=== PATIENT | female | born 1965 | race Caucasian/White ===

== ENCOUNTER 2017-03-31 19:08 | Emergency (ER) | payer BC ==
[~2017-03-31] VITALS: Ht 160 cm; Wt 111.1 kg
[2017-03-31 19:15] VITALS: Ht 160 cm; Wt 111.1 kg
[2017-03-31] MEDS ORDERED: SODIUM CHLORIDE 0.9% 1000ML 1,000 ML IV ONE (19:45)
[2017-03-31 19:46] VITALS: O2SAT 99
[2017-03-31] MEDS ORDERED: ASPIRIN 81 MG CHEW PO STA (19:47)
[2017-03-31 19:53] LABS: BASO % 0.4 %; BASO ABS # 0.03 K/uL (0-0.2); COMPLETE YES; EOS % 2.2 %; HEMATOCRIT 40.9 % (37-47); IG% 0.4 %; LYMPH % 26.2 %; LYMPH ABS # 1.88 K/uL (1.2-3.4); MEAN CELL VOLUME 94.9 fL (80-100); MEAN CORPUSCULAR HEMOGLOBIN 31.6 pg (25-34); MEAN CORPUSCULAR HGB CONC 33.3 g/dl (32-36); MONO % 12.7 %; NEUT % 58.1 %; PLATELET COUNT 258 K/uL (130-400); RED BLOOD COUNT 4.31 M/uL (4.2-5.4); WHITE BLOOD COUNT 7.17 K/uL (4.8-10.8)
[2017-03-31] MEDS ORDERED: NITROGLYCERIN 0.4 MG SL PER TAB CHARGE SL PRN (20:00)
[2017-03-31 20:12] LABS: ALT/SGPT 21 U/L (12-78); AST/SGOT 11 U/L (15-37); BLOOD UREA NITROGEN 19 mg/dl (7-18); BUN/CREATININE RATIO 19.5 (10-20); CALCIUM 8.7 mg/dl (8.5-10.1); CARBON DIOXIDE 28 mmol/L (21-32); CHLORIDE 107 mmol/L (98-107); CREATININE 0.99 mg/dl (0.60-1.20); GLUCOSE 67 mg/dl (70-99); POTASSIUM 3.6 mmol/L (3.5-5.1); SODIUM 142 mmol/L (136-145)
[2017-03-31 20:16] LABS: PREG INTERNAL NEGATIVE QC NEG CLEAR BACKGROUND; PREG INTERNAL POSITIVE QC POS CONTROL LINE
[2017-03-31 20:17] LABS: ALKALINE PHOSPHATASE 89 U/L (45-117); CKMB/CK RATIO 0.5 (0-3.0)
--- NOTE | 2017-03-31 20:19 | DIAGNOSTIC IMAGING REPORT ---
CHEST ONE VIEW PORTABLE CLINICAL HISTORY: Chest pain. Left arm pain. COMPARISON STUDY: Chest radiograph April 07, 2016. FINDINGS: Mild elevation of the left hemidiaphragm with left basilar atelectasis is unchanged. Cardiac size is normal. Mediastinal contours are normal. There is no evidence of pulmonary edema. The appearance of the chest is unchanged. IMPRESSION: No acute cardiopulmonary findings. No change in appearance of the chest. Electronically signed by: Cesar Melgar M.D. 03/31/2017 8:18 PM Dictated Date/Time: 03/31/2017 8:17 PM
[2017-03-31] MEDS ORDERED: MoRPHine SULFATE 2 MG/ML CARP IV STA (20:52)
[2017-03-31 22:47] VITALS: BP 130/70; PULSE 68; O2SAT 97
--- NOTE | 2017-04-02 00:28 | EMERGENCY ROOM VISIT NOTE ---
ED Visit Note First contact with patient: 19:34 Chief Complaint: Chest pain. History of Present Illness: Ms. Tyler is a 51 year-old white female complaining of chest pain. Historically patient reports she does not have any history of heart disease but has risks factors of send her lifestyle and obesity. She does report she has a family history of coronary artery disease which includes her mother who has had cardiovascular disease and valvular heart disease. Patient reports an acute onset of pain that started approximately 2 hours ago when she was at rest. Since that time the pain has been constant. The pain is currently described as cramping. She places her discomfort over the left lateral aspect of the sternum then transfer's is superiorly to the lateral aspect of the neck, into the scapular area then back into the mid trapezius, over to her shoulder and down to the forearm. The pain is nonradiating. She rates her discomfort 10/10. She has not identified any aggravating or alleviating factors related to the pain. She has not taken any medications for pain prior to arrival at the hospital. She denies any associated symptoms but does report 3-4 years ago she had similar symptoms then she was diagnosed with an esophageal spasm. Patient denies fevers, chills, sweats, skin eruptions, skin color changes, upper respiratory tract symptoms, wheezing, cough shortness of breath, orthopnea , dependent edema, previous clots, claudication, cramping, recent surgery/ inactivity/extended travel, abdominal pain, nausea, vomiting, diarrhea, constipation, rectal bleeding, black/tarry stools, urinary symptoms, back/flank pain. Review of Systems: As noted above in history of present illness. All body systems were reviewed and found to be negative as noted above. Past Medical History: Migraine headaches, hypothyroidism, status post unspecified hernia repair, hysterectomy and section. Current Medications: Pamelor, thyroid, verapamil. Allergies to Medications: Sulfa, citalopram, levothyroxine yellow dye. Social History: Patient is currently employed; she feels safe in her home environment; she denies tobacco and alcohol use. Physical Examination: Vital Signs: Date Time Temp Pulse Resp B/P Pulse Ox O2 Delivery O2 Flow Rate FiO2 03/31/17 22:47 68 16 130/70 97 Room Air 03/31/17 22:17 65 19 97 03/31/17 21:47 67 19 95 03/31/17 21:31 131/80 03/31/17 21:17 64 20 96 03/31/17 21:12 67 14 97 03/31/17 21:01 126/73 03/31/17 20:42 74 16 95 03/31/17 20:37 71 17 94 03/31/17 20:31 128/77 03/31/17 20:07 78 20 96 03/31/17 20:02 117/73 03/31/17 19:46 99 Room Air 03/31/17 19:41 79 03/31/17 19:38 79 21 03/31/17 19:22 95 Room Air 03/31/17 19:15 67 18 143/86 100 Room Air GENERAL: 51-year-old female in mild to moderate distress due to pain, nontoxic- appearing, afebrile and hemodynamically stable. NEUROLOGICAL: Awake, alert and oriented to person, place and time. Answering questions appropriately and following commands. Normal gait. Good hand eye coordination. SKIN: Warm, dry and pink. No soft tissue eruptions or trauma noted. HEENT: Atraumatic and normocephalic. PERRLA. Sclera white and conjunctiva pink. Oral cavity moist and pink. Pharynx is nonerythematous or edematous. Speech normal. No lymphadenopathy. Trachea midline. No jugular venous distention. No carotid bruits. BACK: No tenderness over the bony spine. Full range of motion of the cervical spine. No CVA tenderness. THORAX: Lungs sounds are clear to auscultation and equal bilaterally with symmetrical chest wall. No wheezing, rales or rhonchi. No crepitus, tenderness , subcutaneous air or deformities noted. HEART: Regular rate and rhythm. No gallops, rubs or murmurs are appreciated. No lifts, heaves or thrills. PMI is not displaced. ABDOMEN: Flat, soft and nontender. Positive bowel sounds in all quadrants. No guarding, rigidity or organomegaly. EXTREMITIES: Moves all extremities well on command and with purpose. All distal neurovascular statuses are intact and equal bilaterally. Minimal dependent edema but no calf tenderness/cords. ED Course: Patient is assessed as noted above. Laboratory Testing: Test 03/31/17 19:35 03/31/17 19:42 Range/Units White Blood Count 7.17 4.8-10.8 K/uL Red Blood Count 4.31 4.2-5.4 M/uL Hemoglobin 13.6 12.0-16.0 g/dL Hematocrit 40.9 37-47 % Mean Corpuscular Volume 94.9 80-100 fL Mean Corpuscular Hemoglobin 31.6 25-34 pg Mean Corpuscular Hemoglobin Concent 33.3 32-36 g/dl Platelet Count 258 130-400 K/uL Mean Platelet Volume 9.0 7.4-10.4 fL Neutrophils (%) (Auto) 58.1 % Lymphocytes (%) (Auto) 26.2 % Monocytes (%) (Auto) 12.7 % Eosinophils (%) (Auto) 2.2 % Basophils (%) (Auto) 0.4 % Neutrophils # (Auto) 4.16 1.4-6.5 K/uL Lymphocytes # (Auto) 1.88 1.2-3.4 K/uL Monocytes # (Auto) 0.91 0.11-0.59 K/uL Eosinophils # (Auto) 0.16 0-0.5 K/uL Basophils # (Auto) 0.03 0-0.2 K/uL RDW Standard Deviation 46.6 36.4-46.3 fL RDW Coefficient of Variation 13.2 11.5-14.5 % Immature Granulocyte % (Auto) 0.4 % Immature Granulocyte # (Auto) 0.03 0.00-0.02 K/uL Sodium Level 142 136-145 mmol/L Potassium Level 3.6 3.5-5.1 mmol/L Chloride Level 107 98-107 mmol/L Carbon Dioxide Level 28 21-32 mmol/L Anion Gap 7.0 3-11 mmol/L Blood Urea Nitrogen 19 7-18 mg/dl Creatinine 0.99 0.60-1.20 mg/dl Est Creatinine Clear Calc Drug Dose 82.3 ml/min Estimated GFR () 77.6 Estimated GFR (Non- 66.9 BUN/Creatinine Ratio 19.5 10-20 Random Glucose 67 70-99 mg/dl Calcium Level 8.7 8.5-10.1 mg/dl Total Bilirubin 0.3 0.2-1 mg/dl Direct Bilirubin < 0.1 0-0.2 mg/dl Aspartate Amino Transf (AST/SGOT) 11 15-37 U/L Alanine Aminotransferase (ALT/SGPT) 21 12-78 U/L Alkaline Phosphatase 89 45-117 U/L Total Creatine Kinase 92 26-192 U/L Creatine Kinase MB 0.5 0.5-3.6 ng/ml Creatine Kinase MB Ratio 0.5 0-3.0 Troponin I < 0.015 0-0.045 ng/ml Total Protein 7.2 6.4-8.2 gm/dl Albumin 3.6 3.4-5.0 gm/dl Lipase 178 73-393 U/L Human Chorionic Gonadotropin, Qual NEG NEG Bedside Troponin I 0.000 0-0.045 ng/ml EKG #[id number] was read by myself and reviewed with Dr. Mckenna; shows normal sinus rhythm with a ventricular rate of 64 bpm. One PVC. Normal intervals, complexes. No acute ST changes indicating ischemia, injury or Infarction. EKG #2: [id number] was read by myself and reviewed with Dr. Mckenna; shows normal sinus rhythm with sinus arrhythmia. Ventricular rate 62 bpm. Normal intervals , complexes. No acute ST changes indicating ischemia, injury or infarction. Chest x-rays: Was reviewed by myself and read by the radiologist showing mild elevation of the left hemidiaphragm with left basilar atelectasis that was unchanged. Cardiac size is normal and shows no acute changes. Patient was reassessed multiple times during her stay in the emergency department. Patient was hydrated with normal saline, she received 0.4 mg of nitroglycerin SL , 324 mg of aspirin by mouth initially for her symptoms. On reassessment she reports she was feeling the same and did not feel this was her heart. She was still rating her pain a 10/10. Patient was given 2 mg of morphine IV for pain. Patient's case was reviewed with Dr. Mckenna; he independently assessed the patient we agreed on diagnostic approach, treatment, disposition and plan. Patient was educated about today's findings and instructed on her treatment plan ; she verbalizes understanding and agreement with this plan. Clinical Impression: Noncardiac chest pain. Decision-Making: Initially my differential diagnosis I considered acute coronary syndrome, thoracic aneurysm, pneumothorax, pneumonia, cervical disc disease with radiculopathy and other causes. Disposition: Patient discharged home in stable condition accompanied by her father; prior to departure she was reassessed and subjectively reported she was feeling better and reported resolution of chest pain but she was still experiencing neck pain radiating down the arm. She rated this discomfort 7/10. Plan: Patient was encouraged to continue her current medications as prescribed. Patient was encouraged to use 650 mg of acetaminophen as needed for pain; she was encouraged to avoid NSAIDs. Patient was encouraged to use 150 mg of Zantac 2 times a day. Patient was encouraged to follow-up with her primary care physician. Patient was encouraged return the ED for worsening/uncontrolled pain shortness of breath, nausea/vomiting or any new/concerning symptoms.
== END 2017-03-31 23:06 | disposition home or self-care (01) ==
LOC: C.EDB 19:11
DX: R07.89 Other chest pain (principal); I49.9 Cardiac arrhythmia, unspecified; E03.9 Hypothyroidism, unspecified; Z79.899 Other long term (current) drug therapy

== ENCOUNTER → 2017-03-31 | Outpatient (CLI) | payer BC ==
[~2017-03-31] MED LIST: CYAN3INJ IM; NORT25CA PO; THYR15TA PO; VERA240C2 PO
--- NOTE | 2017-03-31 15:11 | MAMMOGRAPHY REPORT ---
UNILATERAL RIGHT DIGITAL DIAGNOSTIC MAMMOGRAM TOMOSYNTHESIS WITH CAD AND TARGETED RIGHT ULTRASOUND: 03/31/2017 CLINICAL HISTORY: 51-year-old woman presents with right breast pain that she reports as a constant a ty, that she has noticed for several weeks. She also reports small pea-sized palpable areas within . The pain is worst, superiorly and inferiorly with possible associated thickness medially. TECHNIQUE: Right breast tomosynthesis in addition to standard 2D mammography was performed. Current study was also evaluated with a Computer Aided Detection (CAD) system. COMPARISON: Comparison is made to exams dated: 05/08/2016 mammogram, 04/23/2015 ultrasound, 04/23/2015 mammogram, 04/16/2014 mammogram, 04/12/2013 mammogram, and 04/07/2012 mammogram - [facility] enter. BREAST COMPOSITION: The tissue of the right breast is almost entirely fatty. FINDINGS: There are scattered stable benign-appearing round microcalcifications in the right breast. A stable intramammary lymph node in the right upper outer quadrant. No new suspicious mass, archi tectural distortion or cluster of microcalcifications is seen. Targeted ultrasound was performed in the areas of pain and thickening pointed out by the patient (12 :00 through 2:00 with the areas of coarse pain, and thickening was noted in the 3:00 axis, 6 cm from the nipple). Sonographic normal tissue is identified without a suspicious solid or cystic mass. IMPRESSION: ACR BI-RADS CATEGORY 2: BENIGN, TARGETED ULTRASOUND ACR BI-RADS CATEGORY 2: BENIGN Stable mammographic appearance of the right breast. There is no mammographic or targeted sonographi c evidence of malignancy in the area of pain or thickening pointed out by the patient. Therefore, c linical follow-up is recommended. Otherwise return to annual screening mammography schedule. Approximately 10% of breast cancers are not detected with mammography. A negative mammographic repor t should not delay biopsy if a clinically suggestive mass is present. Suzanne Downey M.D. ay/:03/31/2017 12:54:58 Groundman/Lineman: Jessica BRUCE)(Joe), [facility] letter sent: Normal 1/2 BI-RADS Code: ACR BI-RADS Category 2: Benign Ultrasound BI-RADS: ACR BI-RADS Category 2: Benign
== END | disposition home or self-care (01) ==
LOC: C.MAMM 09:12
PROVIDERS: ATTEND Obstetrics & Gynecology
DX: N64.4 Mastodynia (principal)

== ENCOUNTER → 2017-05-10 | Outpatient (CLI) | payer BC ==
[~2017-05-10] MED LIST changes: -CYAN3INJ IM
--- NOTE | 2017-05-12 12:34 | MAMMOGRAPHY REPORT ---
BILATERAL DIGITAL SCREENING MAMMOGRAM TOMOSYNTHESIS WITH CAD: 05/10/2017 CLINICAL HISTORY: Routine screening. Patient has no complaints. TECHNIQUE: Breast tomosynthesis in addition to standard 2D mammography was performed. Current study was also evaluated with a Computer Aided Detection (CAD) system. COMPARISON: Comparison is made to exams dated: 03/31/2017 mammogram, 05/08/2016 mammogram, 04/23/2015 ma mmogram, 04/16/2014 mammogram, 04/12/2013 mammogram, and 04/07/2012 mammogram - [facility] er. BREAST COMPOSITION: The tissue of both breasts is almost entirely fatty. FINDINGS: There are benign-appearing round microcalcifications stable in each breast. No suspicious mass, architectural distortion or cluster of suspicious microcalcifications is seen. IMPRESSION: ACR BI-RADS CATEGORY 1: NEGATIVE There is no mammographic evidence of malignancy. A 1 year screening mammogram is recommended. The pa tient will receive written notification of the results. Approximately 10% of breast cancers are not detected with mammography. A negative mammographic report should not delay biopsy if a clinically suggestive mass is present. Suzanne Downey M.D. ay/:05/10/2017 16:42:42 Copier Field Service Technician: Bri CAMPBELL(Brett)(Joe)(BD), [facility] letter sent: Normal 1/2 BI-RADS Code: ACR BI-RADS Category 1: Negative
== END | disposition home or self-care (01) ==
LOC: C.MAMM 13:54
PROVIDERS: ATTEND Obstetrics & Gynecology
DX: Z12.31 Encounter for screening mammogram for malignant neoplasm of breast (principal)

== ENCOUNTER → 2017-07-02 | Outpatient (CLI) | payer BC ==
--- NOTE | 2017-07-02 14:13 | DIAGNOSTIC IMAGING REPORT ---
ULTRASOUND LEFT LOWER EXTREMITY VENOUS CLINICAL HISTORY: Left foot pain. COMPARISON STUDY: No priors. TECHNIQUE: Real-time, grayscale, and color Doppler sonography of the deep veins of the left lower extremity was performed from the inguinal crease to the calf. Compression and augmentation were utilized. FINDINGS: There is no sonographic evidence of deep venous thrombosis identified in the left lower extremity. The common femoral, superficial femoral, and popliteal veins are patent and normally compressible. The greater saphenous vein and the profunda femoris vein at the junction with the common femoral vein are clear. The visualized calf veins are patent. IMPRESSION: There is no sonographic evidence of deep venous thrombosis identified in the left lower extremity. Electronically signed by: Scar Maharaj M.D. 07/02/2017 2:12 PM Dictated Date/Time: 07/02/2017 2:12 PM
== END | disposition home or self-care (01) ==
LOC: C.ULTRBC 13:38
PROVIDERS: ATTEND Nurse Practitioner Family
DX: M79.89 Other specified soft tissue disorders (principal); M79.672 Pain in left foot

== ENCOUNTER 2017-10-21 18:20 | Emergency (ER) | payer BC ==
[~2017-10-21] VITALS: Ht 160 cm; Wt 110.0 kg
[2017-10-21 18:32] VITALS: TEMP 36.4; Ht 160 cm; Wt 110.0 kg
[2017-10-21] MEDS ORDERED: MoRPHine SULFATE 10 MG/ML CARP/VIAL IV STA (18:52)
[2017-10-21] MEDS ORDERED: ONDANSETRON INJ 2 MG/ML 2 ML VIAL IV STA ×2 (18:52→20:23)
[2017-10-21] MEDS ORDERED: SODIUM CHLORIDE 0.9% 1000ML 1,000 ML IV STA (18:52)
[2017-10-21 19:15] LABS: BASO % 0.1 %; BASO ABS # 0.01 K/uL (0-0.2); COMPLETE YES; EOS % 0.4 %; HEMATOCRIT 41.1 % (37-47); IG% 0.2 %; LYMPH % 6.5 %; LYMPH ABS # 0.69 K/uL (1.2-3.4); MEAN CELL VOLUME 94.1 fL (80-100); MEAN CORPUSCULAR HEMOGLOBIN 33.4 pg (25-34); MEAN CORPUSCULAR HGB CONC 35.5 g/dl (32-36); MEAN PLATELET VOLUME 9.2 fL (7.4-10.4); MONO % 6.5 %; NEUT % 86.3 %; PLATELET COUNT 259 K/uL (130-400); RED BLOOD COUNT 4.37 M/uL (4.2-5.4); WHITE BLOOD COUNT 10.54 K/uL (4.8-10.8)
[2017-10-21] MEDS ORDERED: OPTIRAY 320 IV PRN (19:15)
[2017-10-21] MEDS ORDERED: [UNRECOGNIZED DRUG - CODE] PO (19:26)
[2017-10-21 19:33] LABS: BUN/CREATININE RATIO 23.7 (10-20); CALCIUM 9.1 mg/dl (8.5-10.1); CREATININE 0.92 mg/dl (0.60-1.20); POTASSIUM 3.6 mmol/L (3.5-5.1)
[2017-10-21 19:34] LABS: URINE APPEARANCE CLEAR (CLEAR); URINE BILIRUBIN NEG (NEG); URINE COLOR YELLOW; URINE NITRITE NEG (NEG); URINE PH 8.5 (4.5-7.5); URINE SPECIFIC GRAVITY 1.025 (1.000-1.030); UROBILINOGEN NEG (NEG)
[2017-10-21 19:37] LABS: MANUAL MICROSCOPIC REQUIRED? NO; REVIEW REQ? NO
--- NOTE | 2017-10-21 20:13 | DIAGNOSTIC IMAGING REPORT ---
ABDOMINAL ULTRASOUND, RIGHT UPPER QUADRANT HISTORY: Right-sided abdominal pain.. COMPARISON: Abdomen and pelvis CT 08/20/2016. FINDINGS: Pancreas: Not well-visualized due to overlying bowel gas. Liver: Stable 2.8 cm cyst within the right hepatic lobe. Gallbladder: No gallbladder wall thickening. No gallstones. CBD: 4 mm. Right kidney: No hydronephrosis. IMPRESSION: 1. Normal gallbladder. No gallstones. 2. Stable 2.8 cm cyst within the right hepatic lobe. Electronically signed by: Jose Antonio Gonzalez M.D. 10/21/2017 8:12 PM Dictated Date/Time: 10/21/2017 8:09 PM
--- NOTE | 2017-10-21 21:10 | EMERGENCY ROOM VISIT NOTE ---
ED Visit Note First contact with patient: 18:39 Chief Complaint: Abdominal pain. History of Present Illness: Ms. Tyler is a 51 year-old white female who ambulates into the ED complaining of right lower quadrant abdominal pain. Historically patient reports she has a history of endometriosis with 11 exploratory laparoscopies, status post abdominal hernia repair 2, section 2 and hysterectomy. Patient reports a gradual onset of right lower quadrant abdominal pain that started approximately 9 hours ago. Since that time the pain has been constant and gradually increasing in intensity. Although she describes it as right lower quadrant pain she does place her discomfort in the right lower quadrant but also into the right upper quadrant and epigastric. The pain is currently described as constant cramping and occasionally sharp. The pain is nonradiating to the back or the left side of the abdomen. She is rating her discomfort 8/10. She has not identified any aggravating or alleviating factors related to the pain. She has not taken any medications for pain prior to arrival at the hospital. Associated with the pain there has been nausea but no vomiting and loose but not watery stools. Patient denies fevers, chills, sweats, skin eruptions, skin color changes, upper respiratory tract symptoms, shortness of breath, chest pain, diarrhea, constipation, rectal bleeding, black/tarry stools, urinary symptoms, hematuria, vaginal bleeding, vaginal discharge, back/flank pain. Review of Systems: As noted above in history of present illness. All body systems were reviewed and found to be negative as noted above. Past Medical History: As previously mentioned and paraesophigal Current Medications: Pamelor, [place] Thyroid, verapamil and naproxen. Allergies to Medications: Citalopram, levothyroxine, sulfa and yellow dye. Social History: He is currently employed; she feels safe in her home environment ; she denies tobacco and alcohol use. Physical Examination: Vital Signs: Date Time Temp Pulse Resp B/P (MAP) Pulse Ox O2 Delivery O2 Flow Rate FiO2 10/21/17 20:14 80 20 119/88 96 Room Air 10/21/17 19:24 83 10/21/17 18:32 36.4 77 16 114/83 99 Room Air GENERAL: 51-year-old female in mild to moderate distress due to pain, nontoxic- appearing, afebrile and hemodynamically stable. NEUROLOGICAL: Awake, alert and oriented to person, place and time. Answering questions appropriately and following commands. Normal gait. Good hand eye coordination. SKIN: Warm, dry and pink. No soft tissue eruptions or trauma noted. HEENT: Atraumatic and normocephalic. PERRL. Sclera white and conjunctiva pink. Oral cavity moist and pink. Pharynx is nonerythematous or edematous. Speech normal. No lymphadenopathy. Trachea midline. No jugular venous distention. BACK: No tenderness over the bony spine. No CVA tenderness. THORAX: Lungs sounds are clear to auscultation and equal bilaterally with symmetrical chest wall. No wheezing, rales or rhonchi. No crepitus, tenderness , subcutaneous air or deformities noted. HEART: Regular rate and rhythm. No gallops, rubs or murmurs are appreciated. ABDOMEN: Obese and soft with moderate tenderness throughout the right side of the abdomen and epigastric area. Positive bowel sounds in all quadrants. No guarding, rigidity or organomegaly. EXTREMITIES: Moves all extremities well on command and with purpose. All distal neurovascular statuses are intact and equal bilaterally. ED Course: Patient is assessed as noted above. Laboratory Testing: Test 10/21/17 19:00 Range/Units White Blood Count 10.54 4.8-10.8 K/uL Red Blood Count 4.37 4.2-5.4 M/uL Hemoglobin 14.6 12.0-16.0 g/dL Hematocrit 41.1 37-47 % Mean Corpuscular Volume 94.1 80-100 fL Mean Corpuscular Hemoglobin 33.4 25-34 pg Mean Corpuscular Hemoglobin Concent 35.5 32-36 g/dl Platelet Count 259 130-400 K/uL Mean Platelet Volume 9.2 7.4-10.4 fL Neutrophils (%) (Auto) 86.3 % Lymphocytes (%) (Auto) 6.5 % Monocytes (%) (Auto) 6.5 % Eosinophils (%) (Auto) 0.4 % Basophils (%) (Auto) 0.1 % Neutrophils # (Auto) 9.10 1.4-6.5 K/uL Lymphocytes # (Auto) 0.69 1.2-3.4 K/uL Monocytes # (Auto) 0.68 0.11-0.59 K/uL Eosinophils # (Auto) 0.04 0-0.5 K/uL Basophils # (Auto) 0.01 0-0.2 K/uL RDW Standard Deviation 44.7 36.4-46.3 fL RDW Coefficient of Variation 13.0 11.5-14.5 % Immature Granulocyte % (Auto) 0.2 % Immature Granulocyte # (Auto) 0.02 0.00-0.02 K/uL Urine Color YELLOW Urine Appearance CLEAR CLEAR Urine pH 8.5 4.5-7.5 Urine Specific [place] 1.025 1.000-1.030 Urine Protein NEG NEG Urine Glucose (UA) NEG NEG Urine Ketones TRACE NEG Urine Occult Blood NEG NEG Urine Nitrite NEG NEG Urine Bilirubin NEG NEG Urine Urobilinogen NEG NEG Urine Leukocyte Esterase NEG NEG Sodium Level 136 136-145 mmol/L Potassium Level 3.6 3.5-5.1 mmol/L Chloride Level 105 98-107 mmol/L Carbon Dioxide Level 25 21-32 mmol/L Anion Gap 6.0 3-11 mmol/L Blood Urea Nitrogen 22 7-18 mg/dl Creatinine 0.92 0.60-1.20 mg/dl Est Creatinine Clear Calc Drug Dose 88.1 ml/min Estimated GFR () 84.7 Estimated GFR (Non- 73.1 BUN/Creatinine Ratio 23.7 10-20 Random Glucose 102 70-99 mg/dl Calcium Level 9.1 8.5-10.1 mg/dl Total Bilirubin 0.5 0.2-1 mg/dl Direct Bilirubin 0.1 0-0.2 mg/dl Aspartate Amino Transf (AST/SGOT) 13 15-37 U/L Alanine Aminotransferase (ALT/SGPT) 20 12-78 U/L Alkaline Phosphatase 78 45-117 U/L Total Protein 7.6 6.4-8.2 gm/dl Albumin 3.7 3.4-5.0 gm/dl Lipase 87 73-393 U/L Gallbladder Ultrasound: Was reviewed by myself and read by the radiologist showing normal-appearing gallbladder with no thickening or gallstones. Stable 2.8 cm right hepatic lobe cyst. Contrast Abdominal/Pelvic CT: Pending. Patient was hydrated with normal saline and she received 6 mg of morphine IV for pain and a total of 8 mg of Zofran IV for nausea. Patient was reassessed multiple times during her stay in the emergency department. Patient's case was reviewed with ; we agreed on diagnostic approach , treatment, disposition and plan. Patient was educated about today's findings. Patient's care was transferred to Renee Celaya PA-C at the end of my shift pending CT results; please see her notes and orders for final disposition and plan.. Clinical Impression: Acute right-sided abdominal pain. Decision-Making: Initially my differential diagnosis I considered appendicitis, cholecystitis, pancreatitis, bowel obstruction, endometriosis exacerbation and other causes. Disposition and Plan: Please see Ms. Celaya final notes for disposition and plan.
--- NOTE | 2017-10-21 22:22 | DIAGNOSTIC IMAGING REPORT ---
ABDOMEN AND PELVIS CT WITH IV AND ORAL CONTRAST CT DOSE: 1602.61 mGy.cm HISTORY: Generalized abdominal pain. TECHNIQUE: Multiaxial CT images of the abdomen and pelvis were performed following the use of intravenous and oral contrast. A dose lowering technique was utilized adhering to the principles of ALARA. COMPARISON STUDY: Abdomen and pelvis CT 08/20/2016. FINDINGS: Bibasilar linear densities favor subsegmental atelectasis. Large left posterior diaphragmatic hernia. This contains the proximal stomach. Focal narrowing through the hernia opening of the diaphragm. The majority of the oral contrast remains within the mildly distended proximal stomach within the hernia. Therefore, this could represent a paraesophageal or [place] hernia. No pneumoperitoneum. No pneumatosis. No fractures within the visualized osseous structures. No change in the 1.8 cm cyst within the right hepatic lobe. The gallbladder, pancreas, adrenal glands, and kidneys are unremarkable. No hydronephrosis. Evidence for prior mesh repair of a ventral hernia. The uterus is surgically absent. Normal bladder. The small bowel is normal in caliber. The cecum is seen within the left midabdomen. Normal appendix. Trace perisplenic fluid, unchanged. The spleen enhances normally. IMPRESSION: 1. No significant change compared the prior study. 2. Large left posterior diaphragmatic hernia is again noted. This contains the mildly distended proximal stomach. Focal narrowing through the hernia opening of the diaphragm. The majority of the oral contrast remains within the mildly distended proximal stomach within the hernia. Therefore, this could represent a paraesophageal or [place] hernia. Therefore, this raises the possibility of a partial gastric obstruction. 3. Normal appendix. 4. Incidental note is made of the cecum within the left midabdomen. 5. Trace perisplenic fluid, unchanged. Electronically signed by: Jose Antonio Gonzalez M.D. 10/21/2017 10:21 PM Dictated Date/Time: 10/21/2017 9:55 PM
[2017-10-21] MEDS ORDERED: PROCHLORPERAZINE 5 MG/ML 2 ML VIAL IV STA (22:36)
--- NOTE | 2017-10-21 23:47 | EMERGENCY ROOM VISIT NOTE ---
ED Visit Note First contact with patient: 21:10 This patient's case was signed out to me by Emmanuel Campa PA-C at the end of his shift. The patient had presented with entire right sided abdominal pain. Labs are reviewed and were unremarkable. Ultrasound of the gallbladder was negative. The patient has been seen here on multiple occasions with similar symptoms. She has had CAT scans in the past which were negative. She does have a history of endometriosis. At the time I took over the patient's case A CT of the abdomen and pelvis was pending. This was interpreted by the radiologist as below. DIAGNOSTICS:ABDOMEN AND PELVIS CT WITH IV AND ORAL CONTRAST CT DOSE: 1602.61 mGy.cm HISTORY: Generalized abdominal pain. TECHNIQUE: Multiaxial CT images of the abdomen and pelvis were performed following the use of intravenous and oral contrast. A dose lowering technique was utilized adhering to the principles of ALARA. COMPARISON STUDY: Abdomen and pelvis CT 08/20/2016. FINDINGS: Bibasilar linear densities favor subsegmental atelectasis. Large left posterior diaphragmatic hernia. This contains the proximal stomach. Focal narrowing through the hernia opening of the diaphragm. The majority of the oral contrast remains within the mildly distended proximal stomach within the hernia. Therefore, this could represent a paraesophageal or [place] hernia. No pneumoperitoneum. No pneumatosis. No fractures within the visualized osseous structures. No change in the 1.8 cm cyst within the right hepatic lobe. The gallbladder, pancreas, adrenal glands, and kidneys are unremarkable. No hydronephrosis. Evidence for prior mesh repair of a ventral hernia. The uterus is surgically absent. Normal bladder. The small bowel is normal in caliber. The cecum is seen within the left midabdomen. Normal appendix. Trace perisplenic fluid, unchanged. The spleen enhances normally. IMPRESSION: 1. No significant change compared the prior study. 2. Large left posterior diaphragmatic hernia is again noted. This contains the mildly distended proximal stomach. Focal narrowing through the hernia opening of the diaphragm. The majority of the oral contrast remains within the mildly distended proximal stomach within the hernia. Therefore, this could represent a paraesophageal or [place] hernia. Therefore, this raises the possibility of a partial gastric obstruction. 3. Normal appendix. 4. Incidental note is made of the cecum within the left midabdomen. 5. Trace perisplenic fluid, unchanged. Electronically signed by: Jose Antonio Gonzalez M.D. 10/21/2017 10:21 PM I felt that this reading reflected that the patient was vomiting every time she tried to drink the contrast. She only got a small amount of contrast down right before she went for the CT which I feel accounts for the findings of a possible partial gastric obstruction. I feel the contrast just did not have enough time to progress through the GI tract. I therefore gave the patient 10 mg of Compazine IV. She then was able to drink a significant portion of the contrast before going back over for additional pictures in CT. The repeat CT was pending at the end of my shift and therefore the case was signed out to Robin Tran PA-C. Please see his note for patient's diagnosis and treatment plan.
--- NOTE | 2017-10-22 01:27 | EMERGENCY ROOM VISIT NOTE ---
ED Visit Note First contact with patient: 23:47 Patient care was assumed from Renee celaya PA-C, at the time of shift change. Please see Ms. Celaya dictation for further history of present illness and emergency Department course. In short, the patient has had abdominal pain with nausea and vomiting. She had a CT scan that was performed, however prior to the CT scan she was with multiple episodes of emesis. She was not adequately prepped for oral contrast, and there was question regarding the validity of the CT scan. Because of this the patient was reprepped with oral contrast after given Compazine. CT scan was repeated and is as below: Preliminary Findings Only See Final Report For Complete Findings CT ABDOMEN & PELVIS With Contrast: There is a large [place] versus paraesophageal hiatal hernia containing stomach. In comparison to prior exam, there is no longer large bowel located within the hernia. Since prior exam performed at 2145 hrs., oral contrast has partially transited into the distal stomach and proximal small bowel. There is left basilar subsegmental atelectasis. No evidence of hydronephrosis or obstructive uropathy. Findings are otherwise stable from CT performed 2 hours ago The patient's CT scan appears to show transiting contrast and resolution of large bowel that was initially located in the hernia. I did reevaluate the patient, and she is without significant tenderness on abdominal examination. She feels much better and does feel comfortable with discharge home. This seems reasonable as her CT scan does not identify an acute surgical process. She certainly does not appear to need admission to the hospital at this time. I will give the patient home pack of OxyIR and Zofran for symptomatic relief of symptoms. She will need very close follow-up with her primary care physician in the next 24-48 hours. The patient was pleased with this plan and voiced understanding. She rated her discomfort a 0/10 at the time of departure. Problem List Medical Problems: (1) Acute epigastric pain Status: Resolved (2) Acute epigastric pain Status: Resolved (3) Chest pain Status: Resolved (4) Contusion of right knee Status: Resolved (5) Costochondritis Status: Resolved (6) Facial droop Status: Resolved (7) Homocysteinemia Status: Chronic (8) Hypothyroidism Status: Chronic (9) Hypothyroidism Status: Resolved (10) Left-sided weakness Status: Resolved (11) Left-sided weakness Status: Resolved (12) Left-sided weakness Status: Resolved (13) Migraine Status: Chronic (14) Migraine Status: Resolved (15) Shortness of breath Status: Resolved (16) Shoulder pain, left Status: Resolved (17) Shoulder pain, left Status: Resolved (18) Slurred speech Status: Resolved (19) TIA (transient ischemic attack) Status: Resolved (20) Weakness on left side of face Status: Resolved Surgical Problems: (1) H/O section Status: Resolved (2) H/O hernia repair Status: Resolved (3) H/O: hysterectomy Status: Resolved Current/Historical Medications Scheduled Naproxen (Naproxen), 1 TAB PO PRN UD Nortriptyline (Pamelor), 50 MG PO HS Thyroid ([place] Thyroid), 75 MG PO QAM Verapamil Hcl (Verapamil Hcl Er), 240 MG PO HS Allergies Coded Allergies: Yellow Dye (Verified Allergy, Intermediate, RASH, 03/31/17) Sulfa Antibiotics (Verified Allergy, Mild, ,, 03/31/17) Levothyroxine (Verified Allergy, Unknown, unknown, 03/31/17) info from [facility] Citalopram (Verified Adverse Reaction, Mild, WORSENING TREMORS, 03/31/17) Vital Signs Date Time Temp Pulse Resp B/P (MAP) Pulse Ox O2 Delivery O2 Flow Rate FiO2 10/22/17 00:59 88 20 124/78 95 Room Air 10/22/17 00:01 86 20 135/81 95 Room Air 10/21/17 22:30 90 10/21/17 22:02 82 18 115/72 98 Room Air 10/21/17 20:14 80 20 119/88 96 Room Air 10/21/17 20:13 72 18 119/88 96 Room Air 10/21/17 19:24 83 10/21/17 18:32 36.4 77 16 114/83 99 Room Air Laboratory Results 10/21/17 19:00 Red Blood Count 4.37, Mean Corpuscular Volume 94.1, Mean Corpuscular Hemoglobin 33.4, Mean Corpuscular Hemoglobin Concent 35.5, Mean Platelet Volume 9.2, Neutrophils (%) (Auto) 86.3, Lymphocytes (%) (Auto) 6.5, Monocytes (%) (Auto) 6.5, Eosinophils (%) (Auto) 0.4, Basophils (%) (Auto) 0.1, Neutrophils # (Auto) 9.10, Lymphocytes # (Auto) 0.69, Monocytes # (Auto) 0.68, Eosinophils # (Auto) 0.04, Basophils # (Auto) 0.01 10/21/17 19:00 Test 10/21/17 19:00 White Blood Count 10.54 K/uL (4.8-10.8) Red Blood Count 4.37 M/uL (4.2-5.4) Hemoglobin 14.6 g/dL (12.0-16.0) Hematocrit 41.1 % (37-47) Mean Corpuscular Volume 94.1 fL (80-100) Mean Corpuscular Hemoglobin 33.4 pg (25-34) Mean Corpuscular Hemoglobin Concent 35.5 g/dl (32-36) Platelet Count 259 K/uL (130-400) Mean Platelet Volume 9.2 fL (7.4-10.4) Neutrophils (%) (Auto) 86.3 % Lymphocytes (%) (Auto) 6.5 % Monocytes (%) (Auto) 6.5 % Eosinophils (%) (Auto) 0.4 % Basophils (%) (Auto) 0.1 % Neutrophils # (Auto) 9.10 K/uL (1.4-6.5) Lymphocytes # (Auto) 0.69 K/uL (1.2-3.4) Monocytes # (Auto) 0.68 K/uL (0.11-0.59) Eosinophils # (Auto) 0.04 K/uL (0-0.5) Basophils # (Auto) 0.01 K/uL (0-0.2) RDW Standard Deviation 44.7 fL (36.4-46.3) RDW Coefficient of Variation 13.0 % (11.5-14.5) Immature Granulocyte % (Auto) 0.2 % Immature Granulocyte # (Auto) 0.02 K/uL (0.00-0.02) Urine Color YELLOW Urine Appearance CLEAR (CLEAR) Urine pH 8.5 (4.5-7.5) Urine Specific [place] 1.025 (1.000-1.030) Urine Protein NEG (NEG) Urine Glucose (UA) NEG (NEG) Urine Ketones TRACE (NEG) Urine Occult Blood NEG (NEG) Urine Nitrite NEG (NEG) Urine Bilirubin NEG (NEG) Urine Urobilinogen NEG (NEG) Urine Leukocyte Esterase NEG (NEG) Anion Gap 6.0 mmol/L (3-11) Est Creatinine Clear Calc Drug Dose 88.1 ml/min Estimated GFR () 84.7 Estimated GFR (Non- 73.1 BUN/Creatinine Ratio 23.7 (10-20) Calcium Level 9.1 mg/dl (8.5-10.1) Total Bilirubin 0.5 mg/dl (0.2-1) Direct Bilirubin 0.1 mg/dl (0-0.2) Aspartate Amino Transf (AST/SGOT) 13 U/L (15-37) Alanine Aminotransferase (ALT/SGPT) 20 U/L (12-78) Alkaline Phosphatase 78 U/L (45-117) Total Protein 7.6 gm/dl (6.4-8.2) Albumin 3.7 gm/dl (3.4-5.0) Lipase 87 U/L (73-393) Medications Administered Medications (Trade) Dose Ordered Sig/Nikki Route Start Time Stop Time Status Last Admin Dose Admin Sodium Chloride 1,000 ml @ 300 mls/hr Q3H20M STAT IV 10/21/17 18:52 10/21/17 22:11 DC 10/21/17 19:13 300 MLS/HR Ondansetron HCl (Zofran Inj) 4 mg NOW STAT IV 10/21/17 18:52 10/21/17 18:55 DC 10/21/17 19:12 4 MG Morphine Sulfate (MoRPHine SULFATE INJ) 6 mg NOW STAT IV 10/21/17 18:52 10/21/17 18:55 DC 10/21/17 19:12 6 MG Ondansetron HCl (Zofran Inj) 4 mg NOW STAT IV 10/21/17 20:23 10/21/17 20:25 DC 10/21/17 20:26 4 MG Prochlorperazine Edisylate (Compazine Inj) 10 mg NOW STAT IV 10/21/17 22:36 10/21/17 22:38 DC 10/21/17 22:48 10 MG Departure Information Impression Primary Impression: Abdominal pain Additional Impression: Nausea and vomiting Dispostion Home / Self-Care Condition GOOD Forms Call Back Authorization, HOME CARE DOCUMENTATION FORM, IMPORTANT VISIT INFORMATION Patient Instructions [facility] Additional Instructions You were seen and evaluated today on an emergency basis only. This is not a substitute for, or an effort to provide, complete comprehensive medical care. It is not possible to recognize and treat all injuries or illnesses in a single emergency department visit. For this reason it is recommended that you followup with your primary care physician in the next 1-2 days for recheck of your condition Zofran 4 mg ODT: Dissolve 1 tablet every 6 hrs as needed for nausea. Oxycodone (OxyIR) 5mg: Take ONE pill every SIX hours for breakthrough pain. Avoid alcohol, operating machinery or dangerous equipment, working on ladders or roofs, DRIVING, or situations where being under the influence may be dangerous. It is recommended to use an [id number] stool softener such as Colace, 100mg twice daily while taking this medication to avoid constipation. You are welcome to return to the emergency department anytime with new, worsening, or concerning symptoms. Problem Qualifiers
[2017-10-22] MEDS ORDERED: OXYCODONE IR HOME PACK PO ONE (01:30)
[2017-10-22] MEDS ORDERED: ONDANSETRON HOME PACK 4MG OD TAB PO ONE (01:30)
[2017-10-22 01:42] VITALS: BP 114/80; PULSE 90; O2SAT 96
== END 2017-10-22 01:43 | disposition home or self-care (01) ==
LOC: C.EDB 18:22
DX: R10.31 Right lower quadrant pain (principal); R11.2 Nausea with vomiting, unspecified; E03.9 Hypothyroidism, unspecified; Z86.73 Personal history of transient ischemic attack (TIA), and cerebral infarction without residual deficits; Z98.891 History of uterine scar from previous surgery; Z90.710 Acquired absence of both cervix and uterus; Z98.890 Other specified postprocedural states; Z79.899 Other long term (current) drug therapy

== ENCOUNTER → 2017-11-28 | Outpatient (CLI) | payer OTHER ==
[~2017-11-28] MED LIST changes: +[UNRECOGNIZED DRUG - CODE] PO
--- NOTE | 2017-11-28 14:32 | DIAGNOSTIC IMAGING REPORT ---
CHEST 2 VIEWS ROUTINE HISTORY: 51 years-old Female TIGHTNESS IN CHEST, DIZZINESS, FLU LIKE SYMPTOMS,SOB acute chest tightness and dizziness COMPARISON: Chest radiograph 03/31/2017 TECHNIQUE: PA and lateral views of the chest FINDINGS: Cardiomediastinal and hilar silhouettes are within normal limits. There is no pneumothorax, pleural effusion, focal airspace consolidation or overt pulmonary edema. Linear subsegmental left basilar opacity is again seen suggesting atelectasis or scarring. Mild left hemidiaphragmatic elevation redemonstrated. Bones of the chest appear grossly intact. IMPRESSION: No acute process. The above report was generated using voice recognition software. It may contain grammatical, syntax or spelling errors. Electronically signed by: Raj Haynes M.D. 11/28/2017 2:30 PM Dictated Date/Time: 11/28/2017 2:29 PM
== END | disposition home or self-care (01) ==
LOC: C.RAD 14:12
PROVIDERS: ATTEND Physician Assistant
DX: R06.02 Shortness of breath (principal); R68.89 Other general symptoms and signs; R42 Dizziness and giddiness; R07.89 Other chest pain

== ENCOUNTER 2017-12-26 09:19 | Emergency (ER) | payer OTHER ==
[~2017-12-26] VITALS: Ht 160 cm; Wt 112.9 kg
[2017-12-26] MEDS ORDERED: GI COCKTAIL PO STA (09:44)
[2017-12-26] MEDS ORDERED: NITROGLYCERIN 0.4 MG SL PER TAB CHARGE SL STA (09:44)
--- NOTE | 2017-12-26 09:45 | EMERGENCY ROOM VISIT NOTE ---
History Report prepared by Scribe: Bria Lock Under the Supervision of: Dr. Brandon Pinedo M.D. First contact with patient: 09:38 Chief Complaint: CHEST PAIN Stated Complaint: PAIN CHEST LEFT SHOULDER ESPOHICAL SPASM Nursing Triage Summary: Pt ate breakfast this morning and then developed "an esophageal spasm" at approximately 0900, c/o substernal cp radiating into left shoulder and neck 10/10. Hx hiatial hernia and hx of this pain accompanying it, usually takes mylanta with relief but this did not work this morning. denies cardiac hx. History of Present Illness The patient is a 52 year old female who presents to the Emergency Room with complaints of persistent chest pain since 0900 this morning. She states after she ate breakfast, she developed substernal chest pain that radiates into her left shoulder and neck. She rates her pain as a 10/10 in severity and states "I think it's an esophageal spasm". Mylanta has provided minimal relief. She denies any difficulty breathing, nausea, vomiting or diarrhea. She admits to a family history of heart disease over the age of 50, but denies any personal cardiac history. The patient denies any recent travel or surgeries. Source of History: patient Onset: 0900 this morning Position: chest Symptom Intensity: 10/10 Timing: other (persistent) Modifying Factors (Relieving): other (Mylanta) Associated Symptoms: No SOB, No nausea, No vomiting, No diarrhea Review of Systems See HPI for pertinent positives & negatives. A total of 10 systems reviewed and were otherwise negative. Past Medical & Surgical Medical Problems: (1) Acute epigastric pain (2) Acute epigastric pain (3) Chest pain (4) Contusion of right knee (5) Costochondritis (6) Facial droop (7) Homocysteinemia (8) Hypothyroidism (9) Hypothyroidism (10) Left-sided weakness (11) Left-sided weakness (12) Left-sided weakness (13) Migraine (14) Migraine (15) Shortness of breath (16) Shoulder pain, left (17) Shoulder pain, left (18) Slurred speech (19) TIA (transient ischemic attack) (20) Weakness on left side of face Surgical Problems: (1) H/O section (2) H/O hernia repair (3) H/O: hysterectomy (4) History of section Family History FHx: cancer FHx: diabetes FHx: heart disease FHx: hypertension FHx: kidney disease/stones FHx: seizures Thyroid disease Social History Smoking Status: Never Smoker Alcohol Use: none Drug Use: none Marital Status: Housing Status: lives with family Occupation Status: employed Current/Historical Medications Scheduled Naproxen (Naproxen), 1 TAB PO PRN UD Nortriptyline (Pamelor), 50 MG PO HS Thyroid ([place] Thyroid), 75 MG PO QAM Verapamil Hcl (Verapamil Hcl Er), 240 MG PO HS Allergies Coded Allergies: Yellow Dye (Verified Allergy, Intermediate, RASH, 12/26/17) Sulfa Antibiotics (Verified Allergy, Mild, ,, 12/26/17) Levothyroxine (Verified Allergy, Unknown, unknown, 12/26/17) info from [facility] Citalopram (Verified Adverse Reaction, Mild, WORSENING TREMORS, 12/26/17) Physical Exam Vital Signs Date Time Temp Pulse Resp B/P (MAP) Pulse Ox O2 Delivery O2 Flow Rate FiO2 12/26/17 11:15 81 154/92 95 Room Air 12/26/17 11:12 83 18 158/101 100 Room Air 12/26/17 10:44 184/97 12/26/17 10:20 81 18 173/113 95 Room Air 12/26/17 10:02 79 18 183/87 97 Room Air 12/26/17 09:53 72 12/26/17 09:48 81 18 164/98 99 Room Air 12/26/17 09:48 98 Room Air 12/26/17 09:25 36.3 77 20 160/105 100 Room Air Physical Exam GENERAL: Patient is anxious appearing and in moderate distress. HEENT: No acute trauma, normocephalic atraumatic, mucous membranes moist, no nasal congestion, no scleral icterus. NECK: No stridor, no adenopathy, no meningismus, trachea is midline. LUNGS: No dyspnea. Clear to auscultation and equal bilaterally. No wheeze, no rhonchi. HEART: Regular rate and rhythm. No murmurs, rubs, gallops appreciated. ABDOMEN: Soft, nontender, bowel sounds positive, no masses appreciated, no peritonitis. BACK: No midline tenderness, no CVA tenderness EXTREMITIES: Normal motion all extremities, no cyanosis, no edema. NEUROLOGIC: Alert and oriented, no acute motor or sensory deficits, no focal weakness, cranial nerves grossly intact. SKIN: No rash, no jaundice, no diaphoresis. Medical Decision & Procedures ER Provider Diagnostic Interpretation: Radiology results and stated below per my review and radiologist interpretation: CHEST ONE VIEW PORTABLE CLINICAL HISTORY: Chest pain. Left shoulder pain. COMPARISON STUDY: Chest radiograph April or 2017. FINDINGS: Mild elevation of the left hemidiaphragm is noted. Prominent gas-filled loops of bowel within the left upper quadrant are noted. There is no evidence for pulmonary edema. Mild left basilar opacity favors atelectasis. Cardiomediastinal silhouette is stable allowing for mild patient rotation. IMPRESSION: No acute cardiopulmonary findings. Electronically signed by: Cesar Melgar M.D. 12/26/2017 10:16 AM Laboratory Results 12/26/17 09:35 Red Blood Count 4.24, Mean Corpuscular Volume 94.3, Mean Corpuscular Hemoglobin 32.5, Mean Corpuscular Hemoglobin Concent 34.5, Mean Platelet Volume 8.8, Neutrophils (%) (Auto) 58.1, Lymphocytes (%) (Auto) 28.4, Monocytes (%) (Auto) 11.2, Eosinophils (%) (Auto) 1.0, Basophils (%) (Auto) 0.3, Neutrophils # (Auto ) 3.58, Lymphocytes # (Auto) 1.75, Monocytes # (Auto) 0.69, Eosinophils # (Auto ) 0.06, Basophils # (Auto) 0.02 12/26/17 09:35 Test 12/26/17 09:35 White Blood Count 6.16 K/uL (4.8-10.8) Red Blood Count 4.24 M/uL (4.2-5.4) Hemoglobin 13.8 g/dL (12.0-16.0) Hematocrit 40.0 % (37-47) Mean Corpuscular Volume 94.3 fL (80-100) Mean Corpuscular Hemoglobin 32.5 pg (25-34) Mean Corpuscular Hemoglobin Concent 34.5 g/dl (32-36) Platelet Count 232 K/uL (130-400) Mean Platelet Volume 8.8 fL (7.4-10.4) Neutrophils (%) (Auto) 58.1 % Lymphocytes (%) (Auto) 28.4 % Monocytes (%) (Auto) 11.2 % Eosinophils (%) (Auto) 1.0 % Basophils (%) (Auto) 0.3 % Neutrophils # (Auto) 3.58 K/uL (1.4-6.5) Lymphocytes # (Auto) 1.75 K/uL (1.2-3.4) Monocytes # (Auto) 0.69 K/uL (0.11-0.59) Eosinophils # (Auto) 0.06 K/uL (0-0.5) Basophils # (Auto) 0.02 K/uL (0-0.2) RDW Standard Deviation 46.0 fL (36.4-46.3) RDW Coefficient of Variation 13.4 % (11.5-14.5) Immature Granulocyte % (Auto) 1.0 % Immature Granulocyte # (Auto) 0.06 K/uL (0.00-0.02) D-Dimer 350 ug/L FEU (0-500) Anion Gap 10.0 mmol/L (3-11) Est Creatinine Clear Calc Drug Dose 77.5 ml/min Estimated GFR () 71.7 Estimated GFR (Non- 61.9 BUN/Creatinine Ratio 14.6 (10-20) Calcium Level 9.1 mg/dl (8.5-10.1) Laboratory results as reviewed by me. Medications Administered Medications (Trade) Dose Ordered Sig/Nikki Route Start Time Stop Time Status Last Admin Dose Admin Nitroglycerin (Nitrostat Tab) 0.4 mg NOW STAT SL 12/26/17 09:44 12/26/17 09:46 DC 12/26/17 10:02 0.4 MG Labetalol HCl (Normodyne IV) 10 mg NOW STAT IV 12/26/17 10:52 12/26/17 10:53 DC 12/26/17 11:10 10 MG Al Hydroxide/Mg Hydroxide (Maalox Susp) 30 ml STK-MED ONCE .ROUTE 12/26/17 11:02 12/26/17 11:03 DC 12/26/17 11:05 30 ML Lidocaine HCl (Viscous Lidocaine 2% Soln) 20 ml STK-MED ONCE .ROUTE 12/26/17 11:02 12/26/17 11:03 DC 12/26/17 11:05 20 ML Aspirin (Aspirin Chew) 324 mg NOW STAT PO 12/26/17 11:04 2/18/18 11:05 DC 12/26/17 11:10 324 MG ECG Per My Interpretation Indication: chest pain Rate (beats per minute): 89 Rhythm: normal sinus Findings: no acute ischemic change, no ectopy ED Course 0940: The patient was evaluated in room B5. A complete history and physical exam was performed. 0944: Nitrostat Tab 0.4 mg SL. 1022: Nursing informed me the initial Nitro took the patients pain from a 10 to a 7. We will give her a second Nitro. 1052: Normodyne 10 mg IV. 1100: I reevaluated the patient. She is feeling better and is agreeable to inpatient evaluation for a cardiac rule out. She states she has previously had Aspirin without problems. Some yellow dyes make her have tremors, but she is willing to try Aspirin here in the ED. 1102: Lidocaine HCl 20 ml PO, Maalox Susp 30 ml PO. 1104: Aspirin 324 mg PO. 1114: I discussed the patients case with Dr. Henderson [facility] Hospitalist. The patient will be further evaluated. Medical Decision Differential: Cardiac Ischemia (STEMI, NSTEMI, Unstable Angina, etc), Aortic Dissection, Arrhythmia, Pulmonary Embolism, Pneumonia, Pneumothorax, MSK, Infectious, Pericarditis/Myocarditis, Esophageal Rupture, Gastrointestinal, amongst other pathologies entertained. 52 yr old female arrives for evaluation of left chest pain radiating to left shoulder and neck. Hypertensive without previous cardiac disease. Given multiple rounds SLNTG that resolved pain. EKGs look OK. Given presentation, resolution with SLNTG, and her history I feel that she will require further cardiac rule out which patient agrees with vs outpatient monitoring. Stable throughout and hospitalist consulted. Medication Reconcilliation Current Medication List: was personally reviewed by me Blood Pressure Screening Patient's blood pressure: Elevated blood pressure The patients elevated blood pressure will be further monitored by the hospital medicine team. Consults Time Called: 1111 Consulting Physician: Dr. Henderson [facility] Hospitalist Returned Call: [phone] I discussed the patients case with Dr. Henderson [facility] Hospitalist. The patient will be further evaluated. Impression Primary Impression: Pressure in left side of chest Additional Impression: Hypertension Scribe Attestation The scribe's documentation has been prepared under my direction and personally reviewed by me in its entirety. I confirm that the note above accurately reflects all work, treatment, procedures, and medical decision making performed by me. Departure Information Dispostion Being Evaluated By Hospitalist Referrals No Doctor, Assigned (PCP) Patient Instructions My [facility] Problem Qualifiers
[2017-12-26 09:51] LABS: BASO % 0.3 %; BASO ABS # 0.02 K/uL (0-0.2); EOS ABS # 0.06 K/uL (0-0.5); HEMOGLOBIN 13.8 g/dL (12.0-16.0); IG# 0.06 K/uL (0.00-0.02); LYMPH % 28.4 %; LYMPH ABS # 1.75 K/uL (1.2-3.4); MEAN CELL VOLUME 94.3 fL (80-100); MEAN CORPUSCULAR HEMOGLOBIN 32.5 pg (25-34); MEAN CORPUSCULAR HGB CONC 34.5 g/dl (32-36); MEAN PLATELET VOLUME 8.8 fL (7.4-10.4); MONO % 11.2 %; MONO ABS # 0.69 K/uL (0.11-0.59); NEUT % 58.1 %; NEUT ABS # 3.58 K/uL (1.4-6.5); PLATELET COUNT 232 K/uL (130-400); RED CELL DISTRIBUTION WIDTH CV 13.4 % (11.5-14.5); WHITE BLOOD COUNT 6.16 K/uL (4.8-10.8)
--- NOTE | 2017-12-26 10:17 | DIAGNOSTIC IMAGING REPORT ---
CHEST ONE VIEW PORTABLE CLINICAL HISTORY: Chest pain. Left shoulder pain. COMPARISON STUDY: Chest radiograph April or 2017. FINDINGS: Mild elevation of the left hemidiaphragm is noted. Prominent gas-filled loops of bowel within the left upper quadrant are noted. There is no evidence for pulmonary edema. Mild left basilar opacity favors atelectasis. Cardiomediastinal silhouette is stable allowing for mild patient rotation. IMPRESSION: No acute cardiopulmonary findings. Electronically signed by: Cesar Melgar M.D. 12/26/2017 10:16 AM Dictated Date/Time: 12/26/2017 10:15 AM
[2017-12-26 10:18] LABS: BLOOD UREA NITROGEN 15 mg/dl (7-18); CALCIUM 9.1 mg/dl (8.5-10.1); CARBON DIOXIDE 25 mmol/L (21-32); CREATININE 1.05 mg/dl (0.60-1.20); GLUCOSE 118 mg/dl (70-99); POTASSIUM 3.8 mmol/L (3.5-5.1); SODIUM 138 mmol/L (136-145)
[2017-12-26] MEDS ORDERED: LABETALOL HCL IV 5 MG/ML 20ML IV STA (10:52)
[2017-12-26] MEDS ORDERED: ALUMINUM/MAGNESIUM SUSP 30 ML UDC ONE (11:02)
[2017-12-26] MEDS ORDERED: LIDOCAINE HCL 2% VISC SOLN 20 ML UDC ONE (11:02)
[2017-12-26] MEDS ORDERED: ASPIRIN 324 MG CHEW PO STA (11:04)
[2017-12-26] MEDS ORDERED: NITROGLYCERIN 0.4 MG SL PER TAB CHARGE SL PRN (12:00)
[2017-12-26 12:05] VITALS: O2SAT 95; Ht 160 cm; Wt 112.9 kg
--- NOTE | 2017-12-26 12:18 | History and Physical ---
History & Physical Date & Time of Service: Dec 26, 2017 at 12:04 Chief Complaint: Pain Chest Left Shoulder Espohical Spasm Primary Care Physician: Mari Williamson History of Present Illness Source: patient 52 yo female presents today with left sided pressure like chest pain which began at artound 9am, this was accompanied by sharp left neck and shoulder pain. The sharp pain is sharp, constant and was a 10/10. Her pressure like pain was shorter lived. But patient does not recall how long it lasted. She thinks it was longer than 5 minutes but less than 15 minutes. Patient was resting when the pressure like pain occurred. Patient reports this episode of pain occurred about 15-minutes to a half hour after eating. She states she has had history of esophageal spasms, but states that this feels different. Patient denies any N/V, sweats, or feeing of impending doom. Patient reports that she takes nortriptyline and calcium channel blockers for migraines She reports having only 1 episode of migraines per week. Past Medical/Surgical History Medical Problems: (1) Acute epigastric pain Status: Resolved (2) Acute epigastric pain Status: Resolved (3) Chest pain Status: Resolved (4) Contusion of right knee Status: Resolved (5) Costochondritis Status: Resolved (6) Facial droop Status: Resolved (7) Homocysteinemia Status: Chronic (8) Hypothyroidism Status: Resolved (9) Hypothyroidism Status: Chronic (10) Left-sided weakness Status: Resolved (11) Left-sided weakness Status: Resolved (12) Left-sided weakness Status: Resolved (13) Migraine Status: Resolved (14) Migraine Status: Chronic (15) Shortness of breath Status: Resolved (16) Shoulder pain, left Status: Resolved (17) Shoulder pain, left Status: Resolved (18) Slurred speech Status: Resolved (19) TIA (transient ischemic attack) Status: Resolved (20) Weakness on left side of face Status: Resolved Surgical Problems: (1) H/O section Status: Resolved (2) H/O hernia repair Status: Resolved (3) H/O: hysterectomy Status: Resolved Family History FHx: cancer FHx: diabetes FHx: heart disease FHx: hypertension FHx: kidney disease/stones FHx: seizures Thyroid disease Social History Smoking Status: Never Smoker Smokeless Tobacco Use: No Alcohol Use: none Drug Use: none Marital Status: Housing status: lives with family Occupational Status: employed Immunizations History of Influenza Vaccine: Yes Influenza Vaccine Date: Aug 14, 2007 History of Tetanus Vaccine?: utd History of Pneumococcal: No History of Hepatitis B Vaccine: No Multi-Drug Resistant Organisms History of MDRO: No Allergies Coded Allergies: Yellow Dye (Verified Allergy, Intermediate, RASH, 12/28/17) Sulfa Antibiotics (Verified Allergy, Mild, ,, 12/28/17) Levothyroxine (Verified Allergy, Unknown, unknown, 12/28/17) info from [facility] Citalopram (Verified Adverse Reaction, Mild, WORSENING TREMORS, 12/28/17) Home Medications Scheduled Lisinopril (Zestril), 10 MG PO QAM Nortriptyline (Pamelor), 50 MG PO HS Thyroid (Thorndike Thyroid), 75 MG PO QAM Verapamil Hcl (Verapamil Hcl Er), 240 MG PO HS Review of Systems Constitutional: No fever, No chills Eyes: No worsening of vision ENT: No hearing loss Respiratory: No cough, No sputum Cardiovascular: + chest pain, No orthopnea Abdomen: No pain, No nausea Musculoskeletal: No joint pain Neurologic: No memory loss Psychiatric: No depression symptoms Endocrine: No fatigue Hematologic / Lymphatic: No abnormal bleeding/bruising Integumentary: No rash Allergic / Immunologic: No environmental allergies Physical Exam Vital Signs Date Time Temp Pulse Resp B/P (MAP) Pulse Ox O2 Delivery O2 Flow Rate FiO2 12/26/17 11:15 81 154/92 95 Room Air 12/26/17 11:12 83 18 158/101 100 Room Air 12/26/17 10:44 184/97 12/26/17 10:20 81 18 173/113 95 Room Air 12/26/17 10:02 79 18 183/87 97 Room Air 12/26/17 09:53 72 12/26/17 09:48 81 18 164/98 99 Room Air 12/26/17 09:48 98 Room Air 12/26/17 09:25 36.3 77 20 160/105 100 Room Air General Appearance: WD/WN, no apparent distress Head: normocephalic Eyes: normal inspection ENT: normal ENT inspection Neck: supple, no adenopathy Respiratory/Chest: chest non-tender Cardiovascular: regular rate, rhythm, no edema Abdomen/GI: normal bowel sounds, non tender, soft, no organomegaly Extremities/Musculoskelatal: normal inspection Neurologic/Psych: alert, oriented x 3 Skin: normal color Lymphatic: no adenopathy Diagnostics Laboratory Results Results Past 24 Hours Test 12/26/17 09:35 Range/Units White Blood Count 6.16 4.8-10.8 K/uL Red Blood Count 4.24 4.2-5.4 M/uL Hemoglobin 13.8 12.0-16.0 g/dL Hematocrit 40.0 37-47 % Mean Corpuscular Volume 94.3 80-100 fL Mean Corpuscular Hemoglobin 32.5 25-34 pg Mean Corpuscular Hemoglobin Concent 34.5 32-36 g/dl Platelet Count 232 130-400 K/uL Mean Platelet Volume 8.8 7.4-10.4 fL Neutrophils (%) (Auto) 58.1 % Lymphocytes (%) (Auto) 28.4 % Monocytes (%) (Auto) 11.2 % Eosinophils (%) (Auto) 1.0 % Basophils (%) (Auto) 0.3 % Neutrophils # (Auto) 3.58 1.4-6.5 K/uL Lymphocytes # (Auto) 1.75 1.2-3.4 K/uL Monocytes # (Auto) 0.69 0.11-0.59 K/uL Eosinophils # (Auto) 0.06 0-0.5 K/uL Basophils # (Auto) 0.02 0-0.2 K/uL RDW Standard Deviation 46.0 36.4-46.3 fL RDW Coefficient of Variation 13.4 11.5-14.5 % Immature Granulocyte % (Auto) 1.0 % Immature Granulocyte # (Auto) 0.06 0.00-0.02 K/uL D-Dimer 350 0-500 ug/L FEU Sodium Level 138 136-145 mmol/L Potassium Level 3.8 3.5-5.1 mmol/L Chloride Level 103 98-107 mmol/L Carbon Dioxide Level 25 21-32 mmol/L Anion Gap 10.0 3-11 mmol/L Blood Urea Nitrogen 15 7-18 mg/dl Creatinine 1.05 0.60-1.20 mg/dl Est Creatinine Clear Calc Drug Dose 77.5 ml/min Estimated GFR () 71.7 Estimated GFR (Non- 61.9 BUN/Creatinine Ratio 14.6 10-20 Random Glucose 118 70-99 mg/dl Calcium Level 9.1 8.5-10.1 mg/dl Troponin I < 0.015 0-0.045 ng/ml EKG Normal sinus rhythm Normal ECG When compared with ECG of 31-MAR-2017 22:03, No significant change was found Confirmed by OSBALDO RIBEIRO ([id number]) on 12/26/2017 12:49:40 PM Impression Assessment and Plan Atypical chest pain in a 52 yo female with uncontrolled hypertension will admit under obs will trend CM x 3 first set negative will monitor BP, Hypertensive urgency goal decrease by 25% in first 24 hours. will order lisinopril 10mg today and continue migraine prohylaxis meds such as CCB Migraine cont. CBB and nortriptyline 1 migraine a week means she is controlled Hypothyroidism cont. thyroid armour Obesity lifestyle modifications Patient is allergic to yelow dye. need to be sure she does not take yellow dye medicine. I confirmed that lisnopril does not have yellow dye. Level of Care Telemetry Advanced Directives Existing Advance Directive: No Existing Living Will: No VTE Prophylaxis VTE Risk Assessment Done? Y/N: Yes Risk Level: Very Low
[2017-12-26 12:24] VITALS: O2SAT 95
[2017-12-26 12:51] VITALS: BP 146/88; PULSE 65; TEMP 36.5; O2SAT 96
[2017-12-26] MEDS ORDERED: LISINOPRIL 10 MG TAB PO ONE (13:45)
[2017-12-26] MEDS ORDERED: IV FLUIDS COMPLETED PRN (14:15)
[2017-12-26 15:09] VITALS: BP 113/75; PULSE 76; TEMP 36.6; O2SAT 95
[2017-12-26] MEDS ORDERED: ACETAMINOPHEN 325 MG TAB ONE (18:27)
[2017-12-26] MEDS ORDERED: NURSING VERBAL MED ORDER ONE ×2 (18:30→18:45)
[2017-12-26 19:05] VITALS: BP 115/78; PULSE 77; TEMP 36.5; O2SAT 95
[2017-12-26] MEDS ORDERED: NORTRIPTYLINE HCL 25 MG CAP PO SCH (21:00)
[2017-12-26] MEDS ORDERED: VERAPAMIL HCL 240 MG TABCR PO SCH (21:00)
[2017-12-27] VITALS (7 sets, daily range): BP systolic 97–168; BP diastolic 63–87; PULSE 75–87; TEMP 36.5–36.8; O2SAT 93–95
[2017-12-27] MEDS ORDERED: ARMOUR THYROID 30 MG TAB PO SCH ×2 (06:00→09:00)
[2017-12-27] MEDS: ACETAMINOPHEN 325 MG TAB PO PRN ×2 (08:57→16:16)
[2017-12-27] MEDS ORDERED: LISINOPRIL 10 MG TAB PO SCH (09:00)
[2017-12-27] MEDS ORDERED: ASPIRIN 81 MG CHEW PO SCH (09:00)
[2017-12-27] MEDS ORDERED: PERFLUTREN LIPID MICROSPHERE (DEFINITY) IV ONE (11:22)
[2017-12-27] MEDS ORDERED: LSN10 PO (14:33)
--- NOTE | 2017-12-27 14:38 | Discharge Instructions ---
Discharge Instructions Date of Service Dec 27, 2017. Admission Reason for Admission: Pressure In Left Side Of Chest Discharge Discharge Diagnosis / Problem: Left shoulder/neck pain Discharge Goals Goal(s): Decrease discomfort, Diagnostic testing, Therapeutic intervention Activity Recommendations Activity Limitations: resume your previous activity (as tolerated) . Instructions / Follow-Up Instructions / Follow-Up You were admitted to the hospital after presenting with severe left shoulder/ neck pain that was concerning for a possible atypical cardiac chest pain. You had a cardiology work up that included serial cardiac enzymes, EKG, cardiac monitoring overnight and a stress echocardiogram, all of which was normal. Your pain greatly improved with Tylenol and a heating pad. This pain is likely musculoskeletal in nature and benign. Your blood pressure was found to be elevated while inpatient. You were started on a new medication for blood pressure, which is now well controlled. As your cardiac work up is negative and your pain is improved, you are medically stable for discharge to home. Medications: *Please take lisinopril 10 mg daily. This is a blood pressure medication that you received in the hospital. *Continue your other home medications as prescribed. Follow up: *You will be scheduled to follow up with your primary care provider regarding your hospital stay and change to your medications. Please seek medical attention if you experience fevers, chills, sweats, dizziness/lightheadedness, loss of consciousness, chest pain, shortness of breath, nausea, vomiting, numbness or tingling. Current Hospital Diet Patient's current hospital diet: AHA Diet (Heart Healthy) Discharge Diet Recommended Diet: AHA Diet (Heart Healthy) Procedures Procedures Performed: Stress echocardiogram Pending Studies Studies pending at discharge: no Medical Emergencies . Who to Call and When: Medical Emergencies: If at any time you feel your situation is an emergency, please call 911 immediately. . Non-Emergent Contact Non-Emergency issues call your: Primary Care Provider Call Non-Emergent contact if: you have a fever, your pain is not controlled, your pain is worsening, your pain is unusual for you, your pain is concerning you, you have any medication questions . Past History Medical & Surgical History: (1) Shoulder pain, left (2) Pressure in left side of chest . "Provider Documentation" section prepared by Brinda Patton. . VTE Core Measure Inpt VTE Proph given/why not?: Marisol Garcia, [facility]
--- NOTE | 2017-12-27 14:51 | Discharge Summary ---
Discharge Summary Date of Service Dec 27, 2017. Discharge Summary Admission Date: Dec 26, 2017 at 11:49 Discharge Date: Dec 27, 2017 Discharge Disposition: Home with services Principal Diagnosis: Left shoulder/neck pain Problems/Secondary Diagnoses: (1) Homocysteinemia Status: Chronic (2) Hypothyroidism Status: Chronic (3) Migraine Status: Chronic Immunizations: Have You Had Influenza Vaccine: Yes Influenza Vaccine Date: Aug 14, 2007 History of Tetanus Vaccine?: utd History of Pneumococcal: No History of Hepatitis B Vaccine: No Medication Reconciliation New Medications: Lisinopril (Zestril) 10 Mg Tab 10 MG PO QAM for 30 Days, #30 TAB Continued Medications: Naproxen (Naproxen) 1 Homepack Ea 1 TAB PO PRN UD Nortriptyline (Pamelor) 25 Mg Cap 50 MG PO HS, CAP Thyroid (Vancleve Thyroid) 15 Mg Tab 75 MG PO QAM Verapamil Hcl (Verapamil Hcl Er) 240 Mg Cap 240 MG PO HS Discharge Exam The patient reports feeling well. She states that the pain in her left shoulder /neck are much improved with the Tylenol and heating pad. She currently complains of a 3/10 aching pain, improved from her 10/10 pain on admission. She denies any chest pain. She states she completed her stress test without any chest pain or exacerbation of her shoulder/neck pain. She denies any other complaints. Constitutional: No fever, No chills, No sweats Eyes: No worsening of vision, No eye pain, No diplopia ENT: No hearing loss, No nasal symptoms, No trouble swallowing Respiratory: No cough, No wheezing, No shortness of breath Cardiovascular: No chest pain, No claudication, No palpitations Abdomen: No pain, No nausea, No vomiting Musculoskeletal: +3/10 aching left shoulder and left neck pain. No swelling Genitourinary - Female: No dysuria, No urinary retention, No hematuria Neurologic: No paralysis, No weakness, No numbness/tingling Integumentary: No rash, No itch, No color change General appearance: +Morbidly obese. Well-developed, well-nourished, no apparent distress Head: Normocephalic, atraumatic Eyes: Normal inspection, PERRL, EOMI ENT: Normal ENT inspection, hearing grossly normal, pharynx normal Neck: Supple, no JVD, trachea midline Respiratory/Chest: Lungs clear to auscultation, normal breath sounds, no respiratory distress Cardiovascular: Regular rate & rhythm, no gallop, no murmur Abdomen/GI: Normal bowel sounds, non-tender, soft Extremities/Musculoskeletal: Normal inspection, no calf tenderness, no pedal edema Neurological/Psych: Alert, normal mood/affect, oriented x 3 Skin: Normal color, warm/dry, no rash Hospital Course 52 y/o female with a history of TIA, hypothyroidism, and migraines who presents with left shoulder and left neck pain and a brief left chest pressure. Chest pressure, ACS r/o -Admit to telemetry for observation. No events overnight. Pt in SR with HR 70s -80s -Troponin negative x 3 -Stress echo negative -EKG no ischemic changes Shoulder/neck pain--appears to be musculoskeletal, greatly improved with Tylenol and heating pad -Encouraged pt to continue to use her heating pad at home prn, as well as OTC pain relievers HTN--BP elevated on admission, up to 184/97. No h/o HTN per pt -Started lisinopril 10 mg PO qd, now with good control. continue at discharge and f/u with PCP Hypothyroidism -Continue Vancleve Thyroid 75 mg PO qd Migraines -Continue verapamil 240 mg PO hs and nortriptyline 50 mg PO hs DVT prophylaxis -ZOE mcgarry and SCDs Code Status -Level I, FULL RESUSCITATION STATUS PA Physician Supervision Note: I interviewed and examined the patient. Discussed with Brinda POWELL and agree with findings and plan as documented in the note. Any exceptions or clarifications are listed here: None Patient was seen after stress test she had no pain during her stress test flow- assisted result was negative and likewise she had negative pretest troponins and d-dimer her vital signs remained stable her cardiac exam was regular there is no reproducible chest pain to palpation she was discharged home to resume her home medications and follow-up with a primary care provider Documented By: Kayden Mahmood Total Time Spent: Greater than 30 minutes This includes examination of the patient, discharge planning, medication reconciliation, and communication with other providers. Discharge Instructions Please refer to the electronic Patient Visit Report (Discharge Instructions) for additional information. Additional Copies To Mandi Holland CRNP; Mari Williamson
--- NOTE | 2017-12-27 15:36 | EXERCISE STRESS ECHO ---
*NOTICE TO RECEIVING CONSTITUTION PARTY AGENCY This information is strictly Confidential and protected under [place] law. [place] law prohibits you from making any further disclosure of this information unless further disclosure is expressly permitted by the written consent of the person to whom it pertains or is authorized by law. A general authorization for the release of medical or other information is not sufficient for this purpose. Hospital accepts no responsibility if the information is made available to any other person, INCLUDING THE PATIENT. Interpretation Summary * Name: GUERO SARGENT Study Date: 12/27/2017 09:31 AM BP: 93/73 mmHg * Patient Location: C.2T\S\S239\S\2 HR: 67 * : 1965 (M/d/yyyy) Gender: Female Height: 63 in * Age: 52 yrs Ethnicity: [place] Weight: 248 lb * Ordering Physician: Brinda Patton * Referring Physician: Self, Referred * Performed By: Bri Xie RCS * * Reason For Study: CHEST PAIN * BSA: 2.1 m2 * -- Conclusions -- * Stress Echo: * 1. Negative stress echo for ischemia at 85 % MPHR. * 2. Negative exercise ECG for ischemia at 85 % MPHR. * 3. Appropriate blood pressure response to exercise. * 4. No arrhythmia. * 5. Study terminated due to fatigue. No chest pain reported. Left-sided neck pain reported with initial exercise, but resolved following peak exercise. * 6. Fair exercise tolerance. * 7. Technically difficult study, enhanced with IV Definity. * Echo: * 1. Normal left ventricular size and systolic function. EF 55-60%. No regional wall motion abnormalities. No left ventricular hypertrophy. Type 1 diastolic dysfunction. * 2. Mild mitral regurgitation. * 3. Normal estimated right ventricular systolic pressure. Procedure Details * ECHOEX, CPT #[id number] * ECHO COLOR FLOW, CPT #[id number] * ECHO DOPPLER, CPT #[id number] Left Ventricle * The left ventricle is normal in size. * There is normal left ventricular wall thickness. * Left ventricular systolic function is normal. * Resting wall motion: Normal. Stress wall motion: Appropriate increase in Left ventricular systolic function and decrease in cavity size. No stress induced segmental wall motion abnormalities. * The left ventricular ejection fraction increases normally with stress. The left ventricular end-systolic cavity size reduces post-stress (normal response). The left ventricular wall motion with stress is normal. Atria * The left atrial size is normal. Mitral Valve * The mitral valve is grossly normal. * There is no mitral valve stenosis. * There is mild mitral regurgitation. Tricuspid Valve * The tricuspid valve is not well visualized, but is grossly normal. * There is no tricuspid stenosis. * There is trace tricuspid regurgitation. Aortic Valve * The aortic valve is trileaflet. * No hemodynamically significant valvular aortic stenosis. * No aortic regurgitation is present. Pulmonic Valve * The pulmonary valve is inadequately visualized, but the Doppler data is adequate for interpretation. * Trace pulmonic valvular regurgitation. Great Vessels * The aortic root is normal size. * Aortic arch of normal dimension. * Normal IVC size and inspiratory collapse. Pericardium * There is no pericardial effusion. Stress Parameters * NSR at 78 bpm. * Stress ECG: No ST changes. No arrhythmias. * No arrhythmia were noted with stress. * The stress portion of this study was personally supervised by the undersigned interpreting physician. * Rest heart rate was '67' BPM. * Rest blood pressure was '93/73' * Maximum heart rate achieved was 146 bpm. * Maximum heart rate was 85 % of maximum age-predicted heart rate. * Maximum blood pressure was '148/77' * Total exercise time was '06:53' * Maximum exercise MET level achieved was '8.30' METS * Maximum treadmill speed was '3.40' miles per hour. * Maximum treadmill elevation was '14.00'% grade. * Normal blood pressure response to exercise. MMode 2D Measurements and Calculations IVSd 0.91 cm IVSs 1.3 cm LVIDd 4.3 cm LVIDs 2.9 cm LVPWd 0.85 cm LVPWs 1.2 cm IVS/LVPW 1.1 FS 33.8 % EDV(Teich) 85.2 ml ESV(Teich) 31.6 ml EF(Teich) 63.0 % EDV(cubed) 82.1 ml ESV(cubed) 23.8 ml EF(cubed) 71.0 % % IVS thick 41.2 % % LVPW thick 41.1 % LV mass(C)d 121.8 grams LV mass(C)dI 57.5 grams/m\S\2 LV mass(C)s 109.0 grams LV mass(C)sI 51.5 grams/m\S\2 SV(Teich) 53.6 ml SI(Teich) 25.3 ml/m\S\2 SV(cubed) 58.3 ml SI(cubed) 27.5 ml/m\S\2 Ao root diam 3.2 cm Ao root area 8.1 cm\S\2 LA dimension 3.2 cm LA/Ao 1.0 LVOT diam 1.9 cm LVOT area 2.7 cm\S\2 LVAd ap4 26.6 cm\S\2 LVLd ap4 6.8 cm EDV(MOD-sp4) 86.0 ml EDV(sp4-el) 88.4 ml LVAs ap4 15.4 cm\S\2 LVLs ap4 6.2 cm ESV(MOD-sp4) 33.0 ml ESV(sp4-el) 32.6 ml EF(MOD-sp4) 61.6 % EF(sp4-el) 63.2 % LVAd ap2 31.5 cm\S\2 LVLd ap2 7.9 cm EDV(MOD-sp2) 105.3 ml EDV(sp2-el) 106.8 ml LVAs ap2 19.3 cm\S\2 LVLs ap2 6.5 cm ESV(MOD-sp2) 46.4 ml ESV(sp2-el) 48.7 ml EF(MOD-sp2) 56.0 % EF(sp2-el) 54.4 % LVLd %diff 13.8 % EDV(MOD-bp) 102.5 ml LVLs %diff 4.8 % ESV(MOD-bp) 40.2 ml EF(MOD-bp) 60.7 % SV(MOD-sp4) 53.0 ml SI(MOD-sp4) 25.0 ml/m\S\2 SV(MOD-sp2) 59.0 ml SI(MOD-sp2) 27.8 ml/m\S\2 SV(MOD-bp) 62.3 ml SI(MOD-bp) 29.4 ml/m\S\2 SV(sp4-el) 55.8 ml SI(sp4-el) 26.3 ml/m\S\2 SV(sp2-el) 58.1 ml SI(sp2-el) 27.4 ml/m\S\2 Doppler Measurements and Calculations MV E max gregory 96.0 cm/sec MV A max gregory 63.1 cm/sec MV E/A 1.5 MV P1/2t max gregory 105.3 cm/sec MV P1/2t 84.7 msec MVA(P1/2t) 2.6 cm\S\2 MV dec slope 363.8 cm/sec\S\2 MV dec time 0.22 sec Ao V2 max 118.2 cm/sec Ao max PG 5.6 mmHg Ao max PG (full) 2.8 mmHg FOZIA(V,A) 1.9 cm\S\2 FOZIA(V,D) 1.9 cm\S\2 LV V1 max PG 2.8 mmHg LV V1 max 83.8 cm/sec PA V2 max 83.7 cm/sec PA max PG 2.8 mmHg TR max gregory 231.2 cm/sec RVSP(TR) 24.4 mmHg RAP systole 3.0 mmHg
[2017-12-28] MEDS ORDERED: PRED10TA PO (13:56)
== END 2017-12-27 16:40 | disposition home or self-care (01) ==
LOC: C.EDB 09:20 → C.2T 11:49 → ENRESERV 12:01
PROVIDERS: ADMIT Internal Medicine Sports Medicine; ATTEND Internal Medicine
DX: M25.512 Pain in left shoulder (principal); M54.2 Cervicalgia; E72.11 Homocystinuria; E03.9 Hypothyroidism, unspecified; G43.909 Migraine, unspecified, not intractable, without status migrainosus; Z79.899 Other long term (current) drug therapy; Z86.73 Personal history of transient ischemic attack (TIA), and cerebral infarction without residual deficits; Z90.710 Acquired absence of both cervix and uterus; Z88.2 Allergy status to sulfonamides; Z88.1 Allergy status to other antibiotic agents; Z91.09 Other allergy status, other than to drugs and biological substances

== ENCOUNTER 2017-12-28 08:43 | Emergency (ER) | payer OTHER ==
[~2017-12-28] VITALS: Ht 160 cm; Wt 109.1 kg
[~2017-12-28 08:43] MED LIST changes: +LSN10 PO
[2017-12-28 08:46] VITALS: TEMP 36.8; Ht 160 cm; Wt 109.1 kg
[2017-12-28] MEDS ORDERED: DiphenhydrAMINE HCL 50 MG/ML VIAL IV STA ×2 (09:22→11:22)
[2017-12-28] MEDS ORDERED: DEXAMETHASONE INJ 10 MG in SYRINGE 0 ML IV ONE (09:30)
--- NOTE | 2017-12-28 09:41 | DIAGNOSTIC IMAGING REPORT ---
CHEST ONE VIEW PORTABLE HISTORY: swelling of face COMPARISON: Chest 12/26/2017. FINDINGS: Mild elevation the left hemidiaphragm and a left basilar linear densities suggesting atelectasis. This remains unchanged. The right lung is clear. The heart is normal in size. No pleural effusions. No pneumothorax. IMPRESSION: No significant change compared to the prior study. No acute process. Stable mild elevation of the left hemidiaphragm. Electronically signed by: Jose Antonio Gonzalez M.D. 12/28/2017 9:40 AM Dictated Date/Time: 12/28/2017 9:38 AM
[2017-12-28 09:53] LABS: BASO % 0.4 %; BASO ABS # 0.03 K/uL (0-0.2); EOS % 1.3 %; EOS ABS # 0.11 K/uL (0-0.5); HEMATOCRIT 42.6 % (37-47); HEMOGLOBIN 14.5 g/dL (12.0-16.0); IG# 0.04 K/uL (0.00-0.02); LYMPH % 21.8 %; LYMPH ABS # 1.78 K/uL (1.2-3.4); MEAN CELL VOLUME 96.2 fL (80-100); MEAN CORPUSCULAR HEMOGLOBIN 32.7 pg (25-34); MEAN PLATELET VOLUME 9.2 fL (7.4-10.4); MONO ABS # 0.98 K/uL (0.11-0.59); NEUT ABS # 5.21 K/uL (1.4-6.5); PLATELET COUNT 268 K/uL (130-400); RED CELL DISTRIBUTION WIDTH CV 13.5 % (11.5-14.5); RED CELL DISTRIBUTION WIDTH SD 47.3 fL (36.4-46.3); WHITE BLOOD COUNT 8.15 K/uL (4.8-10.8)
[2017-12-28 10:00] LABS: CALCIUM 9.3 mg/dl (8.5-10.1); CREATININE 1.03 mg/dl (0.60-1.20)
[2017-12-28] MEDS ORDERED: FAMOTIDINE 20MG/5ML IV PUSH IV STA (11:12)
--- NOTE | 2017-12-28 11:28 | History and Physical ---
History & Physical Date & Time of Service: Dec 28, 2017 at 11:23 Chief Complaint: Swelling On Right Side Of Face, Med Reaction Primary Care Physician: Mari Williamson History of Present Illness This is being dictated on H&P form however I feel the patient may be an emergency room consultation being able to be released from the emergency room. Patient was discharged from an observation stay on 12/27 where she presented for chest pain and had a negative stress test. Her blood pressure was noted to be high the patient had some lisinopril orally 2 doses prior to going home. Patient states that after her stress test she began to have a mild headache which she felt might of been attributed to her hospital stay and this morning she awoke with some facial swelling and a vague tightness in her throat although she is able to swallow drink speak and handle her own secretions. In the emergency room the patient received intravenous dexamethasone and diphenhydramine patient is resting comfortably she has some left-sided facial swelling she complains of a tightness in her throat oropharynx is normal significantly troubling she has no submandibular lymphadenopathy she is no stridor no wheezing. Will administer some IV famotidine and additional diphenhydramine observe her in the ER if she improves over the next few hours she likely will be released on a course of prednisone therapy and Benadryl at home. Patient does have allergies to yellow diet is unclear whether the medication at home did include yellow dye however the patient's had no previous facial swelling with her allergies. She likewise does not have significant coughing or angioedema with his KEERTHI inhibitor that was administered. Past Medical/Surgical History Medical Problems: (1) Acute epigastric pain Status: Resolved (2) Acute epigastric pain Status: Resolved (3) Chest pain Status: Resolved (4) Contusion of right knee Status: Resolved (5) Costochondritis Status: Resolved (6) Facial droop Status: Resolved (7) Homocysteinemia Status: Chronic (8) Hypothyroidism Status: Resolved (9) Hypothyroidism Status: Chronic (10) Left-sided weakness Status: Resolved (11) Left-sided weakness Status: Resolved (12) Left-sided weakness Status: Resolved (13) Migraine Status: Resolved (14) Migraine Status: Chronic (15) Shortness of breath Status: Resolved (16) Shoulder pain, left Status: Resolved (17) Shoulder pain, left Status: Resolved (18) Slurred speech Status: Resolved (19) TIA (transient ischemic attack) Status: Resolved (20) Weakness on left side of face Status: Resolved Surgical Problems: (1) H/O section Status: Resolved (2) H/O hernia repair Status: Resolved (3) H/O: hysterectomy Status: Resolved Family History FHx: cancer FHx: diabetes FHx: heart disease FHx: hypertension FHx: kidney disease/stones FHx: seizures Thyroid disease Social History Smoking Status: Never Smoker Drug Use: none Marital Status: Housing status: lives with family Occupational Status: employed Immunizations History of Influenza Vaccine: Yes Influenza Vaccine Date: Aug 14, 2007 History of Tetanus Vaccine?: utd History of Pneumococcal: No History of Hepatitis B Vaccine: No Multi-Drug Resistant Organisms History of MDRO: No Allergies Coded Allergies: Yellow Dye (Verified Allergy, Intermediate, RASH, 12/28/17) Sulfa Antibiotics (Verified Allergy, Mild, ,, 12/28/17) Levothyroxine (Verified Allergy, Unknown, unknown, 12/28/17) info from [facility] [place] Citalopram (Verified Adverse Reaction, Mild, WORSENING TREMORS, 12/28/17) Home Medications Scheduled Lisinopril (Zestril), 10 MG PO QAM Nortriptyline (Pamelor), 50 MG PO HS Prednisone Tab (Prednisone), 20 MG PO DAILY Thyroid ([place] Thyroid), 75 MG PO QAM Verapamil Hcl (Verapamil Hcl Er), 240 MG PO HS Review of Systems ROS: well nourished well developed. Noted facial swelling No double vision blurry vision No problems with speech or swallowing throat No palpitations, chest pain or pressure although the tightness in her chest No Wheezing or breathing issues No abdominal pain nausea vomiting diarrhea changes in appetite or weight No burning urine urine frequency or changes in color No focal joint pain or muscle pain No skin rashes or oral lesions No unusual bruising or bleeding No focused back pain or numbness or loss of strength No changes in memory or confusion although vague tightness in her Physical Exam Vital Signs Date Time Temp Pulse Resp B/P (MAP) Pulse Ox O2 Delivery O2 Flow Rate FiO2 12/28/17 10:24 74 16 114/73 95 12/28/17 09:08 85 12/28/17 08:46 36.8 89 18 117/82 99 Room Air Head: normocephalic, atraumatic Eyes: normal inspection, sclerae normal ENT: hearing grossly normal, + pharyngeal erythema Neck: supple, no adenopathy, no JVD Respiratory/Chest: chest non-tender, lungs clear, normal breath sounds Cardiovascular: regular rate, rhythm, no murmur Abdomen/GI: normal bowel sounds, non tender, soft Extremities/Musculoskelatal: normal capillary refill, no pedal edema, normal range of motion 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, alert, normal mood/affect, oriented x 3 Diagnostics Laboratory Results Results Past 24 Hours Test 12/28/17 09:03 Range/Units White Blood Count 8.15 4.8-10.8 K/uL Red Blood Count 4.43 4.2-5.4 M/uL Hemoglobin 14.5 12.0-16.0 g/dL Hematocrit 42.6 37-47 % Mean Corpuscular Volume 96.2 80-100 fL Mean Corpuscular Hemoglobin 32.7 25-34 pg Mean Corpuscular Hemoglobin Concent 34.0 32-36 g/dl Platelet Count 268 130-400 K/uL Mean Platelet Volume 9.2 7.4-10.4 fL Neutrophils (%) (Auto) 64.0 % Lymphocytes (%) (Auto) 21.8 % Monocytes (%) (Auto) 12.0 % Eosinophils (%) (Auto) 1.3 % Basophils (%) (Auto) 0.4 % Neutrophils # (Auto) 5.21 1.4-6.5 K/uL Lymphocytes # (Auto) 1.78 1.2-3.4 K/uL Monocytes # (Auto) 0.98 0.11-0.59 K/uL Eosinophils # (Auto) 0.11 0-0.5 K/uL Basophils # (Auto) 0.03 0-0.2 K/uL RDW Standard Deviation 47.3 36.4-46.3 fL RDW Coefficient of Variation 13.5 11.5-14.5 % Immature Granulocyte % (Auto) 0.5 % Immature Granulocyte # (Auto) 0.04 0.00-0.02 K/uL Sodium Level 139 136-145 mmol/L Potassium Level 4.0 3.5-5.1 mmol/L Chloride Level 108 98-107 mmol/L Carbon Dioxide Level 26 21-32 mmol/L Anion Gap 5.0 3-11 mmol/L Blood Urea Nitrogen 14 7-18 mg/dl Creatinine 1.03 0.60-1.20 mg/dl Est Creatinine Clear Calc Drug Dose 77.4 ml/min Estimated GFR () 73.4 Estimated GFR (Non- 63.3 BUN/Creatinine Ratio 13.6 10-20 Random Glucose 93 70-99 mg/dl Calcium Level 9.3 8.5-10.1 mg/dl CXR normal Impression Assessment and Plan 52-year-old female with likely an allergic reaction to keerthi inhibitors however with not having any angioedema Will observe in the emergency room department for the next 4 hours, we will give her an additional IV famotidine and diphenhydramine, if she is able to eat swallow without stridor or distress I recommend she be discharged home on a tapering dose of prednisone and scheduled Benadryl until her facial swelling resolves she may add famotidine twice daily we will discontinue the lisinopril continue her on her usual antihypertensive of verapamil and her thyroid supplements adding no new medicines This pt improved and was eventually discharge from the ER by the ER attending off lisinoril
[2017-12-28 13:01] VITALS: BP 119/81; O2SAT 95
[2017-12-28 13:51] VITALS: PULSE 85
[2017-12-28] MEDS ORDERED: PRED10TA PO (13:56)
--- NOTE | 2017-12-28 14:19 | EMERGENCY ROOM VISIT NOTE ---
History Report prepared by Sonia: Aneesh Huang Under the Supervision of: Dr. Jose Olguin D.O. First contact with patient: 08:51 Chief Complaint: ALLERGIC REACTION Stated Complaint: SWELLING ON RIGHT SIDE OF FACE, MED REACTION History of Present Illness The patient is a 52 year old female who presents to the Emergency Room with complaints of constant allergic reaction to lisinopril starting this morning. The patient states that she is having facial swelling, hand swelling, and some throat tightness. The patient states that she was put on lisinopril three days ago after being admitted to the hospital. She states that she was discharged after observation yesterday, and her last dose of lisinopril was yesterday. The patient denies any difficulty swallowing or secretions. She notes that her hands currently feel tight and bigger than usual, though she states that it has been improving. Pt denies headache, change in vision, fevers, chest pain, shortness of breath, nausea, vomiting, diarrhea, pain with urination, and melena. Source of History: patient Onset: this morning Position: other (global) Quality: other (allergic reaction) Timing: constant Associated Symptoms: No chest pain, No SOB, No abdominal pain Note: Associated symptoms: Facial swelling, hands swelling, and throat tightness. Review of Systems See HPI for pertinent positives & negatives. A total of 10 systems reviewed and were otherwise negative. Past Medical & Surgical Medical Problems: (1) Acute epigastric pain (2) Acute epigastric pain (3) Chest pain (4) Contusion of right knee (5) Costochondritis (6) Facial droop (7) Homocysteinemia (8) Hypothyroidism (9) Hypothyroidism (10) Left-sided weakness (11) Left-sided weakness (12) Left-sided weakness (13) Migraine (14) Migraine (15) Shortness of breath (16) Shoulder pain, left (17) Shoulder pain, left (18) Slurred speech (19) TIA (transient ischemic attack) (20) Weakness on left side of face Surgical Problems: (1) H/O section (2) H/O hernia repair (3) H/O: hysterectomy (4) History of section Family History FHx: cancer FHx: diabetes FHx: heart disease FHx: hypertension FHx: kidney disease/stones FHx: seizures Thyroid disease Social History Smoking Status: Never Smoker Alcohol Use: none Drug Use: none Marital Status: Housing Status: lives with family Occupation Status: employed Current/Historical Medications Scheduled Lisinopril (Zestril), 10 MG PO QAM Nortriptyline (Pamelor), 50 MG PO HS Prednisone Tab (Prednisone), 20 MG PO DAILY Thyroid ([place] Thyroid), 75 MG PO QAM Verapamil Hcl (Verapamil Hcl Er), 240 MG PO HS Allergies Coded Allergies: Yellow Dye (Verified Allergy, Intermediate, RASH, 12/28/17) Sulfa Antibiotics (Verified Allergy, Mild, ,, 12/28/17) Levothyroxine (Verified Allergy, Unknown, unknown, 12/28/17) info from [facility] [place] Citalopram (Verified Adverse Reaction, Mild, WORSENING TREMORS, 12/28/17) Physical Exam Vital Signs Date Time Temp Pulse Resp B/P (MAP) Pulse Ox O2 Delivery O2 Flow Rate FiO2 12/28/17 13:51 85 12/28/17 13:01 84 18 119/81 95 Room Air 12/28/17 12:00 77 18 116/76 98 Room Air 12/28/17 10:24 74 16 114/73 95 12/28/17 09:08 85 12/28/17 08:46 36.8 89 18 117/82 99 Room Air Physical Exam GENERAL: Sitting up in bed, alert, well appearing, well nourished, no distress, non-toxic EYE EXAM: normal conjunctiva. OROPHARYNX: no exudate, no erythema, lips, buccal mucosa, and tongue normal and mucous membranes are moist FACE: Swelling of the left cheek and inferior left portion of the lower lip. NECK: supple, no nuchal rigidity, no adenopathy, non-tender LUNGS: Clear to auscultation. Normal chest wall mechanics HEART: no murmurs, S1 normal and S2 normal ABDOMEN: abdomen soft, non-tender, normo-active bowel sounds, no masses, no rebound or guarding. BACK: Back is symmetrical on inspection and there is no deformity, no midline tenderness, no CVA tenderness. SKIN: no rashes and no bruising UPPER EXTREMITIES: upper extremities are grossly normal. LOWER EXTREMITIES: No pitting edema. NEURO EXAM: Normal sensorium, cranial nerves II-XII grossly intact, normal speech, no gross weakness of arms, no gross weakness of legs. Medical Decision & Procedures ER Provider Diagnostic Interpretation: Radiology results as stated below per my review and the radiologist's interpretation: CHEST ONE VIEW PORTABLE HISTORY: swelling of face COMPARISON: Chest 12/26/2017. FINDINGS: Mild elevation the left hemidiaphragm and a left basilar linear densities suggesting atelectasis. This remains unchanged. The right lung is clear. The heart is normal in size. No pleural effusions. No pneumothorax. IMPRESSION: No significant change compared to the prior study. No acute process. Stable mild elevation of the left hemidiaphragm. Electronically signed by: Jose Antonio Gonzalez M.D. 12/28/2017 9:40 AM Dictated Date/Time: 12/28/2017 9:38 AM Laboratory Results 12/28/17 09:03 Red Blood Count 4.43, Mean Corpuscular Volume 96.2, Mean Corpuscular Hemoglobin 32.7, Mean Corpuscular Hemoglobin Concent 34.0, Mean Platelet Volume 9.2, Neutrophils (%) (Auto) 64.0, Lymphocytes (%) (Auto) 21.8, Monocytes (%) (Auto) 12.0, Eosinophils (%) (Auto) 1.3, Basophils (%) (Auto) 0.4, Neutrophils # (Auto ) 5.21, Lymphocytes # (Auto) 1.78, Monocytes # (Auto) 0.98, Eosinophils # (Auto ) 0.11, Basophils # (Auto) 0.03 12/28/17 09:03 Test 12/28/17 09:03 White Blood Count 8.15 K/uL (4.8-10.8) Red Blood Count 4.43 M/uL (4.2-5.4) Hemoglobin 14.5 g/dL (12.0-16.0) Hematocrit 42.6 % (37-47) Mean Corpuscular Volume 96.2 fL (80-100) Mean Corpuscular Hemoglobin 32.7 pg (25-34) Mean Corpuscular Hemoglobin Concent 34.0 g/dl (32-36) Platelet Count 268 K/uL (130-400) Mean Platelet Volume 9.2 fL (7.4-10.4) Neutrophils (%) (Auto) 64.0 % Lymphocytes (%) (Auto) 21.8 % Monocytes (%) (Auto) 12.0 % Eosinophils (%) (Auto) 1.3 % Basophils (%) (Auto) 0.4 % Neutrophils # (Auto) 5.21 K/uL (1.4-6.5) Lymphocytes # (Auto) 1.78 K/uL (1.2-3.4) Monocytes # (Auto) 0.98 K/uL (0.11-0.59) Eosinophils # (Auto) 0.11 K/uL (0-0.5) Basophils # (Auto) 0.03 K/uL (0-0.2) RDW Standard Deviation 47.3 fL (36.4-46.3) RDW Coefficient of Variation 13.5 % (11.5-14.5) Immature Granulocyte % (Auto) 0.5 % Immature Granulocyte # (Auto) 0.04 K/uL (0.00-0.02) Anion Gap 5.0 mmol/L (3-11) Est Creatinine Clear Calc Drug Dose 77.4 ml/min Estimated GFR () 73.4 Estimated GFR (Non- 63.3 BUN/Creatinine Ratio 13.6 (10-20) Calcium Level 9.3 mg/dl (8.5-10.1) Laboratory results per my review. Medications Administered Medications (Trade) Dose Ordered Sig/Nikki Route Start Time Stop Time Status Last Admin Dose Admin Diphenhydramine HCl (Benadryl Inj) 25 mg NOW STAT IV 12/28/17 09:22 12/28/17 09:23 DC 12/28/17 09:33 25 MG Dexamethasone Sodium Phosphate 10 mg/Syringe 2.5 ml @ 1 mls/min ONE ONCE IV 12/28/17 09:30 12/28/17 09:32 DC 12/28/17 09:47 1 MLS/MIN Famotidine (Pepcid 20mg Iv Push) 20 mg ONE STAT IV 12/28/17 11:12 12/28/17 11:31 DC 12/28/17 12:04 20 MG Diphenhydramine HCl (Benadryl Inj) 12.5 mg NOW STAT IV 12/28/17 11:22 12/28/17 11:31 DC 12/28/17 12:04 12.5 MG ED Course ED COURSE: Vital signs were reviewed and showed normal vitals The patients medical record was reviewed The above diagnostic studies were performed and reviewed. ED treatments and interventions as stated above. 0851: The patient was evaluated in room A2. A complete history and physical examination was performed. 0922: Benadryl 25mg IV 0924: I reevaluated the patient, and she states that she feels the same, and it has not gotten any worse 0930: Dexamethasone Sodium Phosphate 10mg 2.5ml @ 1ml/min IV 1057: Upon reevaluation, the patient is having more increased swelling, and she is able to swallow and has no trouble breathing.I discussed my findings with the patient and she understands and agrees with the treatment plan. Based on the patients age, coexisting illnesses, exam and lab findings the decision to treat as an inpatient was made. The patient remained stable while under my care. The patient will be evaluated for further management. 1101: I reviewed the patient's case with Dr. [place]le[place] [facility] [place] She will evaluate the patient for further management. 1400: Upon reevaluation, the patient feels significantly better, and she was able to tolerate a full lunch, and her swelling has decreased. I discussed the treatment plan with her, and she was able to be discharged home. Medical Decision Differential diagnosis: Etiologies such as allergic reaction, anaphylaxis, urticaria, Deleon-Jose Raul syndrome, toxic epidermal necrolysis, erythema multiforme, cellulitis, as well as others were entertained. Patient is a 52-year-old female who presents the ER with swelling of the left side of her face. She was just discharged Wednesday following admission for hypertension and was on lisinopril. On exam she is swelling to the left side of her face. She has no shortness of breath and is able to swallow. She is evaluated by internal medicine following a negative workup in the ER including chest x-ray CBC and BMP. I did give her steroids and Benadryl. She was observed in the ER for over 4 hours. She had near complete resolution of her symptoms. She was able to eat and drink without difficulty. Dr. Mahmood agreed with discharging and having her follow-up as an outpatient. I do give the patient is short course of steroids. I gave her strict instructions to return to ER for any worsening of her symptoms. Discussed with Pt concerning signs and symptoms to watch out for. Pt was instructed to follow up with their PCP and discussed with the patient their option to return to the ED at anytime for persistent or worsening symptoms. The appropriate anticipatory guidance and out-patient management, including indications for return to the emergency department, were explained at length to the patient and understood. Medication Reconcilliation Current Medication List: was personally reviewed by me Blood Pressure Screening Patient's blood pressure: Normal blood pressure Consults Time Called: 1058 Consulting Physician: Dr. Pancho [facility] Hospitalist Returned Call: 1101 I reviewed the patient's case with Dr. aPncho [facility] Hospitalist. She will evaluate the patient for further management. Impression Primary Impression: Angio-edema Scribe Attestation The scribe's documentation has been prepared under my direction and personally reviewed by me in its entirety. I confirm that the note above accurately reflects all work, treatment, procedures, and medical decision making performed by me. Departure Information Dispostion Home / Self-Care Prescriptions Prednisone Tab (PREDNISONE) 10 Mg Tab 20 MG PO DAILY for 2 Days, #4 TAB Prov: Jose Olguin, DO 12/28/17 Referrals Mari Williamson (PCP) Forms HOME CARE DOCUMENTATION FORM, IMPORTANT VISIT INFORMATION Patient Instructions ED Angioedema, My [facility] Additional Instructions Please follow up with your primary care doctor with in the next 24 hours. Any worsening of your symptoms, please return to the ED immediately. This includes any fevers greater than 100.4, worsening pain, chest pain, shortness breath, persistent nausea, vomiting, unable to eat or drink, recurrence or increased swelling of the face, lip, mouth or tongue or any other concerning signs or symptoms from your standpoint. Please take steroids as prescribed. Please take 25-50 mg of Benadryl as needed every 6 hours Problem Qualifiers Primary Impression: Angio-edema Encounter type: initial encounter Qualified Codes: T78.3XXA - Angioneurotic edema, initial encounter
== END 2017-12-28 14:24 | disposition home or self-care (01) ==
LOC: C.EDB 08:45 → C.EDA 14:24
DX: T78.3XXA Angioneurotic edema, initial encounter (principal); X58.XXXA Exposure to other specified factors, initial encounter; E03.9 Hypothyroidism, unspecified; Z86.73 Personal history of transient ischemic attack (TIA), and cerebral infarction without residual deficits; Z83.3 Family history of diabetes mellitus; Z82.49 Family history of ischemic heart disease and other diseases of the circulatory system; Z82.0 Family history of epilepsy and other diseases of the nervous system

== ENCOUNTER → 2018-01-03 | Outpatient (CLI) | payer OTHER ==
[~2018-01-03] MED LIST changes: -[UNRECOGNIZED DRUG - CODE] PO
[2018-01-04 06:55] LABS: HEMOGLOBIN A1C 5.5 % (4.5-5.6)
== END | disposition home or self-care (01) ==
LOC: C.LAB 15:11
PROVIDERS: ATTEND Chiropractor
DX: M79.1 Myalgia (principal)

== ENCOUNTER → 2018-06-17 | Outpatient (CLI) | payer OTHER | END | disposition home or self-care (01) | LOC: C.LAB1850 08:04 | PROVIDERS: ATTEND Family Medicine | DX: E03.9 Hypothyroidism, unspecified (principal); E06.3 Autoimmune thyroiditis ==

== ENCOUNTER 2018-12-27 22:35 | Observation (INO) ==
[2018-12-27] MEDS ORDERED: DICYCLOMINE HCL 10 MG/ML 2 ML AMP/VIAL IM ONE (22:37)
[2018-12-27] MEDS ORDERED: SODIUM CHLORIDE 0.9% 1000ML 1,000 ML IV SCH (22:45)
[2018-12-27] MEDS ORDERED: KETOROLAC 30 MG/ML VIAL IV STA (23:16)
[2018-12-27] MEDS ORDERED: HYDROmorphone INJ 1 MG/ML SYRINGE IV STA (23:16)
[2018-12-27 23:39] LABS: Basophils # (auto) 0.03 K/uL (0-0.2); Basophils % (auto) 0.4 %; Eosinophils # (auto) 0.17 K/uL (0-0.5); Eosinophils % (auto) 2.4 %; Hematocrit (blood only) 40.6 % (37-47); Hemoglobin 13.9 g/dL (12.0-16.0); Immature Granulocytes # (auto) 0.02 K/uL (0.00-0.02); Immature Granulocytes % (auto) 0.3 %; Lymphocytes # (auto) 2.18 K/uL (1.2-3.4); Lymphocytes % (auto) 30.7 %; Mean Corpuscular Hgb Conc 34.2 g/dL (32-36); Mean Corpuscular Volume 95.3 fL (80-100); Mean Platelet Volume 9.1 fL (7.4-10.4); Monocytes # (auto) 0.99 K/uL (0.11-0.59); Neutrophils % (auto) 52.2 %; Platelet Count 229 K/uL (130-400); RDW Coefficient of Variation 13.8 % (11.5-14.5); RDW Standard Deviation 47.7 fL (36.4-46.3); Red Blood Count 4.26 M/uL (4.2-5.4); White Blood Count 7.09 K/uL (4.8-10.8)
[2018-12-27 23:47] LABS: Appearance Urine Clear (Clear); Bacteria Urine Automated Negative (Negative); Bilirubin Urine Negative (Negative); Blood Urine Negative (Negative); Color Urine Yellow; Glucose Urine UA Negative (Negative); Ketones Urine Trace (Negative); Leukocyte Esterase Urine 1+ (Negative); Nitrite Urine Negative (Negative); Protein Urine Negative (Negative); RBC Urine Automated 0-4 /hpf (0-4); Specific Gravity Urine 1.028 (1.000-1.030); Urobilinogen Urine Negative (Negative); pH Urine 5.5 (4.5-7.5)
[2018-12-27 23:58] LABS: Albumin Level 3.5 gm/dl (3.4-5.0); BUN Creatinine Ratio 19.3 (10-20); Calcium 8.6 mg/dl (8.5-10.1); Creatinine Clr Calc Pharmacy 73.6 ml/min; Est GFR (African American) 69.6; Est GFR (Non-African American) 60.1; Potassium 3.4 mmol/L (3.5-5.1)
[2018-12-28 00:01] LABS: Bilirubin,Total 0.4 mg/dl (0.2-1); Globulin 3.7 gm/dl (2.5-4.0); Total Protein 7.2 gm/dl (6.4-8.2)
[2018-12-28] MEDS ORDERED: ONDANSETRON INJ 2 MG/ML 2 ML VIAL IV STA (00:18)
[2018-12-28] MEDS ORDERED: IOVERSOL 100ml IV PRN (00:30)
[2018-12-28] MEDS ORDERED: SODIUM CHLORIDE 0.9% 500 ML IV SCH (03:00)
--- NOTE | 2018-12-28 04:47 | History & Physical Report ---
Date of Service December 28, 2018 Assessment & Plan (1) Dysuria: Abdominal pain, hiatal hernia -NPO, NSS -Would await final read of CT abdo from radiology -Consulted gen surg (does not appear to be urgent nor complete ENMANUEL. known hiatal hernia) -Consult gastro, ?colonoscopy, endoscope for esophageal spasm -Bentyl, toradol for pain relief -unsure if related to dysuria symptoms Dysuria -Pt has appt with urology set up as outpt -Could consider starting treatment for interstitial cystitis hypothyroid -Cont home meds Migraine -Cont home meds DVTP: SCDs CODE: full Dispo: admit to med/surg as obs until further evaluation (2) LLQ pain: (3) Hypothyroidism: (4) Migraine: History of Present Illness Chief Complaint: Abdominal pain Primary Care Provider: Mari Williamson Pt is a 53 yo F PMH migraines, hypothyroidism who presents with acute LLQ abdominal pain which started this evening. She notes that for the past 7-10 days she has been having UTI Sxs of "pulling" sensation when peeing, burning after voiding, suprapubic tenderness. Saw PCP for this, was started on Abx but culture came back negative, so abx were stopped. Symptoms persisted and she has an appointment with urology soon. She notes that yesterday the LLQ abdo pain was intermittent and she was unsure if this was related to her pelvic symptoms or not, but late last night it became sudden and severe, doubling her over in pain. She has had regular BMs recently, including 2 today, one in the ER since her pain started. Of note, she had a JOSE/BSO in 1997 for endometriosis and had "several" surgeries for her endometriosis prior to that. She also notes that she has been having issues with swallowing lately, citing esophageal spasms. She was meant to have a scope with Dr. Arteaga last week, but because of her UTI symptoms, this was deferred. She has a known hiatal hernia which has reportedly gotten worse since her last abdominal scan. In the ER, she was given bentyl, dilaudid, toradol, zofran, IVF. her UA was dirty, and sent for culture. Labs overall unremarkable aside from K of 3.4. Normal LFTs. She is afebrile, VSS. Allergies Allergy/AdvReac Type Severity Reaction Status Date / Time yellow dye Allergy Intermediate RASH Verified 12/27/18 23:08 Sulfa (Sulfonamide Allergy Mild , Verified 12/27/18 23:08 Antibiotics) levothyroxine Allergy Unknown unknown Verified 12/27/18 23:08 latex Allergy Rash Verified 12/27/18 23:08 lisinopril Allergy Swelling Verified 12/27/18 23:08 of Lip/Tongue/Throat citalopram AdvReac Mild WORSENING Verified 12/27/18 23:08 TREMORS Home Medications Home Medications Medication Instructions Recorded Confirmed Type levothyroxine 100 mcg PO QAM 12/22/18 12/27/18 History topiramate 50 mg PO BID 12/22/18 12/27/18 History verapamil 240 mg PO QPM 12/22/18 12/27/18 History Past Med/Surg History Medical History Migraine Transient ischemic attack (TIA) approx 10 years ago. follows w/ dr. camacho Seasonal affective disorder TMJ locking TMJ click Hypothyroidism GERD (gastroesophageal reflux disease) Esophageal spasm Difficulty swallowing Fatty liver History of endometriosis Thyroid nodule Surgical History History of esophagogastroduodenoscopy (EGD) History of colonoscopy w/ polypectomy Status post JOSE-BSO History of section History of dilatation and curettage History of endometrial ablation History of herniorrhaphy umbilical History of breast biopsy Status post biopsy of thyroid gland History of tooth extraction Nausea and vomiting after administration of anesthetic agent Family History Son Family history of reaction to anesthesia Father Family history of reaction to anesthesia PONV Father Family history of diabetes mellitus Mother Family history of diabetes mellitus Mother Family history of esophageal cancer UTERINE CANCER W/ METS TO ESOPHAGUS AND LUNG Social History Current Living Situation: Family Current Living Situation Comment: daughter and grandson Other Information That Helps Us Care for You: No Feels Safe at Home: Yes Safety Concerns: Feels Safe At This Time Smoking Status: Never smoker Second Hand Exposure: No Hx Alcohol Use: No Hx Substance Use: No Beliefs That Will Affect Care: None Preferred Language: Spanish Communication Ability: Effective Health Social Work Professor Required: No Review of Systems All systems reviewed & are unremarkable except as noted in HPI & below Gastrointestinal: + abdominal pain, + dysphagia and + constipation (improved recently with increased water intake); no blood in stools Genitourinary (Female): + dysuria and + pelvic pain; no hematuria Physical Exam 2 Vital Signs (Past 24 Hours): Last Vital Signs Temp 36.3 C L 12/27/18 22:38 Pulse 75 12/28/18 04:31 Resp 24 12/28/18 04:31 BP 120/78 12/28/18 04:31 Pulse Ox 97 12/28/18 04:31 Constitutional: WD/WN, vitals as above + morbidly obese; not ill appearing Eyes: PERRL, conjunctivae normal, anicteric sclerae ENMT: external ear and nose normal, oropharynx normal Neck: normal visual inspection Respiratory: normal respiratory effort, lungs clear to auscultation Cardiovascular: RRR, no murmur, no edema Gastrointestinal (Abdomen): Inspection/Auscultation: abdomen normal to inspection and normal bowel sounds Percussion/Palpation: + abdomen tender (L flank, LLQ, suprapubic) and abdomen soft Musculoskeletal: no cyanosis or clubbing, extremities motor strength 5/5 Skin: no rashes, warm and dry normal turgor Neurologic: PERRL, EOMI, accommodation nl, no face palsy, no dysarthria Psychiatric: A+Ox3, euthymic affect Results & Data Laboratory Results 12/27/18 12/27/18 12/27/18 Range/Units 23:25 23:25 23:00 WBC 7.09 (4.8-10.8) K/uL RBC 4.26 (4.2-5.4) M/uL Hgb 13.9 (12.0-16.0) g/dL Hct 40.6 (37-47) % MCV 95.3 (80-100) fL MCH 32.6 (25-34) pg MCHC 34.2 (32-36) g/dL RDW Std Deviation 47.7 H (36.4-46.3) fL RDW Coeff of Mandi 13.8 (11.5-14.5) % Plt Count 229 (130-400) K/uL MPV 9.1 (7.4-10.4) fL Immature Gran % (Auto) 0.3 % Neut % (Auto) 52.2 % Lymph % (Auto) 30.7 % Faulkner % (Auto) 14.0 % Eos % (Auto) 2.4 % Baso % (Auto) 0.4 % Immature Gran # (Auto) 0.02 (0.00-0.02) K/uL Neut # (Auto) 3.70 (1.4-6.5) K/uL Lymph # (Auto) 2.18 (1.2-3.4) K/uL Faulkner # (Auto) 0.99 H (0.11-0.59) K/uL Eos # (Auto) 0.17 (0-0.5) K/uL Baso # (Auto) 0.03 (0-0.2) K/uL Sodium 139 (136-145) mmol/L Potassium 3.4 L (3.5-5.1) mmol/L Chloride 109 H (98-107) mmol/L Carbon Dioxide 25 (21-32) mmol/L Anion Gap 6.0 (3-11) BUN 21 H (7-18) mg/dl Creatinine 1.07 (0.6-1.2) mg/dl Est Cr Clr Drug Dosing 73.6 ml/min Est GFR ( Amer) 69.6 Est GFR (Non-Af Amer) 60.1 BUN/Creatinine Ratio 19.3 (10-20) Glucose 98 (70-99) mg/dl Calcium 8.6 (8.5-10.1) mg/dl Total Bilirubin 0.4 (0.2-1) mg/dl AST 8 L (15-37) U/L ALT 17 (12-78) U/L Alkaline Phosphatase 74 (45-117) U/L Total Protein 7.2 (6.4-8.2) gm/dl Albumin 3.5 (3.4-5.0) gm/dl Globulin 3.7 (2.5-4.0) gm/dl Albumin/Globulin Ratio 1.0 (0.9-2) Lipase 111 (73-393) U/L Urine Color Yellow Urine Appearance Clear (Clear) Urine pH 5.5 (4.5-7.5) Ur Specific Thurman 1.028 (1.000-1.030) Urine Protein Negative (Negative) Urine Glucose (UA) Negative (Negative) Urine Ketones Trace H (Negative) Urine Blood Negative (Negative) Urine Nitrite Negative (Negative) Urine Bilirubin Negative (Negative) Urine Urobilinogen Negative (Negative) Ur Leukocyte Esterase 1+ H (Negative) Urine WBC (Auto) 10-30 H (0-5) /hpf Urine RBC (Auto) 0-4 (0-4) /hpf U Hyaline Cast (Auto) 5-10 H (0-5) /lpf U Epithel Cells (Auto) 10-20 H (0-5) /lpf Urine Bacteria (Auto) Negative (Negative) Medications Administered Current Inpatient Medications Sodium Chloride (Nss) 500 mls @ 125 mls/hr IV .Q4H RUSS Stop: 01/27/19 02:59 Last Admin: 12/28/18 03:10 Dose: 125 mls/hr Ioversol (Optiray 320 100ml) 100 ml IV ONCE PRN PRN Reason: Interaction Checking Stop: 01/01/19 00:29 Last Admin: 12/28/18 00:30 Dose: 93 ml Levothyroxine Sodium (Synthroid) 100 mcg PO QAM RUSS Stop: 01/27/19 08:59 Topiramate (Topamax) 50 mg PO BID RUSS Stop: 01/27/19 08:59 Verapamil HCl (Calan Sr) 240 mg PO QPM RUSS Stop: 01/27/19 20:59 Code Status & VTE Plan Code Status full Supervising Physician Co-Signing Physician Notes Attending addendum: I have physically seen this patient, have supervised the medical residents activities, and agree with the H&P unless as otherwise noted. Assessment and Plan: Large left diaphragmatic hernia/mild functional obstruction at the level of the gastric body-- Hernia contains gastric fundus, splenic flexure and distal pancreatic tail, worsening since prior exam of 10/21/17 Initial reading impacted food bolus versus low-grade obstruction as considerations. NPO. IV fluids. Consult surgery and gastroenterology. Dysuria/negative urine culture and sensitivity as outpatient-- Presumptive interstitial cystitis. We will follow-up in the outpatient setting with urology as scheduled, unless more symptomatic this admission. Remainder of orders and notations as noted. Resident Activity Tracking Resident Involvement: Resident Care Provided Care Provided: Adult [facility]
[2018-12-28] MEDS ORDERED: POLYETHYLENE (MIRALAX) 17 GM PACK PO PRN (05:57)
[2018-12-28] MEDS ORDERED: ONDANSETRON INJ 2 MG/ML 2 ML VIAL IV PRN (05:57)
[2018-12-28] MEDS ORDERED: ALUMINUM/MAGNESIUM SUSP 30 ML UDC PO PRN (05:57)
[2018-12-28] MEDS ORDERED: MAGNESIUM HYDROXIDE SUSP 30 ML UDC PO PRN (05:57)
[2018-12-28] MEDS: LEVOTHYROXINE SODIUM 50 MCG TABLET PO SCH (06:17)
[2018-12-28] MEDS: SODIUM CHLORIDE 0.9% 1000ML 1,000 ML IV SCH ×3 (06:18→21:50)
[2018-12-28] MEDS ORDERED: DICYCLOMINE HCL 20 MG TAB PO PRN (06:36)
[2018-12-28] MEDS ORDERED: KETOROLAC TROMETHAMINE 15 MG/ML VIAL IV PRN (06:38)
--- NOTE | 2018-12-28 06:39 | XRay Report ---
XR chest 2V routine HISTORY: 53 years-old Female fever acute fever COMPARISON: Chest radiographs 12/09/2018, CT abdomen and pelvis 12/28/2018 TECHNIQUE: PA and lateral views of the chest FINDINGS: Mild left hemidiaphragmatic elevation with linear subsegmental atelectasis/scarring about the left miguel ng base is unchanged. Cardiac mediastinal and hilar silhouettes are within normal limits. No pneumoth orax, pleural effusion, overt pulmonary edema or new focal airspace consolidation. Bones of the chest appear to be grossly intact. Mild degenerative changes about the spine and shoulders. IMPRESSION: 1. No acute process. 2. Unchanged left hemidiaphragmatic elevation with subsegmental left basilar atelectasis/scarring. Th is finding correlates with the diaphragmatic defect with herniation seen on CT study of same day. The above report was generated using voice recognition software. It may contain grammatical, syntax o r spelling errors. Electronically signed by: Raj Haynes M.D. 12/28/2018 6:38 AM
--- NOTE | 2018-12-28 07:34 | Emergency Department Note ---
Entered by Ghada Dior acting as a scribe for History of Present Illness General Chief complaint: Abdominal Pain Stated complaint: LOWER LEFT ABDOMINAL/PELVIC PAIN Time Seen by Provider: 12/27/18 23:05 Source: patient History of Present Illness Onset (ago): hour(s) 3 Location: abdomen (LLQ) Pain Consistency: + constant Relieved By: + none Exacerbated By: + none Associated symptoms: + denies other symptoms (constipation, diarrhea, "UTI-like symptoms") and + fever/chills (complains of chills, denies fever); no nausea/ vomiting The patient is a 53 year old female who presents to the Emergency Room with complaints of constant LLQ abdominal pain that began this evening at 1999. The patient states that she has never had pain similar to this before. She complains of chills. The patient denies any fever, diarrhea, constipation, and nausea/vomiting. She denies any modifying factors. She states that she has had "UTI-like symptoms" for the past 6 days, complaining of "a pulling sensation when voiding," dysuria, and intermittent pain in the abdomen." The patient reports that she went to her PCP for the "UTI-like symptoms," and she states that her urinalysis was negative. She notes a history of an umbilical hernia, c- section, and hypothyroidism. The patient reports that she doesn't have a history of kidney stones, but her father does. She notes that she had a colonoscopy done, and the only abnormality was polyps. The patient denies a history of diverticulitis. Home Medications Home Medications Medication Instructions Recorded Confirmed Type levothyroxine 100 mcg PO QAM 12/22/18 12/27/18 History topiramate 50 mg PO BID 12/22/18 12/27/18 History verapamil 240 mg PO QPM 12/22/18 12/27/18 History Allergies Allergy/AdvReac Type Severity Reaction Status Date / Time yellow dye Allergy Intermediate RASH Verified 12/27/18 23:08 Sulfa (Sulfonamide Allergy Mild , Verified 12/27/18 23:08 Antibiotics) levothyroxine Allergy Unknown unknown Verified 12/27/18 23:08 latex Allergy Rash Verified 12/27/18 23:08 lisinopril Allergy Swelling Verified 12/27/18 23:08 of Lip/Tongue/Throat citalopram AdvReac Mild WORSENING Verified 12/27/18 23:08 TREMORS Past Med/Surg History Medical History Migraine Transient ischemic attack (TIA) approx 10 years ago. follows w/ dr. camacho Seasonal affective disorder TMJ locking TMJ click Hypothyroidism GERD (gastroesophageal reflux disease) Esophageal spasm Difficulty swallowing Fatty liver History of endometriosis Thyroid nodule Surgical History History of esophagogastroduodenoscopy (EGD) History of colonoscopy w/ polypectomy Status post JOSE-BSO History of section History of dilatation and curettage History of endometrial ablation History of herniorrhaphy umbilical History of breast biopsy Status post biopsy of thyroid gland History of tooth extraction Nausea and vomiting after administration of anesthetic agent Family History Son Family history of reaction to anesthesia Father Family history of reaction to anesthesia PONV Father Family history of diabetes mellitus Mother Family history of diabetes mellitus Mother Family history of esophageal cancer UTERINE CANCER W/ METS TO ESOPHAGUS AND LUNG Social History Current Living Situation: Family Current Living Situation Comment: daughter and grandson Other Information That Helps Us Care for You: No Feels Safe at Home: Yes Safety Concerns: Feels Safe At This Time Smoking Status: Never smoker Second Hand Exposure: No Hx Alcohol Use: No Hx Substance Use: No Beliefs That Will Affect Care: None Preferred Language: Mexican Communication Ability: Effective General Internal Medicine Physician Required: No Review of Systems See HPI for pertinent positives & negatives. and A total of 10 systems reviewed and were otherwise negative Physical Exam Vital Signs Vital Signs - 24 hr 12/27/18 22:38 12/27/18 23:31 12/28/18 00:23 Temperature 36.3 C L Temperature Source Oral Sepsis Recent Fever Within 48 Hours No Sepsis Action Taken by Nursing No Action Required Pulse Rate 90 Pulse Rate [Left] 69 66 Pulse Rate [Right Finger] Pulse Rhythm Regular Pulse Rhythm [Left] Regular Regular Pulse Rhythm [Right Finger] Pulse Strength Normal Pulse Strength [Left] Normal Normal Pulse Strength [Right Finger] Respiratory Rate 18 16 16 Respiratory Effort / Characteristics Non-Labored Spontaneous Non-Labored Spontaneous Non-Labored Spontaneous Respiratory Depth Normal Normal Normal Respiratory Pattern Regular Blood Pressure 152/85 H Blood Pressure [Right Arm] 137/99 111/70 Blood Pressure Mean 107 Blood Pressure Mean [Right Arm] 111 83 Blood Pressure Position Sitting Blood Pressure Position [Right Arm] Lying Pulse Oximetry 99 94 92 Oxygen Delivery Method Room Air Room Air Room Air Oxygen Flow Rate 12/28/18 01:47 12/28/18 03:13 12/28/18 03:31 Temperature Temperature Source Sepsis Recent Fever Within 48 Hours Sepsis Action Taken by Nursing Pulse Rate 67 Pulse Rate [Left] 70 63 Pulse Rate [Right Finger] Pulse Rhythm Pulse Rhythm [Left] Regular Pulse Rhythm [Right Finger] Pulse Strength Pulse Strength [Left] Normal Pulse Strength [Right Finger] Respiratory Rate 16 16 18 Respiratory Effort / Characteristics Non-Labored Spontaneous Non-Labored Respiratory Depth Normal Normal Respiratory Pattern Blood Pressure 101/70 Blood Pressure [Right Arm] 124/76 127/81 Blood Pressure Mean 80 Blood Pressure Mean [Right Arm] 92 96 Blood Pressure Position Blood Pressure Position [Right Arm] Lying Pulse Oximetry 94 94 93 Oxygen Delivery Method Nasal Cannula Room Air Room Air Oxygen Flow Rate 2 12/28/18 04:01 12/28/18 04:31 12/28/18 05:01 Temperature Temperature Source Sepsis Recent Fever Within 48 Hours Sepsis Action Taken by Nursing Pulse Rate 68 75 68 Pulse Rate [Left] Pulse Rate [Right Finger] Pulse Rhythm Pulse Rhythm [Left] Pulse Rhythm [Right Finger] Pulse Strength Pulse Strength [Left] Pulse Strength [Right Finger] Respiratory Rate 16 24 13 Respiratory Effort / Characteristics Respiratory Depth Respiratory Pattern Blood Pressure 117/67 120/78 112/74 Blood Pressure [Right Arm] Blood Pressure Mean 83 92 86 Blood Pressure Mean [Right Arm] Blood Pressure Position Blood Pressure Position [Right Arm] Pulse Oximetry 95 97 97 Oxygen Delivery Method Room Air Room Air Room Air Oxygen Flow Rate 12/28/18 05:35 Temperature 36.5 C Temperature Source Oral Sepsis Recent Fever Within 48 Hours Sepsis Action Taken by Nursing Pulse Rate Pulse Rate [Left] Pulse Rate [Right Finger] 66 Pulse Rhythm Pulse Rhythm [Left] Pulse Rhythm [Right Finger] Regular Pulse Strength Pulse Strength [Left] Pulse Strength [Right Finger] Normal Respiratory Rate 14 Respiratory Effort / Characteristics Non-Labored Spontaneous Respiratory Depth Normal Respiratory Pattern Regular Blood Pressure Blood Pressure [Right Arm] 130/83 Blood Pressure Mean Blood Pressure Mean [Right Arm] 98 Blood Pressure Position Blood Pressure Position [Right Arm] Lying Pulse Oximetry 96 Oxygen Delivery Method Room Air Oxygen Flow Rate HEENT: Head - normocephalic and atraumatic Pupils are equal, round, and reactive to light. Extraocular eye muscles are intact, and sclera are anicteric. Nose - moist nasal mucosa without discharge. Mouth - moist buccal mucosa. Oropharynx is nonerythematous and there is no tonsillar exudate or edema noted. Neck: Supple; no JVD, nuchal rigidity, cervical lymphadenopathy, or auscultated bruits. Heart: Regular rate and rhythm. There is a normal S1 and S2 with no murmurs, clicks, or gallops appreciated. Lungs: Clear to auscultation bilaterally with no wheezes, rales, or rhonchi. Abdomen: Soft, nondistended, with good bowel sounds. There are no palpable pulsatile masses or hepatosplenomegaly. There is no guarding, rigidity, or rebound noted. LLQ pain with palpation. Extremities: No evidence of cyanosis, clubbing, or edema. There are easily palpable peripheral pulses. Skin: warm and dry with good turgor and no rashes. Course 2308: Past medical records reviewed. The patient was evaluated in room C05, and a complete history and physical examination were performed. An IV lock was initiated and labs were drawn as above. 2316: Dilaudid 1 mg IV, Toradol 30 mg IV. The patient will go for CT scan of the abdomen/pelvis 0018: Zofran 4 mg IV 0145: I reviewed the results of the CT scan with the patient and we have decided to observe her here in the emergency department. She is currently pain- free. 0245: On reevaluation of the patient, she states that the left lower quadrant pain seems to be returning. On physical exam, this discomfort was reproducible. In light of these findings and the CT scan results, I felt the patient may have a small bowel obstruction and should be admitted to the hospital. She will be kept n.p.o. 0256: I spoke with Dr. Gross, [facility] hospitalist, about the patient's case. He will evaluate her further. 0300: NSS 500 mls @ 125 mls/hr IV Consultations Consultation #1: I spoke with Dr. Gross, [facility] hospitalist, about the patient's case. He will evaluate her further. Time: 02:56 Administered Medications Sodium Chloride (Nss 1000ml) 1,000 mls @ 125 mls/hr IV .Q8H [facility]USS Stop: 03/22/19 05:59 Last Admin: 12/28/18 06:18 Dose: 125 mls/hr Levothyroxine Sodium (Synthroid) 100 mcg PO DAILYBB RUSS Stop: 01/27/19 06:29 Last Admin: 12/28/18 06:17 Dose: 100 mcg Discontinued Medications Dicyclomine HCl (Bentyl) 20 mg IM NOW ONE Stop: 12/27/18 22:38 Last Admin: 12/27/18 23:18 Dose: Not Given Hydromorphone HCl (Dilaudid) 1 mg IV NOW STA Stop: 12/27/18 23:17 Last Admin: 12/27/18 23:25 Dose: 1 mg Sodium Chloride (Nss 1000ml) 1,000 mls @ 999 mls/hr IV .Q1H1M [facility] Stop: 12/27/18 23:45 Last Admin: 12/28/18 00:02 Dose: Not Given Sodium Chloride (Nss) 500 mls @ 125 mls/hr IV .Q4H [facility] Stop: 01/27/19 02:59 Last Admin: 12/28/18 03:10 Dose: 125 mls/hr Ioversol (Optiray 320 100ml) 100 ml IV ONCE PRN PRN Reason: Interaction Checking Stop: 01/01/19 00:29 Last Admin: 12/28/18 00:30 Dose: 93 ml Ketorolac Tromethamine (Toradol) 30 mg IV NOW STA Stop: 12/27/18 23:17 Last Admin: 12/27/18 23:24 Dose: 30 mg Ondansetron HCl (Zofran) 4 mg IV NOW STA Stop: 12/28/18 00:19 Last Admin: 12/28/18 00:21 Dose: 4 mg Medical Decision Making Differential Diagnosis The differential diagnosis includes: ureteral colic, pyelonephritis, SBO, diverticulitis, and ovarian cyst Medical Records Attestation: I reviewed the patient's medical records. Home Medications Current Medication List: was personally reviewed by me Laboratory Data Attestation: I reviewed the patient's lab results. Result diagrams: 12/27/18 23:25 12/27/18 23:25 Lab Results 12/27/18 12/27/18 12/27/18 Range/Units 23:00 23:25 23:25 WBC 7.09 (4.8-10.8) K/uL RBC 4.26 (4.2-5.4) M/uL Hgb 13.9 (12.0-16.0) g/dL Hct 40.6 (37-47) % MCV 95.3 (80-100) fL MCH 32.6 (25-34) pg MCHC 34.2 (32-36) g/dL RDW Std Deviation 47.7 H (36.4-46.3) fL RDW Coeff of Mandi 13.8 (11.5-14.5) % Plt Count 229 (130-400) K/uL MPV 9.1 (7.4-10.4) fL Immature Gran % (Auto) 0.3 % Neut % (Auto) 52.2 % Lymph % (Auto) 30.7 % Hardy % (Auto) 14.0 % Eos % (Auto) 2.4 % Baso % (Auto) 0.4 % Immature Gran # (Auto) 0.02 (0.00-0.02) K/uL Neut # (Auto) 3.70 (1.4-6.5) K/uL Lymph # (Auto) 2.18 (1.2-3.4) K/uL Hardy # (Auto) 0.99 H (0.11-0.59) K/uL Eos # (Auto) 0.17 (0-0.5) K/uL Baso # (Auto) 0.03 (0-0.2) K/uL Sodium 139 (136-145) mmol/L Potassium 3.4 L (3.5-5.1) mmol/L Chloride 109 H (98-107) mmol/L Carbon Dioxide 25 (21-32) mmol/L Anion Gap 6.0 (3-11) BUN 21 H (7-18) mg/dl Creatinine 1.07 (0.6-1.2) mg/dl Est Cr Clr Drug Dosing 73.6 ml/min Est GFR ( Amer) 69.6 Est GFR (Non-Af Amer) 60.1 BUN/Creatinine Ratio 19.3 (10-20) Glucose 98 (70-99) mg/dl Calcium 8.6 (8.5-10.1) mg/dl Total Bilirubin 0.4 (0.2-1) mg/dl AST 8 L (15-37) U/L ALT 17 (12-78) U/L Alkaline Phosphatase 74 (45-117) U/L Total Protein 7.2 (6.4-8.2) gm/dl Albumin 3.5 (3.4-5.0) gm/dl Globulin 3.7 (2.5-4.0) gm/dl Albumin/Globulin Ratio 1.0 (0.9-2) Lipase 111 (73-393) U/L Urine Color Yellow Urine Appearance Clear (Clear) Urine pH 5.5 (4.5-7.5) Ur Specific [employer] [place] 1.028 (1.000-1.030) Urine Protein Negative (Negative) Urine Glucose (UA) Negative (Negative) Urine Ketones Trace H (Negative) Urine Blood Negative (Negative) Urine Nitrite Negative (Negative) Urine Bilirubin Negative (Negative) Urine Urobilinogen Negative (Negative) Ur Leukocyte Esterase 1+ H (Negative) Urine WBC (Auto) 10-30 H (0-5) /hpf Urine RBC (Auto) 0-4 (0-4) /hpf U Hyaline Cast (Auto) 5-10 H (0-5) /lpf U Epithel Cells (Auto) 10-20 H (0-5) /lpf Urine Bacteria (Auto) Negative (Negative) Imaging Data Attestation: I personally reviewed and interpreted this imaging study as follows : My Impression: XRAY 2V: Large gastric bubble. No cardiomegaly. No pulmonary pathology. Radiologist's Impression: Radiology results as stated below per my review and the radiologist's interpretation: CT ABDOMEN & PELVIS With Contrast: Comparison: CT abdomen and pelvis 10/21/17 Large left diaphragmatic hernia containing majority of stomach, splenic flexure , and distal pancreas. Diaphragmatic hernia was present on the prior when it contained smaller portion of splenic flexure and did not contain pancreas. Focal narrowing of distal gastric body as it exist the hernia. No evidence of colonic obstruction. [id number] stool in colon. No evidence of vascular compromise. Atelectasis at the left lung base. Mildly prominent fluid containing small bowel loop in pelvis (measuring up to 2.5cm, with associated fecal appearance of contents before it narrows (image 59 , series, 2). Considerations include impacted food bolus. Low-grade obstruction not excluded. Evaluation limited by lack of oral contrast. Liver cyst measuring up to 3.4 cm, slightly enlarged from prior. Appendix not identifies, but no pericecal inflammatory changes to acute appendicitis. No free air or substantial free fluid. Post-hysterectomy. Degenerative changes of spine. Radiologist: Brandon Arevalo MD Study ready at 00:36 and initial results transmitted at 01:05. Blood Pressure Blood Pressure Findings: Elevated blood pressure Blood Pressure Disposition: elevated BP felt to be situational MDM Narrative The patient is a 53 year old female who presents to the Emergency Room with complaints of constant LLQ abdominal pain that began this evening at 2000. The patient describes his pain is more severe than any previous episodes of abdominal discomfort. CT scan showed concern for a possible small bowel obstruction or an impacted food bolus. These findings would be consistent with a left lower quadrant abdominal pain. The patient was also noted to have a significant diaphragmatic hernia that appears somewhat worse than previous studies. I discussed the case with the [facility] Hospitalist and they will evaluate and discussed the case with GI in the morning. Impression & Plan LLQ pain, SBO (small bowel obstruction) Discharge Plan Visit Data *Final* Discharge Date/Time: 12/28/18 05:24 Chief Complaint: Abdominal Pain Stated Complaint: LOWER LEFT ABDOMINAL/PELVIC PAIN ED Provider: Shelia Pinto Discharge Problem: LLQ pain, SBO (small bowel obstruction) Patient Disposition: Admitted As Inpatient Discharge Instructions Interventions: ED Discharge Assessment Last Done: 12/28/18 05:24 The scribe's documentation has been prepared under my direction and personally reviewed by me in its entirety. I confirm that the note above accurately reflects all work, treatment, procedures, and medical decision making performed by me.
--- NOTE | 2018-12-28 08:09 | CT Scan Report ---
CT abd pelvis IV con only CLINICAL HISTORY: 53 years-old Female presenting with eval for diverticulitis vs. pyelo. TECHNIQUE: Multidetector CT of the abdomen and pelvis was performed after the administration of intra venous contrast. IV contrast: 93 mL of Optiray 320. One or more dose lowering techniques were used co nsistent with the principles of ALARA (as low as reasonably achievable), including automatic exposure control, mA or kV adjustment to individual patient size, and/or use of iterative reconstruction. COMPARISON: 10/21/2017. CT DOSE (mGy.cm): The estimated cumulative dose is 1402.46 mGy.cm. FINDINGS: Section Hand Helper topogram: Unremarkable. Lung bases: Normal heart size. No pericardial or pleural effusion. Minimal dependent changes likely a telectasis. Atelectasis is primarily in the left lower lobe due to the large diaphragmatic hernia. No infiltration of the fat within the hernia sac to suggest strangulation. Liver: Normal morphology. Well-defined hypodense lesion in the posterior right hepatic lobe, likely h epatic cyst. Patent hepatic vasculature. Biliary: No intrahepatic or extrahepatic biliary ductal dilatation. Normal gallbladder. Pancreas: The distal pancreatic tail is contained within the large left diaphragmatic hernia. Spleen: Normal. Adrenal glands: Normal. Kidneys and ureters: Normal. No hydronephrosis. Bladder: Incompletely evaluated secondary to underdistention. Pelvic organs: Uterus surgically absent. Ovaries may also be absent. Bowel: The splenic flexure of the colon is contained within the large left diaphragmatic hernia. Mild stool burden throughout normal caliber colon. No diverticulosis. The appendix is not visualized. A l oop of small bowel in the superior pelvis/mid abdomen contains a focal stool ball (series 3 image 295 ). There is apparent mild upstream distention of small bowel containing fluid with a maximal diameter of 2.6 cm (series 3 image 360). There is focal downstream narrowing at the distal margin of the stoo l ball (series 3 image 290). This does not appear to result in a complete obstruction. The gastric fu ndus is contained within the large left diaphragmatic hernia. There is focal narrowing of the body of the stomach (series 3 image 91) as the stomach transits into the peritoneal cavity due to the adjace nt diaphragmatic slip. No evidence of a complete obstruction though there is mild distention of the g astric fundus with fluid, gas, and debris. Peritoneal cavity: No free fluid or intraperitoneal gas. Lymph nodes: No enlarged lymph nodes in the abdomen or pelvis. Vasculature: Aorta and IVC patent and normal in caliber. Abdominal wall: Diastasis of the rectus abdominis. Postsurgical changes from prior ventral hernia rep air may be present. Slight herniation of intra-abdominal fat at this site (series 3 image 227). Musculoskeletal: Mild changes of the spine. IMPRESSION: 1. Large left diaphragmatic hernia containing the gastric fundus, splenic flexure of the colon, and distal pancreatic tail. No evidence of a complete obstruction or strangulation. A mild functional obs truction may be present at the level of the gastric body, where the stomach reenters the abdominal ca vity. The hernia has enlarged since the prior exam. 2. Focal stool ball in the small bowel of the mid abdomen/superior pelvis with a focal downstream tr ansition point and mild upstream distention. This may indicate the presence of a partial low-grade or a functional obstruction. No complete bowel obstruction at this site. The stool ball may either be d ue to the presence of a stricture, adhesion, stenosis at the transition point, or, less likely, bezoa r. Electronically signed by: Kwaku Sewell M.D. 12/28/2018 8:08 AM
[2018-12-28] MEDS: TOPIRAMATE 50 MG TAB PO SCH ×2 (08:46→21:45)
--- NOTE | 2018-12-28 09:40 | Family Medicine Progress Note ---
Addendum entered and electronically signed by Raj Casanova MD 12/28/18 15:46 : Addendum (Blank) Addendum December 28, 2018 15:43 Turns out patient's allergy to yellow dye is bad tremors (not rash). Cancelled order for macrobid and switched to cipro. Original Note: Date of Service December 28, 2018 Assessment & Plan (1) Abdominal pain: 53-year-old female was admitted on 28 December 2018 for acute severe left lower quadrant abdominal pain. Abdominal pain: Acute severe pain, treated in ED with Dilaudid and Toradol. On admit, afebrile, WBC 7. Prelim CT a/p read notes large left diaphragmatic hernia. No evidence of colonic obstruction but moderate stool burden. Questionable low-grade small bowel obstruction. Pain presently controlled. - Thoracic surgery consulted on admission. Dysuria: Patient noted the same for six days prior to admit and was briefly ( one single day) on antibiotics. UA here was dirty. 19Feb UCx sent. - Will cover for UTI with macrobid here. Dysphagia: Prior to admit, dysphagia vs esophageal spasms. Previously scheduled EGD was deferred due to acute illness. - Gastroenterology consulted on admission. Hypokalemia: Admit K 3.4. Liver cyst: On CT a/p, had increased up to 3.4 cm compared to prior. Ongoing medical issues: - Hypothyroidism: Continue home levothyroxine. - GERD: Patient says she was on medication for this before but that it "did not work". Not on anything currently. - Migraine: Continue home Topamax and verapamil. - TIA: History of the same around mid- (facial droop). Follows neurology (Dr. Garcia) as outpatient. - Endometriosis: Status post full hysterectomy in 1997. Code status: Full code. Diet: NPO. DVT prophy: SCDs, PT/OT: Deferred. Disbo: Admitted for observation to [facility]. (2) Diaphragmatic hernia: (3) Dysuria: (4) Dysphagia: (5) Esophageal spasm: (6) Hypothyroidism: (7) GERD (gastroesophageal reflux disease): (8) Migraine: (9) Liver cyst: (10) Endometriosis: Supervising Physician Co-Signing Physician Notes I personally examined the patient and verified all portillo points of history and exam, discussed case, and agree with decision making with Dr Casanova. Belly feeling better, she is about to try clears. She is for an EGD tomorrow. She has ongoing dysuria. No vaginal discharge. Vitals noted, in general she is awake and alert pleasant no distress. HEENT normocephalic atraumatic mucous membranes moist. Lungs are unlabored no accessory muscle use good effort. Abdomen is soft mildly distended nontender no guarding no rebound no rigidity Abdominal pain/esophageal symptoms�this all appears to be related to her diaphragmatic hernia. EGD tomorrow, will need to discuss with thoracic surgery in regards to the possible timing of repair. Dysuria�continue antibiotics pending culture. otherwise as above Subjective Found patient resting comfortably in her bedside chair. She says that her abdominal pain is presently completely resolved. She still has some dysuria. She denies any vaginal symptoms, discharge, or bleeding. She recounted the events of her HPI. She says she has a pending appointment with urology on January 10. At present, she has no particular acute concerns. Physical Exam 2 Vital Signs (Past 24 Hours): Last Vital Signs Temp 37.0 C 12/28/18 07:51 Pulse 68 12/28/18 07:51 Resp 16 12/28/18 07:51 BP 122/83 12/28/18 07:51 Pulse Ox 100 12/28/18 07:51 Physical Exam: General Appearance: Awake, alert & oriented, comfortable in general, NAD. CV: +S1S2 RRR, no murmur. Pulm: Clear to auscultation throughout. Abdomen: +BS, soft, non-tender (including LLQ), non-distended. Extremities: No pedal edema or calf tenderness. Moving all extremities naturally and easily. Neuro: No gross neuro deficits. Results & Data Laboratory Results Laboratory Results WBC 7.09 K/uL (4.8-10.8) 12/27/18 23:25 RBC 4.26 M/uL (4.2-5.4) 12/27/18 23:25 Hgb 13.9 g/dL (12.0-16.0) 12/27/18 23:25 Hct 40.6 % (37-47) 12/27/18 23:25 MCV 95.3 fL (80-100) 12/27/18 23:25 MCH 32.6 pg (25-34) 12/27/18 23:25 MCHC 34.2 g/dL (32-36) 12/27/18 23:25 RDW Std Deviation 47.7 fL (36.4-46.3) H 12/27/18 23:25 RDW Coeff of Mandi 13.8 % (11.5-14.5) 12/27/18 23: Plt Count 229 K/uL (130-400) 12/27/18 23:25 MPV 9.1 fL (7.4-10.4) 12/27/18 23:25 Immature Gran % (Auto) 0.3 % 12/27/18 23: Neut % (Auto) 52.2 % 12/27/18 23: Lymph % (Auto) 30.7 % 12/27/18 23:25 [place] % (Auto) 14.0 % 12/27/18 23:25 Eos % (Auto) 2.4 % 12/27/18 23:25 Baso % (Auto) 0.4 % 12/27/18 23:25 Immature Gran # (Auto) 0.02 K/uL (0.00-0.02) 12/27/18 23: Neut # (Auto) 3.70 K/uL (1.4-6.5) 12/27/18 23:25 Lymph # (Auto) 2.18 K/uL (1.2-3.4) 12/27/18 23:25 [place] # (Auto) 0.99 K/uL (0.11-0.59) H 12/27/18 23:25 Eos # (Auto) 0.17 K/uL (0-0.5) 12/27/18 23:25 Baso # (Auto) 0.03 K/uL (0-0.2) 12/27/18 23:25 Sodium 139 mmol/L (136-145) 12/27/18 23:25 Potassium 3.4 mmol/L (3.5-5.1) L 12/27/18 23:25 Chloride 109 mmol/L (98-107) H 12/27/18 23:25 Carbon Dioxide 25 mmol/L (21-32) 12/27/18 23:25 Anion Gap 6.0 (3-11) 12/27/18 23:25 BUN 21 mg/dl (7-18) H 12/27/18 23:25 Creatinine 1.07 mg/dl (0.6-1.2) 12/27/18 23:25 Est Cr Clr Drug Dosing 73.6 ml/min 12/27/18 23:25 Est GFR ( Amer) 69.6 12/27/18 23:25 Est GFR (Non-Af Amer) 60.1 12/27/18 23:25 BUN/Creatinine Ratio 19.3 (10-20) 12/27/18 23:25 Glucose 98 mg/dl (70-99) 12/27/18 23:25 Calcium 8.6 mg/dl (8.5-10.1) 12/27/18 23:25 Total Bilirubin 0.4 mg/dl (0.2-1) 12/27/18 23:25 AST 8 U/L (15-37) L 12/27/18 23:25 ALT 17 U/L (12-78) 12/27/18 23:25 Alkaline Phosphatase 74 U/L (45-117) 12/27/18 23:25 Total Protein 7.2 gm/dl (6.4-8.2) 12/27/18 23:25 Albumin 3.5 gm/dl (3.4-5.0) 12/27/18 23:25 Globulin 3.7 gm/dl (2.5-4.0) 12/27/18 23:25 Albumin/Globulin Ratio 1.0 (0.9-2) 12/27/18 23:25 Lipase 111 U/L (73-393) 12/27/18 23:25 Urine Color Yellow 12/27/18 23:00 Urine Appearance Clear (Clear) 12/27/18 23:00 Urine pH 5.5 (4.5-7.5) 12/27/18 23:00 Ur Specific [place] 1.028 (1.000-1.030) 12/27/18 23:00 Urine Protein Negative (Negative) 12/27/18 23:00 Urine Glucose (UA) Negative (Negative) 12/27/18 23:00 Urine Ketones Trace (Negative) H 12/27/18 23:00 Urine Blood Negative (Negative) 12/27/18 23:00 Urine Nitrite Negative (Negative) 12/27/18 23:00 Urine Bilirubin Negative (Negative) 12/27/18 23:00 Urine Urobilinogen Negative (Negative) 12/27/18 23:00 Ur Leukocyte Esterase 1+ (Negative) H 12/27/18 23:00 Urine WBC (Auto) 10-30 /hpf (0-5) H 12/27/18 23:00 Urine RBC (Auto) 0-4 /hpf (0-4) 12/27/18 23:00 U Hyaline Cast (Auto) 5-10 /lpf (0-5) H 12/27/18 23:00 U Epithel Cells (Auto) 10-20 /lpf (0-5) H 12/27/18 23:00 Urine Bacteria (Auto) Negative (Negative) 12/27/18 23:00 Medications Administered Current Inpatient Medications Acetaminophen (Tylenol) 650 mg PO Q4H PRN PRN Reason: pain/fever Stop: 01/27/19 05:56 Al Hydrox/Mg Hydrox/Simethicone (Maalox) 30 ml PO Q6H PRN PRN Reason: Dyspepsia Stop: 01/27/19 05:56 Dicyclomine HCl (Bentyl) 20 mg PO Q6H PRN PRN Reason: Pain Stop: 01/27/19 06:44 Sodium Chloride (Nss 1000ml) 1,000 mls @ 125 mls/hr IV .Q8H [facility] Stop: 01/27/19 05:59 Last Admin: 12/28/18 06:18 Dose: 125 mls/hr Ketorolac Tromethamine (Toradol) 15 mg IV Q6H PRN PRN Reason: Pain Stop: 01/02/19 06:37 Levothyroxine Sodium (Synthroid) 100 mcg PO DAILYBB RUSS Stop: 01/27/19 06:29 Last Admin: 12/28/18 06:17 Dose: 100 mcg Magnesium Hydroxide (Milk Of Magnesia) 30 ml PO Q6H PRN PRN Reason: Constipation Stop: 01/27/19 05:56 Ondansetron HCl (Zofran) 4 mg IV Q6H PRN PRN Reason: Nausea Stop: 01/27/19 05:56 Polyethylene Glycol (Miralax Powder Packet) 17 gm PO DAILY PRN PRN Reason: Constipation Stop: 01/27/19 05:56 Topiramate (Topamax) 50 mg PO BID [facility] Stop: 01/27/19 08:59 Last Admin: 12/28/18 08:46 Dose: 50 mg Verapamil HCl (Calan Sr) 240 mg PO QPM [facility] Stop: 01/27/19 20:59 Resident Activity Tracking Resident Involvement: Resident Care Provided Care Provided: Adult [facility] Medicine
[2018-12-28] MEDS: ACETAMINOPHEN 325 MG TAB PO PRN ×2 (12:05→17:16)
--- NOTE | 2018-12-28 15:30 | Consultation Report ---
DATE OF CONSULTATION: 12/28/2018 REASON FOR EVALUATION: Diaphragmatic hernia. HISTORY OF PRESENT ILLNESS: The patient is a 53-year-old who for the last 7-10 days has been bothered by urinary tract symptoms. It had gotten progressively worse and she was having severe abdominal pain and required hospitalization. She also been experiencing a hoarse voice and which she describes as esophageal spasms at times when she is eating. She had a CT scan of the abdomen and pelvis which revealed a large central left diaphragmatic hernia with most of the stomach, the splenic flexure of the colon and tail of the pancreas inside the chest cavity on the left compressing the left lower lobe. This hernia was present in 2016, but is worse now. She is moving her bowels normally and is currently not experiencing any abdominal pain. Her main complaint is that she has a persistent hoarse voice. PAST MEDICAL HISTORY: Remarkable for fatty liver, endometriosis status post multiple fulgurations, hypothyroidism, migraine headaches, seasonal affective disorder, TMJ problems, TIA. She has had a breast biopsy, , multiple laparoscopies and umbilical hernia repair. She had a JOSE-BSO. MEDICATIONS: Levothyroxine, topiramate, verapamil. ALLERGIES: YELLOW DYE, SULFA, LATEX, LISINOPRIL, AND CITALOPRAM. FAMILY HISTORY: Father and mother both have diabetes. Mother has history of esophageal cancer. SOCIAL HISTORY: The patient lives with her daughter and grandson. Does not smoke, does not use any alcohol. REVIEW OF SYSTEMS: Positive for some esophageal spasms. PHYSICAL EXAMINATION: GENERAL: The patient is overweight, in no acute distress. VITAL SIGNS: Normal. She is afebrile. HEENT: Normal. ABDOMEN: Shows some lower abdominal stretch haile and some surgical scars. There are no masses, tenderness, or hepatosplenomegaly. IMPRESSION: The patient has a large diaphragmatic hernia with most of the stomach, splenic flexure of the colon and tail of the pancreas in the area. It seems to have gotten worse over the last 2-3 years and is becoming more symptomatic. I plan on scheduling an EGD for tomorrow to assess the area and decide whether or not, when she has this defect fixed, whether she needs to have a fundoplication or not at the same time.
--- NOTE | 2018-12-28 19:07 | Consultation Report ---
DATE OF CONSULTATION: 12/28/2018 REASON FOR CONSULTATION: Diaphragmatic hernia. HISTORY OF PRESENT ILLNESS: Babita Tyler is a very nice 53-year-old who is relatively healthy except for some gastroesophageal reflux, obesity and hypothyroidism. She was scheduled to undergo an upper endoscopy as a routine procedure by Dr. Sherif Arteaga as an outpatient last week; however, she developed signs and symptoms consistent with urinary tract infection and then developed a left upper abdominal pain which was quite severe; it brought her into the hospital. She states that this pain is now resolved. The CT scan showed she has a diaphragmatic hernia of her left hemidiaphragm. This has been present for a while, but it appears fairly large. It has some of her stomach and colon as well as the tail of the spleen in this hernia. Her lipase is normal. She feels better now, although she is complaining a bit of hoarseness, which has gotten a bit worse in the last week or so. Her weight has been stable. She has had no palpitations or cardiac signs. She had no leg swelling. She had no nausea, no vomiting. She has been told that she has reflux, but she does not take any medication for this. I was asked to evaluate her for this diaphragmatic hernia. PAST MEDICAL HISTORY: 1. Obesity. 2. Hypothyroidism. 3. Apparent gastroesophageal reflux disease. 4. Endometriosis in the past. 5. Esophageal spasm. 6. Fatty liver. 7. Migraine headaches. 8. Seasonal affective disorder. 9. Temporomandibular joint issues. 10. Questionable transient ischemic attack. PAST SURGICAL HISTORY: 1. 1, para 2, aborta 0 ( for twins at age 28). 2. Colonoscopy with polypectomy. 3. Dilatation and curettage. 4. Endometrial ablation. 5. Umbilical herniorrhaphy x2. 6. Status post hysterectomy with bilateral salpingo-oophorectomy at age 32. 7. Biopsy thyroid. 8. Multiple laparoscopies for endometriosis. MEDICATIONS: 1. Synthroid. 2. Verapamil. 3. Topiramate. ALLERGIES: 1. ESCITALOPRAM. 2. YELLOW DYE. 3. LISINOPRIL. 4. LATEX. 5. SULFA. 6. APPARENT SYNTHROID, ALTHOUGH SHE IS ON THIS. SOCIAL HISTORY: The patient lives at home with her 26-year-old daughter and his 9-month-old son. 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 She does not smoke cigarettes and does not drink alcohol. FAMILY MEDICAL HISTORY: The patient's mother and father both living in their early 70s. Her father has adult onset diabetes mellitus and mother has type 1 diabetes which was diagnosed at age 7. She is an only child. Her 26-year-old twins are healthy. Her son is expecting his first child in the next few months and her daughter just had a child 9 months ago who is healthy. REVIEW OF SYSTEMS: The patient's weight has been stable. She is heavy. She denies night sweats. She has no palpitations. She has had no skin breakdown. She has had no visual or auditory symptoms. She has had no neurologic symptoms in the last several months. She denies seizures or focal deficits such as TIA's. She denies chest fullness. She has had no diarrhea. PHYSICAL EXAMINATION: GENERAL: 5 feet 3 inches, 240 pound female with a BMI of over 42. She is awake and alert. HEENT: His extraocular movements are intact. Pupils are equal, round and reactive. Sclerae are anicteric. Teeth are in fairly good repair. NECK: Supple. She has no carotid bruits. She has no supraclavicular or cervical lymphadenopathy. She has no axillary adenopathy. LUNGS: Clear. HEART: She has a regular rate and rhythm of her heart. ABDOMEN: Obese, but soft, nontender. EXTREMITIES: She has no peripheral edema and has excellent peripheral pulses. She has no joint effusion. She has no skin breakdown. NEUROLOGIC: She is completely intact. Cranial nerves II-XII are intact. DATA: CT scan reviewed with radiology. 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 There is diaphragm around the edge and it appears to be a fairly straightforward repair. ASSESSMENT AND PLAN: Left hemidiaphragmatic hernia. I do not see evidence of a hiatal hernia on her CT scan. She does have reflux. I still do not have a good explanation for why she has her urinary symptoms as her urine is clear. I will discuss this with Dr. 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 This would be a very straightforward repair transabdominally with the robot. I think she warrants this because of her symptoms, but at this point I will talk to Dr. Arteaga and we will come up with a plan. MTDD
[2018-12-28] MEDS ORDERED: VERAPAMIL HCL 240 MG TABCR PO SCH (21:00)
[2018-12-28] MEDS ORDERED: NITROFURANTOIN MONOHYDRATE 100 MG CAP PO SCH (21:00)
[2018-12-28] MEDS: CIPROFLOXACIN 250 MG TAB PO SCH (21:46)
[2018-12-29] MEDS: LEVOTHYROXINE SODIUM 50 MCG TABLET PO SCH (05:53)
[2018-12-29] MEDS: SODIUM CHLORIDE 0.9% 1000ML 1,000 ML IV SCH (05:53)
[2018-12-29 06:42] LABS: Basophils # (auto) 0.02 K/uL (0-0.2); Basophils % (auto) 0.6 %; Eosinophils # (auto) 0.16 K/uL (0-0.5); Eosinophils % (auto) 4.7 %; Hematocrit (blood only) 39.2 % (37-47); Hemoglobin 12.8 g/dL (12.0-16.0); Immature Granulocytes # (auto) 0.01 K/uL (0.00-0.02); Immature Granulocytes % (auto) 0.3 %; Lymphocytes # (auto) 1.46 K/uL (1.2-3.4); Lymphocytes % (auto) 42.8 %; Mean Corpuscular Hgb Conc 32.7 g/dL (32-36); Mean Corpuscular Volume 96.1 fL (80-100); Mean Platelet Volume 9.4 fL (7.4-10.4); Monocytes # (auto) 0.48 K/uL (0.11-0.59); Monocytes % (auto) 14.1 %; Neutrophils # (auto) 1.28 K/uL (1.4-6.5); Neutrophils % (auto) 37.5 %; Platelet Count 182 K/uL (130-400); RDW Coefficient of Variation 13.7 % (11.5-14.5); RDW Standard Deviation 48.4 fL (36.4-46.3); Red Blood Count 4.08 M/uL (4.2-5.4); White Blood Count 3.41 K/uL (4.8-10.8)
[2018-12-29 07:11] LABS: BUN Creatinine Ratio 13.7 (10-20); Calcium 7.9 mg/dl (8.5-10.1); Creatinine Clr Calc Pharmacy 107.5 ml/min; Est GFR (African American) 110.5; Est GFR (Non-African American) 95.4; Potassium 3.6 mmol/L (3.5-5.1)
[2018-12-29] MEDS: TOPIRAMATE 50 MG TAB PO SCH (09:34)
[2018-12-29] MEDS: CIPROFLOXACIN 250 MG TAB PO SCH (09:35)
--- NOTE | 2018-12-29 12:39 | Progress Note ---
DATE: 12/29/2018 The patient is seen today. She is feeling "pretty good." She is scheduled to undergo an upper endoscopy by Dr. Sherif Arteaag today. Dr. Arteaga's help in this case greatly appreciated. At this point, we are going to allow her to be discharged when the primary care service feels that she is stable. I will have set her up for an elective robot-assisted laparoscopic repair of this left diaphragmatic hernia. We will probably use a nonabsorbable mesh over this. In addition, Dr. Arteaga is going to assess her to see whether or not she needs a fundoplication. She does have a history of reflux.
--- NOTE | 2018-12-29 13:05 | Anesthesiology Consultation ---
Date of Service December 29, 2018 Assessment & Plan Chart Review Chart Review: Acceptable Risk for Surgery and Patient NOT seen in Pre Admission Testing Consults Requested none ASA ASA3 Proposed Anesthesia Anesthesia Type: MAC NPO Date Last Intake of Fluids: 12/29/18 Time Last Intake of Fluids: 08:00 Date Last Intake of Solids: 12/28/18 Time Last Intake of Solids: 23:55 History Surgery Operation Date: 12/29/18 08:30 Proposed Procedures p Esophagogastroduodenoscopy Dr Chandler Arteaga Height/Weight Height: 5 ft 3 in Weight: 108.1 kg Allergies Allergy/AdvReac Type Severity Reaction Status Date / Time yellow dye Allergy Intermediate RASH Verified 12/27/18 23:08 Sulfa (Sulfonamide Allergy Mild , Verified 12/27/18 23:08 Antibiotics) levothyroxine Allergy Unknown unknown Verified 12/27/18 23:08 latex Allergy Rash Verified 12/27/18 23:08 lisinopril Allergy Swelling Verified 12/27/18 23:08 of Lip/Tongue/Throat citalopram AdvReac Mild WORSENING Verified 12/27/18 23:08 TREMORS Medications Home Medications Medication Instructions Recorded Confirmed Last Taken levothyroxine 100 mcg PO QAM 12/22/18 12/27/18 12/27/18 topiramate 50 mg PO BID 12/22/18 12/27/18 12/27/18 verapamil 240 mg PO QPM 12/22/18 12/27/18 12/27/18 Active Medications Generic Name Dose Route Start Last Admin Trade Name Freq PRN Reason Stop Dose Admin Acetaminophen 650 mg 12/28/18 05:57 12/28/18 17:16 Tylenol PO 01/27/19 05:56 650 mg Q4H PRN Administration pain/fever Ciprofloxacin 250 mg 12/28/18 21:00 12/29/18 09:35 Cipro PO 12/31/18 12:00 250 mg Q12H RUSS Administration Sodium Chloride 1,000 mls @ 125 mls/hr 12/28/18 06:00 12/29/18 12:48 Nss 1000ml IV 01/27/19 05:59 0 mls/hr .Q8H RUSS Infusion Ketorolac Tromethamine 15 mg 12/28/18 06:38 12/28/18 17:16 Toradol IV 01/02/19 06:37 15 mg Q6H PRN Administration Pain Levothyroxine Sodium 100 mcg 12/28/18 06:30 12/29/18 05:53 Synthroid PO 01/27/19 06:29 100 mcg DAILYBB RUSS Administration Topiramate 50 mg 12/28/18 09:00 12/29/18 09:34 Topamax PO 01/27/19 08:59 50 mg BID RUSS Administration Verapamil HCl 240 mg 12/28/18 21:00 12/28/18 21:45 Calan Sr PO 01/27/19 20:59 240 mg QPM RUSS Administration Past Medical History Medical History Migraine Transient ischemic attack (TIA) approx 10 years ago. follows w/ dr. camacho Seasonal affective disorder TMJ locking TMJ click Hypothyroidism GERD (gastroesophageal reflux disease) Esophageal spasm Difficulty swallowing Fatty liver History of endometriosis Thyroid nodule Past Family History Family History Son Family history of reaction to anesthesia Father Family history of reaction to anesthesia PONV Father Family history of diabetes mellitus Mother Family history of diabetes mellitus Mother Family history of esophageal cancer UTERINE CANCER W/ METS TO ESOPHAGUS AND LUNG Past Surgical History Surgical History History of esophagogastroduodenoscopy (EGD) History of colonoscopy w/ polypectomy Status post JOSE-BSO History of section History of dilatation and curettage History of endometrial ablation History of herniorrhaphy umbilical History of breast biopsy Status post biopsy of thyroid gland History of tooth extraction Nausea and vomiting after administration of anesthetic agent Social History Smoking Status: Never smoker Hx Alcohol Use: No Hx Substance Use: No substance use type: does not use Physical Exam Vital Signs Last Vital Signs Temp 36.5 C 12/29/18 07:52 Pulse 64 12/29/18 07:52 Resp 16 12/29/18 07:52 BP 116/79 12/29/18 07:52 Pulse Ox 99 12/29/18 07:52 Testing Echocardiogram Date: 12/27/17 EF: 55-60% LV Function: normal RWMA: + none Other Findings: + diastolic dysfunction (type 1 DD) Valvular Disease: + no significant valvular disease and + MR (mild MR) NSR @ 78 BPM Stress Test Date: 12/27/17 Type: exercise Findings: no ischemia and no achieved max HR (85% MPHR) stress test was discontiued due to patient fatigue Laboratory Results 12/29/18 06:21 12/29/18 06:21 Urine Color Yellow 12/27/18 23:00 Urine Appearance Clear (Clear) 12/27/18 23:00 Urine pH 5.5 (4.5-7.5) 12/27/18 23:00 Ur Specific [place] 1.028 (1.000-1.030) 12/27/18 23:00 Urine Protein Negative (Negative) 12/27/18 23:00 Urine Glucose (UA) Negative (Negative) 12/27/18 23:00 Urine Ketones Trace (Negative) H 12/27/18 23:00 Urine Nitrite Negative (Negative) 12/27/18 23:00 Ur Leukocyte Esterase 1+ (Negative) H 12/27/18 23:00 Urine WBC (Auto) 10-30 /hpf (0-5) H 12/27/18 23:00 Urine RBC (Auto) 0-4 /hpf (0-4) 12/27/18 23:00 U Hyaline Cast (Auto) 5-10 /lpf (0-5) H 12/27/18 23:00 U Epithel Cells (Auto) 10-20 /lpf (0-5) H 12/27/18 23:00 Urine Bacteria (Auto) Negative (Negative) 12/27/18 23:00 12/27/18 23:00 Urine Culture - Preliminary Urine,Clean Catch No growth - Less than 1,000 colonies/mL, Final report to follow.
[2018-12-29] MEDS ORDERED: ePHEDrine sulfate 50 MG/ML AMP IV PRN (13:09)
[2018-12-29] MEDS ORDERED: ATROPINE SULFATE 0.1 MG/ML 10ML SYR IV PRN (13:09)
[2018-12-29] MEDS ORDERED: LIDOCAINE HCL 2% 2 ML VIAL/AMP(20MG/ML) INFIL ONE (13:17)
[2018-12-29] MEDS ORDERED: PROPOFOL IV EMULSION 10 MG/ML 20 ML VIAL IV ONE ×2 (13:17→13:47)
--- NOTE | 2018-12-29 13:18 | History & Physical Report ---
Date of Service December 29, 2018 History of Present Illness Chief Complaint: abd pain Primary Care Provider: Mari Williamson for EGD Allergies Allergy/AdvReac Type Severity Reaction Status Date / Time yellow dye Allergy Intermediate RASH Verified 12/27/18 23:08 Sulfa (Sulfonamide Allergy Mild , Verified 12/27/18 23:08 Antibiotics) levothyroxine Allergy Unknown unknown Verified 12/27/18 23:08 latex Allergy Rash Verified 12/27/18 23:08 lisinopril Allergy Swelling Verified 12/27/18 23:08 of Lip/Tongue/Throat citalopram AdvReac Mild WORSENING Verified 12/27/18 23:08 TREMORS Home Medications Home Medications Medication Instructions Recorded Confirmed Type levothyroxine 100 mcg PO QAM 12/22/18 12/27/18 History topiramate 50 mg PO BID 12/22/18 12/27/18 History verapamil 240 mg PO QPM 12/22/18 12/27/18 History Past Med/Surg History Medical History Migraine Transient ischemic attack (TIA) approx 10 years ago. follows w/ dr. camacho Seasonal affective disorder TMJ locking TMJ click Hypothyroidism GERD (gastroesophageal reflux disease) Esophageal spasm Difficulty swallowing Fatty liver History of endometriosis Thyroid nodule Surgical History History of esophagogastroduodenoscopy (EGD) History of colonoscopy w/ polypectomy Status post JOSE-BSO History of section History of dilatation and curettage History of endometrial ablation History of herniorrhaphy umbilical History of breast biopsy Status post biopsy of thyroid gland History of tooth extraction Nausea and vomiting after administration of anesthetic agent Family History Son Family history of reaction to anesthesia Father Family history of reaction to anesthesia PONV Father Family history of diabetes mellitus Mother Family history of diabetes mellitus Mother Family history of esophageal cancer UTERINE CANCER W/ METS TO ESOPHAGUS AND LUNG Social History Current Living Situation: Family Current Living Situation Comment: daughter and grandson Other Information That Helps Us Care for You: No Feels Safe at Home: Yes Safety Concerns: Feels Safe At This Time Smoking Status: Never smoker Second Hand Exposure: No Hx Alcohol Use: No Hx Substance Use: No Beliefs That Will Affect Care: None Preferred Language: Turkish Communication Ability: Effective Proteomics Scientist Required: No Physical Exam 2 Vital Signs (Past 24 Hours): Last Vital Signs Temp 36.5 C 12/29/18 13:03 Pulse 62 12/29/18 13:03 Resp 18 12/29/18 13:03 BP 125/76 12/29/18 13:03 Pulse Ox 100 12/29/18 13:03 Constitutional: well developed and well nourished Respiratory: normal respiratory effort Cardiovascular: Rate/Rhythm: regular rate and regular rhythm Gastrointestinal (Abdomen): Percussion/Palpation: abdomen soft
[2018-12-29] MEDS ORDERED: SODIUM CHLORIDE 0.9% 1000ML 1,000 ML IV SCH (13:30)
--- NOTE | 2018-12-29 13:46 | GI REPORT ---
Patient Name: Babita Tyler Procedure Date: 12/29/2018 1:28 PM Date of : 1965 Admit Type: Inpatient Age: 53 Gender: Female Attending MD: Sherif Arteaga MD Procedure: Upper GI endoscopy Providers: Sherif Galaviz MD Referring MD: Jose Tavera Indications: Abdominal pain in the left upper quadrant, Abnormal CT of the GI tract Medicines: Propofol total dose 260 mg IV, Lidocaine 40 mg IV Complications: No immediate complications. Estimated Blood Loss: Estimated blood loss: none. Procedure: Pre-Anesthesia Assessment: - Prior to the procedure, a History and Physical was performed, and patient medications, allergies and sensitivities were reviewed. The patient's tolerance of previous anesthesia was reviewed. - The risks and benefits of the procedure and the sedation options and risks were discussed with the patient. All questions were answered and informed consent was obtained. After obtaining informed consent, the endoscope was passed under direct vision. Throughout the procedure, the patient's blood pressure, pulse, and oxygen saturations were monitored continuously. The Endoscope was introduced through the mouth, with the intention of advancing to the stomach. The scope was advanced to the gastric body before the procedure was aborted. Medications were given. The upper GI endoscopy was technically difficult and complex due to abnormal anatomy. The procedure was aborted due to the extreme difficulty of the procedure. Findings: The Z-line was regular and was found 35 cm from the incisors. The examined esophagus was normal. A deformity was found in the gastric antrum. Impression: - The procedure was aborted due to the extreme difficulty of the procedure. - Z-line regular, 35 cm from the incisors. - Normal esophagus. - Acquired deformity in the gastric antrum. - No specimens collected. Recommendation: - [facility] patient [facility] for [facility] care. Sherif Arteaga M.D. Sherif Arteaga MD 12/29/2018 1:45:56 PM This report has been signed electronically. Note Initiated On: 12/29/2018 1:28 PM Number of Addenda: 0 I attest to the content of the Intraoperative Record and orders documented therein, exceptions below {[id number]}
--- NOTE | 2018-12-29 14:16 | Progress Note ---
DATE: 12/29/2018 The patient underwent an EGD today to evaluate her esophagus and stomach, which is distorted due to her large diaphragmatic defect. The question is whether or not she has esophageal injury or evidence that she may require a fundoplication at the time of her diaphragm surgery. The procedure was performed with propofol sedation. The esophagus was normal. Z-line was at 35 cm. There is no evidence of esophagitis, Masterson's or hiatal hernia. The stomach was markedly distorted in its anatomy and most of the stomach was in the chest cavity. I was able to advance the scope to the distal part of the stomach where it was extremely compressed and I was unable to advance further. The body of the stomach was also twisted and distorted up in the chest cavity as well. The duodenum was not entered. IMPRESSION: The patient's esophagus was normal and I do not believe that a fundoplication will be necessary when she has her diaphragm fixed. I understand this has been scheduled for 01/04/2019.
[2018-12-29 14:58] VITALS: BP 113/74; TEMP 97.5; O2SAT 100
--- NOTE | 2018-12-29 15:02 | Discharge Summary ---
Date of Service December 29, 2018 Admission HPI Per Admitting Provider Pt is a 53 yo F PMH migraines, hypothyroidism who presents with acute LLQ abdominal pain which started this evening. She notes that for the past 7-10 days she has been having UTI Sxs of "pulling" sensation when peeing, burning after voiding, suprapubic tenderness. Saw PCP for this, was started on Abx but culture came back negative, so abx were stopped. Symptoms persisted and she has an appointment with urology soon. She notes that yesterday the LLQ abdo pain was intermittent and she was unsure if this was related to her pelvic symptoms or not, but late last night it became sudden and severe, doubling her over in pain. She has had regular BMs recently, including 2 today, one in the ER since her pain started. Of note, she had a JOSE/BSO in 1997 for endometriosis and had "several" surgeries for her endometriosis prior to that. She also notes that she has been having issues with swallowing lately, citing esophageal spasms. She was meant to have a scope with Dr. Arteaga last week, but because of her UTI symptoms, this was deferred. She has a known hiatal hernia which has reportedly gotten worse since her last abdominal scan. In the ER, she was given bentyl, dilaudid, toradol, zofran, IVF. her UA was dirty, and sent for culture. Labs overall unremarkable aside from K of 3.4. Normal LFTs. She is afebrile, VSS. Admission Exam Per Admitting Provider Constitutional: WD/WN, vitals as above + morbidly obese; not ill appearing Eyes: PERRL, conjunctivae normal, anicteric sclerae ENMT: external ear and nose normal, oropharynx normal Neck: normal visual inspection Respiratory: normal respiratory effort, lungs clear to auscultation Cardiovascular: RRR, no murmur, no edema Gastrointestinal (Abdomen): Inspection/Auscultation: abdomen normal to inspection and normal bowel sounds Percussion/Palpation: + abdomen tender (L flank, LLQ, suprapubic) and abdomen soft Musculoskeletal: no cyanosis or clubbing, extremities motor strength 5/5 Skin: no rashes, warm and dry normal turgor Neurologic: PERRL, EOMI, accommodation nl, no face palsy, no dysarthria Psychiatric: A+Ox3, euthymic affect Principal Diagnosis Left safia-diaphragmatic hernia, dysuria Discharge Exam General Appearance: Awake, alert & oriented, comfortable in general, NAD. CV: +S1S2 RRR, no murmur. Pulm: Clear to auscultation throughout. Abdomen: +BS, soft, non-tender (including LLQ), non-distended. Extremities: No pedal edema or calf tenderness. Moving all extremities naturally and easily. Neuro: No gross neuro deficits. Discharge Data Allergies Allergy/AdvReac Type Severity Reaction Status Date / Time yellow dye Allergy Intermediate RASH Verified 12/27/18 23:08 Sulfa (Sulfonamide Allergy Mild , Verified 12/27/18 23:08 Antibiotics) levothyroxine Allergy Unknown unknown Verified 12/27/18 23:08 latex Allergy Rash Verified 12/27/18 23:08 lisinopril Allergy Swelling Verified 12/27/18 23:08 of Lip/Tongue/Throat citalopram AdvReac Mild WORSENING Verified 12/27/18 23:08 TREMORS Consultations Thoracic surgery progress note assessment on 29 December 2018 The patient is seen today. She is feeling "pretty good." She is scheduled to undergo an upper endoscopy by Dr. Sherif Arteaga today. Dr. Arteaga's help in this case greatly appreciated. At this point, we are going to allow her to be discharged when the primary care service feels that she is stable. I will have set her up for an elective robot-assisted laparoscopic repair of this left diaphragmatic hernia. We will probably use a nonabsorbable mesh over this. In addition, Dr. Arteaga is going to assess her to see whether or not she needs a fundoplication. She does have a history of reflux. Gastroenterology (draft) progress note on 29 December 2018 The patient underwent an EGD today to evaluate her esophagus and stomach, which is distorted due to her large diaphragmatic defect. The question is whether or not she has esophageal injury or evidence that she may require a fundoplication at the time of her diaphragm surgery. The procedure was performed with propofol sedation. The esophagus was normal. Z-line was at 35 cm. There is no evidence of esophagitis, Masterson's or hiatal hernia. The stomach was markedly distorted in its anatomy and most of the stomach was in the chest cavity. I was able to advance the scope to the distal part of the stomach where it was extremely compressed and I was unable to advance further. The body of the stomach was also twisted and distorted up in the chest cavity as well. The duodenum was not entered. IMPRESSION: The patient's esophagus was normal and I do not believe that a fundoplication will be necessary when she has her diaphragm fixed. I understand this has been scheduled for 01/04/2019. Procedures Performed Operation Date: 12/29/18 08:30 Actual Procedures p Esophagogastroduodenoscopy - Sherif Arteaga Ordered Studies Chest x-ray 2 view on 27 December 2018 IMPRESSION: 1. No acute process. 2. Unchanged left hemidiaphragmatic elevation with subsegmental left basilar atelectasis/scarring. This finding correlates with the diaphragmatic defect with herniation seen on CT study of same day. CT abdomen and pelvis with IV contrast only on 27 December 2018 IMPRESSION: 1. Large left diaphragmatic hernia containing the gastric fundus, splenic flexure of the colon, and distal pancreatic tail. No evidence of a complete obstruction or strangulation. A mild functional obstruction may be present at the level of the gastric body, where the stomach reenters the abdominal cavity. The hernia has enlarged since the prior exam. 2. Focal stool ball in the small bowel of the mid abdomen/superior pelvis with a focal downstream transition point and mild upstream distention. This may indicate the presence of a partial low-grade or a functional obstruction. No complete bowel obstruction at this site. The stool ball may either be due to the presence of a stricture, adhesion, stenosis at the transition point, or, less likely, bezoar. Hospital Course (1) Diaphragmatic hernia: 53-year-old female was admitted on 28 December 2018 for acute severe left lower quadrant abdominal pain. Abdominal pain, left safia-diaphragmatic hernia: Presently virtually pain-free for past 24 hours. Remains afebrile without leukocytosis. CT a/p notes large left diaphragmatic hernia. Thoracic surgery consulted (see related notes). They plan on pursuing surgical correction this coming Wednesday. Per discussions with them, patient does not need to be hospitalized until then. Dysphagia: Prior to admit, dysphagia vs esophageal spasms. Previously scheduled EGD was deferred due to acute illness. Gastroenterology consulted ( see related notes). According to the EGD report, the procedure was aborted due to "the extreme difficulty of the procedure). No specimens collected. However , progress note states they do not believe the patient will need fundoplication at time of surgery. Dysuria: Patient noted the same for six days prior to admit and was briefly ( one single day) on antibiotics. UA here was dirty. 19Feb UCx pending. - Will cover for UTI with cipro (no macrobid or bactrim due to yellow dye and sulfa allergies) for a three day course ending am of 23Feb. Hypokalemia: Admit K 3.4, then 3.6 at recheck. Consider monitoring as an outpatient. Liver cyst: On CT a/p, cyst had increased up to 3.4 cm compared to prior. Recommend outpatient follow-up. Ongoing medical issues: - Hypothyroidism: Continue home levothyroxine. - GERD: Patient says she was on medication for this before but that it "did not work". Not on anything currently. - Migraine: Continue home Topamax and verapamil. - TIA: History of the same around mid- (facial droop). Follows neurology (Dr. Garcia) as outpatient. - Endometriosis: Status post full hysterectomy in 1997. (2) Abdominal pain: (3) Dysuria: (4) Dysphagia: (5) Esophageal spasm: (6) Hypothyroidism: (7) GERD (gastroesophageal reflux disease): (8) Migraine: (9) Liver cyst: (10) Endometriosis: Total Time Total Time Spent Total Time Spent (In Minutes): > 30 min Discharge Plan Discharge Items Patient Disposition: Home - Self-Care Reason For Visit: ABDOMINAL PAIN Discharge Diagnosis: Left safia-diaphragmatic hernia Discharge Goals: Diagnostic testing and Learn about illness Activity: Per 'Additional Instructions' section Non-emergency contact: Primary Care Provider, Surgeon and Litigation Support Analyst Call non-emergency contact if: you have any medication questions Diet: Regular Addtl Provider Instructions: You were admitted to the hospital on December 28, 2018 for your severe abdominal pain. While in the hospital we evaluated the following issues: Left diaphragmatic hernia and dysphagia: As part of your evaluation, a CT scan of your abdomen noted that you have a hernia of some of your intestinal organs ( stomach, colon, pancreas, spleen) into your chest cavity due to a defect (hole) in your diaphragm (the muscle in your chest that helps you breathe). This is likely a significant cause of your symptoms including your ongoing difficulty swallowing (dysphagia). - You were seen by Dr. Ascencio of the thoracic surgery service. They recommend surgical correction this coming January 04. The hospital pre-operative office should contact you with further details prior to the surgery. - You were seen by Dr. Arteaga of the gastroenterology service. They were able to perform a partial EGD (scope of your esophagus and stomach) to provide some additional information to Dr. Ascencio prior to surgery. - We recommend you take one capful of rvar-ibr-micdbuj MiraLAX every day prior to your surgery as a way of making sure that your stool burden is low. Dysuria (painful urination): As you mentioned, prior to your admission he had some painful urination for about a week. We checked your urine for evidence of an infection but so far have not found anything on both preliminary testing and on urine culture. However, in such cases it is often silva to treat with antibiotics anyways. - You were started on an antibiotic called Cipro (due to your multiple other antibiotic allergies). Please take this twice a day with your last dose being on Wednesday morning. - If you have complete resolution of your urinary symptoms at the time of completing the antibiotic, you should consider cancelling your urology specialist appointment. Otherwise, there should be no current changes to your home medications. Please follow the pre-operative instructions on what medicines to take or hold just prior to surgery. Please follow the instructions of the gastroenterology and thoracic surgery teams prior to your planned surgery this coming Wednesday. Of course, if before that time you were to develop any return of your severe abdominal pain, vomiting, or a fever you should return to the emergency department for reevaluation. Prescriptions: New ciprofloxacin HCl 250 mg Tablet 250 mg PO Q12H 2 Days Qty: 4 RF: 0 Continue levothyroxine 50 mcg Tablet 100 mcg PO QAM RF: 0 verapamil 240 mg Tablet Extended Release 240 mg PO QPM RF: 0 topiramate 50 mg Tablet 50 mg PO BID RF: 0 Stand-Alone Forms: [facility] Discharge Orders: Discharge Order (Routine); Ordered 12/29/18 Ordered By: Raj Casanova Admission Data Admit Date/Time: 12/28/18 04:53 Attending Provider: Jose Tavera Admit Provider: Schneekloth,Louisa Primary Care Provider: Mari Williamson Other Providers: Marito Gross ; Sherif Arteaga ; Baldev Ascencio. Service: Surgical Services
--- NOTE | 2018-12-29 15:14 | Anesthesiology Progress Note ---
Date of Service December 29, 2018 Anesthesia Post Procedure Vital Signs Vital Signs: Temp Pulse Pulse Resp BP Pulse Ox 12/29/18 14:57 36.4 C L 60 113/74 100 12/29/18 14:04 59 L 20 125/81 97 12/29/18 13:45 64 20 106/64 95 12/29/18 13:03 36.5 C 62 18 125/76 100 12/29/18 07:52 36.5 C 64 16 116/79 99 12/29/18 00:06 36.5 C 59 L 16 118/75 95 12/28/18 16:15 36.7 C 57 L 16 108/71 99 Pain Intensity Left Abdomen: Pain Intensity: 5 Notes Mental Status: alert / awake / arousable Patient Amnestic to Procedure: Yes Nausea / Vomiting: adequately controlled Pain: adequately controlled Airway Patency, RR, SpO2: stable & adequate BP & HR: stable & adequate Hydration State: stable & adequate Anesthetic Complications: no major complications apparent and Pt Satisfied with anesthetic care
[2018-12-29 17:47] VITALS: PULSE 63
== END 2018-12-29 18:23 | disposition home or self-care (01) ==
LOC: ED 22:35 → 3W 22:35 → SUATTDRO 12-28 04:53 → 3W 12-28 05:24

== ENCOUNTER 2019-01-04 09:31 | Observation (INO) ==
--- NOTE | 2018-12-30 11:11 | Anesthesiology Consultation ---
Date of Service December 30, 2018 Assessment & Plan Plan: - Most recent EKG more than one year ago; per surgeon, to order for AM DOS. - S/P EGD 12/29/18 with MAC sedation at [facility]. Chart Review Chart Review: Acceptable Risk for Surgery (PENDING PREOP EKG STAT AM DOS) and Patient NOT seen in Pre Admission Testing History Surgery Operation Date: 01/04/19 11:50 Proposed Procedures p Robotic Assisted Laparoscopic Diaphragmatic Hernia Repair with Mesh - Baldev Ascencio MD, FACS Height/Weight Height: 5 ft 3 in Weight: 106.594 kg Allergies Allergy/AdvReac Type Severity Reaction Status Date / Time yellow dye Allergy Intermediate RASH Verified 12/30/18 09:38 Sulfa (Sulfonamide Allergy Mild Rash Verified 12/30/18 09:38 Antibiotics) levothyroxine Allergy Unknown unknown Verified 12/30/18 09:38 latex Allergy Rash WITH Verified 12/30/18 09:38 GLOVES lisinopril Allergy Swelling Verified 12/30/18 09:38 of Lip/Tongue/Throat citalopram AdvReac Mild WORSENING Verified 12/30/18 09:38 TREMORS gluten AdvReac Unknown GI Verified 12/30/18 09:39 PROBLEMS WITH TOO MUCH Medications Home Medications Medication Instructions Recorded Confirmed Last Taken levothyroxine 100 mcg PO QAM 12/22/18 12/30/18 12/27/18 topiramate 50 mg PO BID 12/22/18 12/30/18 12/27/18 verapamil 240 mg PO QPM 12/22/18 12/30/18 12/27/18 ciprofloxacin HCl 250 mg PO Q12H 2 Days #4 tab 12/29/18 12/30/18 Unknown Past Medical History Medical History Migraine Transient ischemic attack (TIA) 10+ YEARS AGO Seasonal affective disorder TMJ locking Hypothyroidism GERD (gastroesophageal reflux disease) Esophageal spasm NO FURTHER DETAILS Fatty liver History of endometriosis Thyroid nodule Dysphagia FELT 2/2 TO DIAPHRAGMATIC HERNIA Morbid obesity Urinary tract infection SYMPTOMS IMPROVED; CURRENTLY ON ABX- SURGEON AWARE Past Surgical History Surgical History History of esophagogastroduodenoscopy (EGD) History of colonoscopy Status post JOSE-BSO History of section History of dilatation and curettage History of endometrial ablation History of herniorrhaphy UMBILICAL History of breast biopsy Status post biopsy of thyroid gland History of tooth extraction Nausea and vomiting after administration of anesthetic agent Social History Smoking Status: Never smoker Do You Dip or Chew Tobacco: No Hx Alcohol Use: No Hx Substance Use: No substance use type: does not use Testing Electrocardiogram Date: 12/27/17 NSR at 76bpm. NS TWA. Chest X-Ray Date: 12/27/18 Findings: + NAD No acute process. Unchanged left hemidiaphragmatic elevation with subsegmental left basilar atelectasis/scarring. This finding correlates with the diaphragmatic defect with herniation seen on CT study of same day. Stress Test Date: 12/27/17 Type: exercise Negative exercise stress ECHO/EKG for ischemia at 85% MPHR. Left sided neck pain with initial exercise resolved following peak exercise. EF 55-60%. No RWMA. Type I DD. Mild MR. 8.3 METS. Laboratory Results 12/29/18 WBC 3.41 H/H 12.8/39.2 PLATELETS 182 SODIUM 142 POTASSIUM 3.6 CHLORIDE 116 CO2 20 BUN 10 CREATININE 0.73 GLUCOSE 81 12/27/18 UA negative bacteria URINE CULTURE probable skin faisal
[~2019-01-04 09:31] MED LIST changes: +DEXAMETHASONE SOD INJ 4 MG/ML VIAL ONE; +GLYCOPYRROLATE 0.2 MG/ML VIAL ONE; +LIDOCAINE HCL 2% 2 ML VIAL/AMP(20MG/ML) INFIL ONE; +LR 15ML/HR IV SCH; -LSN10 PO; +MIDAZOLAM HCL 1 MG/ML 2ML VIAL ONE; +NEOSTIGMINE METHYLSULFATE 5 MG/5 ML SYR ONE; -NORT25CA PO; +ONDANSETRON INJ 2 MG/ML 2 ML VIAL ONE; +PROPOFOL IV EMULSION 10 MG/ML 20 ML VIAL IV ONE; -THYR15TA PO; -VERA240C2 PO; +fentaNYL citrate 100 MCG/2 ML VIAL ONE
[2019-01-04] MEDS ORDERED: fentaNYL citrate 100 MCG/2 ML VIAL IV PRN (10:15)
[2019-01-04] MEDS ORDERED: ONDANSETRON INJ 2 MG/ML 2 ML VIAL IV PRN ×2 (10:15→16:57)
[2019-01-04] MEDS ORDERED: ATROPINE SULFATE 0.1 MG/ML 10ML SYR IV PRN ×2 (10:15→16:56)
[2019-01-04] MEDS ORDERED: ePHEDrine sulfate 50 MG/ML AMP IV PRN ×2 (10:15→16:56)
[2019-01-04] MEDS ORDERED: HYDROmorphone INJ 1 MG/ML SYRINGE IV PRN ×2 (10:15→16:57)
[2019-01-04] MEDS ORDERED: SCOPOLAMINE 1.5 MG TDSY ONE (10:30)
[2019-01-04] MEDS ORDERED: SCOPOLAMINE 1.5 MG TDSY TD STA (10:31)
[2019-01-04] MEDS ORDERED: CEFAZOLIN 2,000 MG/15 ML IV PUSH IV ONE (12:16)
[2019-01-04] MEDS ORDERED: BUPIVACAINE LIPOSOME 1.3% 266 MG/20 ML VIAL ONE (12:18)
[2019-01-04] MEDS ORDERED: BUPIVACAINE 0.5 % 5 MG/1 ML MPF 30ML VIAL ONE (12:18)
[2019-01-04] MEDS ORDERED: SODIUM CHLORIDE 0.9% PF 50 ML VIAL ONE (12:18)
--- NOTE | 2019-01-04 12:24 | History & Physical Report ---
Date of Service January 04, 2019 Assessment & Plan (1) Diaphragmatic hernia: Robot-assisted laparoscopic repair. Present on Admission?: Yes History of Present Illness Primary Care Provider: Mari Williamson 53 yo obese female presented to the hospital last week with vague abdominal pain and was found to have a hernia in her left hemidiaphragm. No evidence of incarceration, but we feel it is responsible for her complaints, which have now resolved to a great extent. Will plan on a robot-assisted laparoscopic repair with a patch. Discussed in detail with the patient and her family. Discussed risks, benefits and expected post-op course. Allergies Allergy/AdvReac Type Severity Reaction Status Date / Time yellow dye Allergy Intermediate RASH Verified 01/04/19 10:06 Sulfa (Sulfonamide Allergy Mild Rash Verified 01/04/19 10:06 Antibiotics) levothyroxine Allergy Unknown unknown Verified 01/04/19 10:06 latex Allergy Rash WITH Verified 01/04/19 10:06 GLOVES lisinopril Allergy Swelling Verified 01/04/19 10:06 of Lip/Tongue/Throat citalopram AdvReac Mild WORSENING Verified 01/04/19 10:06 TREMORS gluten AdvReac Unknown GI Verified 01/04/19 10:06 PROBLEMS WITH TOO MUCH Home Medications Home Medications Medication Instructions Recorded Confirmed Type levothyroxine 100 mcg PO QAM 12/22/18 01/04/19 History topiramate 50 mg PO BID 12/22/18 01/04/19 History verapamil 240 mg PO QPM 12/22/18 01/04/19 History Past Med/Surg History Social History Preferred Language: Somali Communication Ability: Effective Pediatric Psychiatrist Required: No Beliefs That Will Affect Care: None Current Living Situation: Family Current Living Situation Comment: daughter and grandson Other Information That Helps Us Care for You: No Feels Safe at Home: Yes Safety Concerns: Feels Safe At This Time Smoking Status: Never smoker Hx Alcohol Use: No Hx Substance Use: No Review of Systems All systems reviewed & are unremarkable except as noted in HPI & below Physical Exam Vital Signs (Past 24 Hours): Last Vital Signs Temp 36.7 C 01/04/19 09:45 Pulse 61 01/04/19 09:45 Resp 20 01/04/19 09:45 BP 117/71 01/04/19 09:45 Pulse Ox 99 01/04/19 09:45 Constitutional: WD/WN, vitals as above + obese Eyes: PERRL, conjunctivae normal, anicteric sclerae ENMT: external ear and nose normal, oropharynx normal Neck: trachea midline, no thyromegaly Respiratory: Auscultation: lungs clear to auscultation bilaterally Cardiovascular: RRR, no murmur, no edema Gastrointestinal (Abdomen): normal bowel sounds, soft, nontender, no hepatosplenomegaly Musculoskeletal: no cyanosis or clubbing, extremities motor strength 5/5 Skin: no rashes, warm and dry Neurologic: patellar DTR's 2+ bilat, sensation intact
[2019-01-04] MEDS ORDERED: ROCURONIUM BROMIDE 10 MG/ML 5 ML VIAL ONE (13:56)
[2019-01-04] MEDS ORDERED: GLYCOPYRROLATE 0.2 MG/ML VIAL ONE (14:07)
[2019-01-04] MEDS ORDERED: PHENYLEPHRINE 100MCG/ML 5ML SYR ONE (14:07)
[2019-01-04] MEDS ORDERED: ONDANSETRON INJ 2 MG/ML 2 ML VIAL ONE (14:07)
[2019-01-04] MEDS ORDERED: HYDROmorphone INJ 2 MG/ML SYR/VIAL ONE (15:02)
--- NOTE | 2019-01-04 16:16 | Post Operative Brief Note ---
Immediate Post Op Note v1 Date of Surgery January 04, 2019 Pre & Post Diagnosis Operation Date: 01/04/19 11:20 Pre-Op Diagnosis: Diaphragmatic Hernia Post-Op Diagnosis: Congenital Left Diaphragmatic Hernia Procedure Operation Date: 01/04/19 11:20 Actual Procedures p Robotic Assisted Laparoscopic Repair Congenital Left Anil-diaphragm Hernia with Goretex patch, Ana M fundoplication Esophagogastroduodenoscopy, - Baldev Ascencio MD, FACS Surgeon Baldev Ascencio MD, FACS Manager Of [employer] Estimated Blood Loss 10 Findings Consistent with Post-Op Diagnosis Drains Malin Catheter
[2019-01-04] MEDS ORDERED: METOCLOPRAMIDE HCL INJ 5 MG/ML 2 ML VIAL IV ONE (16:35)
[2019-01-04] MEDS ORDERED: fentaNYL citrate 100 MCG/2 ML VIAL ONE (16:53)
--- NOTE | 2019-01-04 17:01 | XRay Report ---
XR chest 1V portable CLINICAL HISTORY: Postop Ana M fundoplication COMPARISON STUDY: No previous studies for comparison. FINDINGS: The heart is enlarged. There is elevation of the left hemidiaphragm. Basilar opacities are likely atelectatic. There is gaseous distention of the stomach. There is no lobar consolidation. Ther e is subcutaneous emphysema within the left chest wall.[ There is a suspected tiny left apical pneumo thorax IMPRESSION: 1. Left-sided subcutaneous emphysema 2. Tiny left apical pneumothorax 3. Elevation of the left hemidiaphragm with gaseous distention of stomach 4. Mild basilar atelectatic changes Electronically signed by: Kayden Herrera M.D. 01/04/2019 5:00 PM
[2019-01-04] MEDS: fentaNYL citrate 100 MCG/2 ML VIAL IV PRN ×2 (17:03→17:09)
--- NOTE | 2019-01-04 17:19 | Anesthesiology Progress Note ---
Date of Service January 04, 2019 Anesthesia Post Procedure Vital Signs Vital Signs: Temp Pulse Pulse Resp BP Pulse Ox 01/04/19 17:10 88 14 138/89 93 01/04/19 17:00 84 15 141/90 H 95 01/04/19 16:50 87 18 141/96 H 96 01/04/19 16:40 86 20 142/82 H 95 01/04/19 16:33 36.3 C L 92 H 21 143/95 H 95 01/04/19 09:45 36.7 C 61 20 117/71 99 Pain Intensity Abdomen: Pain Intensity: 5 Notes Mental Status: alert / awake / arousable Patient Amnestic to Procedure: Yes Nausea / Vomiting: adequately controlled Pain: adequately controlled Airway Patency, RR, SpO2: stable & adequate BP & HR: stable & adequate Hydration State: stable & adequate Anesthetic Complications: no major complications apparent
[2019-01-04] MEDS ORDERED: MoRPHine SULFATE 4 MG/ML 1 ML CARP\\VIAL IV PRN (18:12)
[2019-01-04] MEDS: METOCLOPRAMIDE HCL INJ 5 MG/ML 2 ML VIAL IV SCH (19:03)
[2019-01-04] MEDS: CHECK SCOPOLAMINE PATCH PLACEMENT SCH ×2 (19:03→23:31)
[2019-01-04] MEDS: ACETAMINOPHEN 1,000 MG/100 ML VIAL IV SCH (19:13)
[2019-01-04] MEDS: ONDANSETRON INJ 2 MG/ML 2 ML VIAL IV SCH ×2 (19:17→22:11)
[2019-01-04] MEDS: D5W AND 1/2NSS 1,000 ML IV SCH (19:50)
[2019-01-04] MEDS ORDERED: VERAPAMIL HCL 240 MG TABCR PO SCH (21:00)
--- NOTE | 2019-01-04 21:56 | Operative Report ---
DATE OF OPERATION: 01/04/2019 PREOPERATIVE DIAGNOSIS: Left hemidiaphragmatic hernia. POSTOPERATIVE DIAGNOSIS: Same. PROCEDURE: 1. Robot-assisted laparoscopic repair of hernia with Randolph-Javier patch. 2. Ana M fundoplication. SPECIFICS OF PROCEDURE AND FINDINGS: This is an extremely interesting 53-year-old female. She does have obesity but has had trouble with chest pain, GI symptoms, dysphagia and other issues. She was admitted to the hospital last week and she was found to have a hernia which appeared to be of longstanding duration in her left hemidiaphragm. I went over the CT scan quite carefully with x-ray. She underwent upper endoscopy by Dr. Sherif Arteaga and there was difficulty crossing the GE junction, but she had no evidence of obvious reflux. At this point, I was prepared to simply repair this hernia. On 01/04/2018, the patient was brought to the operating room and underwent an uncomplicated repair of this hernia. I was able to reduce the hernia. She had a large amount of her stomach, part of the pancreas and a large amount of omentum which was all taken down. Her stomach was stuck, I did take this down sharply. She also had a sac and I took much of this out, although it did not appear that we got into the pleural cavity. There was a space here. I then took a piece of Randolph-Javier and sutured this with 0 silk suture in interrupted and running fashion. This was about a 5 x 4 defect. Unfortunately, we had to take down the GE junction in order to reduce this hernia. She had plenty of esophagus intra-abdominally, but this was going to be an issue. The right and left crura were fairly separate and the hernia went right up to the left crura. I was a bit concerned about this and I was also concerned about leaving this Randolph-Javier in contact with the esophagus. For this reason, I did a floppy Ana M and interspersed stomach between the Randolph-Javier and the esophagus. I then did an esophagoscopy and it looked quite good at the end. She tolerated it quite well with essentially no blood loss. She did have a space in her left base and this is probably filled with CO2. We will see if this resolves by tomorrow. If not, we will aspirate it. DESCRIPTION OF PROCEDURE: The patient was brought to the operating room and laid in supine position. General anesthesia was induced and endotracheal intubation was performed with a single lumen tube. After prepping and draping in the usual sterile fashion and giving prophylactic antibiotics, we called a time-out. An incision was then made above the umbilicus, but we made it a bit to the left of the midline. In this, a 5-mm port was placed and we could see that we were in place and CO2 was insufflated. We then put an 8-mm port a bit to the left of the midclavicular line under the costal margin. I then put a working channel down to the left of the umbilical area a bit further away. I then placed an 8-mm port to the right of the midline and after doing this, we had to take down adhesions from her prior surgeries. Using the 5-mm laparoscope and a Harmonic scalpel, we took down these adhesions. This allowed us good access to the left hemidiaphragm. The patient was then placed in marked reverse Trendelenburg with her feet down. We then docked the robot and we did not have to use a liver retractor or a third arm. We then easily reduced a large amount of omentum with part of the pancreas and it appeared part of the spleen was involved in this, but we were able to take it all down nicely except for the stomach which was stuck medially and posteriorly. I then took this down and I actually took down the hernia sac. I took this down, it was really stuck to the left diaphragmatic crura right against the GE junction. In order to get this down, I went around the esophagus and put a 1-inch Elizabeth and pulled it away. We identified both vagus nerves and care was taken to avoid injury to these. The left and right crura were fairly separate, but we were able to pull the left crura over to the right and then finally I was able to take down the entire stomach and the sac was handed off the field. It did not appear we were in the pleural cavity, but there was a large space here. We then measured this hernia. A 0 silk was used to approximate the posterior edges of the hernia with 2 sutures which were not under any tension, but we could not approximate the rest. I cut a 1-mm Randolph-Javier to length at about 4 x 6 cm. We then sutured this in with 4 separate 0 silk sutures at 12 o'clock, 3 o'clock, 6 o'clock, and 9 o'clock. I then ran a 0 silk from each one of the sutures to the other and tied. I was going to use Prolene, however, I was afraid of the permanent suture which was rather stiff sticking into the esophagus, so I used silk instead. I had then taken down the GE junction, I was afraid to leave the esophagus against the Randolph-Javier and also was concerned about her having reflux now that we had taken this down. For this reason, a floppy Ana M was performed without difficulty. We had taken down the short gastrics with a vessel sealer and then this came around quite easily and I put 2 sutures into the posterior and anterior fundus into the esophagus. This laid very nicely under no tension; however, I also put some sutures on the left side to pull the stomach up to the diaphragmatic crura anteriorly in order to keep the stomach interspersed between the esophagus and the Randolph-Javier. This looked quite good. We then undocked the robot, put her back in supine position, and I did an esophagoscopy. Upon going down into the esophagus, it could be seen that we went through the GE junction without difficulty. I then retroflexed the scope and this fundoplication looked quite nice. We then suctioned out the stomach. Two 0 PDS sutures were used to close the funeral home assistant port and the camera port. We then closed all the incisions with 4-0 Monocryl in a running subcuticular fashion. She tolerated it quite well and was awakened without difficulty from anesthesia. I attest to the content of the Intraoperative Record and any orders documented therein. Any exception s are noted below.
[2019-01-04] MEDS: DOCUSATE SODIUM 100 MG CAP PO SCH (22:06)
[2019-01-04] MEDS: TOPIRAMATE 50 MG TAB PO SCH (22:06)
[2019-01-04] MEDS: OXYCODONE HCL IR 5 MG TAB (IMMEDIATE RELEASE) PO PRN (22:06)
[2019-01-05] MEDS: ONDANSETRON INJ 2 MG/ML 2 ML VIAL IV SCH ×4 (02:08→14:12)
[2019-01-05] MEDS: ACETAMINOPHEN 1,000 MG/100 ML VIAL IV SCH (03:06)
[2019-01-05] MEDS: D5W AND 1/2NSS 1,000 ML IV SCH (04:12)
[2019-01-05] MEDS ORDERED: LEVOTHYROXINE SODIUM 100 MCG TABLET PO SCH (06:30)
--- NOTE | 2019-01-05 07:06 | XRay Report ---
XR chest 1V portable CLINICAL HISTORY: pneumothorax COMPARISON STUDY: January 04, 2019 FINDINGS: There is decreasing subcutaneous emphysema on the left. The previously identified tiny left apical pneumothorax is no longer visualized. There is mild elevation left hemidiaphragm. There are l eft basilar airspace opacities statistically atelectatic given history of recent surgery.[ IMPRESSION: 1. Resolving left-sided subcutaneous emphysema 2. Interval resolution of the previously identified tiny left apical pneumothorax 3. Mild elevation left hemidiaphragm. Left basilar opacities, statistically atelectatic Electronically signed by: Kayden Herrera M.D. 01/05/2019 7:05 AM
[2019-01-05 07:22] LABS: Hematocrit (blood only) 39.3 % (37-47); Hemoglobin 13.2 g/dL (12.0-16.0); Mean Corpuscular Hgb Conc 33.6 g/dL (32-36); Mean Corpuscular Volume 94.9 fL (80-100); Mean Platelet Volume 9.2 fL (7.4-10.4); Platelet Count 253 K/uL (130-400); RDW Coefficient of Variation 13.6 % (11.5-14.5); RDW Standard Deviation 47.4 fL (36.4-46.3); Red Blood Count 4.14 M/uL (4.2-5.4); White Blood Count 9.29 K/uL (4.8-10.8)
[2019-01-05 07:38] LABS: INR 1.1 (0.9-1.1); Partial Thromboplastin Time 25.9 Seconds (21.0-31.0); Prothrombin Time 10.9 Seconds (9.0-12.0)
[2019-01-05 07:53] LABS: Creatinine Clr Calc Pharmacy 78.9 ml/min; Est GFR (African American) 77.4; Est GFR (Non-African American) 66.8
[2019-01-05] MEDS ORDERED: ENOXAPARIN INJ 40 MG/0.4 ML SYR SQ SCH (09:00)
[2019-01-05] MEDS: CHECK SCOPOLAMINE PATCH PLACEMENT SCH (09:14)
--- NOTE | 2019-01-05 09:47 | Fluoroscopy Report ---
FL barium swallow CLINICAL HISTORY: s/p monet COMPARISON STUDY: CT of the abdomen and pelvis December 28, 2018. FLUOROSCOPY TIME: 1.4 minutes. FLUOROSCOPIC IMAGES: 13 FINDINGS: Esophageal motility was within normal limits. No contrast extravasation was identified to s uggest a leak. Expected mild narrowing at the gastroesophageal junction/proximal stomach is noted. Co ntrast eventually passed into the duodenum on the delayed KUB. Images demonstrate a small air-fluid l evel within the left lower hemithorax which may reflect a tiny hydropneumothorax. There is mild left basilar opacity. IMPRESSION: 1. Expected findings following Monet fundoplication. No contrast extravasation to suggest leak. 2. Small air-fluid level within left lower hemithorax which may reflect a small hydropneumothorax. Mi ld left basilar opacity. Electronically signed by: Cesar Melgar M.D. 01/05/2019 9:46 AM
[2019-01-05] MEDS: DOCUSATE SODIUM 100 MG CAP PO SCH (10:19)
[2019-01-05] MEDS: TOPIRAMATE 50 MG TAB PO SCH (10:19)
[2019-01-05] MEDS: ACETAMINOPHEN 325 MG TAB PO SCH ×2 (11:03→15:51)
--- NOTE | 2019-01-05 13:37 | Anesthesiology Progress Note ---
Date of Service January 05, 2019 Anesthesia Post Procedure Vital Signs Vital Signs: Temp Pulse Pulse Resp BP BP Pulse Ox 01/05/19 11:28 36.7 C 83 14 134/89 100 01/05/19 07:52 37.1 C 79 16 129/68 94 01/05/19 06:00 36.4 C L 82 18 111/72 96 01/05/19 04:11 36.8 C 75 16 116/74 93 01/05/19 03:04 36.8 C 73 18 114/72 92 01/05/19 01:53 36.7 C 87 16 110/71 91 01/05/19 00:01 36.7 C 88 16 116/74 92 01/04/19 22:19 93 H 16 140/88 97 01/04/19 21:19 36.8 C 93 H 15 145/82 H 97 01/04/19 20:05 87 16 116/75 94 01/04/19 19:04 36.5 C 88 16 129/83 93 01/04/19 18:00 36.6 C 88 14 138/87 96 01/04/19 17:49 83 14 139/84 94 01/04/19 17:30 82 16 136/92 96 01/04/19 17:20 36.1 C L 84 13 140/87 93 01/04/19 17:10 88 14 138/89 93 01/04/19 17:00 84 15 141/90 H 95 01/04/19 16:50 87 18 141/96 H 96 01/04/19 16:40 86 20 142/82 H 95 01/04/19 16:33 36.3 C L 92 H 21 143/95 H 95 Pulse Ox 01/05/19 11:28 01/05/19 07:52 01/05/19 06:00 01/05/19 04:11 01/05/19 03:04 01/05/19 01:53 01/05/19 00:01 01/04/19 22:19 01/04/19 21:19 97 01/04/19 20:05 01/04/19 19:04 01/04/19 18:00 96 01/04/19 17:49 01/04/19 17:30 01/04/19 17:20 01/04/19 17:10 01/04/19 17:00 01/04/19 16:50 01/04/19 16:40 01/04/19 16:33 Pain Intensity Abdomen: Pain Intensity: 3 Notes Mental Status: alert / awake / arousable and participated in evaluation Patient Amnestic to Procedure: Yes Nausea / Vomiting: adequately controlled Pain: adequately controlled Airway Patency, RR, SpO2: stable & adequate BP & HR: stable & adequate Hydration State: stable & adequate Anesthetic Complications: no major complications apparent and Pt Satisfied with anesthetic care
[2019-01-05] MEDS: OXYCODONE HCL IR 5 MG TAB (IMMEDIATE RELEASE) PO PRN (16:22)
--- NOTE | 2019-01-06 00:44 | Discharge Summary ---
DISCHARGE DIAGNOSIS: Apparent congenital left hemidiaphragmatic hernia. HOSPITAL COURSE: Babita Tyler is a very nice 53-year-old female who has had gastroesophageal reflux and obesity, who developed left upper quadrant abdominal pain which is quite severe that brought her to the hospital. She was admitted on 12/28/2018. Her pain then improved. We worked her up and she was found to have a large left hemidiaphragmatic hernia with much of her stomach, part of her pancreas and omentum in her chest. It was very difficult for Dr. Arteaga to perform an endoscopy to get through the GE junction. For this reason, we scheduled her for surgery and on 01/04/2019, the patient underwent an uncomplicated robot-assisted repair of this hernia. We reduced a large amount of omentum and almost her entire stomach out of this hernia and also had to take down adhesions and a hernia sac. We did not get into the pleural cavity. I then used a 1-mm Portland-Javier mesh and sutured this in place with heavy silk suture to cover this about a 4 x 6 cm defect. Unfortunately, this was quite close to the GE junction. I had to take down the distal esophagus and GE junction in order to free up the stomach. I then did a floppy Ana M fundoplication for her reflux and also had to repair her diaphragmatic crura posteriorly. The Ana M was done to intersperse stomach between the mesh and the esophagus. Her on-table esophagoscopy looked quite good. She did very well postoperatively. The following morning her barium swallow looked quite good. She was discharged home on postoperative day #1. Discharge instructions and particularly dietary restrictions were discussed in detail. I will see her back in about 2 weeks.
== END 2019-01-05 16:47 | disposition home or self-care (01) ==
LOC: ASU 09:31 → 3W 09:31

== ENCOUNTER 2020-11-02 21:30 | Observation (INO) ==
--- NOTE | 2020-11-02 21:57 | Emergency Department Note ---
History of Present Illness General Chief complaint: Leg Injury/Pain Stated complaint: POSSIBLE BLOOD CLOT Time Seen by Provider: 11/02/20 21:37 History of Present Illness Maximum Pain Intensity: 8 This 54 yo presents to the ER complaining of bilateral leg achiness with worsening dyspnea who was diagnosed with PE yesterday and on Eliquis Location: Generalized Quality: Achy Severity: Moderate Duration: Past few days Timing: Started the other day Context: Symptoms got much worse and patient came in Modifying factors: better with rest; worse with activity Patient states her breathing is gotten much worse. She feels more winded. Her legs are now bothering her. She has been taking her Eliquis. She is requesting for admission. Patient complains of subjective fever and chills, cough, congestion and feeling horrible. Patient denies abdominal pain, neck symptoms, diarrhea. Home Medications Medication Instructions Recorded Confirmed Type fluoxetine 20 mg capsule 20 mg PO DAILY 05/07/20 11/02/20 History topiramate 50 mg tablet 50 mg PO BID 30 Days #60 tab 06/17/20 11/02/20 Rx verapamil 240 mg tablet,extended 240 mg PO HS 30 Days #30 tab 06/17/20 11/02/20 Rx release ibuprofen 200 mg capsule 200 - 600 mg PO Q6H PRN 08/05/20 11/02/20 History pediatric multivitamin no.7-folic 2 tab PO DAILY tab 08/05/20 11/02/20 History acid 100 mcg chewable tablet Synthroid 50 mcg tablet 75 mcg PO DAILY #135 tab NS 09/14/20 11/02/20 Rx apixaban [Eliquis] See Rx Instructions .ROUTE 11/01/20 11/02/20 Rx .COMPLEX #74 tab guanfacine 1 mg PO DAILY 11/01/20 11/02/20 History tramadol 50 mg PO Q6H PRN 11/01/20 11/02/20 History Allergies Allergy/AdvReac Type Severity Reaction Status Date / Time yellow dye Allergy Intermediate Rash Verified 11/01/20 20:18 Sulfa (Sulfonamide Allergy Mild Rash Verified 11/01/20 20:18 Antibiotics) latex Allergy Unknown Rash Verified 11/01/20 20:18 levothyroxine Allergy Unknown Unknown Verified 11/01/20 20:18 lisinopril Allergy Unknown Swelling Verified 11/01/20 20:18 of Lip/Tongue/Throat citalopram AdvReac Mild WORSENING Verified 11/01/20 20:18 TREMORS gluten AdvReac Unknown GI Symptoms Verified 11/01/20 20:18 Past Med/Surg History Medical History Complicated migraine Left-sided weakness, facial droop Costochondritis Diaphragmatic hernia Dizziness GERD (gastroesophageal reflux disease) History of colon polyps History of congenital diaphragmatic hernia SURGICAL REPAIR 01/04/2019 [facility] History of endometriosis Hypothyroidism Liver cyst Migraine with aura and without status migrainosus, not intractable Morbid obesity SBO (small bowel obstruction) Seasonal affective disorder Shoulder pain, left TMJ locking Transient ischemic attack (TIA) 10+ YEARS AGO Surgical History History of breast biopsy History of section History of colonoscopy History of dilatation and curettage History of endometrial ablation History of esophagogastroduodenoscopy (EGD) History of herniorrhaphy UMBILICAL History of Ana M fundoplication 01/04/2019 [facility] History of tooth extraction Nausea and vomiting after administration of anesthetic agent Status post biopsy of thyroid gland Status post JOSE-BSO Family History Son Family history of reaction to anesthesia Father Family history of reaction to anesthesia PONV Father Family history of diabetes mellitus Mother Family history of diabetes mellitus Family hx of colon cancer Mother Family history of esophageal cancer UTERINE CANCER W/ METS TO ESOPHAGUS AND LUNG Social History Smoking Status: Never smoker Second Hand Exposure: No; Hx Alcohol Use: No Hx Substance Use: No Preferred Language: Romansh Communication Ability: Effective 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 Battery Required: No Beliefs That Will Affect Care: None Current Living Situation: Family Current Living Situation Comment: daughter and grandson Feels Safe at Home: Yes Assistive Devices: Glasses Review of Systems A total of 10 systems reviewed and were otherwise negative Physical Exam Vital Signs Vital Signs - 24 hr 11/02/20 21:31 11/02/20 22:39 Temperature 36.9 C Temperature Source Temporal Artery Scan Pulse Rate 82 Pulse Rate [Apical] 69 Respiratory Rate 18 18 Respiratory Effort / Characteristics Non-Labored Non-Labored Respiratory Depth Normal Normal Blood Pressure 129/79 Blood Pressure [Right Arm] 134/86 Blood Pressure Mean 95 Blood Pressure Mean [Right Arm] 102 Pulse Oximetry 94 98 Oxygen Delivery Method Room Air Room Air Sepsis Recent Fever Within 48 Hours No Sepsis New/Unexplained Change in Mental Status N/A Sepsis Action Taken by Nursing No Action Required VITALS: Vitals are noted on the nurse's note and reviewed by myself. Vital signs stable. GENERAL: White female mildly ill-appearing, coughing and appearing mildly short of breath SKIN: Capillary reflex less than 2 seconds. HEENT: Normocephalic. PERRLA. EOMI. Nares patent. Mucous membranes moist. Neck is supple without nuchal rigidity. HEART: Regular rate and rhythm LUNGS: Clear to auscultation bilaterally without wheezes, rales or rhonchi. No retractions or accessory muscle use. ABDOMEN: Positive bowel sounds x 4. Normal tympanic percussion. Soft, nontender, without masses or organomegaly. Allen sign negative. No guarding or rebound tenderness. MUSCULOSKELETAL: No gross musculoskeletal defects. Bilateral calf tenderness NEURO: Patient was alert and oriented to person place and time. No focal neurological deficits. Medical Decision Making Medical Records Attestation: I reviewed the patient's medical records. Home Medications Current Medication List: was personally reviewed by me Laboratory Data Attestation: I reviewed the patient's lab results. Imaging Data Attestation: I personally reviewed and interpreted this imaging study as follows: MDM Narrative Prior records/ancillary studies reviewed. Triage Nursing notes reviewed. The patient's history was concerning for respiratory difficulties. Differential diagnosis: Etiologies such as infections, reactive airway disease, pneumonia, pneumothorax, COPD, CHF, cardiac ischemia, pulmonary embolism, musculoskeletal, gastrointestinal, as well as others were entertained. Physical examination: As above. ER treatment provided: An order was placed for continuous cardiac monitoring. The monitor shows a rate of 60-100 with a sinus rhythm. po fluids On reassessment the patient felt better. Diagnostic interpretation by me: The electrocardiogram was negative for acute ischemic or pathologic change. The labs revealed stable labs from yesterday Imaging studies: CTA from yesterday was reviewed and concerning for PE US VENOUS BILATERAL LOWER EXTREMITIES: No evidence of acute DVT. Radiologist: Ian Dailey M.D Consultation: A consultation was placed with Dr. Galvin, hospitalist. The case was discussed and diagnostics were reviewed. The patient was evaluated in the ER for further treatment. This appears to be consistent with worsening Covid with PE. Doppler ultrasound was reviewed. Patient is already on Eliquis. Medicine was consulted. She will be evaluated for admission. Stable pulse ox. Stable vital signs. By the evaluation outlined above emergent etiologies such as CHF, cardiac ischemia, reactive airway disease, pneumothorax, musculoskeletal, as well as others were deemed relatively unlikely. The pt informed about the findings as listed above. All questions were answered and pleased with the treatment. The chart was completed utilizing [facility] Speech voice recognition software. Grammatical errors, random word insertions, pronoun errors, and incomplete sentences are an occassional consequence of this system due to software limitations, ambient noise, and hardware issues. Any formal questions or concerns about the content, text, or information contained within the body of this dictation should be directly addressed to the physician assistant unit forester for clarification. Impression & Plan COVID-19, Pulmonary embolism Discharge Plan Visit Data Chief Complaint: Leg Injury/Pain Stated Complaint: POSSIBLE BLOOD CLOT ED Provider: Scar Huang ED Midlevel Provider: Aleida Blunt Discharge Problem: COVID-19, Pulmonary embolism Patient Disposition: Admitted As Inpatient Condition: Fair Forms Stand Alone Forms: [employer] Prescriptions Prescriptions: No Action topiramate 50 mg tablet 50 mg PO BID 30 Days Qty: 60 RF: 5 verapamil 240 mg tablet extended release 240 mg PO HS 30 Days Qty: 30 RF: 5 Flintstones Multi-Vit Gummies 100 mcg tablet,chewable 2 tab PO DAILY RF: 0 ibuprofen 200 mg capsule 200 - 600 mg PO Q6H PRN (Reason: Headache) RF: 0 fluoxetine 20 mg capsule 20 mg PO DAILY RF: 0 levothyroxine [Synthroid] 50 mcg tablet 75 mcg PO DAILY Qty: 135 RF: 3 guanfacine 1 mg tablet extended release 24 hr 1 mg PO DAILY RF: 0 tramadol 50 mg tablet 50 mg PO Q6H PRN (Reason: Pain) RF: 0 Eliquis 5 mg tablet See Rx Instructions .ROUTE .COMPLEX Qty: 74 RF: 0 Referrals Referrals: Mari Williamson CRNP [Primary Care Provider] -
--- NOTE | 2020-11-02 23:44 | History & Physical Report ---
Date of Service November 02, 2020 Assessment & Plan (1) Pneumonia due to COVID-19 virus: Multifocal pneumonia due to COVID-19 virus with hypoxia- Symptoms initially began more than 7 days ago, with initial COVID-19 testing positivity on 10/26/2020. Place on dexamethasone 6 mg IV every morning, with first dose now. Zinc sulfate 200 mg p.o. every morning Ventolin HFA 2 puffs 4 times daily, every 2 hours as needed Present on Admission?: Yes (2) Multifocal pneumonia: See above Present on Admission?: Yes (3) Pulmonary embolism on right: Verification of patient's outpatient prescription needs to be performed. She reports that her outpatient prescription states to take 10 mg p.o. every morning. Her dosing in hospital will be adjusted to 10 mg p.o. twice daily. Which IV for the first week, and outpatient dosing will continue as 5 mg p.o. twice daily. Present on Admission?: Yes (4) Complicated migraine: Continue verapamil SR 240 mg daily, topiramate 50 mg p.o. twice daily, guanfacine 1 mg p.o. daily and fluoxetine 20 mg p.o. daily Present on Admission?: Yes (5) Hypothyroidism: Continue levothyroxine 75 mcg daily Present on Admission?: Yes (6) ADD (attention deficit disorder): History of Present Illness Chief Complaint: The patient presents to the emergency department with complaint of worsening shortness of breath, lower right chest discomfort, leg achiness, and generalized fatigue Primary Care Provider: IRIS Pandey The patient is a 54-year-old female with a past medical history including ADD, complicated migraine, migraine with aura, hypothyroidism, GERD and TIA. She had been initially diagnosed with COVID-19 infection on 10/26/2020 via outpatient laboratories. She presented to the emergency department initially on 11/01/2020 with a milder version of the above symptoms, was advised to undergo venous Dopplers at that time due to a concurrent finding last evening of right lower lobe pulmonary embolism. The patient felt she was well enough that she could go home without getting the venous Dopplers done, and unfortunately, her symptoms progressed during the day today, and she returned to the ED tonight for reassessment. Venous Dopplers in emergency department tonight were negative for DVT. Her pulse ox was noted to be 94% on room air. She reports that she did take the apixaban initial dosing in the ED last evening, and reports that her current prescription states to take 2 pills every morning. She was instructed that this should be twice daily, and this will be adjusted during this hospitalization. Allergies Allergy/AdvReac Type Severity Reaction Status Date / Time yellow dye Allergy Intermediate Rash Verified 11/01/20 20:18 Sulfa (Sulfonamide Allergy Mild Rash Verified 11/01/20 20:18 Antibiotics) latex Allergy Unknown Rash Verified 11/01/20 20:18 levothyroxine Allergy Unknown Unknown Verified 11/01/20 20:18 lisinopril Allergy Unknown Swelling Verified 11/01/20 20:18 of Lip/Tongue/Throat citalopram AdvReac Mild WORSENING Verified 11/01/20 20:18 TREMORS gluten AdvReac Unknown GI Symptoms Verified 11/01/20 20:18 Home Medications Medication Instructions Recorded Confirmed Type fluoxetine 20 mg capsule 20 mg PO DAILY 05/07/20 11/02/20 History topiramate 50 mg tablet 50 mg PO BID 30 Days #60 tab 06/17/20 11/02/20 Rx verapamil 240 mg tablet,extended 240 mg PO HS 30 Days #30 tab 06/17/20 11/02/20 Rx release ibuprofen 200 mg capsule 200 - 600 mg PO Q6H PRN 08/05/20 11/02/20 History pediatric multivitamin no.7-folic 2 tab PO DAILY tab 08/05/20 11/02/20 History acid 100 mcg chewable tablet Synthroid 50 mcg tablet 75 mcg PO DAILY #135 tab NS 09/14/20 11/02/20 Rx apixaban [Eliquis] See Rx Instructions .ROUTE 11/01/20 11/02/20 Rx .COMPLEX #74 tab guanfacine 1 mg PO DAILY 11/01/20 11/02/20 History tramadol 50 mg PO Q6H PRN 11/01/20 11/02/20 History Past Med/Surg History Medical History Complicated migraine Left-sided weakness, facial droop Costochondritis Diaphragmatic hernia Dizziness GERD (gastroesophageal reflux disease) History of colon polyps History of congenital diaphragmatic hernia SURGICAL REPAIR 01/04/2019 [facility] History of endometriosis Hypothyroidism Liver cyst Migraine with aura and without status migrainosus, not intractable Morbid obesity SBO (small bowel obstruction) Seasonal affective disorder Shoulder pain, left TMJ locking Transient ischemic attack (TIA) 10+ YEARS AGO Surgical History History of breast biopsy History of section History of colonoscopy History of dilatation and curettage History of endometrial ablation History of esophagogastroduodenoscopy (EGD) History of herniorrhaphy UMBILICAL History of Ana M fundoplication 01/04/2019 [facility] History of tooth extraction Nausea and vomiting after administration of anesthetic agent Status post biopsy of thyroid gland Status post JOSE-BSO Family History Son Family history of reaction to anesthesia Father Family history of reaction to anesthesia PONV Father Family history of diabetes mellitus Mother Family history of diabetes mellitus Family hx of colon cancer Mother Family history of esophageal cancer UTERINE CANCER W/ METS TO ESOPHAGUS AND LUNG Social History Smoking Status: Never smoker Second Hand Exposure: No; Hx Alcohol Use: No Hx Substance Use: No Preferred Language: Upper Sorbian Communication Ability: Effective Strategic Marketing Specialist Required: No Beliefs That Will Affect Care: None Current Living Situation: Family Current Living Situation Comment: daughter and grandson Feels Safe at Home: Yes Assistive Devices: Glasses Review of Systems Review of Systems: The patient denies chest pain, palpitations, cough, lower extremity swelling, sore throat, fevers, chills, sweats, nausea, vomiting, diarrhea , constipation, abdominal pain, pelvic pain, blood in urine or stool, dysuria, urinary frequency or urgency, lightheadedness, dizziness, headache, memory loss, loss of consciousness, rash, abnormal bruising or bleeding, imbalance, focal weakness, numbness or tingling in arms or legs, back or neck pain, or night sweats. The review of systems is otherwise negative other than for that already noted above, and at least 10 systems have been reviewed. Physical Exam Physical Exam: The patient is awake, alert and oriented 3, appears very fatigued, normocephalic and atraumatic, lying in bed and in no acute distress. HEENT--PERRL, EOMI, mucous membranes and oropharynx dry. Neck--supple. No JVD. No bruits. Thyroid normal, trachea midline, no adenopathy. Heart--normal S1 and S2. No murmurs, rubs or gallops. Lungs--coarse breath sounds bilaterally. No respiratory distress, no accessory muscle use. Abdomen--normal bowel sounds and soft. Nontender. Nondistended. Extremities--no cyanosis or clubbing. No edema. Dermatologic--normal skin turgor, normal color, no abnormal lymph nodes, no rash. Neurologic--cranial nerves II through XII grossly intact. Rheumatologic--normal range of motion. Psychiatric--normal affect. Results & Data Results & Data ([facility]) Vital Signs (Past 12 Hours) Vital Signs Temp Pulse Pulse Resp BP BP Pulse Ox 11/02/20 23:00 74 18 129/83 98 11/02/20 22:39 69 18 134/86 98 11/02/20 21:31 98.4 F 82 18 129/79 94 Diagnostic Findings [facility], [id number] CT Scan Report Patient: GUERO SARGENT Date: 11/01/20MR#: [id number]: [id number] ID:[id number]: [address]Birth Date: 1965[facility] Zip: [place], [place] [address]Pcj: 54Location: EDSex: FRoom/Bed:Att Phy:Diagnosis: COVID +, SOBPri Phy: Mari Williamson CRNPService Date: 11/01/20Fa Phy:Interpreting Phy: Kayden Herrera [facility] Phy: Ordering Phy: Juan Carlos Zaragoza M.D. cc: ~ CT ANGIOGRAM OF THE CHEST CLINICAL HISTORY: Shortness of breath. Possible pulmonary embolism. Covid positive patient. COMPARISON STUDY: 09/24/2020, chest x-ray dated 09/24/2020 TECHNIQUE: Following the IV administration of 117 mL of Optiray-320, CT angiogram of the thorax was performed from the thoracic inlet to the lung bases utilizing the pulmonary embolus protocol. Images are reviewed in the axial, sagittal, and coronal planes. IV contrast was administered without complication. MIP imaging was performed. A dose lowering technique was utilized adhering to the principles of ALARA. CT DOSE: 351.88 mGy.cm FINDINGS: There is an enlarged lymph node the level the left cardiophrenic angle measuring 21 mm. There is a multinodular left lobe the thyroid with nodules measuring up to 17 mm. The left lobe the thyroid appears quite small and the patient may be status post a right thyroidectomy. There was no evidence of thoracic aortic dilatation. There are right lower lobe pulmonary artery filling defects indicative of acute pulmonary embolism. There is trace pleural fluid present bilaterally There are multifocal groundglass pulmonary opacities most pronounced within the right lung. The findings are suggestive of a multifocal pneumonia as would be seen in the Covid 19 pneumonia. IMPRESSION: 1. Acute right lower lobe pulmonary embolism 2. Multifocal groundglass opacities consistent with a multifocal pneumonia. The findings are consistent with although not specific for Covid 19 pneumonia 3. Small hiatal hernia 4. Interval enlargement in an ovoid 21 mm density at the level left cardiophrenic angle suggestive of a pathologically enlarged lymph node ACT 112: Negative or not required by law. Electronically signed by: Kayden Herrera M.D. 11/02/2020 7:19 AM Dictated: 11/02/20714Transcribed: 11/02/20714 [facility] Patient: GUERO SARGENT (Female) : 69 Status: ER Date: 11/02/20 22:25 Room #: History: BLE pain, + covid, ? DVT Slices: 40 Priors: Tech: Juanjose Woods @ [phone] Exams: US VENOUS BILATERAL LOWER EXTREMITIES Contrast: Accession Numbers: [id number] Preliminary Findings Only See Final Report For Complete Findings US VENOUS BILATERAL LOWER EXTREMITIES: No evidence of acute DVT. Radiologist: Ian Dailey M.D. Study ready at 22:32 and initial results transmitted at 22:33 *This report constitutes a preliminary interpretation only. Non-acute findings felt to be unrelated to the clinical presentation may not be discussed in this report. The study will be interpreted and a final report will be generated by the local Radiologist the following shift. To reach the hospital radiology department call [phone]. If a discrepancy is found between the preliminary and final interpretations of this study, please notify us via our Client Portal at [email or web address] under QA Exams.You can also fax this report with a description of the discrepancy, or include the final report, to our daytime fax number [phone].If faxing, please indicate the severity of discrepancy using one of the following categories: [ ] 1 - Agree/Informational [ ] 2 - Unlikely to Affect Management [ ] 3 - Possible Eventual Change of Management [ ] 4 - Probable Immediate Change of Management For all other patient related information, please fax us at [phone]. [id number] Code Status & VTE Plan Code Status Full code VTE Prophylaxis Plan VTE Prophylaxis will be ordered: Yes PG Care Time/CCT Total # of Minutes Spent Total Time Spent with Patient: Total time spent is greater than 50% in coordination of care (as documented) at patient's floor/unit and/or counseling patient: Coding Level of Care Code 15958 Initial Inpt Care Lvl 3 Diagnoses Pneumonia due to COVID-19 virus U07.1; J12.89 Multifocal pneumonia J18.9 Pulmonary embolism on right I26.99 Complicated migraine G43.109 Hypothyroidism E03.9 ADD (attention deficit disorder) F98.8
[2020-11-03] MEDS ORDERED: traMADol HCL 50 MG TABLET ONE (00:32)
[2020-11-03] MEDS ORDERED: ACETAMINOPHEN 325 MG TAB PO PRN (01:19)
[2020-11-03] MEDS ORDERED: HYDROCODONE/ACETAMOPHEN 5/325MG TAB PO PRN (01:19)
[2020-11-03] MEDS ORDERED: traMADol HCL 50 MG TABLET PO PRN (01:19)
[2020-11-03] MEDS ORDERED: ONDANSETRON INJ 2 MG/ML 2 ML VIAL IV PRN (01:19)
[2020-11-03] MEDS ORDERED: DEXAMETHASONE SOD INJ 10 MG/ML VIAL IV STA (01:34)
[2020-11-03] MEDS: ALBUTEROL HFA 8 GM INHALER INH PRN (02:06)
[2020-11-03] MEDS: APIXABAN 5 MG TABLET PO SCH ×3 (02:06→20:09)
[2020-11-03] MEDS: TOPIRAMATE 50 MG TAB PO SCH ×3 (02:06→20:09)
[2020-11-03] MEDS: LEVOTHYROXINE SODIUM 75 MCG TABLET PO SCH (05:57)
--- NOTE | 2020-11-03 07:22 | Ultrasound Report ---
US venous doppler LE BI CLINICAL HISTORY: Bilateral leg pain. COVID 19 POSITIVE PATIENT COMPARISON STUDY: 07/02/2017 FINDINGS: Real-time and color flow Doppler imaging were performed. Flow was seen within the femoral, popliteal and calf veins with no intraluminal thrombus demonstrated. The saphenous vein is patent. IMPRESSION: No evidence of lower extremity DVT. ACT 112: Negative or not required by law. Electronically signed by: Kayden Herrera M.D. 11/03/2020 7:21 AM
[2020-11-03] MEDS: ZINC SULFATE 220 MG CAPSULE PO SCH (08:59)
[2020-11-03] MEDS: MULTIVITAMIN CHEWABLE TAB PO SCH (08:59)
[2020-11-03] MEDS: FLUoxetine HCL 20 MG CAP PO SCH (08:59)
[2020-11-03] MEDS ORDERED: dexAMETHasone 6 MG in SYRINGE 0 ML IV SCH (09:00)
[2020-11-03 11:55] LABS: Hematocrit (blood only) 40.4 % (37-47); Mean Corpuscular Hemoglobin 32.3 pg (25-34); Mean Corpuscular Hgb Conc 34.7 g/dL (32-36); Mean Corpuscular Volume 93.3 fL (80-100); Mean Platelet Volume 9.3 fL (7.4-10.4); Platelet Count 193 K/uL (130-400); RDW Coefficient of Variation 12.8 % (11.5-14.5); RDW Standard Deviation 43.6 fL (36.4-46.3); Red Blood Count 4.33 M/uL (4.2-5.4); White Blood Count 4.42 K/uL (4.8-10.8)
[2020-11-03 12:11] LABS: BUN Creatinine Ratio 19.3 (10-20); Calcium 8.9 mg/dl (8.5-10.1); Creatinine Clr Calc Pharmacy 99.3 ml/min; Est GFR (African American) 111.6; Est GFR (Non-African American) 96.3; Magnesium 2.4 mg/dl (1.8-2.4); Potassium 3.6 mmol/L (3.5-5.1)
[2020-11-03 12:13] LABS: Albumin Globulin Ratio 0.7 (0.9-2); Bilirubin,Total 0.4 mg/dl (0.2-1); Globulin 4.2 gm/dl (2.5-4.0); Total Protein 7.2 gm/dl (6.4-8.2)
[2020-11-03 13:03] LABS: Basophils # (auto) 0.01 K/uL (0-0.2); Basophils % (auto) 0.2 %; Immature Granulocytes # (auto) 0.26 K/uL (0.00-0.02); Immature Granulocytes % (auto) 5.9 %; Lymphocytes # (auto) 0.74 K/uL (1.2-3.4); Lymphocytes % (auto) 16.7 %; Monocytes % (auto) 6.8 %; Neutrophils # (auto) 3.11 K/uL (1.4-6.5); Neutrophils % (auto) 70.4 %
--- NOTE | 2020-11-03 13:44 | Hospitalist Progress Note ---
Date of Service November 03, 2020 Assessment & Plan (1) Pneumonia due to COVID-19 virus: Multifocal pneumonia due to COVID-19 pneumonia Symptoms initially began more than 7 days ago, with initial COVID-19 testing positivity on 10/26/2020. Was initially started on dexamethasone, but has not had any hypoxia here. Lowest pulse ox is 94%-we will discontinue dexamethasone Continue zinc sulfate 200 mg p.o. every morning Continue Ventolin HFA 2 puffs 4 times daily, every 2 hours as needed -Does not have severe disease-therefore defer on Remdesivir as well (2) Multifocal pneumonia: Seen on chest CT, secondary to Covid-19 Supportive care (3) Pulmonary embolism on right: Continue Eliquis 10 mg p.o. twice daily x1 week total and then decrease to 5 mg p.o. twice daily Recommend anticoagulation x6 months She has no previous history of VTE. This was provoked by Covid-19 (4) Complicated migraine: Migraine is now resolved -Continue verapamil SR 240 mg daily, topiramate 50 mg p.o. twice daily, and fluoxetine 20 mg p.o. daily (5) Hypothyroidism: TSH normal 2.1 in 07/2020 Continue levothyroxine 75 mcg daily (6) ADD (attention deficit disorder): Continue guanfacine (7) Leg pain, bilateral: Likely secondary to Covid-19 Now resolved Venous Dopplers of bilateral lower extremities negative for DVT Observe Disposition-continued stay overnight but likely discharged home tomorrow Admission and Anticipated Discharge Date Admission Date: November 02, 2020 Subjective Patient feeling much better, had a migraine earlier which is now resolved. Her leg pain is improved, she denies any nausea or vomiting and tolerated lunch today. Her shortness of breath is improved. Denies chest pains. No bleeding from anywhere and no history of bleeding. She reports some lightheadedness when she got up to walk to the bathroom and still feels weak generally. She does not feel ready to go home just yet. Review of Systems Review of Systems: All systems reviewed & are unremarkable except as noted in HPI & below Physical Exam Constitutional: WD/WN, vitals as above Eyes: + anicteric sclerae Neck: trachea midline, no thyromegaly Respiratory: normal respiratory effort, lungs clear to auscultation Cardiovascular: RRR, no murmur, no edema Chest (Breasts): Chest: normal inspection of chest Gastrointestinal (Abdomen): normal bowel sounds, soft, nontender, no hepatosplenomegaly Musculoskeletal: Extremities: extremities normal to inspection; no cyanosis and no clubbing Skin: no rashes, warm and dry Neurologic: moves all extremities and awake; no focal motor deficits Psychiatric: A+Ox3, euthymic affect Lymphatic: no lymphedema Results & Data Results & Data ([facility]) Vital Signs (Past 12 Hours) Vital Signs Temp Pulse Resp BP BP Pulse Ox 11/03/20 11:51 36.7 C 54 L 19 125/73 95 11/03/20 08:07 36.9 C 60 15 108/68 94 11/03/20 05:57 56 L 20 121/77 95 11/03/20 02:11 69 26 H 124/77 94 Laboratory Results 11/03/20 11/03/20 Range/Units 11:27 11:27 WBC 4.42 L (4.8-10.8) K/uL RBC 4.33 (4.2-5.4) M/uL Hgb 14.0 (12.0-16.0) g/dL Hct 40.4 (37-47) % MCV 93.3 (80-100) fL MCH 32.3 (25-34) pg MCHC 34.7 (32-36) g/dL RDW Std Deviation 43.6 (36.4-46.3) fL RDW Coeff of Mandi 12.8 (11.5-14.5) % Plt Count 193 (130-400) K/uL MPV 9.3 (7.4-10.4) fL Immature Gran % (Auto) 5.9 % Neut % (Auto) 70.4 % Lymph % (Auto) 16.7 % Tucker % (Auto) 6.8 % Eos % (Auto) 0.0 % Baso % (Auto) 0.2 % Neut # (Auto) 3.11 (1.4-6.5) K/uL Lymph # (Auto) 0.74 L (1.2-3.4) K/uL Tucker # (Auto) 0.30 (0.11-0.59) K/uL Eos # (Auto) 0.00 (0-0.5) K/uL Baso # (Auto) 0.01 (0-0.2) K/uL Immature Gran # (Auto) 0.26 H (0.00-0.02) K/uL Sodium 139 (136-145) mmol/L Potassium 3.6 (3.5-5.1) mmol/L Chloride 107 (98-107) mmol/L Carbon Dioxide 25 (21-32) mmol/L Anion Gap 7.0 (3-11) BUN 14 (7-18) mg/dl Creatinine 0.72 D (0.6-1.2) mg/dl Est Cr Clr Drug Dosing 99.3 ml/min Est GFR ( Amer) 111.6 Est GFR (Non-Af Amer) 96.3 BUN/Creatinine Ratio 19.3 (10-20) Glucose 142 H (70-99) mg/dl Calcium 8.9 (8.5-10.1) mg/dl Magnesium 2.4 (1.8-2.4) mg/dl Total Bilirubin 0.4 (0.2-1) mg/dl AST 16 (15-37) U/L ALT 22 (12-78) U/L Alkaline Phosphatase 61 (45-117) U/L Total Protein 7.2 (6.4-8.2) gm/dl Albumin 3.0 L (3.4-5.0) gm/dl Globulin 4.2 H (2.5-4.0) gm/dl Albumin/Globulin Ratio 0.7 L (0.9-2) PG Care Time/CCT Total # of Minutes Spent Total Time Spent with Patient: Total time spent is greater than 50% in coordination of care (as documented) at patient's floor/unit and/or counseling patient: Coding Level of Care Code 67836 Subseq Obs Care Lvl 3 Diagnoses Pneumonia due to COVID-19 virus U07.1; J12.89 Multifocal pneumonia J18.9 Pulmonary embolism on right I26.99 Complicated migraine G43.109 Hypothyroidism E03.9 ADD (attention deficit disorder) F98.8 Leg pain, bilateral M79.604; M79.605
[2020-11-03] MEDS: VERAPAMIL HCL 240 MG TABCR PO SCH (20:08)
[2020-11-04] MEDS: LEVOTHYROXINE SODIUM 75 MCG TABLET PO SCH (05:53)
[2020-11-04] MEDS: TOPIRAMATE 50 MG TAB PO SCH ×2 (08:08→20:50)
[2020-11-04] MEDS: FLUoxetine HCL 20 MG CAP PO SCH (08:09)
[2020-11-04] MEDS: ZINC SULFATE 220 MG CAPSULE PO SCH (08:09)
[2020-11-04] MEDS: APIXABAN 5 MG TABLET PO SCH ×2 (08:10→20:50)
[2020-11-04] MEDS: MULTIVITAMIN CHEWABLE TAB PO SCH (08:11)
[2020-11-04 08:39] LABS: Hematocrit (blood only) 38.5 % (37-47); Hemoglobin 13.2 g/dL (12.0-16.0); Immature Granulocytes # (auto) 0.16 K/uL (0.00-0.02); Immature Granulocytes % (auto) 2.3 %; Lymphocytes # (auto) 1.43 K/uL (1.2-3.4); Mean Corpuscular Hemoglobin 32.5 pg (25-34); Mean Corpuscular Hgb Conc 34.3 g/dL (32-36); Mean Corpuscular Volume 94.8 fL (80-100); Mean Platelet Volume 9.1 fL (7.4-10.4); Monocytes # (auto) 0.78 K/uL (0.11-0.59); Monocytes % (auto) 11.5 %; Neutrophils # (auto) 4.44 K/uL (1.4-6.5); Neutrophils % (auto) 65.2 %; Platelet Count 202 K/uL (130-400); RDW Coefficient of Variation 12.8 % (11.5-14.5); RDW Standard Deviation 44.5 fL (36.4-46.3); Red Blood Count 4.06 M/uL (4.2-5.4); White Blood Count 6.81 K/uL (4.8-10.8)
[2020-11-04 09:24] LABS: Albumin Globulin Ratio 0.7 (0.9-2); Albumin Level 2.8 gm/dl (3.4-5.0); BUN Creatinine Ratio 18.4 (10-20); Bilirubin,Total 0.5 mg/dl (0.2-1); Calcium 8.6 mg/dl (8.5-10.1); Creatinine Clr Calc Pharmacy 71.1 ml/min; Est GFR (African American) 74.1; Globulin 3.9 gm/dl (2.5-4.0); Potassium 2.9 mmol/L (3.5-5.1); Total Protein 6.7 gm/dl (6.4-8.2)
[2020-11-04] MEDS ORDERED: POTASSIUM CHLORIDE CRTAB 20 MEQ TABCR PO STA (12:51)
[2020-11-04] MEDS: POTASSIUM CHLORIDE / WTR 10 MEQ/100 ML PLCT IV SCH (13:16)
--- NOTE | 2020-11-04 16:16 | Hospitalist Progress Note ---
Date of Service November 04, 2020 Assessment & Plan (1) Pneumonia due to COVID-19 virus: Multifocal pneumonia due to COVID-19 pneumonia Symptoms initially began more than 7 days ago, with initial COVID-19 testing positivity on 10/26/2020. Was initially started on dexamethasone, but has not had any hypoxia here. Lowest pulse ox was 94%-have since discontinued dexamethasone. However, given she dropped to 92% with exertion, will restart Dex today and see if improves her dyspnea Continue zinc sulfate 200 mg p.o. every morning Continue Ventolin HFA 2 puffs 4 times daily, every 2 hours as needed -Does not have severe disease-therefore defer on Remdesivir (2) Multifocal pneumonia: Seen on chest CT, secondary to Covid-19 Supportive care starting dex back as above no abx needed (3) Pulmonary embolism on right: RLL PE Continue Eliquis 10 mg p.o. twice daily x1 week total and then decrease to 5 mg p.o. twice daily Recommend anticoagulation x6 months She has no previous history of VTE. This was provoked by Covid-19 (4) Complicated migraine: Migraine is now resolved -Continue verapamil SR 240 mg daily, topiramate 50 mg p.o. twice daily, and fluoxetine 20 mg p.o. daily (5) Hypothyroidism: TSH normal 2.1 in 07/2020 Continue levothyroxine 75 mcg daily (6) ADD (attention deficit disorder): Continue guanfacine (7) Leg pain, bilateral: Likely secondary to Covid-19 Now resolved Venous Dopplers of bilateral lower extremities negative for DVT Observe Disposition-continued stay overnight due to pt still feeling dyspneic and not comfortable going home--> but likely discharge to home tomorrow Admission and Anticipated Discharge Date Admission Date: November 02, 2020 Subjective Pt initially felt ready to go home. The RN then walked her around the halls and POx went briefly to 92% but stayed mostly 95% but pt felt dyspneic and decided she wasn't ready to go home. No headache, no n/v/d. Is eating and drinking well. Still feels generally weak Tele with NSR rates 40-50s Review of Systems Review of Systems: All systems reviewed & are unremarkable except as noted in HPI & below Physical Exam Constitutional: WD/WN, vitals as above Eyes: + anicteric sclerae Neck: trachea midline, no thyromegaly Respiratory: normal respiratory effort, lungs clear to auscultation Cardiovascular: RRR, no murmur, no edema Chest (Breasts): Chest: normal inspection of chest Gastrointestinal (Abdomen): normal bowel sounds, soft, nontender, no hepatosplenomegaly Musculoskeletal: Extremities: extremities normal to inspection; no cyanosis and no clubbing Skin: no rashes, warm and dry Neurologic: moves all extremities and awake; no focal motor deficits Psychiatric: A+Ox3, euthymic affect Lymphatic: no lymphedema Results & Data Results & Data ([facility]) Vital Signs (Past 12 Hours) Vital Signs Temp Pulse Resp BP Pulse Ox 11/04/20 15:17 36.3 C L 49 L 18 116/61 97 11/04/20 11:54 36.3 C L 47 L 22 95/59 L 97 11/04/20 08:07 98/62 L 11/04/20 04:28 36.8 C 54 L 18 105/66 94 Laboratory Results 11/04/20 11/04/20 Range/Units 08:08 08:08 WBC 6.81 (4.8-10.8) K/uL RBC 4.06 L (4.2-5.4) M/uL Hgb 13.2 (12.0-16.0) g/dL Hct 38.5 (37-47) % MCV 94.8 (80-100) fL MCH 32.5 (25-34) pg MCHC 34.3 (32-36) g/dL RDW Std Deviation 44.5 (36.4-46.3) fL RDW Coeff of Mandi 12.8 (11.5-14.5) % Plt Count 202 (130-400) K/uL MPV 9.1 (7.4-10.4) fL Immature Gran % (Auto) 2.3 % Neut % (Auto) 65.2 % Lymph % (Auto) 21.0 % Beckham % (Auto) 11.5 % Eos % (Auto) 0.0 % Baso % (Auto) 0.0 % Neut # (Auto) 4.44 (1.4-6.5) K/uL Lymph # (Auto) 1.43 (1.2-3.4) K/uL Beckham # (Auto) 0.78 H (0.11-0.59) K/uL Eos # (Auto) 0.00 (0-0.5) K/uL Baso # (Auto) 0.00 (0-0.2) K/uL Immature Gran # (Auto) 0.16 H (0.00-0.02) K/uL Sodium 140 (136-145) mmol/L Potassium 2.9 L D (3.5-5.1) mmol/L Chloride 108 H (98-107) mmol/L Carbon Dioxide 23 (21-32) mmol/L Anion Gap 9.0 (3-11) BUN 19 H (7-18) mg/dl Creatinine 1.01 (0.6-1.2) mg/dl Est Cr Clr Drug Dosing 71.1 ml/min Est GFR ( Amer) 74.1 Est GFR (Non-Af Amer) 64.0 BUN/Creatinine Ratio 18.4 (10-20) Glucose 95 (70-99) mg/dl Calcium 8.6 (8.5-10.1) mg/dl Total Bilirubin 0.5 (0.2-1) mg/dl AST 13 L (15-37) U/L ALT 16 (12-78) U/L Alkaline Phosphatase 57 (45-117) U/L Total Creatine Kinase 22 L (26-192) U/L Total Protein 6.7 (6.4-8.2) gm/dl Albumin 2.8 L (3.4-5.0) gm/dl Globulin 3.9 (2.5-4.0) gm/dl Albumin/Globulin Ratio 0.7 L (0.9-2) PG Care Time/CCT Total # of Minutes Spent Total Time Spent with Patient: Total time spent is greater than 50% in coordination of care (as documented) at patient's floor/unit and/or counseling patient: Coding Level of Care Code 86988 Subseq Obs Care Lvl 3 Diagnoses Pneumonia due to COVID-19 virus U07.1; J12.89 Multifocal pneumonia J18.9 Pulmonary embolism on right I26.99 Complicated migraine G43.109 Hypothyroidism E03.9 ADD (attention deficit disorder) F98.8 Leg pain, bilateral M79.604; M79.605
[2020-11-04] MEDS: dexAMETHasone 6 MG in SYRINGE 0 ML IV SCH (16:43)
[2020-11-04] MEDS: ALBUTEROL HFA 8 GM INHALER INH PRN (20:48)
[2020-11-04] MEDS: VERAPAMIL HCL 240 MG TABCR PO SCH (20:49)
[2020-11-05 00:03] VITALS: O2SAT 96
[2020-11-05] MEDS: LEVOTHYROXINE SODIUM 75 MCG TABLET PO SCH (06:32)
[2020-11-05 08:28] VITALS: PULSE 45; TEMP 97.3
[2020-11-05 08:47] LABS: BUN Creatinine Ratio 23.7 (10-20); Calcium 8.7 mg/dl (8.5-10.1); Est GFR (African American) 101.3; Est GFR (Non-African American) 87.4; Magnesium 2.4 mg/dl (1.8-2.4)
[2020-11-05] MEDS: TOPIRAMATE 50 MG TAB PO SCH (08:59)
[2020-11-05] MEDS: FLUoxetine HCL 20 MG CAP PO SCH (08:59)
[2020-11-05] MEDS: APIXABAN 5 MG TABLET PO SCH (09:00)
[2020-11-05] MEDS: MULTIVITAMIN CHEWABLE TAB PO SCH (09:00)
[2020-11-05] MEDS: ZINC SULFATE 220 MG CAPSULE PO SCH (09:00)
[2020-11-05] MEDS: dexAMETHasone 6 MG in SYRINGE 0 ML IV SCH (09:01)
--- NOTE | 2020-11-05 13:34 | Hospitalist Progress Note ---
Date of Service November 05, 2020 Assessment & Plan (1) Pneumonia due to COVID-19 virus: Multifocal pneumonia due to COVID-19 pneumonia Symptoms initially began more than 7 days prior to admission, with initial COVID-19 testing positivity on 10/26/2020. Was initially started on dexamethasone, but did not have any hypoxia here. Lowest pulse ox was 94%-and subsequently discontinued dexamethasone. However, given she dropped to 92% with exertion on hospital day#2, restarted Dex and had significant improvement of her dyspnea---> finish out 10 day course of po dex at home Continue zinc sulfate 200 mg p.o. every morning -Does not have severe disease-therefore defer on Remdesivir Stable for discharge to home (2) Pulmonary embolism on right: RLL PE noted on CTA Chest Continue Eliquis 10 mg p.o. twice daily x1 week total and then decrease to 5 mg p.o. twice daily Recommend anticoagulation x6 months She has no previous history of VTE. This was provoked by Covid-19 (3) Complicated migraine: Migraine is now resolved -Continue verapamil SR 240 mg daily, topiramate 50 mg p.o. twice daily, and fluoxetine 20 mg p.o. daily (4) Hypothyroidism: TSH normal 2.1 in 07/2020 Continue levothyroxine 75 mcg daily (5) ADD (attention deficit disorder): Continue guanfacine (6) Hypokalemia: K+ was 2.9 and was replaced, now normal (7) Leg pain, bilateral: Likely secondary to Covid-19 Now resolved Venous Dopplers of bilateral lower extremities negative for DVT Observe Disposition-overall significantly improved, doing well, dc to home today Admission and Anticipated Discharge Date Admission Date: November 02, 2020 Physical Exam Constitutional: WD/WN, vitals as above Eyes: + anicteric sclerae Neck: trachea midline, no thyromegaly Respiratory: normal respiratory effort, lungs clear to auscultation Cardiovascular: RRR, no murmur, no edema Chest (Breasts): Chest: normal inspection of chest Gastrointestinal (Abdomen): normal bowel sounds, soft, nontender, no hepatosplenomegaly Musculoskeletal: Extremities: extremities normal to inspection; no cyanosis and no clubbing Skin: no rashes, warm and dry Neurologic: moves all extremities and awake; no focal motor deficits Psychiatric: A+Ox3, euthymic affect Lymphatic: no lymphedema Results & Data Results & Data ([facility]) Vital Signs (Past 12 Hours) Vital Signs Temp Pulse Resp BP Pulse Ox 11/05/20 08:28 36.3 C L 45 L 20 116/62 96 PG Care Time/CCT Total # of Minutes Spent Total Time Spent with Patient: Total time spent is greater than 50% in coordination of care (as documented) at patient's floor/unit and/or counseling patient: Coding Level of Care Code None Diagnoses Pneumonia due to COVID-19 virus U07.1; J12.89 Pulmonary embolism on right I26.99 Complicated migraine G43.109 Hypothyroidism E03.9 ADD (attention deficit disorder) F98.8 Hypokalemia E87.6 Leg pain, bilateral M79.604; M79.605
--- NOTE | 2020-11-05 13:38 | Discharge Summary ---
Date of Service November 05, 2020 Admission HPI Per Admitting Provider The patient is a 54-year-old female with a past medical history including ADD, complicated migraine, migraine with aura, hypothyroidism, GERD and TIA. She had been initially diagnosed with COVID-19 infection on 10/26/2020 via outpatient laboratories. She presented to the emergency department initially on 11/01/2020 with a milder version of the above symptoms, was advised to undergo venous Dopplers at that time due to a concurrent finding last evening of right lower lobe pulmonary embolism. The patient felt she was well enough that she could go home without getting the venous Dopplers done, and unfortunately, her symptoms progressed during the day today, and she returned to the ED tonight for reassessment. Venous Dopplers in emergency department tonight were negative for DVT. Her pulse ox was noted to be 94% on room air. She reports that she did take the apixaban initial dosing in the ED last evening, and reports that her current prescription states to take 2 pills every morning. She was instructed that this should be twice daily, and this will be adjusted during this hospitalization. Principal Diagnosis COVID-19 Pneumonia, Pulmonary embolism Discharge Exam Constitutional WD/WN, vitals as above Eyes + anicteric sclerae Neck trachea midline, no thyromegaly Respiratory normal respiratory effort, lungs clear to auscultation Cardiovascular RRR, no murmur, no edema Chest (Breasts) Chest: normal inspection of chest Gastrointestinal (Abdomen) normal bowel sounds, soft, nontender, no hepatosplenomegaly Musculoskeletal Extremities: extremities normal to inspection; no cyanosis and no clubbing Skin no rashes, warm and dry Neurologic moves all extremities and awake; no focal motor deficits Psychiatric A+Ox3, euthymic affect Lymphatic no lymphedema Discharge Data Allergies Allergy/AdvReac Type Severity Reaction Status Date / Time yellow dye Allergy Intermediate Rash Verified 11/01/20 20:18 Sulfa (Sulfonamide Allergy Mild Rash Verified 11/01/20 20:18 Antibiotics) latex Allergy Unknown Rash Verified 11/01/20 20:18 levothyroxine Allergy Unknown Unknown Verified 11/01/20 20:18 lisinopril Allergy Unknown Swelling Verified 11/01/20 20:18 of Lip/Tongue/Throat citalopram AdvReac Mild WORSENING Verified 11/01/20 20:18 TREMORS gluten AdvReac Unknown GI Symptoms Verified 11/01/20 20:18 Consultations 11/02/20 21:50 ED Decision to Admit Stat 11/03/20 01:19 Consult Case Management - Discharge Planning Routine Ordered Studies 11/02/20 21:38 US venous doppler [facility] Stat Hospital Course (1) Pneumonia due to COVID-19 virus: Multifocal pneumonia due to COVID-19 pneumonia Symptoms initially began more than 7 days prior to admission, with initial COVID-19 testing positivity on 10/26/2020. Was initially started on dexamethasone, but did not have any hypoxia here. Lowest pulse ox was 94%-and subsequently discontinued dexamethasone. However, given she dropped to 92% with exertion on hospital day#2, restarted Dex and had significant improvement of her dyspnea---> finish out 10 day course of po dex at home Continue zinc sulfate 200 mg p.o. every morning -Does not have severe disease-therefore defer on Remdesivir Stable for discharge to home (2) Pulmonary embolism on right: RLL PE noted on CTA Chest Continue Eliquis 10 mg p.o. twice daily x1 week total and then decrease to 5 mg p.o. twice daily Recommend anticoagulation x6 months She has no previous history of VTE. This was provoked by Covid-19 (3) Complicated migraine: Migraine is now resolved -Continue verapamil SR 240 mg daily, topiramate 50 mg p.o. twice daily, and fluoxetine 20 mg p.o. daily (4) Hypothyroidism: TSH normal 2.1 in 07/2020 Continue levothyroxine 75 mcg daily (5) ADD (attention deficit disorder): Continue guanfacine (6) Hypokalemia: K+ was 2.9 and was replaced, now normal (7) Leg pain, bilateral: Likely secondary to Covid-19 Now resolved Venous Dopplers of bilateral lower extremities negative for DVT Observe Disposition-overall significantly improved, doing well, dc to home today Total Time Total Time Spent Total Time Spent (In Minutes): 35 min Total Time Includes: Examination of the Patient, Discharge Planning and Medication Reconciliation Discharge Plan Discharge Items Patient Disposition: Home - Self-Care Reason For Visit: Pulmonary embolism,COVID- 19 PNEUMONIA Discharge Diagnosis: Pulmonary embolism, COVID-19 Pneumonia Condition on Discharge: Good Activity: As commented below Lifting: Gradually increase as tolerated Bathing: No limitations Exercise/Sports: Gradually increase as tolerated Non-emergency contact: Primary Care Provider Call non-emergency contact if: you have any medication questions and your symptoms worsen Follow-up/Referrals: Mari Williamson CRNP [Primary Care Provider] - 11/11/20 11:10 am (YOU WILL SEE --> DR MCFARLANE FOR A TELE HEALTH VISIT) Diet: Regular Addtl Attending Provider Instructions: Please continue on the Eliquis 10mg twice a day for THREE more days, then DECREA SE the dose down to 5mg twice a day. You will need to remain on the blood thinner x 6 months. If you have any issues with bleeding or fall and hit your head, have a severe or unusual headache, please go to the hospital right away. Please finish out a course of dexamethasone 6mg by mouth once daily x 8 more days. Follow up with your PCP within 1 week. Pending Studies at Discharge: No Stand-Alone Forms: My [facility] Medications and DC Order Prescriptions: New zinc sulfate [Orazinc] 220 (50) mg Capsule 220 mg PO QAM Qty: 10 RF: 0 dexamethasone 6 mg tablet 6 mg PO DAILY Qty: 8 RF: 0 Continued topiramate 50 mg tablet 50 mg PO BID 30 Days Qty: 60 RF: 5 verapamil 240 mg tablet extended release 240 mg PO HS 30 Days Qty: 30 RF: 5 Flintstones Multi-Vit Gummies 100 mcg tablet,chewable 2 tab PO DAILY RF: 0 fluoxetine 20 mg capsule 20 mg PO DAILY RF: 0 levothyroxine [Synthroid] 50 mcg tablet 75 mcg PO DAILY Qty: 135 RF: 3 guanfacine 1 mg tablet extended release 24 hr 1 mg PO DAILY RF: 0 tramadol 50 mg tablet 50 mg PO Q6H PRN (Reason: Pain) RF: 0 Changed Eliquis 5 mg tablet See Rx Instructions .ROUTE .COMPLEX Qty: 74 RF: 0 Discontinued ibuprofen 200 mg capsule 200 - 600 mg PO Q6H PRN (Reason: Headache) RF: 0 Discharge Orders: Discharge Order (Routine); Ordered 11/05/20 Ordered By: Delia Wolf Admission Data Admit Date/Time: 11/02/20 23:22 Attending Provider: Delia Wolf Admit Provider: Marito Gross Primary Care Provider: Mari Williamson Other Providers: Marito Gross Coding Level of Care Code 36816 OBS Care - Discharge Diagnoses Pneumonia due to COVID-19 virus U07.1; J12.89 Pulmonary embolism on right I26.99 Complicated migraine G43.109 Hypothyroidism E03.9 ADD (attention deficit disorder) F98.8 Hypokalemia E87.6 Leg pain, bilateral M79.604; M79.605
[2020-11-05 15:55] VITALS: BP 125/73
== END 2020-11-05 15:55 | disposition home or self-care (01) ==
LOC: ED 21:30 → EDINP 21:30 → SUATTDRO 23:22 → EDINP 23:22 → 2S 11-03 16:01

== ENCOUNTER 2021-03-05 20:09 | Observation (INO) ==
[2021-03-05] MEDS ORDERED: MoRPHine SULFATE 4 MG/ML 1 ML CARP\\VIAL IV PRN (20:31)
[2021-03-05] MEDS ORDERED: ONDANSETRON INJ 2 MG/ML 2 ML VIAL IV STA (20:31)
[2021-03-05] MEDS ORDERED: SODIUM CHLORIDE 0.9% 500 ML IV STA (20:31)
--- NOTE | 2021-03-05 20:37 | Emergency Department Note ---
Impression & Plan Right sided abdominal pain, Nausea, Abnormal abdominal CT scan ED Provider Note NAME: GUERO SARGENT AGE: 55 SEX: F : 1965 ARRIVES VIA: Walk-In INFORMANT: [Patient] ED PROVIDER(S): [Scar Huang MD] CHIEF COMPLAINT: Abdominal pain HISTORY OF PRESENT ILLNESS: The patient is a 55-year-old female presents with around 10 or so hours of right lower quadrant abdominal pain. The pain initially would come and go but in the last several hours, it has become constant and is a 10/10. There is no pain radiation but she has noticed some back discomfort. She feels better when she walks if she bends forward and does not stand straight up. She has had some nausea, no vomiting. No fever or chills. She states it does hurt in the right lower quadrant with urination but there is no burning to urinate and no urgency. The patient thought she might be constipated as she has issues with this from time to time, she tried MiraLAX without any relief. The patient has a history of a hysterectomy and she does believe that her ovaries were removed. She did have abdominal hernia surgery before and she has had surgery for a paraesophageal hernia as well. The patient has not experienced pain like this in the past. REVIEW OF SYSTEMS: See HPI for pertinent positives and negatives. A total of ten systems were reviewed and were otherwise negative. PMHx/PSHx: See Below SOCIAL HISTORY: See Below. PHYSICAL EXAM: GENERAL: Patient is in no acute distress. HEENT: No acute trauma, normocephalic atraumatic, mucous membranes moist, no nasal congestion, no scleral icterus. NECK: No stridor, no adenopathy, no meningismus, trachea is midline. LUNGS: Clear to auscultation bilaterally, no wheeze, no rhonchi, breath sounds equal. HEART: Without murmurs gallops or rubs, regular rate and rhythm. ABDOMEN: Soft, moderately tender in the right lower quadrant, there is a positive Rovsing sign, bowel sounds positive, no hernias. EXTREMITIES: No cyanosis or edema, full range of motion of all the joints without pain or difficulty, no signs for acute trauma. NEUROLOGIC: Oriented x 3, no acute motor or sensory deficits, no focal weakness. SKIN: No rash, no jaundice, no diaphoresis. DIFFERENTIAL DIAGNOSIS: Appendicitis, ovarian cyst, ovarian torsion, infections, diverticulitis, UTI, obstruction, mesenteric ischemia, aortic pathology, inflammatory bowel disease, renal colic, PUD, pancreatitis, biliary pathology, hernia, volvulus, constipation, as well as other pathologies. EMERGENCY DEPARTMENT COURSE/PROCEDURES: MEDICAL DECISION MAKING: There is no leukocytosis or concerning anemia. There is a normal platelet count. No significant electrolyte abnormality or kidney failure. Lactic acid level is not elevated making bowel ischemia less likely. No concerning liver enzyme elevation. No evidence for pancreatitis. Urinalysis does not show infection. Covid and influenza testing returned negative. Abdominal and pelvis CT shows findings consistent with a possible twist or volvulus to the colon. No bowel obstruction. No evidence for abscess or diverticulitis. The appendix could not be visualized. On exam, the patient was tender in the right lower quadrant. There was no peritonitis. The patient was not toxic or febrile. The patient received IV saline for hydration. She was given IV Zofran for nausea, IV morphine for pain. I did speak with general surgery. The patient was seen by surgery here in the ED. The patient is being hospitalized. Whether she will require surgical intervention is unclear. GI has been consulted for colonoscopy/sigmoidoscopy. The patient is aware of all her findings. She understands the reason for the hospital stay. I did speak with case management. Past Med/Surg History Medical History Complicated migraine Left-sided weakness, facial droop Costochondritis Diaphragmatic hernia Dizziness GERD (gastroesophageal reflux disease) History of colon polyps History of congenital diaphragmatic hernia SURGICAL REPAIR 01/04/2019 [facility] History of endometriosis Hypothyroidism Liver cyst Migraine with aura and without status migrainosus, not intractable Morbid obesity SBO (small bowel obstruction) Seasonal affective disorder Shoulder pain, left TMJ locking Surgical History History of breast biopsy History of section History of colonoscopy History of dilatation and curettage History of endometrial ablation History of esophagogastroduodenoscopy (EGD) History of herniorrhaphy UMBILICAL History of Aan M fundoplication 01/04/2019 [facility] History of tooth extraction Nausea and vomiting after administration of anesthetic agent Status post biopsy of thyroid gland Status post JOSE-BSO Family History Son Family history of reaction to anesthesia Father Family history of reaction to anesthesia PONV Father Family history of diabetes mellitus Mother Family history of diabetes mellitus Family hx of colon cancer Coronary heart disease Mother Family history of esophageal cancer UTERINE CANCER W/ METS TO ESOPHAGUS AND LUNG Social History Smoking Status: Never smoker Second Hand Exposure: No; Hx Alcohol Use: No Hx Substance Use: No Preferred Language: Frisian Communication Ability: Effective Manager [employer] Required: No Beliefs That Will Affect Care: None Current Living Situation: Family Current Living Situation Comment: daughter and grandson Feels Safe at Home: Yes Assistive Devices: None Allergies Allergies Allergy/AdvReac Type Severity Reaction Status Date / Time yellow dye Allergy Intermediate Rash Verified 03/05/21 20:54 Sulfa (Sulfonamide Allergy Mild Rash Verified 03/05/21 20:54 Antibiotics) latex Allergy Unknown Rash Verified 03/05/21 20:54 levothyroxine Allergy Unknown Unknown Verified 03/05/21 20:54 lisinopril Allergy Unknown Swelling Verified 03/05/21 20:54 of Lip/Tongue/Throat citalopram AdvReac Mild WORSENING Verified 03/05/21 20:54 TREMORS gluten AdvReac Unknown GI Symptoms Verified 03/05/21 20:54 Home Meds Home Medications Medication Instructions Recorded Confirmed fluoxetine 20 mg capsule 20 mg PO DAILY 05/07/20 03/05/21 pediatric multivitamin no.7-folic 2 tab PO DAILY tab 08/05/20 03/05/21 acid 100 mcg chewable tablet guanfacine 1 mg PO DAILY 11/01/20 03/05/21 Eliquis 5 mg PO BID 03/05/21 03/05/21 Previous Rx's Medication Instructions Recorded Synthroid 50 mcg tablet 75 mcg PO DAILY #135 tab NS 09/14/20 zinc sulfate [Orazinc] 220 mg PO QAM #10 cap 11/05/20 topiramate 50 mg tablet 50 mg PO BID 30 Days #60 tab 11/11/20 verapamil 240 mg tablet,extended 240 mg PO HS 30 Days #30 tab 12/26/20 release Results & Data (ED) Vital Signs Vital Signs - 24 hr 03/05/21 20:12 03/05/21 20:50 03/05/21 20:58 Temperature 36.3 C L Temperature Source Temporal Artery Scan Pulse Rate 61 59 L 54 L Pulse Rate from SpO2 Sensor 59 L 54 L Respiratory Rate 18 21 13 Respiratory Depth Normal Blood Pressure 126/86 105/44 L Blood Pressure Mean 99 64 Pulse Oximetry 100 96 96 Oxygen Delivery Method Room Air Sepsis Recent Fever Within 48 Hours No Sepsis New/Unexplained Change in Mental Status N/A Sepsis Action Taken by Nursing No Action Required 03/05/21 21:00 03/05/21 21:01 03/05/21 21:30 Temperature Temperature Source Pulse Rate 55 L 53 L 49 L Pulse Rate from SpO2 Sensor 55 L 53 L 49 L Respiratory Rate 19 17 18 Respiratory Depth Blood Pressure 94/50 L 105/57 L Blood Pressure Mean 64 73 Pulse Oximetry 96 96 96 Oxygen Delivery Method Sepsis Recent Fever Within 48 Hours Sepsis New/Unexplained Change in Mental Status Sepsis Action Taken by Nursing 03/05/21 21:31 03/05/21 22:00 03/05/21 22:28 Temperature Temperature Source Pulse Rate 50 L 51 L Pulse Rate from SpO2 Sensor 51 L 51 L 54 L Respiratory Rate 16 15 Respiratory Depth Blood Pressure 118/60 Blood Pressure Mean 79 Pulse Oximetry 95 97 100 Oxygen Delivery Method Sepsis Recent Fever Within 48 Hours Sepsis New/Unexplained Change in Mental Status Sepsis Action Taken by Nursing 03/05/21 22:30 03/05/21 22:31 03/05/21 23:00 Temperature Temperature Source Pulse Rate Pulse Rate from SpO2 Sensor 55 L 51 L 54 L Respiratory Rate Respiratory Depth Blood Pressure 113/75 106/63 Blood Pressure Mean 87 77 Pulse Oximetry 100 100 96 Oxygen Delivery Method Sepsis Recent Fever Within 48 Hours Sepsis New/Unexplained Change in Mental Status Sepsis Action Taken by Nursing 03/05/21 23:01 03/05/21 23:30 03/05/21 23:31 Temperature Temperature Source Pulse Rate Pulse Rate from SpO2 Sensor 54 L 54 L 54 L Respiratory Rate Respiratory Depth Blood Pressure 95/54 L Blood Pressure Mean 67 Pulse Oximetry 96 97 97 Oxygen Delivery Method Sepsis Recent Fever Within 48 Hours Sepsis New/Unexplained Change in Mental Status Sepsis Action Taken by Nursing 03/06/21 00:00 03/06/21 00:01 03/06/21 00:30 Temperature Temperature Source Pulse Rate 55 L 55 L 52 L Pulse Rate from SpO2 Sensor 55 L 55 L 52 L Respiratory Rate 17 14 18 Respiratory Depth Blood Pressure 113/71 101/62 Blood Pressure Mean 85 75 Pulse Oximetry 100 99 99 Oxygen Delivery Method Sepsis Recent Fever Within 48 Hours Sepsis New/Unexplained Change in Mental Status Sepsis Action Taken by Nursing 03/06/21 00:31 Temperature Temperature Source Pulse Rate 51 L Pulse Rate from SpO2 Sensor 51 L Respiratory Rate 18 Respiratory Depth Blood Pressure Blood Pressure Mean Pulse Oximetry 99 Oxygen Delivery Method Sepsis Recent Fever Within 48 Hours Sepsis New/Unexplained Change in Mental Status Sepsis Action Taken by Intermediate Medications Current Medication List: was personally reviewed by me Laboratory Data Attestation: I reviewed the patient's lab results. Result diagrams: 03/05/21 20:42 03/05/21 20:42 Lab Results 03/05/21 03/05/21 03/05/21 Range/Units 20:42 20:42 20:43 WBC 6.38 (4.8-10.8) K/uL RBC 4.05 L (4.2-5.4) M/uL Hgb 13.5 (12.0-16.0) g/dL Hct 38.8 (37-47) % MCV 95.8 (80-100) fL MCH 33.3 (25-34) pg MCHC 34.8 (32-36) g/dL RDW Std Deviation 44.8 (36.4-46.3) fL RDW Coeff of Mandi 12.9 (11.5-14.5) % Plt Count 235 (130-400) K/uL MPV 9.5 (7.4-10.4) fL Immature Gran % (Auto) 0.3 % Neut % (Auto) 34.6 % Lymph % (Auto) 51.1 % [place] % (Auto) 11.6 % Eos % (Auto) 1.9 % Baso % (Auto) 0.5 % Neut # (Auto) 2.21 (1.4-6.5) K/uL Lymph # (Auto) 3.26 (1.2-3.4) K/uL [place] # (Auto) 0.74 H (0.11-0.59) K/uL Eos # (Auto) 0.12 (0-0.5) K/uL Baso # (Auto) 0.03 (0-0.2) K/uL Immature Gran # (Auto) 0.02 (0.00-0.02) K/uL Sodium 140 (136-145) mmol/L Potassium 3.9 (3.5-5.1) mmol/L Chloride 110 H (98-107) mmol/L Carbon Dioxide 27 (21-32) mmol/L Anion Gap 3.0 (3-11) BUN 21 H (7-18) mg/dl Creatinine 1.08 (0.6-1.2) mg/dl Est Cr Clr Drug Dosing 68.1 ml/min Est GFR ( Amer) 67.9 Est GFR (Non-Af Amer) 58.6 BUN/Creatinine Ratio 19.6 (10-20) Glucose 95 (70-99) mg/dl Lactate (0.4-2.0) mmol/L Calcium 8.9 (8.5-10.1) mg/dl Total Bilirubin 0.2 (0.2-1) mg/dl AST 12 L (15-37) U/L ALT 18 (12-78) U/L Alkaline Phosphatase 80 (45-117) U/L Total Protein 7.0 (6.4-8.2) gm/dl Albumin 3.6 (3.4-5.0) gm/dl Globulin 3.4 (2.5-4.0) gm/dl Albumin/Globulin Ratio 1.1 (0.9-2) Lipase 128 (73-393) U/L Urine Color Yellow Urine Appearance Clear (Clear) Urine pH 8.0 H (4.5-7.5) Ur Specific [place] 1.024 (1.000-1.030) Urine Protein Negative (Negative) Urine Glucose (UA) Negative (Negative) Urine Ketones Trace H (Negative) Urine Blood Negative (Negative) Urine Nitrite Negative (Negative) Urine Bilirubin Negative (Negative) Urine Urobilinogen Negative (Negative) Ur Leukocyte Esterase Negative (Negative) COVID-19 Eval Order SARS-CoV-2 (PCR) (Negative) Influenza Type A (PCR) (Neg) Influenza Type B (PCR) (Neg) RSV (RT-PCR) (Neg) 03/05/21 03/05/21 03/05/21 Range/Units 23:40 23:47 23:47 WBC (4.8-10.8) K/uL RBC (4.2-5.4) M/uL Hgb (12.0-16.0) g/dL Hct (37-47) % MCV (80-100) fL MCH (25-34) pg MCHC (32-36) g/dL RDW Std Deviation (36.4-46.3) fL RDW Coeff of Mandi (11.5-14.5) % Plt Count (130-400) K/uL MPV (7.4-10.4) fL Immature Gran % (Auto) % Neut % (Auto) % Lymph % (Auto) % [place] % (Auto) % Eos % (Auto) % Baso % (Auto) % Neut # (Auto) (1.4-6.5) K/uL Lymph # (Auto) (1.2-3.4) K/uL [place] # (Auto) (0.11-0.59) K/uL Eos # (Auto) (0-0.5) K/uL Baso # (Auto) (0-0.2) K/uL Immature Gran # (Auto) (0.00-0.02) K/uL Sodium (136-145) mmol/L Potassium (3.5-5.1) mmol/L Chloride (98-107) mmol/L Carbon Dioxide (21-32) mmol/L Anion Gap (3-11) BUN (7-18) mg/dl Creatinine (0.6-1.2) mg/dl Est Cr Clr Drug Dosing ml/min Est GFR ( Amer) Est GFR (Non-Af Amer) BUN/Creatinine Ratio (10-20) Glucose (70-99) mg/dl Lactate 0.8 (0.4-2.0) mmol/L Calcium (8.5-10.1) mg/dl Total Bilirubin (0.2-1) mg/dl AST (15-37) U/L ALT (12-78) U/L Alkaline Phosphatase (45-117) U/L Total Protein (6.4-8.2) gm/dl Albumin (3.4-5.0) gm/dl Globulin (2.5-4.0) gm/dl Albumin/Globulin Ratio (0.9-2) Lipase (73-393) U/L Urine Color Urine Appearance (Clear) Urine pH (4.5-7.5) Ur Specific [place] (1.000-1.030) Urine Protein (Negative) Urine Glucose (UA) (Negative) Urine Ketones (Negative) Urine Blood (Negative) Urine Nitrite (Negative) Urine Bilirubin (Negative) Urine Urobilinogen (Negative) Ur Leukocyte Esterase (Negative) COVID-19 Eval Order CovFluRsv at [facility] SARS-CoV-2 (PCR) NEGATIVE (Negative) Influenza Type A (PCR) Negative (Neg) Influenza Type B (PCR) Negative (Neg) RSV (RT-PCR) Negative (Neg) Administered Medications Discontinued Medications Sodium Chloride (Nss) 500 mls @ 999 mls/hr IV .Q31M STA Stop: 03/05/21 21:01 Last Infusion: 03/05/21 21:20 Dose: 0 mls/hr Documented by: [id number] Admin: 03/05/21 20:49 Dose: 999 mls/hr Documented by: [id number] Ioversol (Optiray 300 100ml) 84 ml IV ONCE ONE Stop: 03/05/21 22:16 Last Admin: 03/05/21 22:15 Dose: 84 ml Documented by: [id number] Morphine Sulfate (Morphine Sulfate 4 Mg/Ml 1 Ml Carp\Vial) 4 mg IV Q15M PRN PRN Reason: Pain Stop: 03/19/21 20:30 Last Admin: 03/05/21 20:54 Dose: 4 mg Documented by: [id number] Ondansetron HCl (Ondansetron Inj 2 Mg/Ml 2 Ml Vial) 4 mg IV NOW STA Stop: 03/05/21 20:32 Last Admin: 03/05/21 20:54 Dose: 4 mg Documented by: [id number] Imaging Data Radiologist's Impression: Abdominal and pelvis CT with IV contrast: The colon is redundant and difficult to run. Portion of the redundant sigmoid colon is located in the right upper abdomen with minimal distention of the sigmoid segment. Cannot exclude a partial volvulus/twist or internal hernia or adhesion. Subtle edema in the right lower abdomen and distortion in the distribution of the bowel. Appendix is not identified. There is a small hiatal hernia. No evidence for pancreatitis. Kidneys are unremarkable. Discharge Plan Visit Data Chief Complaint: Abdominal Pain Stated Complaint: SEVERE ABDOMINAL PAIN ED Provider: Scar Huang Discharge Problem: Right sided abdominal pain, Nausea, Abnormal abdominal CT scan Patient Disposition: Admitted As Inpatient Condition: Fair
[2021-03-05 21:14] LABS: Hematocrit (blood only) 38.8 % (37-47); Hemoglobin 13.5 g/dL (12.0-16.0); Mean Corpuscular Hemoglobin 33.3 pg (25-34); Mean Corpuscular Hgb Conc 34.8 g/dL (32-36); Mean Corpuscular Volume 95.8 fL (80-100); Mean Platelet Volume 9.5 fL (7.4-10.4); Platelet Count 235 K/uL (130-400); RDW Coefficient of Variation 12.9 % (11.5-14.5); RDW Standard Deviation 44.8 fL (36.4-46.3); Red Blood Count 4.05 M/uL (4.2-5.4); White Blood Count 6.38 K/uL (4.8-10.8)
[2021-03-05 21:17] LABS: Appearance Urine Clear (Clear); Bilirubin Urine Negative (Negative); Blood Urine Negative (Negative); Color Urine Yellow; Glucose Urine UA Negative (Negative); Ketones Urine Trace (Negative); Leukocyte Esterase Urine Negative (Negative); Nitrite Urine Negative (Negative); Protein Urine Negative (Negative); Specific Gravity Urine 1.024 (1.000-1.030); Urobilinogen Urine Negative (Negative)
[2021-03-05 21:33] LABS: Albumin Level 3.6 gm/dl (3.4-5.0); BUN Creatinine Ratio 19.6 (10-20); Calcium 8.9 mg/dl (8.5-10.1); Creatinine Clr Calc Pharmacy 68.1 ml/min; Est GFR (African American) 67.9; Est GFR (Non-African American) 58.6; Potassium 3.9 mmol/L (3.5-5.1)
[2021-03-05 21:36] LABS: Albumin Globulin Ratio 1.1 (0.9-2); Bilirubin,Total 0.2 mg/dl (0.2-1); Globulin 3.4 gm/dl (2.5-4.0)
[2021-03-05] MEDS ORDERED: OPTIRAY 300 100mL IV ONE (22:15)
[2021-03-05 22:51] LABS: Basophils # (auto) 0.03 K/uL (0-0.2); Basophils % (auto) 0.5 %; Eosinophils # (auto) 0.12 K/uL (0-0.5); Eosinophils % (auto) 1.9 %; Immature Granulocytes # (auto) 0.02 K/uL (0.00-0.02); Immature Granulocytes % (auto) 0.3 %; Lymphocytes # (auto) 3.26 K/uL (1.2-3.4); Lymphocytes % (auto) 51.1 %; Monocytes # (auto) 0.74 K/uL (0.11-0.59); Monocytes % (auto) 11.6 %; Neutrophils # (auto) 2.21 K/uL (1.4-6.5); Neutrophils % (auto) 34.6 %
[2021-03-06 00:34] LABS: Influenza A virus by PCR Negative (Neg); Influenza B virus by PCR Negative (Neg); RSV by PCR Negative (Neg); SARS CoV2 RNA(COVID-19) InHosp NEGATIVE (Negative)
--- NOTE | 2021-03-06 00:35 | History & Physical Report ---
Date of Service March 06, 2021 Assessment & Plan (1) Abdominal pain: The etiology of patient's abdominal pain is unclear. Due to her CT scan findings as well as her clinical presentation we will proceed as follows: We will keep the patient n.p.o. Provide analgesics Provide antiemetics Provide gentle hydration with IV fluids We will repeat the CAT scan with oral contrast to get a better delineation of her intra-abdominal anatomy Consult gastroenterology. I have discussed the case with Dr. Arteaga. Agrees with repeating the CAT scan with oral contrast and he will evaluate the patient in the morning to determine if a colonoscopy is indicated. We will hold her Eliquis in the event that any procedures are required Utilize SCDs for DVT prevention we will avoid chemical means as some procedure intervention may be required History of Present Illness Chief Complaint: Abdominal pain Primary Care Provider: Jay Lamar MD This is a 55-year-old female who presented to the emergency department secondary abdominal pain. Patient reports that in 2018 she had a left diaphragm hernia that was fixed robotically by Dr. Iliana Fu and at the same time she underwent a Ana M fundoplication. Patient is doing well from that surgery however earlier today in the morning the patient developed some generalized abdominal pain that is worse on the right lower quadrant. Patient says the pain does not radiate and she does not note any palliative factors other than back pain medicines that were administered in the emergency department. She does not note any provocative factors. Patient has not had any episodes of nausea or vomiting. She notes that she had a normal bowel movement this morning and notes that she did not have any bright red blood per rectum or melanotic stools. In addition the patient notes that she does have issues with constipation but this is normal for her. She also notes that her abdomen is slightly distended compared to her usual state. She denies any fevers, shakes, chills. In the emergency department the patient had labs and imaging which were independently reviewed by myself. CBC revealed her white blood cell count, hemoglobin, hematocrit, platelet count are all within normal range. A chemistry profile revealed her sodium, potassium, and creatinine were all within normal range. Urinalysis was not indicative of infection and a Covid test is pending. The patient did have a CT scan of her abdomen utilizing IV contrast only. Showed the patient had redundant sigmoid colon in the right upper quadrant of the abdomen with some distention of the sigmoid colon. A partial volvulus or internal hernia could not be excluded. The appendix is not visualized on this study. At the time of my interview the patient was in no distress and her pain was well controlled. She notes that she did feel better since arrival to the emergency department. Allergies Allergy/AdvReac Type Severity Reaction Status Date / Time yellow dye Allergy Intermediate Rash Verified 03/05/21 20:54 Sulfa (Sulfonamide Allergy Mild Rash Verified 03/05/21 20:54 Antibiotics) latex Allergy Unknown Rash Verified 03/05/21 20:54 levothyroxine Allergy Unknown Unknown Verified 03/05/21 20:54 lisinopril Allergy Unknown Swelling Verified 03/05/21 20:54 of Lip/Tongue/Throat citalopram AdvReac Mild WORSENING Verified 03/05/21 20:54 TREMORS gluten AdvReac Unknown GI Symptoms Verified 03/05/21 20:54 Home Medications Medication Instructions Recorded Confirmed Type fluoxetine 20 mg capsule 20 mg PO DAILY 05/07/20 03/05/21 History pediatric multivitamin no.7-folic 2 tab PO DAILY tab 08/05/20 03/05/21 History acid 100 mcg chewable tablet Synthroid 50 mcg tablet 75 mcg PO DAILY #135 tab NS 09/14/20 03/05/21 Rx guanfacine 1 mg PO DAILY 11/01/20 03/05/21 History zinc sulfate [Orazinc] 220 mg PO QAM #10 cap 11/05/20 03/05/21 Rx topiramate 50 mg tablet 50 mg PO BID 30 Days #60 tab 11/11/20 03/05/21 Rx verapamil 240 mg tablet,extended 240 mg PO HS 30 Days #30 tab 12/26/20 03/05/21 Rx release Eliquis 5 mg PO BID 03/05/21 03/05/21 History Past Med/Surg History Medical History Complicated migraine Left-sided weakness, facial droop Costochondritis Diaphragmatic hernia Dizziness GERD (gastroesophageal reflux disease) History of colon polyps History of congenital diaphragmatic hernia SURGICAL REPAIR 01/04/2019 [facility] History of endometriosis Hypothyroidism Liver cyst Migraine with aura and without status migrainosus, not intractable Morbid obesity SBO (small bowel obstruction) Seasonal affective disorder Shoulder pain, left TMJ locking Surgical History History of breast biopsy History of section History of colonoscopy History of dilatation and curettage History of endometrial ablation History of esophagogastroduodenoscopy (EGD) History of herniorrhaphy UMBILICAL History of Ana M fundoplication 01/04/2019 [facility] History of tooth extraction Nausea and vomiting after administration of anesthetic agent Status post biopsy of thyroid gland Status post JOSE-BSO Family History Son Family history of reaction to anesthesia Father Family history of reaction to anesthesia PONV Father Family history of diabetes mellitus Mother Family history of diabetes mellitus Family hx of colon cancer Coronary heart disease Mother Family history of esophageal cancer UTERINE CANCER W/ METS TO ESOPHAGUS AND LUNG Social History Smoking Status: Never smoker Second Hand Exposure: No; Hx Alcohol Use: No Hx Substance Use: No Preferred Language: Namibian Communication Ability: Effective Unit Receptionist Required: No Beliefs That Will Affect Care: None Current Living Situation: Family Current Living Situation Comment: daughter and grandson Feels Safe at Home: Yes Assistive Devices: None Review of Systems Constitutional: no fever and no chills Eyes: no diplopia Ear, Nose, Mouth, Throat: no ear pain Respiratory: no cough and no dyspnea Cardiovascular: no chest pain Gastrointestinal: + abdominal pain and + constipation; no nausea, no vomiting, no diarrhea/loose stools and no blood in stools Genitourinary: no dysuria Musculoskeletal: no back pain Integumentary: no rash Neurologic: no localized weakness Physical Exam Constitutional: well developed and well nourished; no acute distress Eyes: no conjunctival abnormality ENMT: Ears: no hearing impairment Neck: trachea midline Respiratory: normal respiratory effort, lungs clear to auscultation Cardiovascular: Rate/Rhythm: regular rate and regular rhythm Gastrointestinal (Abdomen): Patient's abdomen is rotund with mild distention. Bowel sounds are present. There is no rebound tenderness or guarding. Patient did have pain with deep palpation in the right lower quadrant. The patient also had pain in the right side of her abdomen with palpation of the left. Musculoskeletal: No calf tenderness Skin: no rashes, warm and dry Neurologic: moves all extremities Psychiatric: A+Ox3, euthymic affect Results & Data Results & Data ([facility]) Vital Signs (Past 12 Hours) Vital Signs Temp Pulse Resp BP Pulse Ox 03/05/21 23:31 97 03/05/21 23:30 95/54 L 97 03/05/21 23:01 96 03/05/21 23:00 106/63 96 03/05/21 22:31 100 03/05/21 22:30 113/75 100 03/05/21 22:28 118/60 100 03/05/21 22:00 51 L 15 97 03/05/21 21:31 50 L 16 95 03/05/21 21:30 49 L 18 105/57 L 96 03/05/21 21:01 53 L 17 96 03/05/21 21:00 55 L 19 94/50 L 96 03/05/21 20:58 54 L 13 96 03/05/21 20:50 59 L 21 105/44 L 96 03/05/21 20:12 36.3 C L 61 18 126/86 100 Supervising Physician Co-Signing Physician Notes I personally saw and evaluated the patient with Ronald Ellison PA-C and agree with the assessment and plan 55 yo female with possible sigmoid volvulus -CT images and results reviewed -On my review it doesn't look like she has a volvulus, but with lack of PO contrast it is difficult to tell -She is currently non-toxic with stable vital signs, no leukocytosis, no peritoneal signs -Discussed case with GI and will evaluate patient in morning for possible colonoscopy -Will repeat CT scan with PO contrast, admit patient for observation and keep NPO PG Care Time/CCT Total # of Minutes Spent Total Time Spent with Patient: Total time spent is greater than 50% in coordination of care (as documented) at patient's floor/unit and/or counseling patient: Coding Level of Care Code 56388 OBS Care - Level 3 Diagnoses Abdominal pain R10.9
[2021-03-06] MEDS ORDERED: LACTATED RINGER'S 1,000 ML IV SCH (01:30)
[2021-03-06] MEDS ORDERED: ONDANSETRON INJ 2 MG/ML 2 ML VIAL IV PRN (01:30)
[2021-03-06] MEDS ORDERED: ACETAMINOPHEN 1,000 MG/100 ML VIAL IV PRN (01:30)
[2021-03-06] MEDS ORDERED: MoRPHine SULFATE 2 MG/ML CARP IV PRN (01:30)
[2021-03-06 06:04] LABS: Basophils # (auto) 0.01 K/uL (0-0.2); Basophils % (auto) 0.2 %; Eosinophils # (auto) 0.09 K/uL (0-0.5); Hematocrit (blood only) 37.4 % (37-47); Hemoglobin 12.6 g/dL (12.0-16.0); Immature Granulocytes # (auto) 0.01 K/uL (0.00-0.02); Immature Granulocytes % (auto) 0.2 %; Mean Corpuscular Hemoglobin 32.2 pg (25-34); Mean Corpuscular Volume 95.7 fL (80-100); Mean Platelet Volume 9.3 fL (7.4-10.4); Monocytes # (auto) 0.59 K/uL (0.11-0.59); Monocytes % (auto) 13.3 %; Neutrophils # (auto) 1.82 K/uL (1.4-6.5); Neutrophils % (auto) 41.3 %; Platelet Count 192 K/uL (130-400); RDW Coefficient of Variation 12.7 % (11.5-14.5); RDW Standard Deviation 44.2 fL (36.4-46.3); Red Blood Count 3.91 M/uL (4.2-5.4); White Blood Count 4.42 K/uL (4.8-10.8)
[2021-03-06 06:15] LABS: Mean Corpuscular Hgb Conc 33.7 g/dL (32-36)
[2021-03-06 06:19] LABS: BUN Creatinine Ratio 18.5 (10-20); Creatinine Clr Calc Pharmacy 77.7 ml/min; Est GFR (African American) 79.3; Est GFR (Non-African American) 68.4; Potassium 3.7 mmol/L (3.5-5.1)
[2021-03-06] MEDS ORDERED: LEVOTHYROXINE SODIUM 75 MCG TABLET PO SCH (06:30)
--- NOTE | 2021-03-06 07:46 | CT Scan Report ---
ABDOMEN AND PELVIS CT WITH ORAL CONTRAST CT DOSE: 1308.73 mGy.cm HISTORY: Acute generalized abdominal pain abdominal pain/?volvulus TECHNIQUE: Multiaxial CT images of the abdomen and pelvis were performed following the use of oral co ntrast. A dose lowering technique was utilized adhering to the principles of ALARA. COMPARISON STUDY: CT abdomen and pelvis 03/05/2021 at 10:18 PM, CT abdomen and pelvis 05/24/2020, CTA c hest 11/01/2020, 02/03/2019. FINDINGS: The imaged inferior cardiac chambers are unremarkable. 2.4 x 1.5 cm structure adjacent to left ventri cular apex has progressively increased in size and measure 2.1 x 1.4 cm on the 2019 comparison and me asured 1.2 x 0.7 cm in 2019. Mild linear scarring/atelectasis of the basal left lower lobe. No pneuma tosis or pneumoperitoneum. The unenhanced spleen, pancreas, adrenal glands, gallbladder and liver appear unremarkable. Probable cyst of the posterior right hepatic lobe, 2.8 cm. Residual contrast is noted within the renal collect ing systems. No hydronephrosis. Contrast-filled urinary bladder. Hysterectomy. No adnexal mass lesion s. Aorta and IVC are unremarkable. No adenopathy. Small hiatal hernia. Prior left diaphragmatic hernia repair. Tortuous and redundant sigmoid colon. No sigmoid or cecal volvulus. Mild nonspecific stranding of the right lower quadrant mesentery on image 278. The appendix is not diagnostically visualized. No secondary signs of acute appendicitis. Diasta ses recti with prior ventral abdominal wall hernia repair. No acute fracture. Degenerative changes of the spine and pelvis. IMPRESSION: 1. No bowel obstruction or bowel wall thickening. Nonvisualization of the appendix. 2. Mild nonspecific edema of the right lower quadrant mesentery. 3. No evidence of cecal or sigmoid volvulus 4. Small hiatal hernia. 5. Indeterminate pathologic left cardiophrenic lymph node has progressively increased in size dating back to 2019, now measuring 2.4 x 1.5 cm. ACT 112: Negative or not required by law. The above report was generated using voice recognition software. It may contain grammatical, syntax o r spelling errors. Electronically signed by: Raj Haynes M.D. 03/06/2021 7:45 AM
--- NOTE | 2021-03-06 07:50 | CT Scan Report ---
ABDOMEN AND PELVIS CT WITH IV CONTRAST CT DOSE: 1243.93 mGy.cm HISTORY: Acute right lower quadrant abdominal pain rlq pain TECHNIQUE: Multiaxial CT images of the abdomen and pelvis were performed following the IV administrat ion of 84 cc of Optiray, A dose lowering technique was utilized adhering to the principles of ALARA. COMPARISON STUDY: CT abdomen pelvis 03/06/2021 at 3:42 AM, CT abdomen and pelvis 05/24/2020 FINDINGS: The imaged inferior cardiac chambers are unremarkable. 2.4 x 1.5 cm structure adjacent to l eft ventricular apex has progressively increased in size and measured 2.1 x 1.4 cm on the 2020 compar nicole and measured 1.2 x 0.7 cm in 2019. Mild linear scarring/atelectasis of the basal left lower lobe . No pneumatosis or pneumoperitoneum. Unchanged 4 mm hypodensity of the splenic dome is indeterminate and statistically benign. The pancrea s, adrenal glands, gallbladder and liver appear unremarkable. Probable cyst of the posterior right he patic lobe, 2.8 cm. No hydronephrosis. Unremarkable urinary bladder. Hysterectomy. No adnexal mass le sions. Aorta and IVC are unremarkable. No adenopathy. Small hiatal hernia. Prior left diaphragmatic hernia repair. Tortuous and redundant sigmoid colon. Mi ld nonspecific stranding of the right lower quadrant mesentery on image 278. The appendix is not diag nostically visualized. No secondary signs of acute appendicitis. No bowel obstruction or bowel wall t hickening. Diastases recti with prior ventral abdominal wall hernia repair. No acute fracture. Degene rative changes of the spine and pelvis. IMPRESSION: 1. No bowel obstruction or bowel wall thickening. Nonvisualization of the appendix. 2. Mild nonspecific edema of the right lower quadrant mesentery. 3. Tortuosity of the sigmoid colon. No definitive volvulus. 4. Small hiatal hernia. 5. Indeterminate pathologic left cardiophrenic lymph node has progressively increased in size dating back to 2019, now measuring 2.4 x 1.5 cm. IMPRESSION: No significant abnormality identified within the abdomen or pelvis. ACT 112: Negative or not required by law. The above report was generated using voice recognition software. It may contain grammatical, syntax o r spelling errors. Electronically signed by: Raj Haynes M.D. 03/06/2021 7:48 AM
--- NOTE | 2021-03-06 07:56 | Surgery Progress Note ---
Date of Service March 06, 2021 Assessment & Plan (1) Abdominal pain: Patient admitted yesterday with acute onset abdominal pain. Workup in the ER with an initial CT a/p revealed findings of a tortuous sigmoid colon, could not rule out sigmoid volvulus. A repeat CT a/p was performed with oral contrast that showed no evidence of cecal or sigmoid volvulus, no appendicitis, nor bowel obstruction. Today patient's abdominal pain is much improved and she denies any n/v - Plan to advance diet this AM, if tolerates and pain remains resolved will plan on discharge to home - Asked patient to increase her Miralax dosing to twice daily at home - Will ask patient to follow up with her PCP within 1 week. May follow up with GI as an outpatient - Pt seen and examined with Dr. Zee Admission and Anticipated Discharge Date Admission Date: March 06, 2021 Supervising Physician Co-Signing Physician Notes I personally saw and evaluated the patient with Nicole Khan PA-C and agree with the assessment and plan 55 yo female with possible sigmoid volvulus -CT images and results with PO contrast reviewed -No acute findings in the abdomen to explain her pain, but does have some significant stool burden -Will advance her diet and discharge home today -Increase her Miralax to 2 caps daily upon discharge Subjective Patient seen and examined. States her abdominal pain is improved. She denies any nausea/vomiting. No flatus/BM today, but patient says she is baseline constipated and takes Miralax daily. Physical Exam Physical Exam: awake/alert Constitutional: no acute distress Respiratory: normal respiratory effort Gastrointestinal (Abdomen): Inspection/Auscultation: abdomen not distended Percussion/Palpation: abdomen nontender and + abdomen not soft Results & Data ([facility]) Vital Signs (Past 12 Hours) Vital Signs Temp Pulse Pulse Resp BP BP Pulse Ox 03/06/21 07:44 36.4 C L 48 L 18 95/62 L 100 03/06/21 01:34 35.9 C L 56 L 16 124/74 100 03/06/21 01:00 49 L 16 100/60 100 03/06/21 00:31 51 L 18 99 03/06/21 00:30 52 L 18 101/62 99 03/06/21 00:01 55 L 14 99 03/06/21 00:00 55 L 17 113/71 100 03/05/21 23:31 97 03/05/21 23:30 95/54 L 97 03/05/21 23:01 96 03/05/21 23:00 106/63 96 03/05/21 22:31 100 03/05/21 22:30 113/75 100 03/05/21 22:28 118/60 100 03/05/21 22:00 51 L 15 97 03/05/21 21:31 50 L 16 95 03/05/21 21:30 49 L 18 105/57 L 96 03/05/21 21:01 53 L 17 96 03/05/21 21:00 55 L 19 94/50 L 96 03/05/21 20:58 54 L 13 96 03/05/21 20:50 59 L 21 105/44 L 96 03/05/21 20:12 36.3 C L 61 18 126/86 100 PG Care Time/CCT Total # of Minutes Spent Total Time Spent with Patient: Total time spent is greater than 50% in c oordination of care (as documented) at patient's floor/unit and/or counseling patient: Coding Level of Care Code None Diagnoses Abdominal pain R10.9
[2021-03-06] MEDS ORDERED: TOPIRAMATE 50 MG TAB PO SCH (09:00)
[2021-03-06] MEDS ORDERED: FLUoxetine HCL 20 MG CAP PO SCH (09:00)
[2021-03-06] MEDS ORDERED: VERAPAMIL HCL 240 MG TABCR PO SCH (21:00)
--- NOTE | 2021-03-07 12:09 | Discharge Summary ---
Date of Service March 07, 2021 Admission HPI Per Admitting Provider This is a 55-year-old female who presented to the emergency department secondary abdominal pain. Patient reports that in 2019 she had a left diaphragm hernia that was fixed robotically by Dr. Iliana Fu and at the same time she underwent a Ana M fundoplication. Patient is doing well from that surgery however earlier today in the morning the patient developed some generalized abdominal pain that is worse on the right lower quadrant. Patient says the pain does not radiate and she does not note any palliative factors other than back pain medicines that were administered in the emergency department. She does not note any provocative factors. Patient has not had any episodes of nausea or vomiting. She notes that she had a normal bowel movement this morning and notes that she did not have any bright red blood per rectum or melanotic stools. In addition the patient notes that she does have issues with constipation but this is normal for her. She also notes that her abdomen is slightly distended compared to her usual state. She denies any fevers, shakes, chills. In the emergency department the patient had labs and imaging which were independently reviewed by myself. CBC revealed her white blood cell count, hemoglobin, hematocrit, platelet count are all within normal range. A chemistry profile revealed her sodium, potassium, and creatinine were all within normal range. Urinalysis was not indicative of infection and a Covid test is pending. The patient did have a CT scan of her abdomen utilizing IV contrast only. Showed the patient had redundant sigmoid colon in the right upper quadrant of the abdomen with some distention of the sigmoid colon. A partial volvulus or internal hernia could not be excluded. The appendix is not visualized on this study. At the time of my interview the patient was in no distress and her pain was well controlled. She notes that she did feel better since arrival to the emergency department. Principal Diagnosis Abdominal pain Discharge Exam awake/alert Constitutional well developed and well nourished; no acute distress Respiratory normal respiratory effort Gastrointestinal (Abdomen) Inspection/Auscultation: abdomen not distended Percussion/Palpation: abdomen soft; abdomen nontender Discharge Data Allergies Allergy/AdvReac Type Severity Reaction Status Date / Time yellow dye Allergy Intermediate Rash Verified 03/05/21 20:54 Sulfa (Sulfonamide Allergy Mild Rash Verified 03/05/21 20:54 Antibiotics) latex Allergy Unknown Rash Verified 03/05/21 20:54 levothyroxine Allergy Unknown Unknown Verified 03/05/21 20:54 lisinopril Allergy Unknown Swelling Verified 03/05/21 20:54 of Lip/Tongue/Throat citalopram AdvReac Mild WORSENING Verified 03/05/21 20:54 TREMORS gluten AdvReac Unknown GI Symptoms Verified 03/05/21 20:54 Consultations 03/05/21 23:33 Consult General Surgery Stat Ordered Studies 03/05/21 20:31 CT abd pelvis IV con only Urgent 03/06/21 00:17 CT abd pelvis oral con only Urgent Hospital Course (1) Abdominal pain: This is a 55y F who presented to the [facility] ED on 03/05/21 with complaints of abdominal pain, mostly in the RLQ. She reported to the ER where she underwent a CT a/p which revealed a redundant sigmoid colon and a partial sigmoid volvulus could not be ruled out. GI was notified and after discussion with them and our general surgery team, decision was made to repeat CT scan with oral contrast. This was performed and revealed no evidence of sigmoid volvulus or signs of appendicitis. Patient was admitted overnight and kept NPO with IVF and bowel rest. She was re-examined multiple times and there were no acute changes in her status. In the AM of 03/06/21 patient reported her abdominal pain was much improved. Her labs were unremarkable and VSS. On examination her abdomen was soft, non tender, and non distended. She was given a regular diet which she tolerated well and was deemed stable for discharge to home with plans to follow up with her PCP within 1 week and consider GI follow up for consideration of outpatient colonoscopy in the future. She was instructed to increase her Miralax dosing to twice daily for history of constipation. Total Time Total Time Spent Total Time Spent (In Minutes): 10 Discharge Plan Discharge Items Patient Disposition: Home - Self-Care Reason For Visit: ABDOMEN PAIN Discharge Diagnosis: abdominal pain Condition on Discharge: Good Activity: Per Instructions section Lifting: Gradually increase as tolerated Bathing: No limitations Exercise/Sports: Gradually increase as tolerated Driving/Machine Use: No limitations Non-emergency contact: Primary Care Provider Call non-emergency contact if: you have any medication questions, your symptoms worsen, your pain is not controlled, your pain is worsening, you have a fever and your temperature is above 101.5 Follow-up/Referrals: Quentin Porras DO [Physician] - 03/11/21 9:00 am (Pt is scheduled , 03/11/[address] Quentin Porras at [facility] at 9:00AM for the new pt/hosp f/u ) Diet: Gluten Free Addtl Attending Provider Instructions: You may increase your dose of Miralax to twice daily Please follow up with your Primary Care Provider within 1 week to discuss the events of your hospitalization Pending Studies at Discharge: No Stand-Alone Forms: My [facility], Smoking Cessation Medications and DC Order Prescriptions: Continued verapamil 240 mg tablet extended release 240 mg PO HS 30 Days Qty: 30 RF: 5 Flintstones Multi-Vit Gummies 100 mcg tablet,chewable 2 tab PO DAILY RF: 0 fluoxetine 20 mg capsule 20 mg PO DAILY RF: 0 topiramate 50 mg tablet 50 mg PO BID 30 Days Qty: 60 RF: 5 levothyroxine [Synthroid] 50 mcg tablet 75 mcg PO DAILY Qty: 135 RF: 3 guanfacine 1 mg tablet extended release 24 hr 1 mg PO DAILY RF: 0 zinc sulfate [Orazinc] 220 (50) mg Capsule 220 mg PO QAM Qty: 10 RF: 0 Eliquis 5 mg tablet 5 mg PO BID RF: 0 Discharge Orders: Discharge Order (Routine); Ordered 03/06/21 Ordered By: Nicole Ramírez/Other Patient Handouts: Abdominal Pain Admission Data Admit Date/Time: 03/06/21 00:54 Attending Provider: Jay Lamar Admit Provider: Ronald Ellison Primary Care Provider: Jay Lamar Other Interventions: Discharge Summary Assessment (RN) Last Done: 03/06/21 09:48 Coding Level of Care Code D/C Day Management <30 mins Diagnoses Abdominal pain R10.9
== END 2021-03-06 10:55 | disposition home or self-care (01) ==
LOC: ED 20:09 → 3N 20:09

== ENCOUNTER 2021-11-30 08:50 | Observation (INO) ==
--- NOTE | 2021-11-30 09:10 | CT Scan Report ---
CT head/brain wo con CLINICAL HISTORY: Stroke Alert Technique: Contiguous axial CT images of the head were acquired from the base of the skull to the tiffany tashia without intravenous contrast administration. Images were viewed in brain, subdural and bone [facility]. Automated dose lowering techniques and/or adjustment according to patient size were utilized for this exam. Comparison: None available at the time of this dictation. Findings: The ventricles, basal cisterns, and cerebral sulci are normal. There is no acute intracranial hemorrh age or evidence of acute territorial infarction. Neither mass effect, shift of the midline structures , nor abnormal extra-axial fluid collections are shown. Imaged portions of the paranasal sinuses and mastoid air cells are clear. The orbits appear normal. There are no acute fractures of the calvaria or scalp swelling. Incidentally noted there is anterior subluxation/dislocation of the right temporomandibular joint. Impression: No acute intracranial hemorrhage, no evidence of acute territorial infarction or other acute intracra nial disease process. ACT 112: Negative or not required by law. Electronically signed by: Lucien Sotelo M.D. 11/30/2021 9:09 AM
[2021-11-30 09:17] LABS: Hematocrit (blood only) 41.1 % (37-47); Hemoglobin 13.6 g/dL (12.0-16.0); Mean Corpuscular Hemoglobin 32.5 pg (25-34); Mean Corpuscular Hgb Conc 33.1 g/dL (32-36); Mean Corpuscular Volume 98.3 fL (80-100); Mean Platelet Volume 9.5 fL (7.4-10.4); Platelet Count 234 K/uL (130-400); RDW Coefficient of Variation 13.5 % (11.5-14.5); RDW Standard Deviation 47.9 fL (36.4-46.3); Red Blood Count 4.18 M/uL (4.2-5.4); White Blood Count 5.74 K/uL (4.8-10.8)
--- NOTE | 2021-11-30 09:19 | Emergency Department Note ---
History of Present Illness General Chief complaint: Stroke/CVA Symptoms Stated complaint: NUMBNESS&DROOPING TO LT SIDE OF FACE,TROUBLE WALKI Time Seen by Provider: 11/30/21 08:57 Source: patient Mode of arrival: ambulatory Limitations: no limitations History of Present Illness This patient is a 55-year-old female who comes in after having left facial droop and weakness. She was fine at midnight but then at 2:00 she noticed this. She told her daughter and she went back to bed and woke up this morning felt worse. She is now 7 hours after the symptoms started. She says she felt off balance when walking but has no focal numbness or weakness at rest. No headache. No fall or trauma. She says her speech is slightly off. No change in vision. No chest pain shortness of breath abdominal pain no fever or chills. She recently did get over COVID and she has been vaccinated in the past as well. She is on no blood thinners although does have a history of a PE. She has a history of migraines that present sometimes with facial weakness however she has had no headache and that is typical for her migraine and she also says that it feels somewhat different than her migraines. Home Medications Medication Instructions Recorded Confirmed Type fluoxetine 20 mg capsule 60 mg PO QAM 05/07/20 11/30/21 History guanfacine 1 mg tablet,extended 1 mg PO HS 11/01/20 11/30/21 History release 24 hr topiramate 50 mg tablet 50 mg PO BID 30 Days #60 tab 05/07/21 11/30/21 Rx verapamil 240 mg tablet,extended 240 mg PO HS 30 Days #30 tab 07/22/21 11/30/21 Rx release levothyroxine 50 mcg tablet 75 mcg PO QAM 30 Days #45 tab 10/01/21 11/30/21 Rx (Synthroid) cholecalciferol (vitamin D3) 25 25 mcg PO DAILY 11/30/21 11/30/21 History mcg (1,000 unit) tablet (Vitamin D3) Allergies Allergy/AdvReac Type Severity Reaction Status Date / Time lisinopril Allergy Severe Swelling Verified 11/09/21 21:27 of Lip/Tongue/Throat yellow dye Allergy Intermediate Tremor Verified 11/09/21 21:27 latex Allergy Mild Rash Verified 11/09/21 21:27 Sulfa (Sulfonamide Allergy Mild Rash Verified 11/09/21 21:27 Antibiotics) levothyroxine Allergy Unknown Unknown Verified 11/09/21 21:27 citalopram AdvReac Mild WORSENING Verified 11/09/21 21:27 TREMORS gluten AdvReac Mild GI Symptoms Verified 11/09/21 21:27 UNKNOWN INHALER AdvReac TREMORS Uncoded 11/09/21 21:27 Past Med/Surg History Medical History Complicated migraine Left-sided weakness, facial droop Costochondritis Diaphragmatic hernia Dizziness GERD (gastroesophageal reflux disease) History of colon polyps History of congenital diaphragmatic hernia SURGICAL REPAIR 01/04/2019 [facility] History of COVID-19 10/26/2020 @ [facility]--shortness of breathe, pneumonia, blood clot--was hos pitalized at [facility] for 4 days, not intubated--no issues now History of endometriosis Hypothyroidism Liver cyst Migraine with aura and without status migrainosus, not intractable Morbid obesity Nausea Right sided abdominal pain SBO (small bowel obstruction) Seasonal affective disorder Shoulder pain, left TMJ locking Surgical History History of breast biopsy History of section History of colonoscopy History of dilatation and curettage History of endometrial ablation History of esophagogastroduodenoscopy (EGD) History of herniorrhaphy UMBILICAL History of Ana M fundoplication 01/04/2019 [facility] History of tooth extraction Nausea and vomiting after administration of anesthetic agent Status post biopsy of thyroid gland Status post JOSE-BSO Family History Son Family history of reaction to anesthesia Father Family history of reaction to anesthesia PONV Father Family history of diabetes mellitus Mother Family history of diabetes mellitus Family hx of colon cancer Coronary heart disease Mother Family history of esophageal cancer UTERINE CANCER W/ METS TO ESOPHAGUS AND LUNG Social History Smoking Status: Never smoker Second Hand Exposure: No; Hx Alcohol Use: No Hx Substance Use: No Preferred Language: Macedonian Communication Ability: Effective [employer] Required: No Beliefs That Will Affect Care: None Current Living Situation: Family Current Living Situation Comment: Lives with daughter and grandson Feels Safe at Home: Yes Assistive Devices: None Review of Systems A total of 10 systems reviewed and were otherwise negative Physical Exam Vital Signs Vital Signs - 24 hr 11/30/21 08:54 11/30/21 09:18 11/30/21 10:00 Temperature 36.4 C L Temperature Source Temporal Artery Scan Pulse Rate 66 Pulse Rate [Apical] 52 L Pulse Rate from SpO2 Sensor Respiratory Rate 16 12 Blood Pressure 130/89 Blood Pressure [Left Arm] 126/80 Blood Pressure Mean 102 Blood Pressure Mean [Left Arm] 95 Pulse Oximetry 98 98 Oxygen Delivery Method Room Air Room Air Room Air Sepsis Recent Fever Within 48 Hours No Sepsis New/Unexplained Change in Mental Status No Sepsis Action Taken by Nursing No Action Required 11/30/21 10:30 Temperature Temperature Source Pulse Rate 52 L Pulse Rate [Apical] Pulse Rate from SpO2 Sensor 52 L Respiratory Rate 19 Blood Pressure 127/78 Blood Pressure [Left Arm] Blood Pressure Mean 94 Blood Pressure Mean [Left Arm] Pulse Oximetry 98 Oxygen Delivery Method Room Air Sepsis Recent Fever Within 48 Hours Sepsis New/Unexplained Change in Mental Status Sepsis Action Taken by Nursing General: Well developed well nourished middle-age female who appears in no acute distress, breathing comfortably on room air. Normal speech but slightly thick but not slurred. HEENT: Normal cephalic atraumatic. Pupils are equal round and reactive to light. Extraocular movements are intact. Oropharynx is pink with moist mucous membranes. No swelling of the mouth lips or tongue. Neck: Supple with a midline trachea. No meningeal signs or stiffness, no JVD or bruits. No Stridor. She does have mild to on the left. Chest: Clear to auscultation bilaterally. No wheezes or rhonchi. No increased work of breathing. Heart: Regular rate and rhythm without murmurs or gallops. Abdomen: Soft nontender, nondistended without rebound guarding or rigidity. Extremities: No cyanosis clubbing or edema. No calf tenderness or assymetry Spine/Back. Non tender to palpation. No CVA tenderness Skin: Good turgor without rashes. Neurologic exam: Cranial nerves two through 12 are intact with exception of facial droop on the left compared to the right. Motor and sensation are intact and symmetrical throughout. Course Administered Medications Discontinued Medications Aspirin (Aspirin 81 Mg Chew) 324 mg PO NOW STA Stop: 11/30/21 10:02 Last Admin: 11/30/21 10:07 Dose: Not Given Documented by: [id number] Aspirin (Aspirin 300 Mg Supp) 300 mg MI ONE ONE Stop: 11/30/21 10:06 Last Admin: 11/30/21 10:22 Dose: 300 mg Documented by: [id number] Sodium Chloride (Nss 1000ml) 1,000 mls @ 999 mls/hr IV .Q1H1M ONE Stop: 11/30/21 11:01 Last Infusion: 11/30/21 11:23 Dose: 0 mls/hr Documented by: [id number] Admin: 11/30/21 10:22 Dose: 999 mls/hr Documented by: [id number] Ioversol (Optiray 320 125ml) 120 ml IV ONCE ONE Stop: 11/30/21 09:34 Last Admin: 11/30/21 09:33 Dose: 120 ml Documented by: [id number] Medical Decision Making Differential Diagnosis Stroke, TIA, migraine, electrolyte or metabolic abnormality, inflammatory process, infection Medical Records Attestation: I reviewed the patient's medical records. Home Medications Current Medication List: was personally reviewed by me Laboratory Data Attestation: I reviewed the patient's lab results. Result diagrams: 11/30/21 09:08 11/30/21 09:11 Lab Results 11/30/21 11/30/21 11/30/21 Range/Units 09:08 09:08 09:08 WBC 5.74 (4.8-10.8) K/uL RBC 4.18 L (4.2-5.4) M/uL Hgb 13.6 (12.0-16.0) g/dL POC Hgb (12.0-16.0) g/dl Hct 41.1 (37-47) % POC Hct (37-47) % MCV 98.3 (80-100) fL MCH 32.5 (25-34) pg MCHC 33.1 (32-36) g/dL RDW Std Deviation 47.9 H (36.4-46.3) fL RDW Coeff of Mandi 13.5 (11.5-14.5) % Plt Count 234 (130-400) K/uL MPV 9.5 (7.4-10.4) fL ESR 16 (0-30) mm/hr PT 9.8 (9.0-12.0) Seconds INR 1.0 (0.9-1.1) APTT 26.2 (21.0-31.0) Seconds PTT Ratio 1.0 POC Sodium (135-144) mmol/L Sodium (136-145) mmol/L POC Potassium (3.3-5.0) mmol/L Potassium (3.5-5.1) mmol/L POC Chloride (101-112) mmol/L Chloride (98-107) mmol/L Carbon Dioxide (21-32) mmol/L POC Total CO2 (24-31) mmol/L Anion Gap (3-11) POC Anion Gap (16-25) mmol/L POC BUN (7-18) mg/dl BUN (6-23) mg/dl Creatinine (0.6-1.2) mg/dl POC Creatinine (0.6-1.3) mg/dl Est Cr Clr Drug Dosing ml/min Est GFR ( Amer) ml/min Est GFR (Non-Af Amer) ml/min BUN/Creatinine Ratio (10-20) Glucose (70-99(Fasting)) mg/dl POC Glucose (70-99) mg/dl POC Glucose (other) (70-99) mg/dl Calcium (8.5-10.1) mg/dl POC Ioniz Calcium Lexi (1.12-1.32) mmol/l Magnesium (1.7-2.4) mg/dl Total Bilirubin (0.2-1.0) mg/dl AST (13-39) U/L ALT (7-52) U/L Alkaline Phosphatase (34-104) U/L Troponin I (0-0.04) ng/ml Total Protein (6.0-8.3) gm/dl Albumin (3.4-5.0) gm/dl Globulin (2.5-4.0) gm/dl Albumin/Globulin Ratio (0.9-2) SARS-CoV-2, RNA, NAAT (NEGATIVE) 11/30/21 11/30/21 11/30/21 Range/Units 09:11 09:12 09:12 WBC (4.8-10.8) K/uL RBC (4.2-5.4) M/uL Hgb (12.0-16.0) g/dL POC Hgb 13.6 (12.0-16.0) g/dl Hct (37-47) % POC Hct 40 (37-47) % MCV (80-100) fL MCH (25-34) pg MCHC (32-36) g/dL RDW Std Deviation (36.4-46.3) fL RDW Coeff of Mandi (11.5-14.5) % Plt Count (130-400) K/uL MPV (7.4-10.4) fL ESR (0-30) mm/hr PT (9.0-12.0) Seconds INR (0.9-1.1) APTT (21.0-31.0) Seconds PTT Ratio POC Sodium 141 (135-144) mmol/L Sodium 136 (136-145) mmol/L POC Potassium 4.0 (3.3-5.0) mmol/L Potassium 3.9 (3.5-5.1) mmol/L POC Chloride 106 (101-112) mmol/L Chloride 110 H (98-107) mmol/L Carbon Dioxide 26 (21-32) mmol/L POC Total CO2 26 (24-31) mmol/L Anion Gap 0 L (3-11) POC Anion Gap 14.0 L (16-25) mmol/L POC BUN 12 (7-18) mg/dl BUN 12 (6-23) mg/dl Creatinine 1.00 (0.6-1.2) mg/dl POC Creatinine 1.0 (0.6-1.3) mg/dl Est Cr Clr Drug Dosing 73.2 ml/min Est GFR ( Amer) 74.5 ml/min Est GFR (Non-Af Amer) 64.3 ml/min BUN/Creatinine Ratio 12.0 (10-20) Glucose 99 (70-99(Fasting)) mg/dl POC Glucose 91 (70-99) mg/dl POC Glucose (other) 102 H (70-99) mg/dl Calcium 9.1 (8.5-10.1) mg/dl POC Ioniz Calcium Lexi 1.27 (1.12-1.32) mmol/l Magnesium 2.0 (1.7-2.4) mg/dl Total Bilirubin 0.6 (0.2-1.0) mg/dl AST 12 L (13-39) U/L ALT 8 (7-52) U/L Alkaline Phosphatase 65 (34-104) U/L Troponin I < 0.03 (0-0.04) ng/ml Total Protein 6.8 (6.0-8.3) gm/dl Albumin 3.8 (3.4-5.0) gm/dl Globulin 3.0 (2.5-4.0) gm/dl Albumin/Globulin Ratio 1.3 (0.9-2) SARS-CoV-2, RNA, NAAT (NEGATIVE) 11/30/21 Range/Units 10:24 WBC (4.8-10.8) K/uL RBC (4.2-5.4) M/uL Hgb (12.0-16.0) g/dL POC Hgb (12.0-16.0) g/dl Hct (37-47) % POC Hct (37-47) % MCV (80-100) fL MCH (25-34) pg MCHC (32-36) g/dL RDW Std Deviation (36.4-46.3) fL RDW Coeff of Mandi (11.5-14.5) % Plt Count (130-400) K/uL MPV (7.4-10.4) fL ESR (0-30) mm/hr PT (9.0-12.0) Seconds INR (0.9-1.1) APTT (21.0-31.0) Seconds PTT Ratio POC Sodium (135-144) mmol/L Sodium (136-145) mmol/L POC Potassium (3.3-5.0) mmol/L Potassium (3.5-5.1) mmol/L POC Chloride (101-112) mmol/L Chloride (98-107) mmol/L Carbon Dioxide (21-32) mmol/L POC Total CO2 (24-31) mmol/L Anion Gap (3-11) POC Anion Gap (16-25) mmol/L POC BUN (7-18) mg/dl BUN (6-23) mg/dl Creatinine (0.6-1.2) mg/dl POC Creatinine (0.6-1.3) mg/dl Est Cr Clr Drug Dosing ml/min Est GFR ( Amer) ml/min Est GFR (Non-Af Amer) ml/min BUN/Creatinine Ratio (10-20) Glucose (70-99(Fasting)) mg/dl POC Glucose (70-99) mg/dl POC Glucose (other) (70-99) mg/dl Calcium (8.5-10.1) mg/dl POC Ioniz Calcium Lexi (1.12-1.32) mmol/l Magnesium (1.7-2.4) mg/dl Total Bilirubin (0.2-1.0) mg/dl AST (13-39) U/L ALT (7-52) U/L Alkaline Phosphatase (34-104) U/L Troponin I (0-0.04) ng/ml Total Protein (6.0-8.3) gm/dl Albumin (3.4-5.0) gm/dl Globulin (2.5-4.0) gm/dl Albumin/Globulin Ratio (0.9-2) SARS-CoV-2, RNA, NAAT NEGATIVE (NEGATIVE) Imaging Data Attestation: I personally reviewed and interpreted this imaging study as follows: My Impression: Head CTno acute hemorrhage or midline shift or mass seen upon my interpretation at the bedside Radiologist's Impression: Head CT 11/30/21 08:56 CT head/brain wo con CLINICAL HISTORY: Stroke Alert Technique: Contiguous axial CT images of the head were acquired from the base of the skull to the vertex without intravenous contrast administration. Images were viewed in brain, subdural and bone windows. Automated dose lowering techniques and/or adjustment according to patient size were utilized for this exam. Comparison: None available at the time of this dictation. Findings: The ventricles, basal cisterns, and cerebral sulci are normal. There is no acute intracranial hemorrhage or evidence of acute territorial infarction. Neither mass effect, shift of the midline structures, nor abnormal extra-axial fluid collections are shown. Imaged portions of the paranasal sinuses and mastoid air cells are clear. The orbits appear normal. There are no acute fractures of the calvaria or scalp swelling. Incidentally noted there is anterior subluxation/dislocation of the right temporomandibular joint. Impression: No acute intracranial hemorrhage, no evidence of acute territorial infarction or other acute intracranial disease process. ACT 112: Negative or not required by law. Electronically signed by: Lucien Sotelo M.D. 11/30/2021 9:09 AM Head CTA 11/30/21 09:11 CT angio neck with con, CT angio head w con CLINICAL HISTORY: Stroke Like Symptoms TECHNIQUE: CT angiography of the head and neck was performed following intravenous administration of iodinated contrast. Coronal and sagittal MIPS were obtained from the axial data set and were submitted for review. Automated dose lowering techniques and/or adjustment according to patient size were utilized for this examination. All measurements were calculated based on NASCET criteria. Comparison: Comparison is made to CT head 11/30/2021 and CTA Head and Neck 04/25/2021 FINDINGS: Subcentimeter thyroid nodules are seen which do not require follow-up by ACR criteria. CTA Neck: A 3 vessel aortic arch is shown. There is no significant atherosclerotic plaque in the aortic arch or the origins of the innominate, left common carotid, and left subclavian arteries. The common carotid, external carotid, cervical segments of the internal carotid arteries, and the cervical segments of the vertebral arteries are patent without hemodynamically significant stenosis. The right vertebral artery is dominant. CTA Head: The anterior and posterior cerebral circulations are patent. No hemodynamically significant stenosis, aneurysm, dissection, or arteriovenous malformation is shown. IMPRESSION: 1. No occlusion, hemodynamically significant stenosis, aneurysm, dissection, or arteriovenous malformation in the major intracranial arteries. 2. No occlusion, hemodynamically significant stenosis, or dissection in the major cervical arteries. Assessment of stenosis of the internal carotid arteries is based on NASCET criteria. ACT 112: Negative or not required by law. Electronically signed by: Lucien Sotelo M.D. 11/30/2021 9:55 AM Neck CTA 11/30/21 09:11 CT angio neck with con, CT angio head w con CLINICAL HISTORY: Stroke Like Symptoms TECHNIQUE: CT angiography of the head and neck was performed following intraven ous administration of iodinated contrast. Coronal and sagittal MIPS were obtained from the axial data set and were submitted for review. Automated dose lowering techniques and/or adjustment according to patient size were utilized for this examination. All measurements were calculated based on NASCET criteria. Comparison: Comparison is made to CT head 11/30/2021 and CTA Head and Neck 04/25/2021 FINDINGS: Subcentimeter thyroid nodules are seen which do not require follow-up by ACR criteria. CTA Neck: A 3 vessel aortic arch is shown. There is no significant atherosclerotic plaque in the aortic arch or the origins of the innominate, left common carotid, and left subclavian arteries. The common carotid, external carotid, cervical segments of the internal carotid arteries, and the cervical segments of the vertebral arteries are patent without hemodynamically significant stenosis. The right vertebral artery is dominant. CTA Head: The anterior and posterior cerebral circulations are patent. No hemodynamically significant stenosis, aneurysm, dissection, or arteriovenous malformation is shown. IMPRESSION: 1. No occlusion, hemodynamically significant stenosis, aneurysm, dissection, or arteriovenous malformation in the major intracranial arteries. 2. No occlusion, hemodynamically significant stenosis, or dissection in the major cervical arteries. Assessment of stenosis of the internal carotid arteries is based on NASCET criteria. ACT 112: Negative or not required by law. Electronically signed by: Lucien Sotelo M.D. 11/30/2021 9:55 AM ECG Data Attestation: I personally reviewed and interpreted this ECG as follows: Indication: + weakness Rate (beats per minute): 61 Rhythm: + normal sinus ECG Intervals/blocks: + Normal QRS, + Normal QT and + Normal MI ECG [place]: + Normal ECG ST segments: + Normal ST segments ECG Findings: no PACs or no PVCs Comparison ECG Date: from (09/25/21) Change: no significant change MDM Narrative This patient is a 55-year-old female who presents with facial weakness and some slurred speech and difficulty walking she does not feel dizzy. She has no focal numbness or weakness. The concern is she may have had a stroke. She was initially seen in triage as she arrived by private vehicle. The triage nurse did call a stroke alert and the patient went straight to CAT scan. I have reviewed this as a radiologist has as well and it is negative for any mass- effect or hemorrhage or other abnormalities. The patient is outside the window for tPA. I do not think this is likely a large vessel but I did add additional lab work and CTA of the head and neck. She was placed in room B1. Did talk to the [facility] stroke neurologist who agreed with me that the patient was not a tPA candidate and is unlikely large vessel disease and therefore would not benefit from intervention. The CTA of the head and neck do not show any large vessel and confirm this. The patient has no significant acrylate or metabolic abnormality. There is no significant arrhythmia. It is possible that this could also be a migraine but I suspect she did have a small vessel stroke. I did did give her aspirin rectally as she did not pass her dysphagia screen she was also given IV fluids with a liter bolus and will be admitted to the [facility] hospitalist team Continuous cardiac monitoring: Orders placed in EMR for continuous panel monitor. Upon my interpretation patient is noted to be in normal sinus rhythm with a rate of 60 Impression & Plan Acute CVA (cerebrovascular accident), Weakness on left side of face, Lab test negative for COVID-19 virus, Slurred speech Discharge Plan Visit Data Chief Complaint: Stroke/CVA Symptoms Stated Complaint: NUMBNESS&DROOPING TO LT SIDE OF FACE,TROUBLE WALKI ED Provider: Marbin Cuba Discharge Problem: Acute CVA (cerebrovascular accident), Weakness on left side of face, Lab test negative for COVID-19 virus, Slurred speech Discharge Instructions Interventions: ED Discharge Assessment Last Done: 11/30/21 13:29
[2021-11-30 09:25] LABS: iSTAT Hemoglobin 13.6 g/dl (12.0-16.0); iSTAT Ionized Calcium 1.27 mmol/l (1.12-1.32)
[2021-11-30 09:30] LABS: Partial Thromboplastin Time 26.2 Seconds (21.0-31.0); Prothrombin Time 9.8 Seconds (9.0-12.0)
[2021-11-30] MEDS ORDERED: OPTIRAY 320 125ml IV ONE (09:33)
[2021-11-30 09:50] LABS: Alanine Aminotransferase 8 U/L (7-52); Albumin Globulin Ratio 1.3 (0.9-2); Albumin Level 3.8 gm/dl (3.4-5.0); Alkaline Phosphatase 65 U/L (34-104); Anion Gap 0 (3-11); Aspartate Aminotransferase 12 U/L (13-39); Bilirubin,Total 0.6 mg/dl (0.2-1.0); Calcium 9.1 mg/dl (8.5-10.1); Carbon Dioxide 26 mmol/L (21-32); Chloride 110 mmol/L (98-107); Creatinine Clr Calc Pharmacy 73.2 ml/min; Est GFR (African American) 74.5 ml/min; Est GFR (Non-African American) 64.3 ml/min; Glucose 99 mg/dl (70-99(Fasting)); Potassium 3.9 mmol/L (3.5-5.1); Sodium 136 mmol/L (136-145); Total Protein 6.8 gm/dl (6.0-8.3)
--- NOTE | 2021-11-30 09:56 | CT Scan Report ---
CT angio neck with con, CT angio head w con CLINICAL HISTORY: Stroke Like Symptoms TECHNIQUE: CT angiography of the head and neck was performed following intravenous administration of iodinated contrast. Coronal and sagittal MIPS were obtained from the axial data set and were submitte d for review. Automated dose lowering techniques and/or adjustment according to patient size were ut ilized for this examination. All measurements were calculated based on NASCET criteria. Comparison: Comparison is made to CT head 11/30/2021 and CTA Head and Neck 04/25/2021 FINDINGS: Subcentimeter thyroid nodules are seen which do not require follow-up by ACR criteria. CTA Neck: A 3 vessel aortic arch is shown. There is no significant atherosclerotic plaque in the aor tic arch or the origins of the innominate, left common carotid, and left subclavian arteries. The c ommon carotid, external carotid, cervical segments of the internal carotid arteries, and the cervical segments of the vertebral arteries are patent without hemodynamically significant stenosis. The righ t vertebral artery is dominant. CTA Head: The anterior and posterior cerebral circulations are patent. No hemodynamically significan t stenosis, aneurysm, dissection, or arteriovenous malformation is shown. IMPRESSION: 1. No occlusion, hemodynamically significant stenosis, aneurysm, dissection, or arteriovenous malfor mation in the major intracranial arteries. 2. No occlusion, hemodynamically significant stenosis, or dissection in the major cervical arteries. Assessment of stenosis of the internal carotid arteries is based on NASCET criteria. ACT 112: Negative or not required by law. Electronically signed by: Lucien Sotelo M.D. 11/30/2021 9:55 AM
[2021-11-30] MEDS ORDERED: SODIUM CHLORIDE 0.9% 1000ML 1,000 ML IV ONE (10:01)
[2021-11-30] MEDS ORDERED: ASPIRIN 81 MG CHEW PO STA (10:01)
[2021-11-30] MEDS ORDERED: ASPIRIN 300 MG SUPP PR ONE (10:05)
[2021-11-30 10:20] LABS: Blood Urea Nitrogen 12 mg/dl (6-23)
--- NOTE | 2021-11-30 10:31 | History & Physical Report ---
Date of Service November 30, 2021 Assessment & Plan (1) CVA (cerebral vascular accident): Plan: My concern is that the patient may have suffered a cerebrovascular accident. We will therefore admit her to the hospital proceeding as follows: We will place her on a monitored floor to exclude cardiac arrhythmia as a potential cause of this problem We will check an echocardiogram to evaluate for cardiac embolus as a potential cause. As there is no stroke noted on CT scan we will check an MRI of the brain. We will maintain her on antiplatelet therapy in the form of aspirin We will check a lipid profile and initiate statin therapy We will check a sed rate to exclude vascular vasculitis as a potential cause We will check a TSH We will request evaluations from PT and OT We will involve case management in her care We will utilize Lovenox for DVT prevention I discussed CODE STATUS with the patient if she wishes to be a level 1 full code and notes that both CPR mechanical ventilation are acceptable modalities in her care. History of Present Illness Chief Complaint: "I have a left facial droop" Primary Care Provider: Jay Lamar MD This is a 55-year-old female who presented to [facility] emergency department secondary to a neurologic deficit. Patient notes that her last known time of being completely normal was approximately midnight on 11/30/2021. Patient says that she woke up from sleep at approximately 2:30 AM and felt that she had a left facial droop. As the patient noted that she did not feel this was very severe she went back to bed but woke up at approximately 8:00 AM on 11/30/2021 and noted that the left facial droop was worse. She denied any slurred or garbled speech. She did report in addition to her left facial droop some left facial numbness. She denied any visual loss. She denies any dysphagia. Patient says that she did note some weakness of her left leg and stated that her leg would seem to "drag" when she walked. She denied any falls or head injuries since her symptomatology began. The patient does note history of migraine headaches but did not have any symptomatology consistent with a migraine headache with her current presentation. She also reports a history of a TIA that she believes was in excess of 5 years ago. She says she did not receive any specific treatment regarding this. She could not tell me the symptomatology she experienced at that time. In addition the patient does have a history of hospitalization in October 2020 secondary to pneumonia from COVID- 19. At that time the patient was diagnosed with pulmonary emboli and she was started on Eliquis but she says she no longer takes this medication In the emergency department the patient had labs and imaging which I independently reviewed. CBC revealed white blood cell count, hemoglobin, hematocrit, and platelet count were all within the normal range. Coagulation studies were all noted to be normal. Chemistry profile showed sodium, potassium, BUN, and creatinine were all within the normal range. An EKG showed normal sinus rhythm without any changes indicative of acute ischemia. No arrhythmias were noted. Testing [address] scan of her head that showed no acute intracranial hemorrhage or evidence of acute stroke. A CT angiogram of the head was performed that showed no occlusion or areas of significant stenosis, aneurysm, dissection, or AVM and intracranial arteries or the cervical arteries. I discussed with the treating emergency room physician and he notes that he did utilize telemedicine through [facility] and due to the timing of patient's presentation to the emergency department and the timing of her symptoms and last known well time she was not considered a tPA candidate. He has administered aspirin for this patient thus far. At the time of my interview the patient was resting comfortably in bed. She was in no distress or discomfort. Allergies Allergy/AdvReac Type Severity Reaction Status Date / Time lisinopril Allergy Severe Swelling Verified 11/09/21 21:27 of Lip/Tongue/Throat yellow dye Allergy Intermediate Tremor Verified 11/09/21 21:27 latex Allergy Mild Rash Verified 11/09/21 21:27 Sulfa (Sulfonamide Allergy Mild Rash Verified 11/09/21 21:27 Antibiotics) levothyroxine Allergy Unknown Unknown Verified 11/09/21 21:27 citalopram AdvReac Mild WORSENING Verified 11/09/21 21:27 TREMORS gluten AdvReac Mild GI Symptoms Verified 11/09/21 21:27 UNKNOWN INHALER AdvReac TREMORS Uncoded 11/09/21 21:27 Home Medications Medication Instructions Recorded Confirmed Type fluoxetine 20 mg capsule 60 mg PO QAM 05/07/20 11/30/21 History guanfacine 1 mg tablet,extended 1 mg PO HS 11/01/20 11/30/21 History release 24 hr topiramate 50 mg tablet 50 mg PO BID 30 Days #60 tab 05/07/21 11/30/21 Rx verapamil 240 mg tablet,extended 240 mg PO HS 30 Days #30 tab 07/22/21 11/30/21 Rx release levothyroxine 50 mcg tablet 75 mcg PO QAM 30 Days #45 tab 10/01/21 11/30/21 Rx (Synthroid) cholecalciferol (vitamin D3) 25 25 mcg PO DAILY 11/30/21 11/30/21 History mcg (1,000 unit) tablet (Vitamin D3) Past Med/Surg History Medical History Complicated migraine Left-sided weakness, facial droop Costochondritis Diaphragmatic hernia Dizziness GERD (gastroesophageal reflux disease) History of colon polyps History of congenital diaphragmatic hernia SURGICAL REPAIR 01/04/2019 [facility] History of COVID-19 10/26/2020 @ [facility]--shortness of breathe, pneumonia, blood clot--was hospitalized at [facility] for 4 days, not intubated--no issues now History of endometriosis Hypothyroidism Liver cyst Migraine with aura and without status migrainosus, not intractable Morbid obesity Nausea Right sided abdominal pain SBO (small bowel obstruction) Seasonal affective disorder Shoulder pain, left TMJ locking Surgical History History of breast biopsy History of section History of colonoscopy History of dilatation and curettage History of endometrial ablation History of esophagogastroduodenoscopy (EGD) History of herniorrhaphy UMBILICAL History of Ana M fundoplication 01/04/2019 [facility] History of tooth extraction Nausea and vomiting after administration of anesthetic agent Status post biopsy of thyroid gland Status post JOSE-BSO Family History Son Family history of reaction to anesthesia Father Family history of reaction to anesthesia PONV Father Family history of diabetes mellitus Mother Family history of diabetes mellitus Family hx of colon cancer Coronary heart disease Mother Family history of esophageal cancer UTERINE CANCER W/ METS TO ESOPHAGUS AND LUNG Social History Smoking Status: Never smoker Second Hand Exposure: No; Hx Alcohol Use: No Hx Substance Use: No Preferred Language: Armenian Communication Ability: Effective Director Of Automation Required: No Beliefs That Will Affect Care: None Current Living Situation: Family Current Living Situation Comment: Lives with daughter and grandson Feels Safe at Home: Yes Assistive Devices: None Review of Systems Constitutional: no fever and no chills Eyes: no blind spots and no diplopia Ear, Nose, Mouth, Throat: no ear pain, no tinnitus and no sore throat Respiratory: no cough and no dyspnea Cardiovascular: no chest pain, no palpitations and no syncope Gastrointestinal: no abdominal pain, no nausea and no vomiting Genitourinary: no dysuria Musculoskeletal: no back pain Integumentary: no rash Neurologic: as per Subjective / HPI, + localized weakness (Left leg) and + numbness (Left facial numbness); no falls, no dizziness, no headache(s) and no abnormal speech Physical Exam Constitutional: well developed and well nourished; no acute distress Eyes: PERRL, conjunctivae normal, anicteric sclerae No nystagmus noted ENMT: external ear and nose normal, oropharynx normal Neck: trachea midline Respiratory: normal respiratory effort, lungs clear to auscultation Cardiovascular: Rate/Rhythm: regular rate Gastrointestinal (Abdomen): Soft, nontender, nondistended Musculoskeletal: No calf tenderness Skin: no rashes Neurologic: Cranial nerves II through XII are noted to be intact bilaterally with the exception of the left facial nerve as the patient had a left facial droop. Patient's upper extremities revealed 5+ muscle strength bilaterally in all muscle groups without noted weakness. In the lower extremities patient had 5+ muscle strength in all groups in the right lower extremity. Patient was noted to have slight weakness of the left lower extremity with plantar and dorsiflexion as well as raising leg off the letter. Her speech is coherent and not garbled. Psychiatric: A+Ox3, euthymic affect Results & Data Results & Data ([facility]) Vital Signs (Past 12 Hours) Vital Signs Temp Pulse Pulse Resp BP BP Pulse Ox 11/30/21 10:00 52 L 12 126/80 98 11/30/21 08:54 36.4 C L 66 16 130/89 98 Supervising Physician Co-Signing Physician Notes Patient seen and examined at bedside. During face to face encounter, discussed plan of care with patient, obtained history and physical examination. Discussed plan of care with FRANCIS Ellison. Reviewed above document and agree with it. Patient will be admitted with a stroke. Patient is outside of window. will hold verapamil for permissive hypertension. consult neuro. stroke workup as above. PG Care Time/CCT Total # of Minutes Spent Total Time Spent with Patient: Total time spent is greater than 50% in coordination of care (as documented) at patient's floor/unit and/or counseling patient: Coding Level of Care Code 06569 Initial Inpt Care Lvl 3 Diagnoses CVA (cerebral vascular accident) I63.9
[2021-11-30 11:00] LABS: Troponin I < 0.03 ng/ml (0-0.04)
[2021-11-30] MEDS ORDERED: PHARMACIST DISCHARGE MED REC CONSULT PRN (13:25)
--- NOTE | 2021-11-30 15:58 | XCELERA ---
[id number] \\[id number]
[2021-11-30] MEDS ORDERED: GADOBUTROL 65ML VIAL IV ONE (16:59)
--- NOTE | 2021-11-30 17:26 | Magnetic Resonance Report ---
MR brain wo/w con CLINICAL HISTORY: cva TECHNIQUE: Multiplanar and multisequence MR images of the brain were obtained prior to and following administration of gadolinium contrast. Comparison: Comparison is made to MRI brain 08/25/2019 FINDINGS: No abnormal restricted diffusion is identified. Foci of T2 and FLAIR hyperintensity are noted in the paraventricular areas consistent with chronic small vessel ischemic disease. The ventricular system i s normal in appearance. There is no evidence of acute intraparenchymal hemorrhage. No extra axial flu id collections are seen. There are no masses, mass effect, or midline shift. No abnormal enhancement is seen. The corpus callosum, pituitary gland, and cerebellar tonsils appear grossly unremarkable. Flow voids of the major intracranial arterial vessels are identified. The imaged portions of the para nasal sinuses, mastoid air cells, and orbits are unremarkable. IMPRESSION: No acute abnormalities. ACT 112: Negative or not required by law. Electronically signed by: Lucien Soteol M.D. 11/30/2021 5:24 PM
--- NOTE | 2021-11-30 20:28 | Electrocardiogram Report ---
Test Reason : Blood Pressure : / mmHG Vent. Rate : 061 BPM Atrial Rate : 061 BPM P-R Int : 158 ms QRS Dur : 070 ms QT Int : 424 ms P-R-T Axes : 000 006 004 degrees QTc Int : 426 ms Poor data quality, interpretation may be adversely affected Normal sinus rhythm Normal ECG When compared with ECG of 25-SEP-2021 19:28, No significant change was found Confirmed by Adelso Batres ([id number]) on 11/30/2021 8:27:45 PM Referred By: REFERRED SELF Confirmed By:Wilfredo Batres
[2021-11-30] MEDS ORDERED: VERAPAMIL HCL 240 MG TABCR PO SCH (21:00)
[2021-11-30] MEDS: TOPIRAMATE 50 MG TAB PO SCH (22:02)
[2021-12-01 06:03] LABS: Basophils # (auto) 0.02 K/uL (0-0.2); Basophils % (auto) 0.5 %; Eosinophils # (auto) 0.27 K/uL (0-0.5); Eosinophils % (auto) 6.1 %; Hematocrit (blood only) 38.9 % (37-47); Hemoglobin 12.9 g/dL (12.0-16.0); Immature Granulocytes # (auto) 0.01 K/uL (0.00-0.02); Immature Granulocytes % (auto) 0.2 %; Lymphocytes # (auto) 1.69 K/uL (1.2-3.4); Lymphocytes % (auto) 38.1 %; Mean Corpuscular Hemoglobin 32.6 pg (25-34); Mean Corpuscular Hgb Conc 33.2 g/dL (32-36); Mean Corpuscular Volume 98.2 fL (80-100); Mean Platelet Volume 9.7 fL (7.4-10.4); Monocytes # (auto) 0.56 K/uL (0.11-0.59); Monocytes % (auto) 12.6 %; Neutrophils # (auto) 1.89 K/uL (1.4-6.5); Neutrophils % (auto) 42.5 %; Platelet Count 204 K/uL (130-400); RDW Coefficient of Variation 13.5 % (11.5-14.5); RDW Standard Deviation 48.9 fL (36.4-46.3); Red Blood Count 3.96 M/uL (4.2-5.4); White Blood Count 4.44 K/uL (4.8-10.8)
[2021-12-01 06:17] LABS: BUN Creatinine Ratio 13.1 (10-20); Calcium 8.7 mg/dl (8.5-10.1); Chol HDL Ratio 3.8 (0-5); Est GFR (Non-African American) 79.3 ml/min; Potassium 3.8 mmol/L (3.5-5.1)
[2021-12-01] MEDS ORDERED: LEVOTHYROXINE SODIUM 75 MCG TABLET PO SCH (06:30)
[2021-12-01 07:31] LABS: Estimated Average Glucose 117 mg/dl; Hemoglobin A1C 5.7 % (4.5-5.6)
[2021-12-01] MEDS ORDERED: FLUoxetine HCL 20 MG CAP PO SCH (09:00)
[2021-12-01] MEDS ORDERED: ATORVASTATIN 40 MG TAB PO SCH (09:00)
[2021-12-01] MEDS ORDERED: ENOXAPARIN INJ 40 MG/0.4 ML SYR SQ SCH (09:00)
--- NOTE | 2021-12-01 09:35 | Neurology Consultation ---
Date of Consultation December 01, 2021 Assessment & Plan (1) Complicated migraine: (2) Stroke-like episode: Resolved episode of left-sided weakness. Patient has had left hemiparesis associated with her complicated migraines previously. I see that she had also presented to the emergency department this past April for tremors and left-sided weakness. No evidence of acute or subacute stroke or significant vascular lesion with her recent or previous neuro imaging evaluations. 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 TIA cannot be completely excluded. Symptoms resolved this morning, unremarkable neuro imaging including normal brain MRI. 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 Continue with low-dose aspirin and atorvastatin. Consider obtaining 30-day mobile cardiac outpatient telemetry. Continue with topiramate. Verapamil has been discontinued. Would consider restarting this medication for prevention of complicated migraine going forward. Patient may follow-up with either Dr. Garcia or [facility] in [facility]y clinic. History of Present Illness Reason for Consultation: stroke like symptoms Requesting Physician: Lee Ellison PA-C Attending Physician: Delia Wolf MD History of Present Illness The patient is a 55-year-old female with a history of complicated migraine, follows with Dr. Garcia in [facility] in neurology clinic. She has had left- sided weakness and left facial droop associated with her migraines previously. 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 She presented to the emergency department yesterday with a complaint of left facial droop and left-sided weakness that began 7 hours prior to her assessment in the emergency department. She denied experiencing much headache. Symptoms somewhat concerning for stroke. CT of the head incl uding CT angiography of the head and neck were unremarkable. Was noted to have a mild left facial droop during her initial assessment. Was outside of the window for administration of TPA. I do note that she had presented to the emergency department April 25, 2021 for tremors and left facial droop. Patient's examination at that time was inconsistent perhaps implying some functional abnormality. CT of the head and CT angiography of the head and neck were unremarkable at that time. She was discharged to home in stable condition. Patient has had a follow-up brain MRI completed during this most recent admission. The study was unremarkable, no evidence of acute or subacute infarct. Did review the images as well as the radiologist interpretation of this test and agree. This morning, the patient remarks that she feels well, no residual weakness. Does complain of some mild left hip discomfort with ambulation. She is prescribed topiramate and verapamil for migraine prevention. It looks like she was last seen in neurology clinic in November 2020. Allergies Allergy/AdvReac Type Severity Reaction Status Date / Time lisinopril Allergy Severe Swelling Verified 11/09/21 21:27 of Lip/Tongue/Throat yellow dye Allergy Intermediate Tremor Verified 11/09/21 21:27 latex Allergy Mild Rash Verified 11/09/21 21:27 Sulfa (Sulfonamide Allergy Mild Rash Verified 11/09/21 21:27 Antibiotics) levothyroxine Allergy Unknown Unknown Verified 11/09/21 21:27 citalopram AdvReac Mild WORSENING Verified 11/09/21 21:27 TREMORS gluten AdvReac Mild GI Symptoms Verified 11/09/21 21:27 UNKNOWN INHALER AdvReac TREMORS Uncoded 11/09/21 21:27 Home Medications Medication Instructions Recorded Confirmed Type fluoxetine 20 mg capsule 60 mg PO QAM 05/07/20 11/30/21 History guanfacine 1 mg tablet,extended 1 mg PO HS 11/01/20 11/30/21 History release 24 hr topiramate 50 mg tablet 50 mg PO BID 30 Days #60 tab 05/07/21 11/30/21 Rx verapamil 240 mg tablet,extended 240 mg PO HS 30 Days #30 tab 07/22/21 11/30/21 Rx release levothyroxine 50 mcg tablet 75 mcg PO QAM 30 Days #45 tab 10/01/21 11/30/21 Rx (Synthroid) cholecalciferol (vitamin D3) 25 25 mcg PO DAILY 11/30/21 11/30/21 History mcg (1,000 unit) tablet (Vitamin D3) Patient History Medical History Complicated migraine Left-sided weakness, facial droop Costochondritis Diaphragmatic hernia Dizziness GERD (gastroesophageal reflux disease) History of colon polyps History of congenital diaphragmatic hernia SURGICAL REPAIR 01/04/2019 [facility] History of COVID-19 10/26/2020 @ [facility]--shortness of breathe, pneumonia, blood clot--was hospitalized at [facility] for 4 days, not intubated--no issues now History of endometriosis Hypothyroidism Liver cyst Migraine with aura and without status migrainosus, not intractable Morbid obesity Nausea Right sided abdominal pain SBO (small bowel obstruction) Seasonal affective disorder Shoulder pain, left TMJ locking Surgical History History of breast biopsy History of section History of colonoscopy History of dilatation and curettage History of endometrial ablation History of esophagogastroduodenoscopy (EGD) History of herniorrhaphy UMBILICAL History of Ana M fundoplication 01/04/2019 [facility] History of tooth extraction Nausea and vomiting after administration of anesthetic agent Status post biopsy of thyroid gland Status post JOSE-BSO Family History Son Family history of reaction to anesthesia Father Family history of reaction to anesthesia PONV Father Family history of diabetes mellitus Mother Family history of diabetes mellitus Family hx of colon cancer Coronary heart disease Mother Family history of esophageal cancer UTERINE CANCER W/ METS TO ESOPHAGUS AND LUNG Social History Smoking Status: Never smoker Second Hand Exposure: No; Hx Alcohol Use: No Hx Substance Use: No Preferred Language: Palauan Communication Ability: Effective 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 Beliefs That Will Affect Care: None Current Living Situation: Family Current Living Situation Comment: Daughter and grandson lives with patient Feels Safe at Home: Yes Assistive Devices: None Review of Systems Constitutional: no fever and no chills Eyes: no blind spots and no diplopia Ear, Nose, Mouth, Throat: no ear pain and no hearing loss Respiratory: no cough and no dyspnea Cardiovascular: no chest pain and no palpitations Gastrointestinal: no constipation and no diarrhea/loose stools Genitourinary: no urinary urgency and no urinary incontinence Musculoskeletal: no muscle weakness and no muscle atrophy Integumentary: no rash and no lesions Neurologic: as per Subjective / HPI Psychiatric: no behavioral changes, no depression, no abnormal sleep pattern and no anxiety Hematologic / Lymphatic: no easy bruising and no lymphadenopathy Exam (Neuro) Constitutional: well developed and well nourished; no acute distress Eyes: normal visual costello by confrontation, PERRL, normal accommodation and EOM intact bilaterally; no fundoscopic abnormality, no nystagmus and no papilledema Cardiovascular: Vessels: normal carotid upstroke; no carotid bruit Neurologic: Oriented to:: Person, Place and Time Memory: Short Term Intact and Remote Intact Attention: Span Intact and Concentration Intact Language: Naming Objects and Repeating Phrases Speech Fluency: negative Dysarthria Speech Aphasia: negative Aphasia Fund of Knowledge: Current Events, Past History and Vocabulary Cranial Nerves: Normal II (Visual costello full to confrontation, visual acuity normal), III, IV, (Pupils equal round re active to light and accommodation, eye movements normal), V (Facial sensation intact), VII (There is no facial droop or weakness), VIII (Hearing intact), IX, X (Palate elevates to midline), XI (Shoulder shrug intact) and XII (Tongue protrudes to midline) Motor Strength: Normal Lower Extremities and Normal Upper Extremities; negative Pronator Drift Motor Tone: Normal Lower Extremities and Normal Upper Extremities Muscle Bulk/Involuntary Movements: No Involuntary Movements; negative Muscle Atrophy Sensation: Light Touch Intact, Pain/Temperature Intact, Vibration Intact and Proprioception Intact Coordination: Normal; negative Limited Balance, Dysdiadochokinesia, Finger-Nose Abnormal or Heel-[place] Abnormal Deep Tendon Reflexes: Rt Triceps: 2+, Lt Triceps: 2+, Rt Biceps: 2+, Lt Biceps: 2+, Rt Brachioradialis: 2+, Lt Brachioradialis: 2+, Rt Patellar: 2+, Lt Patellar: 2+, Rt Ankle: 2+ and Lt Ankle: 2+ Special Tests: negative Babinski Present Gait: Normal Station and Gait Results & Data ([facility]) Vital Signs (Past 12 Hours) Vital Signs Temp Pulse Pulse Resp BP Pulse Ox 12/01/21 07:32 36.6 C 56 L 18 103/67 97 12/01/21 06:19 52 L 12/01/21 03:27 36.3 C L 48 L 18 112/72 96 12/01/21 01:20 54 L 11/30/21 22:41 36.3 C L 54 L 18 99/67 L 96 11/30/21 22:21 36.4 C L 16 107/71 96 11/30/21 22:18 61 Laboratory Results WBC 4.44, hemoglobin 12.9, hematocrit 38.9, platelet count 204, ESR 16, sodium 139, potassium 3.8, BUN 11, creatinine 0.84, glucose 86, hemoglobin A1c 5.7, calcium 8.7, magnesium 2.0, AST 12, ALT 8, troponin less than 0.03, triglycerides 122, cholesterol 165, LDL 98, VLDL 24, HDL 43, TSH 6.[address] of the head, CT angiography of the head and neck, and brain MRI are as described in the history of present illness. I reviewed the images as well as the radiologist's interpretation of these tests. An echocardiogram completed yesterday revealed normal left ventricular systolic function, mild dilation of the left atrium, no interatrial shunt, echodensity in the right atrium potentially consistent with a prominent joe terminalis. Electrocardiogram reveals a normal sinus rhythm. Coding Level of Care Code 67015 Inpt Consult Level 5 Diagnoses Complicated migraine G43.109 Stroke-like episode R29.90
--- NOTE | 2021-12-01 09:46 | Hospitalist Progress Note ---
Date of Service December 01, 2021 Assessment & Plan Admission and Anticipated Discharge Date Admission Date: November 30, 2021 Results & Data Results & Data ([facility]) Vital Signs (Past 12 Hours) Vital Signs Temp Pulse Pulse Resp BP Pulse Ox 12/01/21 07:32 36.6 C 56 L 18 103/67 97 12/01/21 06:19 52 L 12/01/21 03:27 36.3 C L 48 L 18 112/72 96 12/01/21 01:20 54 L 11/30/21 22:41 36.3 C L 54 L 18 99/67 L 96 11/30/21 22:21 36.4 C L 16 107/71 96 11/30/21 22:18 61 Laboratory Results 12/01/21 12/01/21 12/01/21 Range/Units 08:22 05:24 05:24 WBC (4.8-10.8) K/uL RBC (4.2-5.4) M/uL Hgb (12.0-16.0) g/dL Hct (37-47) % MCV (80-100) fL MCH (25-34) pg MCHC (32-36) g/dL RDW Std Deviation (36.4-46.3) fL RDW Coeff of Mandi (11.5-14.5) % Plt Count (130-400) K/uL MPV (7.4-10.4) fL Immature Gran % (Auto) % Neut % (Auto) % Lymph % (Auto) % [place] % (Auto) % Eos % (Auto) % Baso % (Auto) % Neut # (Auto) (1.4-6.5) K/uL Lymph # (Auto) (1.2-3.4) K/uL [place] # (Auto) (0.11-0.59) K/uL Eos # (Auto) (0-0.5) K/uL Baso # (Auto) (0-0.2) K/uL Immature Gran # (Auto) (0.00-0.02) K/uL ESR (0-30) mm/hr Sodium 139 (136-145) mmol/L Potassium 3.8 (3.5-5.1) mmol/L Chloride 110 H (98-107) mmol/L Carbon Dioxide 23 (21-32) mmol/L Anion Gap 6 (3-11) BUN 11 (6-23) mg/dl Creatinine 0.84 (0.6-1.2) mg/dl Est Cr Clr Drug Dosing 87.0 ml/min Est GFR ( Amer) 92.0 ml/min Est GFR (Non-Af Amer) 79.3 ml/min BUN/Creatinine Ratio 13.1 (10-20) Glucose 86 (70-99(Fasting)) mg/dl Estimat Average Glucose 117 mg/dl Hemoglobin A1c 5.7 H (4.5-5.6) % Calcium 8.7 (8.5-10.1) mg/dl Magnesium (1.7-2.4) mg/dl Total Bilirubin (0.2-1.0) mg/dl AST (13-39) U/L ALT (7-52) U/L Alkaline Phosphatase (34-104) U/L Troponin I (0-0.04) ng/ml Total Protein (6.0-8.3) gm/dl Albumin (3.4-5.0) gm/dl Globulin (2.5-4.0) gm/dl Albumin/Globulin Ratio (0.9-2) Triglycerides 122 (0-150) mg/dl Cholesterol 165 (0-200) mg/dl LDL Cholesterol, Calc 98 mg/dl VLDL Cholesterol, Calc 24 (0-30) mg/dl HDL Cholesterol 43 mg/dl Cholesterol/HDL Ratio 3.8 (0-5) Vitamin B12 234 (211-911) pg/ml TSH (0.300-4.500) uIu/ml SARS-CoV-2, RNA, NAAT (NEGATIVE) 12/01/21 11/30/21 11/30/21 Range/Units 05:24 10:24 09:11 WBC 4.44 L (4.8-10.8) K/uL RBC 3.96 L (4.2-5.4) M/uL Hgb 12.9 (12.0-16.0) g/dL Hct 38.9 (37-47) % MCV 98.2 (80-100) fL MCH 32.6 (25-34) pg MCHC 33.2 (32-36) g/dL RDW Std Deviation 48.9 H (36.4-46.3) fL RDW Coeff of Mandi 13.5 (11.5-14.5) % Plt Count 204 (130-400) K/uL MPV 9.7 (7.4-10.4) fL Immature Gran % (Auto) 0.2 % Neut % (Auto) 42.5 % Lymph % (Auto) 38.1 % [place] % (Auto) 12.6 % Eos % (Auto) 6.1 % Baso % (Auto) 0.5 % Neut # (Auto) 1.89 (1.4-6.5) K/uL Lymph # (Auto) 1.69 (1.2-3.4) K/uL [place] # (Auto) 0.56 (0.11-0.59) K/uL Eos # (Auto) 0.27 (0-0.5) K/uL Baso # (Auto) 0.02 (0-0.2) K/uL Immature Gran # (Auto) 0.01 (0.00-0.02) K/uL ESR (0-30) mm/hr Sodium 136 (136-145) mmol/L Potassium 3.9 (3.5-5.1) mmol/L Chloride 110 H (98-107) mmol/L Carbon Dioxide 26 (21-32) mmol/L Anion Gap 0 L (3-11) BUN 12 (6-23) mg/dl Creatinine 1.00 (0.6-1.2) mg/dl Est Cr Clr Drug Dosing 73.2 ml/min Est GFR ( Amer) 74.5 ml/min Est GFR (Non-Af Amer) 64.3 ml/min BUN/Creatinine Ratio 12.0 (10-20) Glucose 99 (70-99(Fasting)) mg/dl Estimat Average Glucose mg/dl Hemoglobin A1c (4.5-5.6) % Calcium 9.1 (8.5-10.1) mg/dl Magnesium 2.0 (1.7-2.4) mg/dl Total Bilirubin 0.6 (0.2-1.0) mg/dl AST 12 L (13-39) U/L ALT 8 (7-52) U/L Alkaline Phosphatase 65 (34-104) U/L Troponin I < 0.03 (0-0.04) ng/ml Total Protein 6.8 (6.0-8.3) gm/dl Albumin 3.8 (3.4-5.0) gm/dl Globulin 3.0 (2.5-4.0) gm/dl Albumin/Globulin Ratio 1.3 (0.9-2) Triglycerides (0-150) mg/dl Cholesterol (0-200) mg/dl LDL Cholesterol, Calc mg/dl VLDL Cholesterol, Calc (0-30) mg/dl HDL Cholesterol mg/dl Cholesterol/HDL Ratio (0-5) Vitamin B12 (211-911) pg/ml TSH (0.300-4.500) uIu/ml SARS-CoV-2, RNA, NAAT NEGATIVE (NEGATIVE) 11/30/21 11/30/21 Range/Units 09:08 09:08 WBC (4.8-10.8) K/uL RBC (4.2-5.4) M/uL Hgb (12.0-16.0) g/dL Hct (37-47) % MCV (80-100) fL MCH (25-34) pg MCHC (32-36) g/dL RDW Std Deviation (36.4-46.3) fL RDW Coeff of Mandi (11.5-14.5) % Plt Count (130-400) K/uL MPV (7.4-10.4) fL Immature Gran % (Auto) % Neut % (Auto) % Lymph % (Auto) % [place] % (Auto) % Eos % (Auto) % Baso % (Auto) % Neut # (Auto) (1.4-6.5) K/uL Lymph # (Auto) (1.2-3.4) K/uL [place] # (Auto) (0.11-0.59) K/uL Eos # (Auto) (0-0.5) K/uL Baso # (Auto) (0-0.2) K/uL Immature Gran # (Auto) (0.00-0.02) K/uL ESR 16 (0-30) mm/hr Sodium (136-145) mmol/L Potassium (3.5-5.1) mmol/L Chloride (98-107) mmol/L Carbon Dioxide (21-32) mmol/L Anion Gap (3-11) BUN (6-23) mg/dl Creatinine (0.6-1.2) mg/dl Est Cr Clr Drug Dosing ml/min Est GFR ( Amer) ml/min Est GFR (Non-Af Amer) ml/min BUN/Creatinine Ratio (10-20) Glucose (70-99(Fasting)) mg/dl Estimat Average Glucose mg/dl Hemoglobin A1c (4.5-5.6) % Calcium (8.5-10.1) mg/dl Magnesium (1.7-2.4) mg/dl Total Bilirubin (0.2-1.0) mg/dl AST (13-39) U/L ALT (7-52) U/L Alkaline Phosphatase (34-104) U/L Troponin I (0-0.04) ng/ml Total Protein (6.0-8.3) gm/dl Albumin (3.4-5.0) gm/dl Globulin (2.5-4.0) gm/dl Albumin/Globulin Ratio (0.9-2) Triglycerides (0-150) mg/dl Cholesterol (0-200) mg/dl LDL Cholesterol, Calc mg/dl VLDL Cholesterol, Calc (0-30) mg/dl HDL Cholesterol mg/dl Cholesterol/HDL Ratio (0-5) Vitamin B12 (211-911) pg/ml TSH 6.951 H (0.300-4.500) uIu/ml SARS-CoV-2, RNA, NAAT (NEGATIVE) Diagnostic Findings Head CTA 11/30/21 09:11 CT angio neck with con, CT angio head w con CLINICAL HISTORY: Stroke Like Symptoms TECHNIQUE: CT angiography of the head and neck was performed following intravenous administration of iodinated contrast. Coronal and sagittal MIPS were obtained from the axial data set and were submitted for review. Automated dose lowering techniques and/or adjustment according to patient size were utilized for this examination. All measurements were calculated based on NASCET criteria. Comparison: Comparison is made to CT head 11/30/2021 and CTA Head and Neck 04/25/2021 FINDINGS: Subcentimeter thyroid nodules are seen which do not require follow-up by ACR criteria. CTA Neck: A 3 vessel aortic arch is shown. There is no significant atherosclerotic plaque in the aortic arch or the origins of the innominate, left common carotid, and left subclavian arteries. The common carotid, external carotid, cervical segments of the internal carotid arteries, and the cervical segments of the vertebral arteries are patent without hemodynamically significant stenosis. The right vertebral artery is dominant. CTA Head: The anterior and posterior cerebral circulations are patent. No hemodynamically significant stenosis, aneurysm, dissection, or arteriovenous malformation is shown. IMPRESSION: 1. No occlusion, hemodynamically significant stenosis, aneurysm, dissection, or arteriovenous malformation in the major intracranial arteries. 2. No occlusion, hemodynamically significant stenosis, or dissection in the major cervical arteries. Assessment of stenosis of the internal carotid arteries is based on NASCET criteria. ACT 112: Negative or not required by law. Electronically signed by: Lucien Sotelo M.D. 11/30/2021 9:55 AM Neck CTA 11/30/21 09:11 CT angio neck with con, CT angio head w con CLINICAL HISTORY: Stroke Like Symptoms TECHNIQUE: CT angiography of the head and neck was performed following intravenous administration of iodinated contrast. Coronal and sagittal MIPS were obtained from the axial data set and were submitted for review. Automated dose lowering techniques and/or adjustment according to patient size were utilized for this examination. All measurements were calculated based on NASCET criteria. Comparison: Comparison is made to CT head 11/30/2021 and CTA Head and Neck 04/25/2021 FINDINGS: Subcentimeter thyroid nodules are seen which do not require follow-up by ACR criteria. CTA Neck: A 3 vessel aortic arch is shown. There is no significant atherosclerotic plaque in the aortic arch or the origins of the innominate, left common carotid, and left subclavian arteries. The common carotid, external carotid, cervical segments of the internal carotid arteries, and the cervical segments of the vertebral arteries are patent without hemodynamically significant stenosis. The right vertebral artery is dominant. CTA Head: The anterior and posterior cerebral circulations are patent. No hemodynamically significant stenosis, aneurysm, dissection, or arteriovenous malformation is shown. IMPRESSION: 1. No occlusion, hemodynamically significant stenosis, aneurysm, dissection, or arteriovenous malformation in the major intracranial arteries. 2. No occlusion, hemodynamically significant stenosis, or dissection in the major cervical arteries. Assessment of stenosis of the internal carotid arteries is based on NASCET criteria. ACT 112: Negative or not required by law. Electronically signed by: Lucien Sotelo M.D. 11/30/2021 9:55 AM Brain MRI 11/30/21 13:25 MR brain wo/w con CLINICAL HISTORY: cva TECHNIQUE: Multiplanar and multisequence MR images of the brain were obtained prior to and following administration of gadolinium contrast. Comparison: Comparison is made to MRI brain 08/25/2019 FINDINGS: No abnormal restricted diffusion is identified. Foci of T2 and FLAIR hyperintensity are noted in the paraventricular areas consistent with chronic small vessel ischemic disease. The ventricular system is normal in appearance. There is no evidence of acute intraparenchymal hemorrhage. No extra axial fluid collections are seen. There are no masses, mass effect, or midline shift. No abnormal enhancement is seen. The corpus callosum, pituitary gland, and cerebellar tonsils appear grossly unremarkable. Flow voids of the major intracranial arterial vessels are identified. The imaged portions of the paranasal sinuses, mastoid air cells, and orbits are unremarkable. IMPRESSION: No acute abnormalities. ACT 112: Negative or not required by law. Electronically signed by: Lucien Sotelo M.D. 11/30/2021 5:24 PM PG Care Time/CCT Total # of Minutes Spent Total Time Spent with Patient: Total time spent is greater than 50% in coordination of care (as documented) at patient's floor/unit and/or counseling patient: Coding
[2021-12-01] MEDS ORDERED: VERAPAMIL HCL 240 MG TABCR PO ONE (10:00)
[2021-12-01] MEDS: ASPIRIN 81 MG ECTAB PO SCH ×2 (10:35→11:14)
[2021-12-01] MEDS: TOPIRAMATE 50 MG TAB PO SCH (10:35)
[2021-12-01 10:49] LABS: Lyme Ab IgG w/WB Rflx Negative (Negative); Lyme Ab IgM w/WB Rflx Negative (Negative)
--- NOTE | 2021-12-01 12:03 | Discharge Summary ---
Date of Service December 01, 2021 Admission HPI Per Admitting Provider This is a 55-year-old female who presented to [facility] emergency department secondary to a neurologic deficit. Patient notes that her last known time of being completely normal was approximately midnight on 11/30/2021. Patient says that she woke up from sleep at approximately 2:30 AM and felt that she had a left facial droop. As the patient noted that she did not feel this was very severe she went back to bed but woke up at approximately 8:00 AM on 11/30/2021 and noted that the left facial droop was worse. She denied any slurred or garbled speech. She did report in addition to her left facial droop some left facial numbness. She denied any visual loss. She denies any dysphagia. Patient says that she did note some weakness of her left leg and stated that her leg would seem to "drag" when she walked. She denied any falls or head injuries since her symptomatology began. The patient does note history of migraine headaches but did not have any symptomatology consistent with a [place] headache with her current presentation. She also reports a history of a TIA that she believes was in excess of 5 years ago. She says she did not receive any specific treatment regarding this. She could not tell me the symptomatology she experienced at that time. In addition the patient does have a history of hospitalization in October 2020 secondary to pneumonia from COVID- 19. At that time the patient was diagnosed with pulmonary emboli and she was started on Eliquis but she says she no longer takes this medication In the emergency department the patient had labs and imaging which I independently reviewed. CBC revealed white blood cell count, hemoglobin, hematocrit, and platelet count were all within the normal range. Coagulation studies were all noted to be normal. Chemistry profile showed sodium, potassium, BUN, and creatinine were all within the normal range. An EKG showed normal sinus rhythm without any changes indicative of acute ischemia. No arrhythmias were noted. Testing [address] scan of her head that showed no acute intracranial hemorrhage or evidence of acute stroke. A CT angiogram of the head was performed that showed no occlusion or areas of significant stenosis, aneurysm, dissection, or AVM and intracranial arteries or the cervical arteries. I discussed with the treating emergency room physician and he notes that he did utilize telemedicine through [facility] and due to the timing of patient's presentation to the emergency department and the timing of her symptoms and last known well time she was not considered a tPA candidate. He has administered aspirin for this patient thus far. At the time of my interview the patient was resting comfortably in bed. She was in no distress or discomfort. Admission Exam Per Admitting Provider Constitutional: well developed and well nourished; no acute distress Eyes: PERRL, conjunctivae normal, anicteric sclerae No nystagmus noted ENMT: external ear and nose normal, oropharynx normal Neck: trachea midline Respiratory: normal respiratory effort, lungs clear to auscultation Cardiovascular: Rate/Rhythm: regular rate Gastrointestinal (Abdomen): Soft, nontender, nondistended Musculoskeletal: No calf tenderness Skin: no rashes Neurologic: Cranial nerves II through XII are noted to be intact bilaterally with the exception of the left facial nerve as the patient had a left facial droop. Patient's upper extremities revealed 5+ muscle strength bilaterally in all muscle groups without noted weakness. In the lower extremities patient had 5+ muscle strength in all groups in the right lower extremity. Patient was noted to have slight weakness of the left lower extremity with plantar and dorsiflexion as well as raising leg off the letter. Her speech is coherent and not garbled. Psychiatric: A+Ox3, euthymic affect Principal Diagnosis ?TIA, Facial Droop, suspected complex migraine Discharge Exam Constitutional WD/WN, vitals as above comfortable; no acute distress Eyes + anicteric sclerae and PERRL ENMT mmm slight L sided facial droop Neck trachea midline, no thyromegaly Respiratory normal respiratory effort, lungs clear to auscultation Cardiovascular RRR, no murmur, no edema Gastrointestinal (Abdomen) normal bowel sounds, soft, nontender, no hepatosplenomegaly Musculoskeletal no cyanosis or clubbing, extremities motor strength 5/5 Skin warm, dry Neurologic patellar DTR's 2+ bilat, sensation intact PERRLA, no slurred speech, pronator drift, gait abnormality, DTRs intact, CNII- XII intact grossly Psychiatric A+Ox3, euthymic affect Genitourinary no carreon Lymphatic no cervical or axillary lymphadenopathy Discharge Data Allergies Allergy/AdvReac Type Severity Reaction Status Date / Time lisinopril Allergy Severe Swelling Verified 11/09/21 21:27 of Lip/Tongue/Throat yellow dye Allergy Intermediate Tremor Verified 11/09/21 21:27 latex Allergy Mild Rash Verified 11/09/21 21:27 Sulfa (Sulfonamide Allergy Mild Rash Verified 11/09/21 21:27 Antibiotics) levothyroxine Allergy Unknown Unknown Verified 11/09/21 21:27 citalopram AdvReac Mild WORSENING Verified 11/09/21 21:27 TREMORS gluten AdvReac Mild GI Symptoms Verified 11/09/21 21:27 UNKNOWN INHALER AdvReac TREMORS Uncoded 11/09/21 21:27 Consultations 11/30/21 10:06 ED Decision to Admit Stat 11/30/21 13:25 Consult Neurology Routine Ordered Studies Head CT 11/30/21 08:56 CT head/brain wo con CLINICAL HISTORY: Stroke Alert Technique: Contiguous axial CT images of the head were acquired from the base of the skull to the vertex without intravenous contrast administration. Images were viewed in brain, subdural and bone windows. Automated dose lowering techniques and/or adjustment according to patient size were utilized for this exam. Comparison: None available at the time of this dictation. Findings: The ventricles, basal cisterns, and cerebral sulci are normal. There is no acute intracranial hemorrhage or evidence of acute territorial infarction. Neither mass effect, shift of the midline structures, nor abnormal extra-axial fluid collections are shown. Imaged portions of the paranasal sinuses and mastoid air cells are clear. The orbits appear normal. There are no acute fractures of the calvaria or scalp swelling. Incidentally noted there is anterior subluxation/dislocation of the right temporomandibular joint. Impression: No acute intracranial hemorrhage, no evidence of acute territorial infarction or other acute intracranial disease process. ACT 112: Negative or not required by law. Electronically signed by: Lucien Sotelo M.D. 11/30/2021 9:09 AM Head CTA 11/30/21 09:11 CT angio neck with con, CT angio head w con CLINICAL HISTORY: Stroke Like Symptoms TECHNIQUE: CT angiography of the head and neck was performed following intravenous administration of iodinated contrast. Coronal and sagittal MIPS were obtained from the axial data set and were submitted for review. Automated dose lowering techniques and/or adjustment according to patient size were utilized for this examination. All measurements were calculated based on NASCET criteria. Comparison: Comparison is made to CT head 11/30/2021 and CTA Head and Neck 04/25/2021 FINDINGS: Subcentimeter thyroid nodules are seen which do not require follow-up by ACR criteria. CTA Neck: A 3 vessel aortic arch is shown. There is no significant atherosclerotic plaque in the aortic arch or the origins of the innominate, left common carotid, and left subclavian arteries. The common carotid, external carotid, cervical segments of the internal carotid arteries, and the cervical segments of the vertebral arteries are patent without hemodynamically significant stenosis. The right vertebral artery is dominant. CTA Head: The anterior and posterior cerebral circulations are patent. No hemodynamically significant stenosis, aneurysm, dissection, or arteriovenous malformation is shown. IMPRESSION: 1. No occlusion, hemodynamically significant stenosis, aneurysm, dissection, or arteriovenous malformation in the major intracranial arteries. 2. No occlusion, hemodynamically significant stenosis, or dissection in the major cervical arteries. Assessment of stenosis of the internal carotid arteries is based on NASCET criteria. ACT 112: Negative or not required by law. Electronically signed by: Lucien Sotelo M.D. 11/30/2021 9:55 AM Neck CTA 11/30/21 09:11 CT angio neck with con, CT angio head w con CLINICAL HISTORY: Stroke Like Symptoms TECHNIQUE: CT angiography of the head and neck was performed following intravenous administration of iodinated contrast. Coronal and sagittal MIPS were obtained from the axial data set and were submitted for review. Automated dose lowering techniques and/or adjustment according to patient size were utilized for this examination. All measurements were calculated based on NASCET criteria. Comparison: Comparison is made to CT head 11/30/2021 and CTA Head and Neck 04/25/2021 FINDINGS: Subcentimeter thyroid nodules are seen which do not require follow-up by ACR criteria. CTA Neck: A 3 vessel aortic arch is shown. There is no significant atherosclerotic plaque in the aortic arch or the origins of the innominate, left common carotid, and left subclavian arteries. The common carotid, external carotid, cervical segments of the internal carotid arteries, and the cervical segments of the vertebral arteries are patent without hemodynamically significant stenosis. The right vertebral artery is dominant. CTA Head: The anterior and posterior cerebral circulations are patent. No hemodynamically significant stenosis, aneurysm, dissection, or arteriovenous malformation is shown. IMPRESSION: 1. No occlusion, hemodynamically significant stenosis, aneurysm, dissection, or arteriovenous malformation in the major intracranial arteries. 2. No occlusion, hemodynamically significant stenosis, or dissection in the major cervical arteries. Assessment of stenosis of the internal carotid arteries is based on NASCET criteria. ACT 112: Negative or not required by law. Electronically signed by: Lucien Sotelo M.D. 11/30/2021 9:55 AM Brain MRI 11/30/21 13:25 MR brain wo/w con CLINICAL HISTORY: cva TECHNIQUE: Multiplanar and multisequence MR images of the brain were obtained prior to and following administration of gadolinium contrast. Comparison: Comparison is made to MRI brain 08/25/2019 FINDINGS: No abnormal restricted diffusion is identified. Foci of T2 and FLAIR hyperintensity are noted in the paraventricular areas consistent with chronic small vessel ischemic disease. The ventricular system is normal in appearance. There is no evidence of acute intraparenchymal hemorrhage. No extra axial fluid collections are seen. There are no masses, mass effect, or midline shift. No abnormal enhancement is seen. The corpus callosum, pituitary gland, and cerebellar tonsils appear grossly unremarkable. Flow voids of the major intracranial arterial vessels are identified. The imaged portions of the paranasal sinuses, mastoid air cells, and orbits are unremarkable. IMPRESSION: No acute abnormalities. ACT 112: Negative or not required by law. Electronically signed by: Lucien Sotelo M.D. 11/30/2021 5:24 PM 11/30/21 [facility] Hospital Course (1) CVA (cerebral vascular accident): Presented for concerns for suffering CVA CT head on admit negative. Discussed by ER and [facility] telestroke -- not candidate for TPA CTA Head/neck negative MRI brain negative Neurology consulted -- cannot r/o TIA. Possible complex migraine. To continue verapamil for prevention --> also would consider functional neurologic disorder/functional movement disorder. Prior visit last april for tremors/L sided weakness. No signs or symptoms to suggest seizure activity, meningitis, demyelinating disease, or other significant COLLAR STITCHER pathology. Follow up in clinic after discharge ESR not elevated, excluding vasculitis Lipid panel without abn A1c borderline pre-DM 5.7 -- counseled Per neurology, continue ASA 81mg daily -- allergy to yellow dye and discussed with patient to cut regular dose in thirds as she was able to tolerate this. Also to continue atorvastatin as started during stay TSh checked -- elevated 6.951. To increase to 88mcg daily but discussed with [facility] and would need to compound at that dose. Too $$. Discussed can take extra dose on wednesday and follow up with PCP for repeat TFT. She notes she has been compliant but did have some episodes of non-compliance with recent +COVID but since that time had been taking regularly Also checked B12 given paresthesias/prior elevated homocysteine level --> low normal and started on replacement. If unable to tolerate can see PCP about injections monthly ECHO with echodensity in right atrium suggestive of atrial mass. prominent joe terminalis cannot be excluded. Discussed with cards on consult and had been noted in imaging years past and not felt related to current issue. Routine monitoring with PCP Blanca for DVT prevention while inpatient Did have slight left facial droop still prior to d/c. Checked Lyme, negative. (2) Vitamin B12 deficiency: (3) Hypothyroidism: (4) Complicated migraine: (5) Morbid obesity: Total Time Total Time Spent Total Time Spent (In Minutes): 45 Discharge Plan Discharge Items Patient Disposition: Home - Self-Care Reason For Visit: CVA Discharge Diagnosis: TIA vs Complex Migraine Goals: You have been hospitalized for an acute medical problem. During your stay at [facility], we have made an effort to correct the problem that brought you to the hospital while keeping you as comfortable as possible. Medications were used to bring your condition under control and your discharge instructions will include directions for any medications you should take after leaving the hospital. Please make sure you see your Primary Care Provider as part of your follow up plan. Activity: Resume your previous activity Non-emergency contact: Primary Care Provider and Neurologist Call non-emergency contact if: you have any medication questions, your symptoms worsen and your pain is not controlled Follow-up/Referrals: Marbin Poe MD [Physician] - 12/09/21 11:30 am () Mari Williamson CRNP [Outside Practitioners] - 12/12/21 8:00 am Diet: Heart Healthy Addtl Attending Provider Instructions: You have been hospitalized for concerns for a stroke. Thankfully all imaging has been negative and evaluation was undertaken by Neurology and symptoms could be from a TIA vs complex migraine. Your A1c was 5.7 and as discussed, pre-diabetic. Continue to watch diet/carbohydrate intake. Your lipid panel was checked and cholesterol was good. Given cannot rule out TIA, recommendations are for aspirin daily and atorvastatin 40mg (taken at night decreases side effects of cramping). You can cut the full dose aspirin in half/thirds and take this daily to prevent side effects reported. You also had a Lyme checked given the facial droop and this was negative. We did check a B12 level as well and this was low normal and you have been started on supplementation. You can discuss with your PCP about monthly injections if unable to tolerate oral supplementation. Your thyroid hormone level was also checked and elevated. As discussed, some missed doses but given symptoms this has been increased to 88mcg daily and you should have repeat testing in 4-[address] Lamar to ensure no further adjustments needed. You have been set up with a Holter monitor to monitor for any underlying athymias. Please follow up with your PCP in the next week to monitor your symptoms and can follow up with Neurology in the next 6-8 weeks for continued monitoring. Please return to the emergency department with any increased symptoms, confusion, chest pain, shortness of breath, or for any other symptoms concerning for you. It has been a pleasure being a part of the medical team providing for you while you have been in the hospital. Take care! Pending Studies at Discharge: No Stand-Alone Forms: Medications to Prevent Stroke, My [facility] Medications and DC Order Prescriptions: New atorvastatin 40 mg Tablet 40 mg PO QAM Qty: 30 RF: 0 levothyroxine [Synthroid] 88 mcg Tablet 88 mcg PO DAILYBB 30 Days Qty: 30 RF: 0 cyanocobalamin (vitamin B-12) 500 mcg Tablet 1,000 mcg PO QAM 30 Days Qty: 60 RF: 0 aspirin 325 mg tablet See Rx Instructions .ROUTE .COMPLEX Qty: 30 RF: 0 Continued topiramate 50 mg tablet 50 mg PO BID 30 Days Qty: 60 RF: 5 verapamil 240 mg tablet extended release 240 mg PO HS 30 Days Qty: 30 RF: 5 fluoxetine 20 mg capsule 60 mg PO QAM RF: 0 guanfacine 1 mg tablet extended release 24 hr 1 mg PO HS RF: 0 cholecalciferol (vitamin D3) [Vitamin D3] 25 mcg (1,000 unit) Tablet 25 mcg PO DAILY RF: 0 Discontinued levothyroxine [Synthroid] 50 mcg tablet 75 mcg PO QAM 30 Days Qty: 45 RF: 2 Discharge Orders: Discharge Order (Routine); Ordered 12/01/21 Ordered By: Louisa Wellington Admission Data Admit Date/Time: 11/30/21 10:40 Attending Provider: Delia Wolf Admit Provider: Elio Henderson Primary Care Provider: Jay Lamar Other Providers: Elio Henderson ; Marbin Poe Other Interventions: Discharge Summary Assessment (RN) Last Done: 12/01/21 12:47 Supervising Physician Co-Signing Physician Notes PA Supervision Note: I personally saw and examined the patient. I verified all portillo points and agree with JERAD Wellington with the following exceptions and/or additions: S-patient having a mild headache at this time, but overall much improved with resolved left-sided weakness, still mild residual left facial droop but feels much better than yesterday. No chest pains or shortness of breath, no other symptoms. O- Vitals reviewed Gen: AAOx3, NAD HEENT: Anicteric sclerae, EOMI, mild left-sided facial droop CV: RRR no mgr nl S1S2 Pulm: CTAB no wcr Abd: +BS soft NT ND no masses or hernias Ext: No edema, 2+ DP pulses Skin: No rashes, warm/dry Neuro: Full strength throughout, cranial nerves II through XII intact except for mild left-sided facial droop as above A/C-13-ljrf-old female here with left-sided weakness and facial droop now with headache, in the setting of history of complex migraines Cannot completely exclude TIA but seems less likely-start aspirin 81 mg daily, continue atorvastatin Found of B12 deficiency-replace with p.o. and convert to IM B12 as an outpatient if levels are not replete greater than 300-400 in the future Also with elevated TSH of 6-increased levothyroxine 88 mcg, repeat TFTs in 4 to 6 weeks with PCP For suspected complex migraine-continue on verapamil and consider increasing dose to 360 as an outpatient if blood pressure can tolerate, continue Topamax Follow-up with neurology Obesity-BMI 38.8-recommend weight loss-Topamax can help with this-could increase dose of Topamax
[2021-12-01] MEDS ORDERED: STROKE PATIENT DISCHARGE STA (12:15)
[2021-12-01] MEDS ORDERED: CYANOCOBALAMIN 500 MCG TABLET (VITAMIN B-12) PO SCH (12:15)
[2021-12-01] MEDS ORDERED: ACETAMINOPHEN 500 MG TAB PO ONE (13:20)
--- NOTE | 2021-12-01 13:25 | Pharmacy Report ---
Pharmacist Stroke Counseling - Date of Service December 01, 2021 - Scope: Pharmacy has been consulted to provide medication discharge counseling for this patient admitted with transient ischemic attack as per the Pharmacist Discharge Counseling for Stroke Patients Protocol. - Medications on Discharge: Home Medications Medication Instructions Recorded Confirmed fluoxetine 20 mg capsule 60 mg PO QAM 05/07/20 11/30/21 guanfacine 1 mg tablet,extended 1 mg PO HS 11/01/20 11/30/21 release 24 hr cholecalciferol (vitamin D3) 25 25 mcg PO DAILY 11/30/21 11/30/21 mcg (1,000 unit) tablet (Vitamin D3) New Rx's Medication Instructions Recorded topiramate 50 mg tablet 50 mg PO BID 30 Days #60 tab 05/07/21 verapamil 240 mg tablet,extended 240 mg PO HS 30 Days #30 tab 07/22/21 release aspirin 325 mg tablet See Rx Instructions .ROUTE 12/01/21 .COMPLEX #30 tab atorvastatin 40 mg tablet 40 mg PO QAM #30 tab 12/01/21 cyanocobalamin (vitamin B-12) 500 1,000 mcg PO QAM 30 Days #60 tab 12/01/21 mcg tablet levothyroxine 88 mcg tablet 88 mcg PO DAILYBB 30 Days #30 tab 12/01/21 (Synthroid) - Action: The above medications, specifically ones for stroke treatment/prophylaxis, have been reviewed in detail with the patient prior to discharge. This includes indication, common adverse reactions, drug interactions, and medication administration. Medication counseling has been employed using the teach-back method to ensure understanding. - Outcome: The patient has demonstrated understanding of the medications. Additional comments: -no pertinent positives. -patient will split aspirin in half or into thirds as has yellow dye allergy Thank you for allowing pharmacy to be involved in the care of this patient. Please call [phone] with any additional questions
[2021-12-02] MEDS ORDERED: LEVOTHYROXINE SODIUM 88 MCG TABLET PO SCH (06:30)
[2021-12-02] MEDS ORDERED: VERAPAMIL HCL 240 MG TABCR PO SCH (09:00)
== END 2021-12-01 15:27 | disposition home or self-care (01) ==
LOC: ED 08:50 → EDINP 10:40 → INTOOBSV 10:40 → SUATTDRO 10:40 → 2N 19:53

== ENCOUNTER 2021-12-08 17:17 | Observation (INO) ==
[2021-12-08] MEDS ORDERED: OPTIRAY 320 125ml IV ONE (17:34)
[2021-12-08] MEDS ORDERED: STAT IV STA (17:46)
[2021-12-08] MEDS ORDERED: SODIUM CHLORIDE 0.9% 10ML FLUSH IV STA (17:46)
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
[2021-12-08 17:54] LABS: Basophils # (auto) 0.06 K/uL (0-0.2); Eosinophils # (auto) 0.19 K/uL (0-0.5); Hematocrit (blood only) 35.3 % (37-47); Hemoglobin 11.6 g/dL (12.0-16.0); Immature Granulocytes # (auto) 0.04 K/uL (0.00-0.02); Immature Granulocytes % (auto) 0.6 %; Lymphocytes # (auto) 2.54 K/uL (1.2-3.4); Lymphocytes % (auto) 40.8 %; Mean Corpuscular Hemoglobin 32.2 pg (25-34); Mean Corpuscular Hgb Conc 32.9 g/dL (32-36); Mean Corpuscular Volume 98.1 fL (80-100); Mean Platelet Volume 9.5 fL (7.4-10.4); Monocytes # (auto) 0.82 K/uL (0.11-0.59); Monocytes % (auto) 13.2 %; Neutrophils # (auto) 2.58 K/uL (1.4-6.5); Neutrophils % (auto) 41.4 %; Platelet Count 218 K/uL (130-400); RDW Coefficient of Variation 13.6 % (11.5-14.5); RDW Standard Deviation 48.7 fL (36.4-46.3); White Blood Count 6.23 K/uL (4.8-10.8)
--- NOTE | 2021-12-08 17:54 | CT Scan Report ---
NONCONTRAST HEAD CT, HEAD & NECK CTA HISTORY: Stroke Like Symptoms TECHNIQUE: Multiaxial CT images of the head were performed both before and after the intravenous admi nistration of contrast to evaluate the major cerebral vessels. Multiaxial CT images of the neck were also performed following the intravenous administration of contrast to evaluate the major cervical ve ssels. Maximum intensity projection images were also obtained. A dose lowering technique was utilized adhering to the principles of ALARA. COMPARISON: Head and neck CTA 11/30/2021. FINDINGS: NONCONTRAST HEAD CT: There is no mass, hematoma, midline shift, or acute infarct. HEAD CTA: Visualized intracranial internal carotid arteries, distal vertebral arteries, and basilar a rtery are widely patent. There is no significant stenosis, occlusion, or aneurysm seen within the [place] ACAs, MCAs, or gut sorter. Severely hypoplastic distal left vertebral artery which terminates into t he left posterior inferior cerebellar artery. This is considered to be a normal variant. There is als o persistent right posterior circulation. The major dural venous sinuses appear patent. NECK CTA: The aortic arch and proximal great vessels are widely patent. There is no significant sten osis, occlusion, or dissection identified within the bilateral common carotid, internal carotid, or v ertebral arteries. Severely hypoplastic left vertebral artery. There is 1.9 cm left thyroid nodule. IMPRESSION: 1. No acute intracranial abnormality. 2. No significant stenosis, occlusion, or aneurysm within the [place]. 3. No significant stenosis, occlusion, or dissection identified within the carotid or vertebral arter ies. 4. A 1.9 cm left thyroid nodule. Follow-up nonemergent thyroid ultrasound is recommended for further evaluation. ACT 112: Positive. There are findings on this exam that require communication between the performing entity and the patient following Patient Test Result Information Act ([place] Act 112) guidelines. Electronically signed by: Jose Antonio Gonzalez M.D. 12/08/2021 5:53 PM
--- NOTE | 2021-12-08 17:54 | CT Scan Report ---
NONCONTRAST HEAD CT, HEAD & NECK CTA HISTORY: Stroke Like Symptoms TECHNIQUE: Multiaxial CT images of the head were performed both before and after the intravenous admi nistration of contrast to evaluate the major cerebral vessels. Multiaxial CT images of the neck were also performed following the intravenous administration of contrast to evaluate the major cervical ve ssels. Maximum intensity projection images were also obtained. A dose lowering technique was utilized adhering to the principles of ALARA. COMPARISON: Head and neck CTA 11/30/2021. FINDINGS: NONCONTRAST HEAD CT: There is no mass, hematoma, midline shift, or acute infarct. HEAD CTA: Visualized intracranial internal carotid arteries, distal vertebral arteries, and basilar a rtery are widely patent. There is no significant stenosis, occlusion, or aneurysm seen within the lucila ateral ACAs, MCAs, or project coordinator rn. Severely hypoplastic distal left vertebral artery which terminates into t he left posterior inferior cerebellar artery. This is considered to be a normal variant. There is als o persistent right posterior circulation. The major dural venous sinuses appear patent. NECK CTA: The aortic arch and proximal great vessels are widely patent. There is no significant sten osis, occlusion, or dissection identified within the bilateral common carotid, internal carotid, or v ertebral arteries. Severely hypoplastic left vertebral artery. There is 1.9 cm left thyroid nodule. IMPRESSION: 1. No acute intracranial abnormality. 2. No significant stenosis, occlusion, or aneurysm within the [place]. 3. No significant stenosis, occlusion, or dissection identified within the carotid or vertebral arter ies. 4. A 1.9 cm left thyroid nodule. Follow-up nonemergent thyroid ultrasound is recommended for further evaluation. ACT 112: Positive. There are findings on this exam that require communication between the performing entity and the patient following Patient Test Result Information Act ([place] Act 112) guidelines. Electronically signed by: Jose Antonio Gonzalez M.D. 12/08/2021 5:53 PM
--- NOTE | 2021-12-08 17:54 | CT Scan Report ---
NONCONTRAST HEAD CT, HEAD & NECK CTA HISTORY: Stroke Like Symptoms TECHNIQUE: Multiaxial CT images of the head were performed both before and after the intravenous admi nistration of contrast to evaluate the major cerebral vessels. Multiaxial CT images of the neck were also performed following the intravenous administration of contrast to evaluate the major cervical ve ssels. Maximum intensity projection images were also obtained. A dose lowering technique was utilized adhering to the principles of ALARA. COMPARISON: Head and neck CTA 11/30/2021. FINDINGS: NONCONTRAST HEAD CT: There is no mass, hematoma, midline shift, or acute infarct. HEAD CTA: Visualized intracranial internal carotid arteries, distal vertebral arteries, and basilar a rtery are widely patent. There is no significant stenosis, occlusion, or aneurysm seen within the [place] a[place] ACAs, MCAs, or form grader operator. Severely hypoplastic distal left vertebral artery which terminates into t he left posterior inferior cerebellar artery. This is considered to be a normal variant. There is als o persistent right posterior circulation. The major dural venous sinuses appear patent. NECK CTA: The aortic arch and proximal great vessels are widely patent. There is no significant sten osis, occlusion, or dissection identified within the bilateral common carotid, internal carotid, or v ertebral arteries. Severely hypoplastic left vertebral artery. There is 1.9 cm left thyroid nodule. IMPRESSION: 1. No acute intracranial abnormality. 2. No significant stenosis, occlusion, or aneurysm within the [place]. 3. No significant stenosis, occlusion, or dissection identified within the carotid or vertebral arter ies. 4. A 1.9 cm left thyroid nodule. Follow-up nonemergent thyroid ultrasound is recommended for further evaluation. ACT 112: Positive. There are findings on this exam that require communication between the performing entity and the patient following Patient Test Result Information Act ([place] Act 112) guidelines. Electronically signed by: Jose Antonio Gonzalez M.D. 12/08/2021 5:53 PM
[2021-12-08] MEDS ORDERED: TENECTEPLASE 25 MG in SYRINGE 0 ML IV ONE (17:56)
[2021-12-08] MEDS ORDERED: No Aspirin within 24hrs of THROMBOLYTIC-Stroke PO SCH (18:00)
[2021-12-08 18:05] LABS: Partial Thromboplastin Ratio 1.1; Partial Thromboplastin Time 28.8 Seconds (21.0-31.0); Prothrombin Time 10.5 Seconds (9.0-12.0)
[2021-12-08 18:20] LABS: Troponin I < 0.03 ng/ml (0-0.04)
[2021-12-08 18:27] LABS: Alanine Aminotransferase 8 U/L (7-52); Albumin Globulin Ratio 1.4 (0.9-2); Albumin Level 3.4 gm/dl (3.4-5.0); Alkaline Phosphatase 56 U/L (34-104); Anion Gap 5 (3-11); Aspartate Aminotransferase 10 U/L (13-39); BUN Creatinine Ratio 22.2 (10-20); Bilirubin,Total 0.3 mg/dl (0.2-1.0); Blood Urea Nitrogen 24 mg/dl (6-23); Calcium 8.5 mg/dl (8.5-10.1); Carbon Dioxide 24 mmol/L (21-32); Chloride 105 mmol/L (98-107); Creatinine Clr Calc Pharmacy 69.7 ml/min; Est GFR (African American) 67.9 ml/min; Est GFR (Non-African American) 58.6 ml/min; Globulin 2.4 gm/dl (2.5-4.0); Glucose 96 mg/dl (70-99(Fasting)); Sodium 134 mmol/L (136-145); Total Protein 5.8 gm/dl (6.0-8.3)
--- NOTE | 2021-12-08 19:33 | History & Physical Report ---
Date of Service December 08, 2021 Assessment & Plan (1) Hypothyroidism: Plan: Babita Tyler is a 55-year-old female with a history of morbid obesity, hypothyroidism, GERD, ADD, previous pulmonary embolism during COVID-19 PNA, migraines, and reported TIA >5 years ago who presented to [facility] for evaluation of left-sided facial droop and weakness. L Sided Facial Droop and Weakness Etiology of this left-sided facial droop and weakness is somewhat unclear. The fact that the facial droop and left leg weakness occurred on the same side is somewhat inconsistent with cerebral vascular blockage. However, favor to rule out TIA and hypercoagulable process first. Possibly complex/complicated migraine. Bradycardia noted on verapamil - ?flow issue. Lower suspicion for seizure-like activity at present. Work-up as follows: Mild anemia noted on arrival; A1c on last admission 5.7% Cerebrovascular and neck imaging unremarkable for abnormality, stenosis, occlusion, aneurysm, or dissection Bradycardia noted since arrival between 40-50, seems to be chronic on chart review. Sinus rhythm. TTE on 11/30 demonstrating normal biventricular function, with redemonstration of echodensity in the right atrium; ?prominent joe terminalis [place], ESR/CRP checked at last admission was negative Order hypercoagulability work-up given recurrence of this weakness, FHx of VTE, personal history of PE during COVID-19 Continue neuro checks PT, OT, bedside swallow assessmentconsult speech if needed Repeat MRI in 24 hours Continue ASA 81, atorvastatin Telemetry while here; continue event monitor History of migraines Patient follows with Dr. Garcia as an outpatient, generally reports good control of theselast migraine was over several years ago; she denies any history of complicated/complex features in the past Continue verapamil and topiramate Consider careful monitoring of possible triggers should the acute reason for presentation seem more likely to be complex migraines Sinus bradycardia On review of her records, seems to be a chronic issue; baseline heart rate seemed to be between high 40s and low 50s Patient is on verapamil 240 mg daily for migraine prophylaxis Continue careful monitoring for symptoms; can consider decreasing this/monitoring response Hypothyroidism Continue levothyroxine Thyroid nodule Head/neck imaging revealing of 1.9 cm left thyroid nodule; follow-up ultrasound recommended as outpatient Prediabetes At last admission, A1c noted at 5.7%. Continue counseling while here / as outpatient. Anxiety Continue fluoxetine Dispo: MedSurg with telemetry Diet: Regular diet PPX: SCDs until hypercoagulability w/u completed/drawn Code: FULL CODE (2) GERD (gastroesophageal reflux disease): (3) ADD (attention deficit disorder): (4) Pneumonia due to COVID-19 virus: (5) Hypokalemia: (6) Abnormal CT scan of lung: (7) Dyspnea: (8) Abnormal abdominal CT scan: (9) Complicated migraine: (10) Migraine with aura and without status migrainosus, not intractable: (11) Weakness on left side of face: (12) Slurred speech: (13) Vitamin B12 deficiency: (14) Morbid obesity: History of Present Illness Primary Care Provider: NO PCP Babita Tyler is a 55-year-old female with a history of morbid obesity, hypothyroidism, GERD, ADD, previous pulmonary embolism during COVID-19 PNA, migraines, and reported TIA >5 years ago who presented to [facility] for evaluation of left-sided facial droop and weakness. 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 She said around that time she also had L sided facial droop noticed by coworkers. She denied any pain at that time. Denied any numbness or tingling. [place] in her normal health otherwise throughout today, with exception of some fatigue. Denies any leg swelling or pain. Her father transferred her to the hospital shortly thereafter. Of note, she was seen on 11/30/2021 for the same issue, whereby cerebral imaging and vascular was performed without significant abnormalities; impression at this time was that symptoms may have been related to complicated migraine, functional movement disorder, TIA. Out of concern this may have represented a complicated migraine, she was continued on verapamil and Topamax. TTE at that time did demonstrate a R atrial density, with an impression of prominent joe terminalis. She has had an ongoing event monitor since that discharge. 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 She has not started taking any new medications over the last week. She denies any use of tobacco, alcohol, or recreational drugs. She does endorse that her father had several blood clots throughout his life. She denies any other family history of VTE. In the ED, patient was found to have left-sided facial droop. Her vital signs were significant for bradycardia. Labs were normal. Cerebral imaging with angiography did not demonstrate stenosis, occlusion, or dissection. Emergency physician spoke with TeleStroke neurologist, who also saw patient; symptoms resolved shortly thereafter. TPA was not given. Allergies Allergy/AdvReac Type Severity Reaction Status Date / Time lisinopril Allergy Severe Swelling Verified 12/08/21 18:43 of Lip/Tongue/Throat yellow dye Allergy Intermediate Tremor Verified 12/08/21 18:43 latex Allergy Mild Rash Verified 12/08/21 18:43 Sulfa (Sulfonamide Allergy Mild Rash Verified 12/08/21 18:43 Antibiotics) levothyroxine Allergy Unknown Unknown Verified 12/08/21 18:43 citalopram AdvReac Mild WORSENING Verified 12/08/21 18:43 TREMORS gluten AdvReac Mild GI Symptoms Verified 12/08/21 18:43 UNKNOWN INHALER AdvReac TREMORS Uncoded 12/08/21 18:43 Home Medications Medication Instructions Recorded Confirmed Type fluoxetine 20 mg capsule 60 mg PO QAM 05/07/20 12/08/21 History topiramate 50 mg tablet 50 mg PO BID 30 Days #60 tab 05/07/21 12/08/21 Rx verapamil 240 mg tablet,extended 240 mg PO HS 30 Days #30 tab 07/22/21 12/08/21 Rx release cholecalciferol (vitamin D3) 25 25 mcg PO DAILY 11/30/21 12/08/21 History mcg (1,000 unit) tablet (Vitamin D3) atorvastatin 40 mg tablet 40 mg PO QAM #30 tab 12/01/21 12/08/21 Rx cyanocobalamin (vitamin B-12) 500 1,000 mcg PO QAM 30 Days #60 tab 12/01/21 12/08/21 Rx mcg tablet aspirin 81 mg chewable tablet 81 mg PO DAILY 12/08/21 12/08/21 History guanfacine 2 mg tablet,extended 2 mg PO HS 12/08/21 12/08/21 History release 24 hr levothyroxine 75 mcg tablet 75 mcg PO .QSUN 12/08/21 12/08/21 History levothyroxine 75 mcg tablet 75 mcg PO DAILY 12/08/21 12/08/21 History zinc 25 mg tablet 0 mg PO DAILY 12/08/21 12/08/21 History Past Med/Surg History Medical History (Updated 12/09/21 @ 00:24 by Brandon Pinedo MD) Complicated migraine Left-sided weakness, facial droop Costochondritis Diaphragmatic hernia Dizziness GERD (gastroesophageal reflux disease) History of colon polyps History of congenital diaphragmatic hernia SURGICAL REPAIR 01/04/2019 [facility] History of COVID-19 10/26/2020 @ [facility]--shortness of breathe, pneumonia, blood clot--was hospitalized at [facility] for 4 days, not intubated--no issues now History of endometriosis Hypothyroidism Liver cyst Migraine with aura and without status migrainosus, not intractable Morbid obesity Nausea Right sided abdominal pain SBO (small bowel obstruction) Seasonal affective disorder Shoulder pain, left TMJ locking Vitamin B12 deficiency Surgical History History of breast biopsy History of section History of colonoscopy History of dilatation and curettage History of endometrial ablation History of esophagogastroduodenoscopy (EGD) History of herniorrhaphy UMBILICAL History of Ana M fundoplication 01/04/2019 [facility] History of tooth extraction Nausea and vomiting after administration of anesthetic agent Status post biopsy of thyroid gland Status post JOSE-BSO Family History Son Family history of reaction to anesthesia Father Family history of reaction to anesthesia PONV Father Family history of diabetes mellitus Mother Family history of diabetes mellitus Family hx of colon cancer Coronary heart disease Mother Family history of esophageal cancer UTERINE CANCER W/ METS TO ESOPHAGUS AND LUNG Social History Smoking Status: Never smoker Second Hand Exposure: No; Do You Dip or Chew Tobacco: No; Hx Alcohol Use: No Hx Substance Use: No Preferred Language: [place] Communication Ability: Effective Instructional Materials Director Required: No Beliefs That Will Affect Care: None Current Living Situation: Family Current Living Situation Comment: Daughter and grandson lives with patient Other Information That Helps Us Care for You: No Feels Safe at Home: Yes Safety Concerns: Feels Safe At This Time Assistive Devices: Glasses Review of Systems Review of Systems: as per HPI Physical Exam Physical Exam: General: Well-appearing 55-year-old female in no acute distress HEENT: NCAT. Eyes - Sclera are white, anicteric, and without injection. PERRL. EOMs display full ROM bilaterally. Mouth - MMM with no tonsillar edema or exudates. Nose - nasal turbinates are uninflamed and without discharge. Ears - External ears appears healthy b/l with no erythema or rashes; TMs displayed white reflex b/l and are non-bulging, uninflamed, and reveal no signs of fluid accumulation. Neck - supple and without LAD. Thyroid - no appreciable goiter or nodules. Cardiac: Bradycardic w/ regular rhythm; S1 and S2 present with no murmurs, rubs, or gallops. Pulmonary: Good respiratory effort with symmetric expansion of the chest. No use of accessory muscles. Lungs were clear to auscultation bilaterally with no crackles or wheezes. Abdominal: Normoactive bowel sounds. Abdomen was soft, nondistended, and non- tender to palpation. No hepatomegaly or splenomegaly. Extremities: Upper and lower extremities are warm and well perfused. No unilateral swelling Neuro: - Cranial Nerves: CN I, IX, and X - not assessed. II - PERRL. III/IV/ - EOMs WNL. No nystagmus. V - Facial sensation in tact in all three divisions; jaw opening WNL. VII - Patient is able to smile symmetrically and keep eyes close against resistance. VIII - Patient is able to hear finger snapping equally and appropriately. Patient is able to rotate head and shrug shoulders against resistance. XI - Soft palate raises equally and appropriately while saying "ah." XII - patient is able to stick out tongue and deviate from [id number] appropriately. - Motor: UE - Finger, wrist, elbow, and shoulder strength is 5/5 bilaterally. LE - Hip, knee, and ankle strength is 5/5 bilaterally. - Sensation: UE and LE sensation to light touch is grossly intact bilaterally. - Reflexes - Biceps 2+ b/l; brachioradialis 2+ b/l; triceps 2+ b/l; patellar 2+ b/l; Achilles 2+ b/l. No clonus. - [id number]: WNL b/l. No dysmetria. Tojh-cw-[id number]; WNL b/l. - Gait: Gait was spontaneous with no atalgia, shuffling, or poor coordination appreciated. Appropriate lift-off the floor bilaterally. Arm swing is present within both extremities and WNL. Turning at the end of the hallway was appropriate. Results & Data Results & Data ([facility]) Vital Signs (Past 12 Hours) Vital Signs Temp Pulse Pulse Resp BP BP Pulse Ox 12/08/21 19:07 45 L 20 124/67 100 12/08/21 18:12 45 L 18 122/75 99 12/08/21 17:20 36.7 C 49 L 20 127/82 100 Supervising Physician Co-Signing Physician Notes Attending addendum: I have physically seen this patient, have supervised the medical residents activities, and agree with the H&P unless as otherwise noted. Assessment and Plan: Left side facial droop and weakness- CT head without contrast negative CTA head and neck negative MRI brain from 11/30/21 was negative We will admit for neurochecks Differential including complex migraine, hypercoagulable low-flow state, TIA, CVA, other Order hypercoagulable work-up Stroke that TPA order set Consult PT/OT's/speech Repeat MRI in 24 hours Migraine- Continue verapamil and topiramate for prophylaxis As noted above, complex migraines in the differential Thyroid nodule 1.9 cm on the left- Noted on CT Will need ultrasound performed as an outpatient Check TSH free T4 Remaining orders and notations as noted Resident Activity Tracking Resident Involvement: Resident Care Provided Care Provided: Adult Hospital Medicine
[2021-12-08] MEDS ORDERED: ONDANSETRON INJ 2 MG/ML 2 ML VIAL IV PRN (19:53)
[2021-12-08] MEDS ORDERED: POLYETHYLENE (MIRALAX) 17 GM PACK PO PRN (19:53)
[2021-12-08] MEDS ORDERED: ACETAMINOPHEN 325 MG TAB PO PRN (19:53)
[2021-12-08] MEDS ORDERED: VERAPAMIL HCL 240 MG TABCR PO SCH (21:52)
[2021-12-09] MEDS: TOPIRAMATE 50 MG TAB PO SCH ×2 (00:05→08:19)
[2021-12-09] MEDS ORDERED: LEVOTHYROXINE SODIUM 75 MCG TABLET PO SCH (06:30)
[2021-12-09 07:09] LABS: Basophils # (auto) 0.04 K/uL (0-0.2); Basophils % (auto) 0.9 %; Eosinophils # (auto) 0.11 K/uL (0-0.5); Eosinophils % (auto) 2.5 %; Hematocrit (blood only) 39.5 % (37-47); Hemoglobin 12.9 g/dL (12.0-16.0); Immature Granulocytes # (auto) 0.01 K/uL (0.00-0.02); Immature Granulocytes % (auto) 0.2 %; Lymphocytes % (auto) 36.8 %; Mean Corpuscular Hemoglobin 31.9 pg (25-34); Mean Corpuscular Hgb Conc 32.7 g/dL (32-36); Mean Corpuscular Volume 97.8 fL (80-100); Mean Platelet Volume 9.4 fL (7.4-10.4); Monocytes # (auto) 0.57 K/uL (0.11-0.59); Monocytes % (auto) 13.1 %; Neutrophils # (auto) 2.02 K/uL (1.4-6.5); Neutrophils % (auto) 46.5 %; Platelet Count 235 K/uL (130-400); RDW Coefficient of Variation 13.4 % (11.5-14.5); RDW Standard Deviation 48.1 fL (36.4-46.3); Red Blood Count 4.04 M/uL (4.2-5.4); White Blood Count 4.35 K/uL (4.8-10.8)
--- NOTE | 2021-12-09 07:35 | Magnetic Resonance Report ---
MR brain wo con HISTORY: 55 years-old Female possible TIA, L sided weakness acute left-sided weakness with history o f migraine headache COMPARISON: CT head, CTA head and neck 12/08/2021, brain MRI 11/30/2021 TECHNIQUE: Multiplanar multisequence MRI of the brain was obtained without the use of IV contrast. FINDINGS: Industrial Health Engineer localizer images demonstrate no gross extracranial abnormality. There is no restricted diffusio n to suggest acute or subacute infarct. Midline structures appear unremarkable. Partially empty sella . Motion degraded exam. There is no acute intracranial hemorrhage, midline shift, abnormal extra-axia l collection, hydrocephalus or intracranial mass. No pathologic blooming artifact. There are a few pu nctate foci of T2/FLAIR prolongation of the subcortical white matter of the cerebral hemispheres, lik fredis of no clinical significance. The cerebral venous sinuses and major arterial flow voids appear patent. The skull, orbits and soft t issues are unremarkable. Trace fluid surrounds the subarachnoid spaces of the optic nerves. There is no flattening of the posterior globes. IMPRESSION: No acute intracranial abnormality. No acute or subacute infarct. ACT 112: Negative or not required by law. The above report was generated using voice recognition software. It may contain grammatical, syntax o r spelling errors. Electronically signed by: Vikash Haynes M.D. 12/09/2021 7:33 AM
[2021-12-09 07:42] LABS: BUN Creatinine Ratio 17.7 (10-20); Calcium 8.8 mg/dl (8.5-10.1); Creatinine Clr Calc Pharmacy 76.6 ml/min; Est GFR (African American) 78.3 ml/min; Est GFR (Non-African American) 67.5 ml/min; Potassium 3.6 mmol/L (3.5-5.1)
[2021-12-09] MEDS ORDERED: ASPIRIN 81 MG ECTAB PO SCH (09:00)
[2021-12-09] MEDS ORDERED: CHOLECALCIFEROL 1,000 UNITS 25 MCG TAB PO SCH (09:00)
[2021-12-09] MEDS ORDERED: ZINC SULFATE 220 MG CAPSULE PO SCH (09:00)
[2021-12-09] MEDS ORDERED: CYANOCOBALAMIN 500 MCG TABLET (VITAMIN B-12) PO SCH (09:00)
[2021-12-09] MEDS ORDERED: FLUoxetine HCL 20 MG CAP PO SCH (09:00)
[2021-12-09] MEDS ORDERED: ATORVASTATIN 40 MG TAB PO SCH (09:00)
--- NOTE | 2021-12-09 09:16 | Electrocardiogram Report ---
Test Reason : Blood Pressure : / mmHG Vent. Rate : 049 BPM Atrial Rate : 049 BPM P-R Int : 158 ms QRS Dur : 090 ms QT Int : 474 ms P-R-T Axes : 000 018 015 degrees QTc Int : 428 ms Sinus bradycardia Otherwise normal ECG When compared with ECG of 30-NOV-2021 09:09, No significant change was found Confirmed by Lui Shafer ([id number]) on 12/09/2021 9:16:19 AM Referred By: REFERRED SELF Confirmed By:Lui Shafer
--- NOTE | 2021-12-09 13:53 | Discharge Summary ---
Date of Service December 09, 2021 Admission HPI Per Admitting Provider Babita Tyler is a 55-year-old female with a history of morbid obesity, hypothyroidism, GERD, ADD, previous pulmonary embolism during COVID-19 PNA, migraines, and reported TIA >5 years ago who presented to [facility] for evaluation of left-sided facial droop and weakness. 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 She said around that time she also had L sided facial droop noticed by coworkers. She denied any pain at that time. Denied any numbness or tingling. [place] in her normal health otherwise throughout today, with exception of some fatigue. Denies any leg swelling or pain. Her father transferred her to the hospital shortly thereafter. Of note, she was seen on 11/30/2021 for the same issue, whereby cerebral imaging and vascular was performed without significant abnormalities; impression at this time was that symptoms may have been related to complicated migraine, functional movement disorder, TIA. Out of concern this may have represented a complicated migraine, she was continued on verapamil and Topamax. TTE at that time did demonstrate a R atrial density, with an impression of prominent joe ter minalis. She has had an ongoing event monitor since that discharge. 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 She has not started taking any new medications over the last week. She denies any use of tobacco, alcohol, or recreational drugs. She does endorse that her father had several blood clots throughout his life. She denies any other family history of VTE. In the ED, patient was found to have left-sided facial droop. Her vital signs were significant for bradycardia. Labs were normal. Cerebral imaging with angiography did not demonstrate stenosis, occlusion, or dissection. Emergency physician spoke with TeleStroke neurologist, who also saw patient; symptoms resolved shortly thereafter. TPA was not given. Principal Diagnosis Complex migraine Left thyroid nodule Discharge Exam Constitutional WD/WN, vitals as above Eyes PERRL, conjunctivae normal, anicteric sclerae ENMT external ear and nose normal, oropharynx normal Neck trachea midline, no thyromegaly Respiratory normal respiratory effort, lungs clear to auscultation Cardiovascular RRR, no murmur, no edema Musculoskeletal no cyanosis or clubbing, extremities motor strength 5/5 Skin no rashes, warm and dry Neurologic moves all extremities and awake; no focal motor deficits and not confused Speech / Cognition: normal speech Motor/Sensory: no tremor, no pronator drift and no sensory deficit Cranial Nerves: PERRL, EOM intact bilaterally, normal facial strength, normal hearing, able to rotate head bilaterally, able to elevate shoulders bilaterally, no nystagmus and symmetric palate elevation Psychiatric A+Ox3, euthymic affect Discharge Data Allergies Allergy/AdvReac Type Severity Reaction Status Date / Time lisinopril Allergy Severe Swelling Verified 12/11/21 12:26 of Lip/Tongue/Throat yellow dye Allergy Intermediate Tremor Verified 12/11/21 12:26 latex Allergy Mild Rash Verified 12/11/21 12:26 Sulfa (Sulfonamide Allergy Mild Rash Verified 12/11/21 12:26 Antibiotics) levothyroxine Allergy Unknown Unknown Verified 12/11/21 12:26 citalopram AdvReac Mild WORSENING Verified 12/11/21 12:26 TREMORS gluten AdvReac Mild GI Symptoms Verified 12/11/21 12:26 UNKNOWN INHALER AdvReac TREMORS Uncoded 12/11/21 12:26 Consultations 12/08/21 19:04 ED Decision to Admit Stat Ordered Studies 12/08/21 17:29 CT angio head w con Stat CT angio neck with con Stat CT head/brain wo con Stat IMPRESSION: 1. No acute intracranial abnormality. 2. No significant stenosis, occlusion, or aneurysm within the [place]. 3. No significant stenosis, occlusion, or dissection identified within the carotid or vertebral arteries. 4. A 1.9 cm left thyroid nodule. Follow-up nonemergent thyroid ultrasound is recommended for further evaluation. 12/09/21 16:00 MR brain wo con Routine IMPRESSION: No acute intracranial abnormality. No acute or subacute infarct. Hospital Course (1) Hypothyroidism: Babita Tyler is a 55 year old female admitted to [facility] from December 08 to December 09, 2021 due to left-sided weakness and facial droop. This is consistent with her prior history of complex migraines. No stroke was seen on MRI. Do not suspect TIA given recurrent nature of similar symptoms without a completed stroke. She should continue her usual migraine medications and follow-up with neurology for continuous management of this. Discussed with her neurologist Dr Garcia during stay but no formal consult performed. She is also noted excessive daytime sleepiness. Recommend following up with her PCP regarding this to consider a sleep study. Continue to manage her recently diagnosed B12 deficiency and hypothyroidism. This may also be a late sequelae of her recent COVID-19 infection in October. Please also follow up incidental thyroid nodule (left 1.9cm) on CT if not previously investigated initially with thyroid ultrasound. (2) GERD (gastroesophageal reflux disease): (3) ADD (attention deficit disorder): (4) Pneumonia due to COVID-19 virus: (5) Hypokalemia: (6) Abnormal CT scan of lung: (7) Dyspnea: (8) Abnormal abdominal CT scan: (9) Complicated migraine: (10) Migraine with aura and without status migrainosus, not intractable: (11) Weakness on left side of face: (12) Slurred speech: (13) Vitamin B12 deficiency: (14) Morbid obesity: (15) Thyroid nodule: Total Time Total Time Spent Total Time Spent (In Minutes): 25 Discharge Plan Discharge Items Patient Disposition: Home - Self-Care Reason For Visit: L SIDED WEAKNESS - FACE AND LEG Discharge Diagnosis: Complex migraine Activity: Resume your previous activity Non-emergency contact: Primary Care Provider and Neurologist Call non-emergency contact if: you have any medication questions and your symptoms worsen Follow-up/Referrals: Jay Lamar MD [Hospitalist] - (PLEASE CALL YOUR PRIMARY CARE PROVIDER TO SCHEDULE A DISCHARGE FOLLOW-UP WITHIN 1-2 WEEKS FOR EXCESSIVE DAYTIME SLEEPINESS) Diet: Heart Healthy Addtl Attending Provider Instructions: You were admitted to [facility] from December 08 to December 09, 2021 due to left-sided weakness and facial droop. This is consistent with your prior history of complex migraines. No stroke was seen on MRI. Do not suspect TIA given recurrent nature of similar symptoms without a completed stroke. Please continue your usual migraine medications and follow-up with neurology for continuous management of this. He also noted excessive daytime sleepiness. Recommend following with your primary care physician regarding this to consider a sleep study. Continue to manage B12 deficiency and thyroid function. This may also be a late sequelae of your COVID-19 infection in October. Kind regards, Dr. Solo Monge Pending Studies at Discharge: No Stand-Alone Forms: My [facility], Smoking Cessation Medications and DC Order Prescriptions: Continued topiramate 50 mg tablet 50 mg PO BID 30 Days Qty: 60 RF: 5 fluoxetine 20 mg capsule 60 mg PO QAM RF: 0 levothyroxine 75 mcg tablet 75 mcg PO DAILY RF: 0 levothyroxine 75 mcg tablet 75 mcg PO .QSUN RF: 0 zinc 25 mg Tablet 0 mg PO DAILY RF: 0 aspirin 81 mg Tablet,Chewable 81 mg PO DAILY RF: 0 guanfacine 2 mg tablet extended release 24 hr 2 mg PO HS RF: 0 cholecalciferol (vitamin D3) [Vitamin D3] 25 mcg (1,000 unit) Tablet 25 mcg PO DAILY RF: 0 atorvastatin 40 mg Tablet 40 mg PO QAM Qty: 30 RF: 0 cyanocobalamin (vitamin B-12) 500 mcg Tablet 1,000 mcg PO QAM 30 Days Qty: 60 RF: 0 No Action verapamil 180 mg capsule,ext rel. pellets 24 hr 180 mg PO DAILY Qty: 30 RF: 2 methylprednisolone [Medrol (Doug)] 4 mg tablets,dose pack 4 mg PO .COMPLEX 6 Days Qty: 21 RF: 0 Discharge Orders: Discharge Order (Routine); Ordered 12/09/21 Ordered By: Solo Monge Admission Data Admit Date/Time: 12/08/21 19:54 Attending Provider: Solo Monge Admit Provider: Jose Soriano Primary Care Provider: [place] Williamson Other Providers: Marito Gross Other Interventions: Discharge Summary Assessment (RN) Last Done: 12/09/21 14:59 Coding Level of Care Code 59997 OBS Care - Discharge Diagnoses Hypothyroidism E03.9 GERD (gastroesophageal reflux disease) K21.9 ADD (attention deficit disorder) F98.8 Pneumonia due to COVID-19 virus U07.1; J12.[address] scan of lung R91.8 Dyspnea R06.[address] scan R93.5 Complicated migraine G43.109 Migraine with aura and without status migrainosus, not intractable G43.109 Weakness on left side of face R29.810 Slurred speech R47.81 Vitamin B12 deficiency E53.8 Morbid obesity E66.01 Thyroid nodule E04.1
--- NOTE | 2021-12-09 22:43 | Billing Data ---
Date of Service December 09, 2021 Coding Level of Care Code INT OBSERVATION CARE 70M LVL 3
[2021-12-12 07:26] LABS: Anti Cardiolipin Ab IgG <2.0 GPL-U/mL; Anti Cardiolipin Ab IgM <2.0 MPL-U/mL; Anti-Thrombin III Activity 98 % normal (80-135); PTT LA Screen 35 sec (<=40)
[2021-12-13 00:21] LABS: Factor 5 Mutation NEGATIVE
[2021-12-13 04:52] LABS: B2 Glycoprotein IgG <2.0 U/mL (<20.0); B2 Glycoprotein IgM <2.0 U/mL (<20.0); Protein S Functional(Activity) 112 % (60-140)
[2021-12-14] MEDS ORDERED: LEVOTHYROXINE SODIUM 75 MCG TABLET PO SCH (06:30)
== END 2021-12-09 16:00 | disposition home or self-care (01) ==
LOC: 2N 17:17 → ED 17:17 → SUATTDRO 19:54 → 2N 21:31

== ENCOUNTER 2022-06-03 11:03 | Inpatient (IN) ==
[2022-06-03] MEDS ORDERED: SODIUM CHLORIDE 0.9% 1000ML 500 ML IV ONE (11:20)
--- NOTE | 2022-06-03 11:33 | Emergency Department Note ---
Impression & Plan Slurred speech, Facial droop, Falling, Stroke-like symptoms ED Provider Note NAME: GUERO SARGENT AGE: 56 SEX: F : 1965 ARRIVES VIA: Walk-In INFORMANT: [Patient] ED PROVIDER(S): [Scar Huang MD] CHIEF COMPLAINT: Stroke symptoms HISTORY OF PRESENT ILLNESS: The patient is a 56-year-old female who presents to the ER with slurred speech and weakness since yesterday evening. The last known well time was around 1900 yesterday. The patient symptoms started over 12 hours ago. Patient states that she noticed slurred speech, some trouble swallowing and a facial droop. She felt weak. Patient states that today, her symptoms were persisting and she fell 5 times because of weakness. She cannot say if the weakness was one-sided or just diffuse. There has been no fever, no cough or congestion, no respiratory complaints. No vomiting diarrhea, no urinary complaints. Patient has a history of a previous TIA. The patient does not believe she was injured with her falling. She did not strike her head. There was no loss of consciousness. REVIEW OF SYSTEMS: See HPI for pertinent positives and negatives. A total of ten systems were reviewed and were otherwise negative. PMHx/PSHx: See Below SOCIAL HISTORY: See Below. PHYSICAL EXAM: GENERAL: Patient is in no acute distress. HEENT: No acute trauma, normocephalic atraumatic, mucous membranes moist, no nasal congestion, no scleral icterus. Left facial droop noted. NECK: No stridor, no adenopathy, no meningismus, trachea is midline. LUNGS: Clear to auscultation bilaterally, no wheeze, no rhonchi, breath sounds equal. HEART: Without murmurs gallops or rubs, regular rate and rhythm. ABDOMEN: Soft, nontender, bowel sounds positive, no peritonitis. EXTREMITIES: No cyanosis or edema, full range of motion of all the joints without pain or difficulty, no signs for acute trauma. NEUROLOGIC: Oriented x 3. The patient has a left facial droop and some slurred speech. She is able to lift her eyebrows and is able to smile although, the muscle function on the left seems to be a bit diminished. The patient's left eye appears more open than her right but she can close her eyes on command. Her tongue protrudes midline. There is no upper extremity drift. She does have some clumsiness with cerebellar function with the left upper extremity. Lower extremities do not show any drift and there is no cerebellar dysfunction. SKIN: No rash, no jaundice, no diaphoresis. DIFFERENTIAL DIAGNOSIS: Infection, dehydration, metabolic abnormality, hypo/hyperglycemia, electrolyte disturbance, anemia, hypoxia, cardiac sources, intracerebral event, toxicologic issues, stroke, Goldberg's palsy, TIA, as well as other pathologies. EMERGENCY DEPARTMENT COURSE/PROCEDURES: ECG: Indication was possible stroke. The ECG shows what I believed to be a sinus rhythm versus an ectopic atrial rhythm with a rate of 63. There is some T wave flattening along the anterior and lateral leads. There is no ST elevation. No PVCs. QTC is 456. Compared to an ECG from 19 April 2022, the T wave flattening appears new. The potential ectopic atrial rhythm is now present. Continuous Cardiac Monitoring: An order was placed for continuous cardiac monitoring. The monitor shows a rate of 67 with normal sinus rhythm. Critical Care Note: I have personally spent 51 minutes of critical care time in the direct management of this patient. This includes bedside care, interpretation of diagnostic studies, and testing, discussion with consultants, patient, and family members, and other required patient management activities. This 51 minutes is in excess of all separately billable procedures. MEDICAL DECISION MAKING: There is no leukocytosis or concerning anemia. There is a normal platelet count. No coagulopathy. No renal failure or significant electrolyte abnorm ality. No concerning liver enzyme elevation. ECG shows what appears to either be a sinus rhythm or ectopic atrial rhythm, no acute ischemia. Cardiac enzyme testing x1 is not consistent with acute cardiac injury. COVID test returned negative. Chest x-ray did not show pneumonia or CHF. Brain CT showed no acute bleed or mass-effect. CT angio of the head and neck did not show stenosis or clot. On exam, the patient had a left facial droop and some speech slurring. She had a little bit of clumsiness with cerebellar testing of her left upper extremity. The patient was not a candidate for tPA as her symptoms have been ongoing for over 12 hours. Patient is given IV saline, she has been resting comfortably. I do think the patient requires further stroke work-up. A small stroke certainly can be missed on CT imaging. I suppose a complex migraine as a cause for her symptoms is possible although, she denied any headache on presentation. I did speak with the patient and case management. The on-call hospitalist was consulted. Of note, prior to the patient being transferred upstairs to the hospital floors, she complained of a headache that she described as a migraine. She was given IV Toradol and IV Tylenol for the discomfort. 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 Hearing loss in ultra-high frequencies History of colon polyps History of congenital diaphragmatic hernia SURGICAL REPAIR 01/04/2019 [facility] History of COVID-19 10/26/2020 @ [facility]--shortness of breathe, pneumonia, blood clot--was hospitalized at [facility] for 4 days, not intubated--no issues now History of endometriosis Hypothyroidism Liver cyst Migraine with aura and without status migrainosus, not intractable Morbid obesity Nausea Right sided abdominal pain SBO (small bowel obstruction) Seasonal affective disorder Shoulder pain, left Tinnitus, bilateral TMJ locking Vitamin B12 deficiency Surgical History History of breast biopsy History of section History of colonoscopy History of dilatation and curettage History of endometrial ablation History of esophagogastroduodenoscopy (EGD) History of herniorrhaphy UMBILICAL History of Ana M fundoplication 01/04/2019 [facility] History of tooth extraction Nausea and vomiting after administration of anesthetic agent Status post biopsy of thyroid gland Status post JOSE-BSO Family History Son Family history of reaction to anesthesia Environmental allergies Father Family history of reaction to anesthesia PONV Father Family history of diabetes mellitus Mother Family history of diabetes mellitus Family hx of colon cancer Coronary heart disease Heart disease Mother Family history of esophageal cancer UTERINE CANCER W/ METS TO ESOPHAGUS AND LUNG Grandmother (Maternal) Ovarian cancer Grandfather (Paternal) Lung cancer smoker Liver cancer Heart disease Aunt Hypertension maternal Other No family history of adverse response to anesthesia No family history of bleeding disorder Social History Smoking Status: Never smoker Second Hand Exposure: No; Hx Alcohol Use: No Hx Substance Use: No Preferred Language: Arabic Communication Ability: Effective Cable Repairer Required: No Beliefs That Will Affect Care: None marital status: Single Current Living Situation: Family Current Living Situation Comment: Daughter and grandson lives with patient current occupational status: employed 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 Feels Safe at Home: Yes Assistive Devices: Glasses Allergies Allergies Allergy/AdvReac Type Severity Reaction Status Date / Time lisinopril Allergy Severe Swelling Verified 06/03/22 15:16 of Lip/Tongue/Throat yellow dye Allergy Intermediate Tremor Verified 06/03/22 15:16 latex Allergy Mild Rash Verified 06/03/22 15:16 Sulfa (Sulfonamide Allergy Mild Rash Verified 06/03/22 15:16 Antibiotics) levothyroxine Allergy Unknown Unknown Verified 06/03/22 15:16 citalopram AdvReac Mild WORSENING Verified 06/03/22 15:16 TREMORS/RASH gluten AdvReac Mild GI Symptoms Verified 06/03/22 15:16 UNKNOWN INHALER AdvReac TREMORS Uncoded 06/03/22 15:16 Home Meds Home Medications Medication Instructions Recorded Confirmed fluoxetine 20 mg capsule 60 mg PO QAM 05/07/20 06/03/22 cholecalciferol (vitamin D3) 25 25 mcg PO DAILY 11/30/21 06/03/22 mcg (1,000 unit) tablet (Vitamin D3) aspirin 81 mg chewable tablet 81 mg PO DAILY 12/08/21 06/03/22 guanfacine 2 mg tablet,extended 2 mg PO HS 12/08/21 06/03/22 release 24 hr coenzyme Q10 [Co Q-10] 1 dose PO BID 01/20/22 06/03/22 folic acid 400 mcg tablet 0.4 mg PO BID 01/20/22 06/03/22 magnesium 250 mg tablet 250 mg PO BID 01/20/22 06/03/22 riboflavin (vitamin B2) 100 mg 100 mg PO BID 01/20/22 06/03/22 tablet cyanocobalamin (vitamin B-12) 1,000 mcg PO DAILY 06/03/22 06/03/22 1,000 mcg tablet (Vitamin B-12) zinc 50 mg tablet 50 mg PO DAILY 06/03/22 06/03/22 Previous Rx's Medication Instructions Recorded atorvastatin 40 mg tablet 40 mg PO QAM #30 tabs 12/01/21 rimegepant 75 mg disintegrating 75 mg PO Q OTHER DAY PRN migraine 03/05/22 tablet (Nurtec ODT) headache 30 days #8 tabs topiramate 25 mg tablet (Topamax) 25 mg PO BID 30 days #60 tabs 03/05/22 verapamil 180 mg 24 hr 180 mg PO DAILY #30 caps 03/23/22 capsule,extended release levothyroxine 75 mcg tablet 75 mcg PO .COMPLEX #120 tabs 04/28/22 lamotrigine 100 mg tablet 100 mg PO BID #60 tabs 06/01/22 Results & Data (ED) Vital Signs Vital Signs - 24 hr 06/03/22 11:06 06/03/22 11:45 06/03/22 11:47 Temperature 36.0 C L Temperature Source Temporal Artery Scan Pulse Rate 67 Pulse Rate [Apical] 61 Pulse Rhythm [Apical] Regular Pulse Strength [Apical] Normal Respiratory Rate 20 14 Respiratory Effort / Characteristics Non-Labored Non-Labored Respiratory Depth Normal Normal Respiratory Pattern Regular Regular Blood Pressure 131/87 Blood Pressure [Left Arm] 153/85 H Blood Pressure Mean 101 Blood Pressure Mean [Left Arm] 107 Blood Pressure Position [Left Arm] Lying Pulse Oximetry 100 96 98 Oxygen Delivery Method Room Air Room Air Room Air Sepsis Recent Fever Within 48 Hours No Sepsis New/Unexplained Change in Mental Status N/A Sepsis Action Taken by Nursing No Action Required 06/03/22 13:00 06/03/22 15:00 Temperature Temperature Source Pulse Rate Pulse Rate [Apical] 97 H 55 L Pulse Rhythm [Apical] Regular Regular Pulse Strength [Apical] Normal Normal Respiratory Rate 18 18 Respiratory Effort / Characteristics Non-Labored Non-Labored Respiratory Depth Normal Normal Respiratory Pattern Regular Regular Blood Pressure Blood Pressure [Left Arm] 126/95 138/85 Blood Pressure Mean Blood Pressure Mean [Left Arm] 105 102 Blood Pressure Position [Left Arm] Lying Pulse Oximetry 92 98 Oxygen Delivery Method Room Air Room Air Sepsis Recent Fever Within 48 Hours Sepsis New/Unexplained Change in Mental Status Sepsis Action Taken by Group Home Medications Current Medication List: was personally reviewed by me Laboratory Data Attestation: I reviewed the patient's lab results. Result diagrams: 06/03/22 11:30 06/03/22 11:30 Lab Results 06/03/22 06/03/22 06/03/22 Range/Units 11:30 11:30 11:30 WBC 5.43 (4.8-10.8) K/ul RBC 3.91 L (3.93-5.22) M/uL Hgb 12.6 (12.0-16.0) g/dl POC Hgb (12.0-16.0) g/dl Hct 37.8 (34.1-44.9) % POC Hct (37-47) % MCV 96.7 (80.0-100.0) fL MCH 32.2 (25.0-34.0) pg MCHC 33.3 (32.0-36.0) g/dL RDW Std Deviation 46.7 H (36.4-46.3) fL RDW Coeff of Mandi 13.2 (11.5-14.5) % Plt Count 215 (130-400) K/uL MPV 9.3 L (9.4-12.3) fL Immature Gran % (Auto) 0.6 % Neut % (Auto) 44.8 % Lymph % (Auto) 37.0 % Coryell % (Auto) 12.3 % Eos % (Auto) 4.2 % Baso % (Auto) 1.1 % Neut # (Auto) 2.43 (1.4-6.5) K/uL Lymph # (Auto) 2.01 (1.2-3.4) K/uL [place]ell # (Auto) 0.67 (0.24-0.82) K/uL Eos # (Auto) 0.23 (0-0.50) K/uL Baso # (Auto) 0.06 (0-0.2) K/uL Immature Gran # (Auto) 0.03 H (0.00-0.02) K/uL PT 10.6 (9.0-12.0) Seconds INR 1.0 (0.9-1.1) APTT 26.2 (21.0-31.0) Seconds PTT Ratio 1.0 POC Sodium (135-144) mmol/L Sodium 140 (136-145) mmol/L POC Potassium (3.3-5.0) mmol/L Potassium 3.7 (3.5-5.1) mmol/L POC Chloride (101-112) mmol/L Chloride 111 H (98-107) mmol/L Carbon Dioxide 24 (21-32) mmol/L POC Total CO2 (24-31) mmol/L Anion Gap 5 (3-11) POC Anion Gap (16-25) mmol/L POC BUN (7-18) mg/dl BUN 17 (6-23) mg/dl Creatinine 1.14 (0.6-1.2) mg/dl POC Creatinine (0.6-1.3) mg/dl Est Cr Clr Drug Dosing 65.4 ml/min Est GFR ( Amer) 63.1 ml/min Est GFR (Non-Af Amer) 54.5 ml/min BUN/Creatinine Ratio 14.9 (10-20) Glucose 113 H (70-99(Fasting)) mg/dl POC Glucose (other) (70-99) mg/dl Calcium 9.1 (8.5-10.1) mg/dl POC Ioniz Calcium Lexi (1.12-1.32) mmol/l Magnesium 2.0 (1.7-2.4) mg/dl Total Bilirubin 0.4 (0.2-1.0) mg/dl AST 10 L (13-39) U/L ALT 9 (7-52) U/L Alkaline Phosphatase 69 (34-104) U/L Troponin I High Sens 2.7 (0-14) pg/ml Total Protein 6.1 (6.0-8.3) gm/dl Albumin 3.7 (3.4-5.0) gm/dl Globulin 2.4 L (2.5-4.0) gm/dl Albumin/Globulin Ratio 1.5 (0.9-2) SARS-CoV-2, RNA, NAAT (NEGATIVE) 06/03/22 06/03/22 Range/Units 11:30 11:40 WBC (4.8-10.8) K/ul RBC (3.93-5.22) M/uL Hgb (12.0-16.0) g/dl POC Hgb 12.6 (12.0-16.0) g/dl Hct (34.1-44.9) % POC Hct 37 (37-47) % MCV (80.0-100.0) fL MCH (25.0-34.0) pg MCHC (32.0-36.0) g/dL RDW Std Deviation (36.4-46.3) fL RDW Coeff of Mandi (11.5-14.5) % Plt Count (130-400) K/uL MPV (9.4-12.3) fL Immature Gran % (Auto) % Neut % (Auto) % Lymph % (Auto) % Coryell % (Auto) % Eos % (Auto) % Baso % (Auto) % Neut # (Auto) (1.4-6.5) K/uL Lymph # (Auto) (1.2-3.4) K/uL [place] # (Auto) (0.24-0.82) K/uL Eos # (Auto) (0-0.50) K/uL Baso # (Auto) (0-0.2) K/uL Immature Gran # (Auto) (0.00-0.02) K/uL PT (9.0-12.0) Seconds INR (0.9-1.1) APTT (21.0-31.0) Seconds PTT Ratio POC Sodium 142 (135-144) mmol/L Sodium (136-145) mmol/L POC Potassium 3.8 (3.3-5.0) mmol/L Potassium (3.5-5.1) mmol/L POC Chloride 108 (101-112) mmol/L Chloride (98-107) mmol/L Carbon Dioxide (21-32) mmol/L POC Total CO2 24 (24-31) mmol/L Anion Gap (3-11) POC Anion Gap 15.0 L (16-25) mmol/L POC BUN 16 (7-18) mg/dl BUN (6-23) mg/dl Creatinine (0.6-1.2) mg/dl POC Creatinine 1.2 (0.6-1.3) mg/dl Est Cr Clr Drug Dosing ml/min Est GFR ( Amer) ml/min Est GFR (Non-Af Amer) ml/min BUN/Creatinine Ratio (10-20) Glucose (70-99(Fasting)) mg/dl POC Glucose (other) 114 H (70-99) mg/dl Calcium (8.5-10.1) mg/dl POC Ioniz Calcium Lexi 1.30 (1.12-1.32) mmol/l Magnesium (1.7-2.4) mg/dl Total Bilirubin (0.2-1.0) mg/dl AST (13-39) U/L ALT (7-52) U/L Alkaline Phosphatase (34-104) U/L Troponin I High Sens (0-14) pg/ml Total Protein (6.0-8.3) gm/dl Albumin (3.4-5.0) gm/dl Globulin (2.5-4.0) gm/dl Albumin/Globulin Ratio (0.9-2) SARS-CoV-2, RNA, NAAT NEGATIVE (NEGATIVE) Administered Medications Discontinued Medications Acetaminophen (Acetaminophen 1000 Mg/100 Ml Iv) 1,000 mg IV NOW STA Stop: 06/03/22 15:24 Last Admin: 06/03/22 15:31 Dose: 1,000 mg Documented By: [facility] Sodium Chloride (Nss 1000ml) 500 mls @ 999 mls/hr IV .Q31M ONE Stop: 06/03/22 11:50 Last Infusion: 06/03/22 13:32 Dose: 0 mls/hr Documented By: Admin: 06/03/22 11:43 Dose: 999 mls/hr Documented By: [facility] Ioversol (Optiray 320 125ml) 120 ml IV ONCE ONE Stop: 06/03/22 12:25 Last Admin: 06/03/22 12:11 Dose: 120 ml Documented By: [facility] Ketorolac Tromethamine (Ketorolac Tromethamine 15 Mg/Ml Vial) 15 mg IV NOW STA Stop: 06/03/22 15:24 Last Admin: 06/03/22 15:31 Dose: 15 mg Documented By: [facility] Imaging Data Radiologist's Impression: Chest X-Ray 06/03/22 11:20 XR chest 1V portable HISTORY: 56 years-old Female Stroke Like Symptoms acute strokelike symptoms COMPARISON: 04/19/22 TECHNIQUE: AP view of the chest FINDINGS: Lung volumes are normal. Linear left basilar opacity favors atelectasis. There is no pneumothorax or pleural effusion. Cardiomegaly is unchanged. Mediastinal contours are normal. There is no evidence for pulmonary edema. IMPRESSION: No acute cardiopulmonary findings. ACT 112: Negative or not required by law. The above report was generated using voice recognition software. It may contain grammatical, syntax or spelling errors. Electronically signed by: Vikash Haynes M.D. 06/03/2022 12:[address] 06/03/22 11:20 CT OF THE HEAD WITHOUT CONTRAST CLINICAL HISTORY: Stroke Like Symptoms. Slurred speech. Facial droop. COMPARISON STUDY: Head CT January 02, 2022. MRI of the brain December 09, 2021. TECHNIQUE: Helical axial images of the head were obtained without IV contrast. Automated exposure control was utilized for the study. A dose lowering technique was utilized adhering to the principles of ALARA. FINDINGS: No acute intracranial hemorrhage, midline shift or mass effect is present. The ventricular system is unremarkable. The basal cisterns are patent. No extra-axial collections are present. There are no findings to suggest acute dural sinus thrombosis or acute territorial infarct. No significant calvarial abnormalities are present. Visualized portions of the sinuses and mastoid air cells are clear. IMPRESSION: No acute intracranial findings. ACT 112: Negative or not required by law. Electronically signed by: Cesar Melgar M.D. 06/03/2022 12:24 PM Head CTA 06/03/22 11:20 HEAD CTA HISTORY: Slurred speech. Stroke Like Symptoms TECHNIQUE: Multiaxial CT images of the head were performed following the intravenous administration of contrast to evaluate the major cerebral vessels. Maximum intensity projection images were also obtained. A dose lowering technique was utilized adhering to the principles of ALARA. COMPARISON: Head CTA 01/02/2022. FINDINGS: There is no mass, hematoma, midline shift, or acute infarct. Visuali zed intracranial internal carotid arteries, distal vertebral arteries, and basilar artery are widely patent. 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 The major dural venous sinuses are patent. 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 IMPRESSION: No significant stenosis, occlusion, or aneurysm within the [place]. ACT 112: Negative or not required by law. Electronically signed by: Jose Antonio Gonzalez M.D. 06/03/2022 12:45 PM Neck CTA 06/03/22 11:20 CT ANGIOGRAPHY OF THE NECK WITH CONTRAST CLINICAL HISTORY: Stroke Like Symptoms COMPARISON STUDY: CTA of the neck January 02, 2022. Technique: CT angiography of the carotid and vertebral arteries was obtained using Optiray and 3D reconstruction on an independent workstation. NASCET criteria was utilized. Automated exposure control was utilized for the study. A dose lowering technique was utilized adhering to the principles of ALARA. CT DOSE: 1040.05 mGy.cm Findings: Several left lobe thyroid nodules are again noted. These were shown on CT of January 02, 2022. Lung apices are unremarkable. There is no acute cervical spine fracture. No cervical lymphadenopathy is present. The bilateral common carotid, cervical internal carotid and vertebral arteries are patent. Left vertebral artery is diminutive on a congenital basis. Right vertebral artery is dominant. No stenosis, dissection or aneurysm is identified within the major vessels of the neck. IMPRESSION: No stenosis or dissection within the bilateral common carotid, cervical internal carotid or vertebral arteries. ACT 112: Negative or not required by law. Electronically signed by: Cesar Melgar M.D. 06/03/2022 12:28 PM Discharge Plan Visit Data Chief Complaint: Stroke/CVA Symptoms Stated Complaint: REF BY , SLURRED SPEECH, FELL, DROOPING IN FACE ED Provider: Scar Huang Patient Disposition: Admitted As Inpatient Condition: Fair Prescriptions Prescriptions: No Action Nurtec ODT 75 mg tablet,disintegrating 75 mg PO Q OTHER DAY PRN (Reason: migraine headache) 30 Days Qty: 8 0RF verapamil 180 mg capsule,ext rel. pellets 24 hr 180 mg PO DAILY Qty: 30 5RF levothyroxine 75 mcg tablet 75 mcg PO .COMPLEX Qty: 120 3RF Rx Instructions: 75 mcg PO 8 tabs weekly; lamotrigine 100 mg tablet 100 mg PO BID Qty: 60 3RF Rx Instructions: generic with no yellow dye riboflavin (vitamin B2) 100 mg tablet 100 mg PO BID folic acid 400 mcg tablet 0.4 mg PO BID coenzyme Q10 [Co Q-10] 1 dose PO BID magnesium 250 mg tablet 250 mg PO BID topiramate [Topamax] 25 mg tablet 25 mg PO BID 30 Days Qty: 60 1RF fluoxetine 20 mg capsule 60 mg PO QAM aspirin 81 mg Tablet,Chewable 81 mg PO DAILY guanfacine 2 mg tablet extended release 24 hr 2 mg PO HS cyanocobalamin (vitamin B-12) [Vitamin B-12] 1,000 mcg Tablet 1,000 mcg PO DAILY zinc 50 mg Tablet 50 mg PO DAILY cholecalciferol (vitamin D3) [Vitamin D3] 25 mcg (1,000 unit) Tablet 25 mcg PO DAILY atorvastatin 40 mg Tablet 40 mg PO QAM Qty: 30 0RF
[2022-06-03 11:53] LABS: iSTAT Creatinine 1.2 mg/dl (0.6-1.3); iSTAT Hemoglobin 12.6 g/dl (12.0-16.0); iSTAT Ionized Calcium 1.3 mmol/l (1.12-1.32); iSTAT Potassium 3.8 mmol/L (3.3-5.0)
[2022-06-03 11:58] LABS: Basophils # (auto) 0.06 K/uL (0-0.2); Basophils % (auto) 1.1 %; Eosinophils # (auto) 0.23 K/uL (0-0.50); Eosinophils % (auto) 4.2 %; Hematocrit (blood only) 37.8 % (34.1-44.9); Hemoglobin 12.6 g/dl (12.0-16.0); Immature Granulocytes # (auto) 0.03 K/uL (0.00-0.02); Immature Granulocytes % (auto) 0.6 %; Lymphocytes # (auto) 2.01 K/uL (1.2-3.4); Mean Corpuscular Hemoglobin 32.2 pg (25.0-34.0); Mean Corpuscular Hgb Conc 33.3 g/dL (32.0-36.0); Mean Corpuscular Volume 96.7 fL (80.0-100.0); Mean Platelet Volume 9.3 fL (9.4-12.3); Monocytes # (auto) 0.67 K/uL (0.24-0.82); Monocytes % (auto) 12.3 %; Neutrophils # (auto) 2.43 K/uL (1.4-6.5); Neutrophils % (auto) 44.8 %; Platelet Count 215 K/uL (130-400); RDW Coefficient of Variation 13.2 % (11.5-14.5); RDW Standard Deviation 46.7 fL (36.4-46.3); Red Blood Count 3.91 M/uL (3.93-5.22); White Blood Count 5.43 K/ul (4.8-10.8)
[2022-06-03 12:13] LABS: Partial Thromboplastin Time 26.2 Seconds (21.0-31.0); Prothrombin Time 10.6 Seconds (9.0-12.0)
--- NOTE | 2022-06-03 12:20 | XRay Report ---
XR chest 1V portable HISTORY: 56 years-old Female Stroke Like Symptoms acute strokelike symptoms COMPARISON: 04/19/22 TECHNIQUE: AP view of the chest FINDINGS: Lung volumes are normal. Linear left basilar opacity favors atelectasis. There is no pneumothorax or pleural effusion. Cardiomegaly is unchanged. Mediastinal contours are normal. There is no evidence fo r pulmonary edema. IMPRESSION: No acute cardiopulmonary findings. ACT 112: Negative or not required by law. The above report was generated using voice recognition software. It may contain grammatical, syntax o r spelling errors. Electronically signed by: Vikash Haynes M.D. 06/03/2022 12:18 PM
[2022-06-03] MEDS ORDERED: OPTIRAY 320 125ml IV ONE (12:24)
--- NOTE | 2022-06-03 12:26 | CT Scan Report ---
CT OF THE HEAD WITHOUT CONTRAST CLINICAL HISTORY: Stroke Like Symptoms. Slurred speech. Facial droop. COMPARISON STUDY: Head CT January 02, 2022. MRI of the brain December 09, 2021. TECHNIQUE: Helical axial images of the head were obtained without IV contrast. Automated exposure con trol was utilized for the study. A dose lowering technique was utilized adhering to the principles o f ALARA. FINDINGS: No acute intracranial hemorrhage, midline shift or mass effect is present. The ventricular system is unremarkable. The basal cisterns are patent. No extra-axial collections are present. There are no findings to suggest acute dural sinus thrombosis or acute territorial infarct. No significant calvarial abnormalities are present. Visualized portions of the sinuses and mastoid air cells are elsy ar. IMPRESSION: No acute intracranial findings. ACT 112: Negative or not required by law. Electronically signed by: Cesar Melgar M.D. 06/03/2022 12:24 PM
--- NOTE | 2022-06-03 12:31 | CT Scan Report ---
CT ANGIOGRAPHY OF THE NECK WITH CONTRAST CLINICAL HISTORY: Stroke Like Symptoms COMPARISON STUDY: CTA of the neck January 02, 2022. Technique: CT angiography of the carotid and vertebral arteries was obtained using Optiray and 3D rec onstruction on an independent workstation. NASCET criteria was utilized. Automated exposure control was utilized for the study. A dose lowering technique was utilized adhering to the principles of ALA RA. CT DOSE: 1040.05 mGy.cm Findings: Several left lobe thyroid nodules are again noted. These were shown on CT of January 02. Lung apices are unremarkable. There is no acute cervical spine fracture. No cervical lymphadenop athy is present. The bilateral common carotid, cervical internal carotid and vertebral arteries are p atent. Left vertebral artery is diminutive on a congenital basis. Right vertebral artery is dominant. No stenosis, dissection or aneurysm is identified within the major vessels of the neck. IMPRESSION: No stenosis or dissection within the bilateral common carotid, cervical internal carotid or vertebral arteries. ACT 112: Negative or not required by law. Electronically signed by: Cesar Melgar M.D. 06/03/2022 12:28 PM
[2022-06-03 12:36] LABS: Albumin Globulin Ratio 1.5 (0.9-2); Albumin Level 3.7 gm/dl (3.4-5.0); BUN Creatinine Ratio 14.9 (10-20); Bilirubin,Total 0.4 mg/dl (0.2-1.0); Calcium 9.1 mg/dl (8.5-10.1); Creatinine Clr Calc Pharmacy 65.4 ml/min; Est GFR (African American) 63.1 ml/min; Est GFR (Non-African American) 54.5 ml/min; Globulin 2.4 gm/dl (2.5-4.0); Potassium 3.7 mmol/L (3.5-5.1); Total Protein 6.1 gm/dl (6.0-8.3); Troponin I High Sensitivity 2.7 pg/ml (0-14)
--- NOTE | 2022-06-03 12:46 | CT Scan Report ---
HEAD CTA HISTORY: Slurred speech. Stroke Like Symptoms TECHNIQUE: Multiaxial CT images of the head were performed following the intravenous administration o f contrast to evaluate the major cerebral vessels. Maximum intensity projection images were also obta ined. A dose lowering technique was utilized adhering to the principles of ALARA. COMPARISON: Head CTA 01/02/2022. FINDINGS: There is no mass, hematoma, midline shift, or acute infarct. Visualized intracranial product management intern al carotid arteries, distal vertebral arteries, and basilar artery are widely patent. There is no sig nificant stenosis, occlusion, or aneurysm seen within the bilateral ACAs, MCAs, or desktop support manager. The major du ral venous sinuses are patent. 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 IMPRESSION: No significant stenosis, occlusion, or aneurysm within the [place]. ACT 112: Negative or not required by law. Electronically signed by: Jose Antonio Gonzalez M.D. 06/03/2022 12:45 PM
--- NOTE | 2022-06-03 13:53 | History & Physical Report ---
Date of Service June 03, 2022 Assessment & Plan (1) Stroke-like episode: Plan: Many prior episodes similar to this one with multiple CVA work-ups. So far, no indication of any CVAs from my reading. Thought to be complex migraines (despite not having headaches with the episodes). Conversion disorder also noted as possibility in the chart. Last neurology note indicates referral to [facility], though I am not clear why from the note. - Discussed with on-call neurologist -> Will obtain brain MRI. If no CVA, no need to consult. - Continue home ASA, statin at present doses - ANALYTICAL TECH consult for slurred speech. Patient reports she was working on arranging o/p ANALYTICAL TECH services to help with her speech. Can also assess swallow safety, though patient denies any episodes of aspiration. (2) Fall: Plan: Reports falling 5 times just this morning. Uses a walker sometimes, but then also sometimes just uses brown/furniture. - PT/OT - Patient reports desire to return home, so we may only be able to arrange/e xpedite home services. (3) Complicated migraine: Plan: Has followed with [facility] [place] [facility] for several years. - Continue home lamotrigine, magnesium, riboflavin, topiramate, and verapamil for migraine ppx - Tylenol PRN (4) Hypothyroidism: Plan: TSH was 1.0 in 02/2022. No signs/symptoms of hypo-/hyperthyroidism. - Continue home Synthroid (atypical dosing, but essentially equivalent to 85.7 mcg daily) (5) DVT prophylaxis: Plan: Higher risk as she has prior PE (though in context of Covid in 10/2020). No longer on anticoagulation. - Lovenox 40 mg SQ daily History of Present Illness Primary Care Provider: IRIS Pandey 56 yo F w/ hx of complex migraines who presents with stroke-like symptoms, consistent with her prior episodes. Patient has had multiple prior episodes with multiple stroke work-ups in the hospital. None of them have shown any evidence of CVA, and she has been diagnosed with complex migraines. Her latest attack started last night around 7pm with similar symptoms to prior episodes. This includes slurred speech, left facial droop with drooling, left-sided weakness and loss of coordination, and some trouble swallowing. Interestingly, she actually denies any aspiration despite the trouble swallowing. She has no exacerbating or alleviating factors. She feels the drooling has improved and she feels her swallow has returned to normal. However, she reports ongoing dizziness when she stands up. She has fallen 5 times this morning. She has a walker at home that helps, but she also just uses the brown sometimes as well. She otherwise denies any ROS, including no fevers/chills, chest pain, shortness of breath, abdominal pain, nausea, or vomiting, no diarrhea, constipation, or dysuria. Allergies Allergy/AdvReac Type Severity Reaction Status Date / Time lisinopril Allergy Severe Swelling Verified 03/05/22 08:20 of Lip/Tongue/Throat yellow dye Allergy Intermediate Tremor Verified 03/05/22 08:20 latex Allergy Mild Rash Verified 03/05/22 08:20 Sulfa (Sulfonamide Allergy Mild Rash Verified 03/05/22 08:20 Antibiotics) levothyroxine Allergy Unknown Unknown Verified 03/05/22 08:20 citalopram AdvReac Mild WORSENING Verified 03/05/22 08:20 TREMORS/RASH gluten AdvReac Mild GI Symptoms Verified 03/05/22 08:20 UNKNOWN INHALER AdvReac TREMORS Uncoded 03/05/22 08:20 Home Medications Medication Instructions Recorded Confirmed Type fluoxetine 20 mg capsule 60 mg PO QAM 05/07/20 03/05/22 History cholecalciferol (vitamin D3) 25 25 mcg PO DAILY 11/30/21 03/05/22 History mcg (1,000 unit) tablet (Vitamin D3) atorvastatin 40 mg tablet 40 mg PO QAM #30 tabs 12/01/21 03/05/22 Rx aspirin 81 mg chewable tablet 81 mg PO DAILY 12/08/21 03/05/22 History guanfacine 2 mg tablet,extended 2 mg PO HS 12/08/21 03/05/22 History release 24 hr zinc 25 mg tablet 0 mg PO DAILY 12/08/21 03/05/22 History coenzyme Q10 [Co Q-10] PO BID 01/20/22 03/05/22 History folic acid 400 mcg tablet 0.4 mg PO BID 01/20/22 03/05/22 History magnesium 250 mg tablet 250 mg PO BID 01/20/22 03/05/22 History mecobalamin (vitamin B12) PO BID 01/20/22 03/05/22 History riboflavin (vitamin B2) 100 mg 100 mg PO BID 01/20/22 03/05/22 History tablet rimegepant 75 mg disintegrating 75 mg PO Q OTHER DAY PRN migraine 03/05/22 Rx tablet (Nurtec ODT) headache 30 days #8 tabs topiramate 25 mg tablet (Topamax) 25 mg PO BID 30 days #60 tabs 03/05/22 03/05/22 Rx verapamil 180 mg 24 hr 180 mg PO DAILY #30 caps 03/23/22 Rx capsule,extended release levothyroxine 75 mcg tablet 75 mcg PO .COMPLEX #120 tabs 04/28/22 Rx lamotrigine 100 mg tablet 100 mg PO BID #60 tabs 06/01/22 Rx 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 Hearing loss in ultra-high frequencies History of colon polyps History of congenital diaphragmatic hernia SURGICAL REPAIR 01/04/2019 [facility] History of COVID-19 10/26/2020 @ [facility]--shortness of breathe, pneumonia, blood clot--was hospitalized at [facility] for 4 days, not intubated--no issues now History of endometriosis Hypothyroidism Liver cyst Migraine with aura and without status migrainosus, not intractable Morbid obesity Nausea Right sided abdominal pain SBO (small bowel obstruction) Seasonal affective disorder Shoulder pain, left Tinnitus, bilateral TMJ locking Vitamin B12 deficiency Surgical History History of breast biopsy History of section History of colonoscopy History of dilatation and curettage History of endometrial ablation History of esophagogastroduodenoscopy (EGD) History of herniorrhaphy UMBILICAL History of Ana M fundoplication 01/04/2019 [facility] History of tooth extraction Nausea and vomiting after administration of anesthetic agent Status post biopsy of thyroid gland Status post JOSE-BSO Family History Son Family history of reaction to anesthesia Environmental allergies Father Family history of reaction to anesthesia PONV Father Family history of diabetes mellitus Mother Family history of diabetes mellitus Family hx of colon cancer Coronary heart disease Heart disease Mother Family history of esophageal cancer UTERINE CANCER W/ METS TO ESOPHAGUS AND LUNG Grandmother (Maternal) Ovarian cancer Grandfather (Paternal) Lung cancer smoker Liver cancer Heart disease Aunt Hypertension maternal Other No family history of adverse response to anesthesia No family history of bleeding disorder Social History Smoking Status: Never smoker Second Hand Exposure: No; Hx Alcohol Use: No Hx Substance Use: No Preferred Language: Tajik Communication Ability: Effective Section Beamer Required: No Beliefs That Will Affect Care: None marital status: Single Current Living Situation: Family Current Living Situation Comment: Daughter and grandson lives with patient current occupational status: employed 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 Feels Safe at Home: Yes Assistive Devices: Glasses Review of Systems Review of Systems: All systems reviewed & are unremarkable except as noted in HPI & below Physical Exam Constitutional: WD/WN, vitals as above Eyes: EOM intact bilaterally; no conjunctival abnormality ENMT: external ear and nose normal, oropharynx normal Neck: trachea midline, no thyromegaly normal visual inspection Respiratory: normal respiratory effort, lungs clear to auscultation no respiratory distress Cardiovascular: RRR, no murmur, no edema Gastrointestinal (Abdomen): Inspection/Auscultation: abdomen normal to inspection; abdomen not distended Percussion/Palpation: abdomen soft; abdomen nontender, no guarding and abdomen not rigid Musculoskeletal: no cyanosis or clubbing, extremities motor strength 5/5 Skin: no rashes, warm and dry Neurologic: moves all extremities and awake Speech / Cognition: + abnormal speech (Slurred speech, but no halting with speech); no receptive aphasia and normal cognition Motor/Sensory: no tremor, normal movement and no sensory deficit Left-sided facial droop Psychiatric: Orientation: alert, oriented to person and cooperative Results & Data Results & Data ([facility]) Vital Signs (Past 12 Hours) Vital Signs Temp Pulse Pulse Resp BP BP Pulse Ox 06/03/22 11:47 61 14 153/85 H 98 06/03/22 11:45 96 06/03/22 11:06 36.0 C L 67 20 131/87 100 O2 Del Method 06/03/22 11:47 Room Air 06/03/22 11:45 Room Air 06/03/22 11:06 Room Air Code Status & VTE Plan VTE Prophylaxis Plan VTE Prophylaxis will be ordered: Yes PG Care Time/CCT Total # of Minutes Spent Total Time Spent with Patient: Total time spent is greater than 50% in coordination of care (as documented) at patient's floor/unit and/or counseling patient: Coding Level of Care Code 34412 Initial Inpt Care Lvl 3 Diagnoses Stroke-like episode R29.90 Fall W19.XXXA Complicated migraine G43.109 Hypothyroidism E03.9 DVT prophylaxis Z29.9
[2022-06-03] MEDS ORDERED: ACETAMINOPHEN 1000 MG/100 ML IV IV STA (15:23)
[2022-06-03] MEDS ORDERED: KETOROLAC TROMETHAMINE 15 MG/ML VIAL IV STA (15:23)
[2022-06-03 15:31] LABS: Appearance Urine Clear (Clear); Bilirubin Urine Negative (Negative); Blood Urine Negative (Negative); Color Urine Yellow; Glucose Urine UA Negative (Negative); Ketones Urine Negative (Negative); Leukocyte Esterase Urine Negative (Negative); Nitrite Urine Negative (Negative); Protein Urine Negative (Negative); Specific Gravity Urine > 1.045 (1.000-1.030); Urobilinogen Urine Negative (Negative); pH Urine 7.5 (4.5-7.5)
--- NOTE | 2022-06-03 15:58 | Electrocardiogram Report ---
Test Reason : Blood Pressure : / mmHG Vent. Rate : 063 BPM Atrial Rate : 063 BPM P-R Int : 160 ms QRS Dur : 082 ms QT Int : 446 ms P-R-T Axes : 260 009 -21 degrees QTc Int : 456 ms Unusual P axis, possible ectopic atrial rhythm Nonspecific T wave abnormality Abnormal ECG When compared with ECG of 19-APR-2022 08:08, Ectopic atrial rhythm has replaced Sinus rhythm Nonspecific T wave abnormality now evident in Anterolateral leads Confirmed by Marcus Montes ([id number]) on 06/03/2022 3:57:28 PM Referred By: Jh Garcia Confirmed By:Marcus Montes
[2022-06-03] MEDS ORDERED: ONDANSETRON INJ 2 MG/ML 2 ML VIAL IV PRN (16:20)
--- NOTE | 2022-06-03 19:28 | Magnetic Resonance Report ---
MR brain wo con HISTORY: 56 years-old Female Stroke-like symptoms (slurred speech, left facial acute strokelike symp toms COMPARISON: CT head of same PA, brain MRI 12/09/2021 TECHNIQUE: Multiplanar multisequence MRI of the brain was obtained without the use of IV contrast. FINDINGS: District Commercial Superintendent localizer images demonstrate no gross extracranial abnormality. There is no restricted diffusio n to suggest acute or subacute infarct. Midline structures appear unremarkable. Partially empty sella . Motion degraded exam. There is no acute intracranial hemorrhage, midline shift, abnormal extra-axia l collection, hydrocephalus or intracranial mass. No pathologic blooming artifact. There are a few pu nctate foci of T2/FLAIR prolongation of the subcortical white matter of the cerebral hemispheres, lik fredis of no clinical significance. The cerebral venous sinuses and major arterial flow voids appear pat ent. The skull, orbits and soft tissues are unremarkable.Trace fluid surrounds the subarachnoid space s of the optic nerves. There is no flattening of the posterior globes. IMPRESSION: No acute intracranial abnormality. No acute or subacute infarct. ACT 112: Negative or not required by law. The above report was generated using voice recognition software. It may contain grammatical, syntax o r spelling errors. Electronically signed by: Vikash Haynes M.D. 06/03/2022 7:27 PM
[2022-06-03] MEDS: ACETAMINOPHEN 325 MG TAB PO PRN (21:28)
[2022-06-03] MEDS: TOPIRAMATE 25 MG TAB PO SCH (21:29)
[2022-06-03] MEDS: FOLIC ACID 400 MCG TAB PO SCH (21:29)
[2022-06-03] MEDS: lamoTRIgine 100 MG TAB PO SCH (21:29)
[2022-06-04 06:07] LABS: Hematocrit (blood only) 37.7 % (34.1-44.9); Hemoglobin 12.6 g/dl (12.0-16.0); Mean Corpuscular Hemoglobin 32.4 pg (25.0-34.0); Mean Corpuscular Hgb Conc 33.4 g/dL (32.0-36.0); Mean Corpuscular Volume 96.9 fL (80.0-100.0); Mean Platelet Volume 9.3 fL (9.4-12.3); Platelet Count 197 K/uL (130-400); RDW Coefficient of Variation 13.2 % (11.5-14.5); RDW Standard Deviation 46.9 fL (36.4-46.3); Red Blood Count 3.89 M/uL (3.93-5.22); White Blood Count 4.35 K/ul (4.8-10.8)
[2022-06-04 06:35] LABS: Calcium 8.5 mg/dl (8.5-10.1); Creatinine Clr Calc Pharmacy 69.6 ml/min; Est GFR (African American) 68.2 ml/min; Est GFR (Non-African American) 58.8 ml/min; Potassium 3.6 mmol/L (3.5-5.1)
[2022-06-04] MEDS: LEVOTHYROXINE SODIUM 75 MCG TABLET PO SCH (06:37)
[2022-06-04] MEDS: FOLIC ACID 400 MCG TAB PO SCH ×2 (08:14→19:58)
[2022-06-04] MEDS: TOPIRAMATE 25 MG TAB PO SCH ×2 (08:14→19:58)
[2022-06-04] MEDS: lamoTRIgine 100 MG TAB PO SCH ×2 (08:14→19:57)
[2022-06-04] MEDS: ACETAMINOPHEN 325 MG TAB PO PRN ×3 (08:19→21:02)
[2022-06-04] MEDS: ATORVASTATIN 40 MG TAB PO SCH (08:38)
[2022-06-04] MEDS: FLUoxetine HCL 20 MG CAP PO SCH (08:38)
[2022-06-04] MEDS: ASPIRIN 81 MG ECTAB PO SCH (08:38)
[2022-06-04] MEDS: VERAPAMIL HCL 180 MG TABCR PO SCH (08:38)
[2022-06-04] MEDS: ENOXAPARIN INJ 40 MG/0.4 ML SYR SQ SCH (08:38)
--- NOTE | 2022-06-04 17:17 | Hospitalist Progress Note ---
Date of Service June 04, 2022 Assessment & Plan (1) Stroke-like episode: Plan: #Stroke-like episode #migraine (induced symptoms) #Fall -CT head, head and neck CTA, Brain MRI were all negative. -Many prior episodes similar to this one with multiple CVA work-ups. So far, no indication of any CVAs. -Last neurology outpatient note indicates referral to [facility] -Continue home ASA and statin -PT/OT consulted. OT recommends inpatient rehab for imbalance. -Neurology consulted for imbalance and slurred speech for any new input. -Continue home lamotrigine, magnesium, riboflavin, topiramate, and verapamil for migraine ppx (2) Fall: (3) Complicated migraine: (4) Hypothyroidism: (5) DVT prophylaxis: Admission and Anticipated Discharge Date Admission Date: June 03, 2022 Supervising Physician Co-Signing Physician Notes Resident Physician Supervision Note: I independently interviewed and examined the patient and verified the portillo history and physical, reviewed labs and image studies and agree with resident Dr. Kothari findings and care plan. Subjective Patient is a 56 y/o female with PMHx of complex migraines who presents with stroke-like symptoms, consistent with her prior episodes. Patient has had multiple prior episodes with multiple stroke work-ups in the hospital. None of them have shown any evidence of CVA, and she has been diagnosed with complex migraines. Her latest attack started last night around 7pm with similar symptoms to prior episodes. This includes slurred speech, left facial droop with drooling, left-sided weakness and loss of coordination, and some trouble swallowing. She also reports numerous falls over the past 24 hours. Physical Exam Constitutional: WD/WN, vitals as above Eyes: EOM intact bilaterally; no conjunctival abnormality ENMT: external ear and nose normal, oropharynx normal Neck: trachea midline, no thyromegaly normal visual inspection Respiratory: normal respiratory effort, lungs clear to auscultation no respiratory distress Cardiovascular: RRR, no murmur, no edema Gastrointestinal (Abdomen): Inspection/Auscultation: abdomen normal to inspection; abdomen not distended Percussion/Palpation: abdomen soft; abdomen nontender, no guarding and abdomen not rigid Musculoskeletal: no cyanosis or clubbing, extremities motor strength 5/5 Skin: no rashes, warm and dry Neurologic: moves all extremities and awake Speech / Cognition: + abnormal speech (Slurred speech, but no halting with speech); no receptive aphasia and normal cognition Motor/Sensory: no tremor, normal movement and no sensory deficit Psychiatric: Orientation: alert, oriented to person and cooperative Results & Data Results & Data ([facility]) Vital Signs (Past 12 Hours) Vital Signs Temp Pulse Pulse Resp BP BP Pulse Ox 06/04/22 15:50 36.6 C 61 16 96/62 L 97 06/04/22 15:00 63 06/04/22 11:33 36.5 C 62 16 109/70 97 06/04/22 07:18 36.6 C 16 113/76 96 06/04/22 07:06 53 L O2 Del Method 06/04/22 15:50 Room Air 06/04/22 15:00 06/04/22 11:33 Room Air 06/04/22 07:18 Room Air 06/04/22 07:06 Resident Activity Tracking Resident Involvement: Resident Care Provided Care Provided: Adult Hospital Medicine
[2022-06-05] MEDS ORDERED: KETOROLAC TROMETHAMINE 15 MG/ML VIAL IV ONE ×2 (01:01→06:10)
[2022-06-05] MEDS: ACETAMINOPHEN 325 MG TAB PO PRN (03:58)
[2022-06-05] MEDS: LEVOTHYROXINE SODIUM 75 MCG TABLET PO SCH (05:56)
[2022-06-05 07:29] LABS: Hematocrit (blood only) 37.8 % (34.1-44.9); Hemoglobin 12.5 g/dl (12.0-16.0); Mean Corpuscular Hgb Conc 33.1 g/dL (32.0-36.0); Mean Corpuscular Volume 96.7 fL (80.0-100.0); Mean Platelet Volume 9.3 fL (9.4-12.3); Platelet Count 197 K/uL (130-400); RDW Coefficient of Variation 13.1 % (11.5-14.5); RDW Standard Deviation 47.1 fL (36.4-46.3); Red Blood Count 3.91 M/uL (3.93-5.22); White Blood Count 4.29 K/ul (4.8-10.8)
[2022-06-05] MEDS: lamoTRIgine 100 MG TAB PO SCH ×2 (07:45→20:18)
[2022-06-05] MEDS: ASPIRIN 81 MG ECTAB PO SCH (07:45)
[2022-06-05] MEDS: ATORVASTATIN 40 MG TAB PO SCH (07:45)
[2022-06-05] MEDS: FOLIC ACID 400 MCG TAB PO SCH ×2 (07:45→20:18)
[2022-06-05] MEDS: TOPIRAMATE 25 MG TAB PO SCH (07:45)
[2022-06-05] MEDS: ENOXAPARIN INJ 40 MG/0.4 ML SYR SQ SCH (07:46)
[2022-06-05] MEDS: VERAPAMIL HCL 180 MG TABCR PO SCH (07:46)
[2022-06-05] MEDS: FLUoxetine HCL 20 MG CAP PO SCH (07:46)
[2022-06-05 08:00] LABS: BUN Creatinine Ratio 15.4 (10-20); Calcium 8.7 mg/dl (8.5-10.1); Creatinine Clr Calc Pharmacy 60.6 ml/min; Est GFR (African American) 57.6 ml/min; Est GFR (Non-African American) 49.7 ml/min; Potassium 3.9 mmol/L (3.5-5.1)
--- NOTE | 2022-06-05 10:39 | Neurology Consultation ---
Date of Consultation June 05, 2022 Assessment & Plan (1) Stroke-like episode: (2) Complicated migraine: (3) Gait disorder: Plan 56-year-old female with a longstanding history of migraine, development of complicated migraine over the past few years. Minimal nonspecific white matter changes on brain MRI, no hydrocephalus, unremarkable previous cervical spine MRI. Unremarkable CT angiography. Fairly unremarkable cardiac evaluation, no evidence for atrial fibrillation or other significant dysrhythmia. Incidental prominent joe terminalis and prominent eustachian valve identified on cardiac MRI this past February. Unremarkable hypercoagulable evaluation previously. Negative inflammatory markers previously. Patient is currently at her baseline although continues to exhibit an awkward lurching type gait. Although I think complicated migraine remains a likely diagnosis in this patient, an atypical presentation for multiple sclerosis is also possible, especially in light of her progressive gait deterioration with recurrent falls over the previous year. She does have a few nonspecific periventricular and subcortical white matter T2/FLAIR hyperintensities. Yet, nothing in the cervical spine previously. I think further evaluation for possible multiple sclerosis in this patient is reasonable. This particular testing could be arranged in the outpatient setting given patient's current clinical stability, return to baseline. In that context, would recommend a gadolinium enhanced MRI of the thoracic spine, would also consider lumbar spine MRI to exclude significant spinal stenosis. Would also be reasonable to obtain a lumbar puncture with MS panel. Again, this particular testing could all be done in the outpatient setting with a lumbar puncture to be done under fluoroscopy with radiology. Although I doubt she is having recurrent TIA, she should continue with daily low-dose aspirin and atorvastatin. As these episodes may very well be migrainous/complicated migraine, I would recommend increasing her dosage of topiramate to 50 mg twice daily prior to discharge. She may continue with lamotrigine 100 mg twice daily and verapamil ER 180 mg daily. Her heart rate tends to run low at times and she may not tolerate larger dosages of verapamil. She may continue with Nurtec ODT every other day for migraine prevention as she does endorse improvement in her overall migraine burden since starting this treatment I does not think her episodes of hemiplegia or hemiplegic migraine have escalated. However, I also discussed the potential to switch from Nurtec ODT to an alternative CGRP flower such as Ajovy or Emgality going forward. May also not be completely unreasonable to discontinue CGRP blockers altogether in favor of Botox for chronic migraine. No further immediate recommendations. 1. Increase topiramate to 50 mg twice daily 2. Continue verapamil, lamotrigine, and Nurtec ODT. 3. Plan for outpatient evaluation for possible multiple sclerosis including MRI of the thoracic spine to include lumbar spine to exclude lumbar spinal stenosis, and lumbar puncture with MS panel. These test can be coordinated with neurology in the outpatient setting. 4. Consider Botox as an alternative treatment for chronic migraine, instead of Nurtec ODT taken every other day. 5. Patient may follow-up with either Dr. Garcia or one of our ANGELICA's in the outpatient setting to assist with coordinating the above work-up. History of Present Illness Reason for Consultation: Weakness Requesting Physician: Scar Kothari DO Attending Physician: Selam Daly DO History of Present Illness The patient is a 56-year-old female who presented to the emergency department on June 03, 2022 with a chief complaint of slurred speech with associated weakness affecting the left arm and leg. She developed a posterior headache the following day. She is known to the neurology service and has had similar episodes in the past with fairly unremarkable neuroimaging evaluations. Due to her persistent symptoms, she contacted Dr. Garcia who referred her to the emergency department for further assessment. Patient's last similar episode occurred this past November, I saw her in consultation in the hospital at that time as well. She is felt to probably have complicated migraine. She does remark that her symptoms are improved this morning although she continues to have difficulty with her walking which has been a chronic problem over the past year, and complicated by several falls. She complains of high-frequency migrainous headache, nearly every day, but feeling improved with Nurtec ODT, topiramate, lamotrigine, and verapamil. The patient had also seen Dr. Zaragoza in neurological consultation at the [facility] in August 2019 for identical symptoms. She has followed periodically with Dr. Garcia for over 10 years. She endorses a history of recurrent episodes of slurred speech and left-sided weakness that sometimes occur with her headaches. She denies a history of seizures or convulsive episodes. Patient's motor symptoms tend to occur abruptly and are not associated with tonic stiffening or shaking of the limbs or a so-called "Jacksonian march." She has had an unremarkable EEG in the past but does remark that she has a daughter with complex partial seizures. The patient does not have a known history of optic neuritis or transverse myelitis. However, as above, she does endorse progressive decline in gait/ambulatory function, especially over the past year, complicated by occasional falls. She has a cousin with multiple sclerosis. She has had multiple brain MRIs completed which have been negative for acute or subacute stroke. The studies do reveal a few foci of subcortical and periventricular T2/FLAIR prolongation, nonspecific. She had a cervical spine MRI completed this past January that was negative for any obvious foci of demyelination. She has had unremarkable CT angiography of the head and neck on several occasions. She has also had unremarkable hypercoagulable testing as well as negative inflammatory markers. In addition to prophylactic treatment for complicated migraine which includes several anticonvulsants, verapamil, and Nurtec, she takes daily low-dose aspirin and atorvastatin. She had unremarkable 30-day cardiac event monitoring this past December. An echocardiogram completed this past November revealed mildly dilated left atrium, no interatrial shunt with injection of contrast, there was an echodensity in the right atrium suggestive of an atrial mass or prominent joe terminalis. She saw [facility] cardiology this past January regarding the right atrial mass, unclear if represents a prominent eustachian ridge at that time. Had discussed having a cardiac MRI completed. The cardiac MRI was done at [facility] on February 19, 2022 and revealed a prominent joe terminalis and a prominent eustachian valve. The left atrium was mildly enlarged. Allergies Allergy/AdvReac Type Severity Reaction Status Date / Time lisinopril Allergy Severe Swelling Verified 06/03/22 15:16 of Lip/Tongue/Throat yellow dye Allergy Intermediate Tremor Verified 06/03/22 15:16 latex Allergy Mild Rash Verified 06/03/22 15:16 Sulfa (Sulfonamide Allergy Mild Rash Verified 06/03/22 15:16 Antibiotics) levothyroxine Allergy Unknown Unknown Verified 06/03/22 15:16 citalopram AdvReac Mild WORSENING Verified 06/03/22 15:16 TREMORS/RASH gluten AdvReac Mild GI Symptoms Verified 06/03/22 15:16 UNKNOWN INHALER AdvReac TREMORS Uncoded 06/03/22 15:16 Home Medications Medication Instructions Recorded Confirmed Type fluoxetine 20 mg capsule 60 mg PO QAM 05/07/20 06/03/22 History cholecalciferol (vitamin D3) 25 25 mcg PO DAILY 11/30/21 06/03/22 History mcg (1,000 unit) tablet (Vitamin D3) atorvastatin 40 mg tablet 40 mg PO QAM #30 tabs 12/01/21 06/03/22 Rx aspirin 81 mg chewable tablet 81 mg PO DAILY 12/08/21 06/03/22 History guanfacine 2 mg tablet,extended 2 mg PO HS 12/08/21 06/03/22 History release 24 hr coenzyme Q10 [Co Q-10] 1 dose PO BID 01/20/22 06/03/22 History folic acid 400 mcg tablet 0.4 mg PO BID 01/20/22 06/03/22 History magnesium 250 mg tablet 250 mg PO BID 01/20/22 06/03/22 History riboflavin (vitamin B2) 100 mg 100 mg PO BID 01/20/22 06/03/22 History tablet rimegepant 75 mg disintegrating 75 mg PO Q OTHER DAY PRN migraine 03/05/22 06/03/22 Rx tablet (Nurtec ODT) headache 30 days #8 tabs topiramate 25 mg tablet (Topamax) 25 mg PO BID 30 days #60 tabs 03/05/22 06/03/22 Rx verapamil 180 mg 24 hr 180 mg PO DAILY #30 caps 03/23/22 06/03/22 Rx capsule,extended release levothyroxine 75 mcg tablet 75 mcg PO .COMPLEX #120 tabs 04/28/22 06/03/22 Rx lamotrigine 100 mg tablet 100 mg PO BID #60 tabs 06/01/22 06/03/22 Rx cyanocobalamin (vitamin B-12) 1,000 mcg PO DAILY 06/03/22 06/03/22 History 1,000 mcg tablet (Vitamin B-12) zinc 50 mg tablet 50 mg PO DAILY 06/03/22 06/03/22 History Patient History Medical History Complicated migraine Left-sided weakness, facial droop Costochondritis Diaphragmatic hernia Dizziness GERD (gastroesophageal reflux disease) 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 Hearing loss in ultra-high frequencies History of colon polyps History of congenital diaphragmatic hernia SURGICAL REPAIR 01/04/2019 [facility] History of COVID-19 10/26/2020 @ [facility]--shortness of breathe, pneumonia, blood clot--was hospitalized at [facility] for 4 days, not intubated--no issues now History of endometriosis Hypothyroidism Liver cyst Migraine with aura and without status migrainosus, not intractable Morbid obesity Nausea Right sided abdominal pain SBO (small bowel obstruction) Seasonal affective disorder Shoulder pain, left Tinnitus, bilateral TMJ locking Vitamin B12 deficiency Surgical History History of breast biopsy History of section History of colonoscopy History of dilatation and curettage History of endometrial ablation History of esophagogastroduodenoscopy (EGD) History of herniorrhaphy UMBILICAL History of Ana M fundoplication 01/04/2019 [facility] History of tooth extraction Nausea and vomiting after administration of anesthetic agent Status post biopsy of thyroid gland Status post JOSE-BSO Family History Son Family history of reaction to anesthesia Environmental allergies Father Family history of reaction to anesthesia PONV Father Family history of diabetes mellitus Mother Family history of diabetes mellitus Family hx of colon cancer Coronary heart disease Heart disease Mother Family history of esophageal cancer UTERINE CANCER W/ METS TO ESOPHAGUS AND LUNG Grandmother (Maternal) Ovarian cancer Grandfather (Paternal) Lung cancer smoker Liver cancer Heart disease Aunt Hypertension maternal Other No family history of adverse response to anesthesia No family history of bleeding disorder Social History Smoking Status: Never smoker Second Hand Exposure: No; Hx Alcohol Use: No Hx Substance Use: No Preferred Language: Turkish Communication Ability: Impaired Mesh Cutter Required: No Beliefs That Will Affect Care: None marital status: Single Current Living Situation: Alone Current Living Situation Comment: Daughter and grandson lives with patient current occupational status: employed 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 Feels Safe at Home: Yes Assistive Devices: Cane and Walker Review of Systems Constitutional: no fever and no chills Eyes: no blind spots and no diplopia Ear, Nose, Mouth, Throat: no ear pain and no tinnitus Respiratory: no cough and no dyspnea Cardiovascular: no chest pain and no palpitations Gastrointestinal: no nausea and no vomiting Genitourinary: no dysuria Musculoskeletal: no back pain and no neck pain Integumentary: no rash Neurologic: as per Subjective / HPI, + gait abnormality, + localized weakness and + headache(s); no seizure-like activity and no syncope Psychiatric: no depression and no anxiety Hematologic / Lymphatic: no easy bleeding and no easy bruising Exam (Neuro) Constitutional: well developed and well nourished; no acute distress Eyes: normal visual costello by confrontation, PERRL, normal accommodation and EOM intact bilaterally; no fundoscopic abnormality, no nystagmus and no papilledema Cardiovascular: Vessels: normal carotid upstroke; no carotid bruit Neurologic: Oriented to:: Person, Place and Time Memory: Short Term Intact and Remote Intact Attention: Span Intact and Concentration Intact Language: Naming Objects and Repeating Phrases Speech Fluency: negative Dysarthria Speech Aphasia: negative Aphasia Fund of Knowledge: Current Events, Past History and Vocabulary Cranial Nerves: Normal II (Visual costello full to confrontation, visual acuity normal), III, IV, (Pupils equal round reactive to light and accommodation, eye movements normal), V (Facial sensation intact), VII (There is no facial droop or weakness), VIII (Hearing intact), IX, X (Palate elevates to midline), XI (Shoulder shrug intact) and XII (Tongue protrudes to midline) Motor Strength: Normal Lower Extremities and Normal Upper Extremities; negative Pronator Drift Motor Tone: Normal Lower Extremities and Normal Upper Extremities Muscle Bulk/Involuntary Movements: No Involuntary Movements; negative Muscle Atrophy Sensation: Light Touch Intact, Pain/Temperature Intact, Vibration Intact and Proprioception Intact Coordination: Normal; negative Limited Balance, Dysdiadochokinesia, Finger-Nose Abnormal or Heel-Santiago Abnormal Deep Tendon Reflexes: Rt Triceps: 2+, Lt Triceps: 2+, Rt Biceps: 2+, Lt Biceps: 2+, Rt Brachioradialis: 2+, Lt Brachioradialis: 2+, Rt Patellar: 2+, Lt Patellar: 2+, Rt Ankle: 2+ and Lt Ankle: 2+ Special Tests: negative Babinski Present Details: Gait is awkward, has a lurching functional appearance, not hemiparetic or ataxic, patient was able to get up from the bedside chair on her own, able to stand up in place without obvious difficulty. Results & Data ([facility]) Vital Signs (Past 12 Hours) Vital Signs Temp Pulse Pulse Resp BP Pulse Ox O2 Del Method 06/05/22 07:19 59 L 06/05/22 06:37 36.5 C 57 L 18 117/73 96 Room Air 06/05/22 03:22 36.7 C 58 L 18 106/68 96 Room Air 06/04/22 23:43 36.4 C L 56 L 18 119/73 95 Room Air Laboratory Results WBC 4.29, hemoglobin 12.5, hematocrit 37.8, MCV 96.7, platelet count 197, sodium 138, potassium 3.9, BUN 19, creatinine 1.23, glucose 89, calcium 8.7 Diagnostic Findings MRI of the brain completed June 03, 2022 negative for acute or subacute process. I did independently review the images as well as the radiologist interpretation of this test. No restricted diffusion, no blooming artifact, there are minimal scattered foci of T2/FLAIR prolongation, subcortical and primarily right periventricular region. No hydrocephalus. No Chiari malformation. CT angiography of the head and neck at that time unremarkable. An EEG completed December 17, 2021 revealed rare left temporal sharps of uncertain clinical significance, recommendation was to consider 48-hour ambulatory EEG monitoring if there is a strong clinical suspicion for seizure disorder. See HPI for other pertinent previous diagnostic studies. Coding Level of Care Code 89198 Initial Inpt Care Lvl 3 Diagnoses Stroke-like episode R29.90 Complicated migraine G43.109 Gait disorder R26.9
[2022-06-05] MEDS ORDERED: GADOBUTROL 65ML VIAL IV ONE (16:40)
--- NOTE | 2022-06-05 16:56 | Hospitalist Progress Note ---
Date of Service June 05, 2022 Assessment & Plan (1) Stroke-like episode: Plan: #Stroke-like episode #complex migraine (induced symptoms) #Fall -CT head, head and neck CTA, Brain MRI were all negative for ischemic stroke. -Many prior episodes similar to this one with multiple CVA work-ups. So far, no indication of any CVAs and low suspicion for recurrent TIA. -Last neurology outpatient note indicates referral to [facility] -Continue home ASA and statin -PT/OT consulted. OT recommends inpatient rehab for imbalance. -Continue home lamotrigine, magnesium, riboflavin, topiramate, and verapamil for migraine ppx -Neurology consulted for imbalance and slurred speech for any new input--increased topiramate to 50mg BID, evaluate for possible MS given her gait difficulty (MRI with contrast using MS protocol of the thoracic spine and LP. LP will likely be done as an outpatient unless she is here for an extended period of time as she waits for a bed for inpatient rehab). -Will continue to follow labs. -Plan to DC tomorrow (2) Fall: Plan: PT/OT (3) Complicated migraine: Plan: See above. (4) Hypothyroidism: Plan: Continue home levothyroxine. (5) DVT prophylaxis: Admission and Anticipated Discharge Date Admission Date: June 03, 2022 Supervising Physician Co-Signing Physician Notes Patient seen and examined independently of PGY-1 Dr. Kothari. Agree with history, exam findings, assessment and plan of care as outlined. In brief, Babita is a 56 year old female, known to me from the outpatient [facility], with history of complex migraine admitted with gait disturbance and complex migraine with stroke-like symptoms. Overnight, had a headache that responded well to toradol. She is agreeable to inpatient rehab for gait/balance. VS and nursing notes reviewed. Well appearing. CN II-XII in tact. Heart with regular rate and rhythm. No edema. Lungs are clear to auscultation throughout. Labs and imaging reviewed. 1. complex migraine with stroke-like symptoms. Imaging including CT Head, CTA Head and Neck, MRI brain without signs of ischemic stroke. Unlikely that this is recurrent TIA. Continue home ASA and statin. Concern for MS given gait issues. MRI ordered to evaluate. We are unable to do the LP to evaluate for MS here due to staffing, but this can be done as an outpatient. Appreciate neurology recommendations. Continue home lamictal, magnesium, riboflavin, topamax, and verapamil. 2. Fall. PT/OT. Recommending acute rehab. Appreciate CM assistance with insurance authorization etc. 3. Hypothyroid. TSH at goal. Continue home levothyroxine. Dispo: pending acute rehab bed. Subjective Patient was seen bedside this AM and has no complaints at this time. She did have an episode overnight of a headache that caused repeat slurred speech and left facial drooling. Symptoms have since resolved. Review of Systems Review of Systems: All systems reviewed & are unremarkable except as noted in HPI & below Physical Exam Constitutional: WD/WN, vitals as above Eyes: EOM intact bilaterally ENMT: external ear and nose normal, oropharynx normal Neck: trachea midline, no thyromegaly normal visual inspection Respiratory: normal respiratory effort, lungs clear to auscultation no respiratory distress Cardiovascular: RRR, no murmur, no edema Gastrointestinal (Abdomen): Inspection/Auscultation: abdomen normal to inspection; abdomen not distended Percussion/Palpation: abdomen soft; abdomen nontender, no guarding and abdomen not rigid Musculoskeletal: no cyanosis or clubbing, extremities motor strength 5/5 Skin: no rashes, warm and dry Neurologic: moves all extremities and awake Speech / Cognition: + abnormal speech (Slurred speech, but no halting with speech); no receptive aphasia and normal cognition Motor/Sensory: no tremor, normal movement and no sensory deficit Psychiatric: Orientation: alert, oriented to person and cooperative Results & Data Results & Data ([facility]) Vital Signs (Past 12 Hours) Vital Signs Temp Pulse Pulse Resp BP Pulse Ox O2 Del Method 06/05/22 14:55 74 06/05/22 11:00 36.3 C L 70 18 129/86 97 Room Air 06/05/22 07:19 59 L 06/05/22 06:37 36.5 C 57 L 18 117/73 96 Room Air
--- NOTE | 2022-06-05 17:31 | Magnetic Resonance Report ---
MR lumbar spine wo/w con CLINICAL HISTORY: gait instability, eval for spinal stenosis, MS. TECHNIQUE: Multiplanar multisequence images of the Lumbar Spine were performed with and without IV c ontrast. Contrast Volume: 10.5 ml of Gadavist COMPARISON: None. FINDINGS: There is no evidence for vertebral body fracture. The heights of the vertebral bodies are maintained. The vertebral bodies are in anatomic alignment. There are sharply defined hemangioma pres ent involving the L1, L3 and L5 vertebral bodies. Homogeneous marrow signal is seen throughout the miguel mbar spine without evidence for marrow edema or marrow replacement. There is no abnormal enhancement following contrast administration. T12-L1: The disc space height is maintained. There are no focal disc protrusions or extrusions ident ified. The thecal sac and epidural fat are maintained. The neural foramen are patent bilaterally. Th ere is no evidence for nerve root encroachment. The facet joints are within normal limits. L1-2: The disc space height is maintained. There are no focal disc protrusions or extrusions identif ied. The thecal sac and epidural fat are maintained. The neural foramen are patent bilaterally. Ther e is no evidence for nerve root encroachment. The facet joints are within normal limits. L2-3: There is moderate disc space narrowing with diffuse bulging of the annulus present. There are no focal disc protrusions or extrusions identified. There is flattening of thecal sac anteriorly. Th e neural foramen are patent bilaterally. There is no evidence for nerve root encroachment. Mild hyper trophic facet joint disease with thickening of ligamentum flavum is also present bilaterally. The com bination of these findings produce mild central canal stenosis. L3-4: The disc space height is maintained. There are no focal disc protrusions or extrusions identif ied. There is mild diffuse bulging annulus with flattening of thecal sac anteriorly. There is mild e ncroachment upon the left neural foramen when compared to the right. There is no evidence for nerve r oot encroachment. Moderate hypertrophic facet joint disease with thickening of ligamentum flavum is p resent bilaterally. The combination of these findings produce mild central canal stenosis at this lev el as well. L4-5: There is mild disc space narrowing with diffuse bulging annulus present. There are no focal di sc protrusions or extrusions identified. There is flattening of thecal sac anteriorly. The neural fo ramen are patent bilaterally. There is no evidence for nerve root encroachment. There is mild hypertr ophic facet joint disease with thickening of ligamentum flavum present bilaterally. The combination o f these findings produce mild central canal stenosis at this level as well. L5-S1: The disc space height is maintained. There are no focal disc protrusions or extrusions identi fied. The thecal sac and epidural fat are maintained. The neural foramen are patent bilaterally. The re is no evidence for nerve root encroachment. Mild hypertrophic facet joint disease is seen bilatera lly. IMPRESSION: 1. Degenerative disc and degenerative facet joint disease with segmental central canal stenosis prese nt as delineated at each disc space level above. 2. No focal disc protrusion/herniation. 3. No abnormal enhancement. ACT 112: Negative or not required by law. Electronically signed by: Tadeo Fernandes M.D. 06/05/2022 5:30 PM
--- NOTE | 2022-06-05 17:31 | Magnetic Resonance Report ---
MRI OF THE THORACIC SPINE WITH AND WITHOUT CONTRAST CLINICAL HISTORY: Gait instability. Evaluate for spinal stenosis, MS COMPARISON: Chest CT September 15, 2021. TECHNIQUE: Utilizing a 1.5 Ping magnet and dedicated coil, multiplanar, multiecho imaging of the th oracic spine was performed before and after the intravenous administration of 10.5 cc. FINDINGS: Alignment of the thoracic spine is anatomic. Vertebral body heights are maintained. No asim ow edema or suspicious marrow replacement is present. Multiple T1 and T2 hyperintense lesions within the thoracic spine are noted. These represent hemangiomas. The largest is a 1.9 cm T6 lesion. Thoraci c cord signal and caliber are normal. There is no abnormal enhancement within the thoracic canal. No intracanalicular mass or fluid collection is present. Central canal and neural foramen are patent. Mi nimal degenerative disc disease is noted at several levels. There is mild facet arthrosis. Paraverteb ral soft tissues are unremarkable. A 3.7 cm right hepatic lobe cyst is incidentally noted. IMPRESSION: 1. Normal thoracic cord signal and caliber. 2. Patent central canal and neural foramen within the thoracic spine. Minimal degenerative changes. ACT 112: Negative or not required by law. Electronically signed by: Cesar Melgar M.D. 06/05/2022 5:28 PM
[2022-06-05] MEDS: TOPIRAMATE 50 MG TAB PO SCH (20:20)
[2022-06-06] MEDS: LEVOTHYROXINE SODIUM 75 MCG TABLET PO SCH (06:13)
--- NOTE | 2022-06-06 07:14 | Hospitalist Progress Note ---
Date of Service June 06, 2022 Assessment & Plan Plan In brief, Babita is a 56 year old female, known to me from the outpatient setting, with history of complex migraine admitted with gait disturbance and complex migraine with stroke-like symptoms. Overnight, had a headache that responded well to toradol. She is agreeable to inpatient rehab for gait/balance. VS and nursing notes reviewed. Well appearing. CN II-XII in tact. Heart with regular rate and rhythm. No edema. Lungs are clear to auscultation throughout. Labs and imaging reviewed. 1. complex migraine with stroke-like symptoms. Imaging including CT Head, CTA Head and Neck, MRI brain without signs of ischemic stroke. Unlikely that this is recurrent TIA. Continue home ASA and statin. Concern for MS given gait issues. MRI ordered to evaluate. We are unable to do the LP to evaluate for MS here due to staffing, but this can be done as an outpatient. Appreciate neurology recommendations. Continue home lamictal, magnesium, riboflavin, topamax, and verapamil. 2. Fall. PT/OT. Recommending acute rehab. Appreciate assistance with insurance authorization etc. 3. Hypothyroid. TSH at goal. Continue home levothyroxine. Admission and Anticipated Discharge Date Admission Date: June 03, 2022 Results & Data Results & Data ([facility]) Vital Signs (Past 12 Hours) Vital Signs Temp Pulse Pulse Resp BP Pulse Ox O2 Del Method 06/06/22 03:10 36.4 C L 56 L 16 118/74 96 Room Air 06/06/22 01:03 67 06/05/22 23:06 36.7 C 60 16 114/75 96 Room Air 06/05/22 19:36 36.6 C 73 18 122/79 95 Room Air
[2022-06-06] MEDS: ATORVASTATIN 40 MG TAB PO SCH (08:22)
[2022-06-06] MEDS: lamoTRIgine 100 MG TAB PO SCH (08:22)
[2022-06-06] MEDS: FLUoxetine HCL 20 MG CAP PO SCH (08:22)
[2022-06-06] MEDS: VERAPAMIL HCL 180 MG TABCR PO SCH (08:22)
[2022-06-06] MEDS: ASPIRIN 81 MG ECTAB PO SCH (08:22)
[2022-06-06] MEDS: FOLIC ACID 400 MCG TAB PO SCH (08:23)
[2022-06-06] MEDS: ENOXAPARIN INJ 40 MG/0.4 ML SYR SQ SCH (08:23)
[2022-06-06] MEDS: TOPIRAMATE 50 MG TAB PO SCH (08:23)
--- NOTE | 2022-06-06 09:42 | Neurology Progress Note ---
Date of Service June 06, 2022 Assessment & Plan (1) Complicated migraine: (2) Stroke-like episode: (3) Gait disorder: Plan Significantly improved episode of slurred speech and left-sided weakness in a patient with a history of suspected complicated migraine. Progressive gait disorder, although gait has a lurching awkward appearance, uncertain if functional. Recently completed thoracic and lumbar spine MRIs are fairly unremarkable. No evidence of demyelinating disease within the thoracic spinal cord. Mild spinal stenosis in the lumbar region identified, although nothing that should be causing significant gait difficulty. As per my previous discussion, most likely diagnosis is complicated migraine. Stroke has again been excluded. Clinical presentation not highly suggestive of recurrent seizures although does have a son with partial complex seizures and patient did have some nonspecific abnormalities on a previous EEG. Other potential diagnosis could include an atypical presentation of multiple sclerosis. However, brain MRI findings are nonspecific and stable. No evidence of spinal cord demyelination. Nonetheless, has had progressive decline in gait over the past year, but again, gait quality has appeared awkward and functional. Continue with topiramate 50 mg twice daily, Lamictal 100 mg twice daily, and verapamil ER 180 mg daily. Consider restarting Nurtec ODT every other day for migraine prevention as an outpatient, or possibly switching to an alternative CGRP flower or even Botox for chronic migraine depending on her clinical status going forward. Note that CGRP blockers are not necessarily a proven treatment for complicated migraine. Consider completion of evaluation for possible MS in the outpatient setting including lumbar puncture under fluoroscopy with MS panel. Patient should follow-up in the outpatient neurology clinic in the next 2 to 3 weeks, may be seen by either Dr. Garcia or one of our ANGELICA's at that time. Admission and Anticipated Discharge Date Admission Date: June 03, 2022 Subjective Follow-up for weakness, headache, gait disorder The patient reports considerable improvement in her symptoms this morning. No headache, no slurred speech, no left-sided weakness. Continues to have mild to moderate difficulty with gait but able to ambulate independently to the bathroom. Patient did complete the requested MRI of the thoracic and lumbar spine. I did independently review these images as well as the radiologist's impression. No evidence of spinal cord demyelination. She does have mild s leesa stenosis at several levels in the lumbar region. No abnormalities that would otherwise explain her abnormal gait. Lumbar puncture could not be completed in radiology due to logistical/staffing/scheduling issues in the limited timeframe available. I did increase her dosage of topiramate to 50 mg twice daily. No changes were made in her Lamictal or verapamil dosages. It does not look like she has been receiving [facility] for migraine treatment in the context of her hospitalization but does have a prescription for this medication which she has been using at home. Review of Systems Eyes: no blind spots and no diplopia Neurologic: + gait abnormality; no tremor(s), no headache(s) and no confusion Results & Data ([facility]) Vital Signs (Past 12 Hours) Vital Signs Temp Pulse Pulse Resp BP Pulse Ox O2 Del Method 06/06/22 08:54 67 06/06/22 07:00 36.4 C L 62 20 128/81 97 Room Air 06/06/22 03:10 36.4 C L 56 L 16 118/74 96 Room Air 06/06/22 01:03 67 06/05/22 23:06 36.7 C 60 16 114/75 96 Room Air Diagnostic Findings Thoracic spine MRI completed yesterday revealed normal thoracic spinal cord signal. Patient does have multiple vertebral hemangiomas. There was also an incidental 3.7 cm cyst within the right hepatic lobe. Lumbar spine MRI revealed degenerative changes resulting in mild central canal stenosis at L2-3, L3-4, and L4-5. There is mild leftward neural foraminal narrowing at L3-4. Otherwise, no significant foraminal stenosis. Exam (Neuro) Neurologic: Oriented to:: Person, Place and Time Memory: Short Term Intact and Remote Intact Attention: Span Intact and Concentration Intact Speech Fluency: negative Dysarthria or Dysfluency Fund of Knowledge: Current Events, Past History and Vocabulary Cranial Nerves: Normal II, III, IV, , V, VII, VIII, IX, X, XI and XII Motor Strength: Normal Lower Extremities and Normal Upper Extremities Coordination: negative Finger-Nose Abnormal Coding Level of Care Code 45309 Subseq Hosp Care Lvl 2 Diagnoses Complicated migraine G43.109 Stroke-like episode R29.90 Gait disorder R26.9
--- NOTE | 2022-06-06 14:57 | Discharge Summary ---
Date of Service June 06, 2022 Admission HPI Per Admitting Provider 56 yo F w/ hx of complex migraines who presents with stroke-like symptoms, consistent with her prior episodes. Patient has had multiple prior episodes with multiple stroke work-ups in the hospital. None of them have shown any evidence of CVA, and she has been diagnosed with complex migraines. Her latest attack started last night around 7pm with similar symptoms to prior episodes. This includes slurred speech, left facial droop with drooling, left-sided weakness and loss of coordination, and some trouble swallowing. Interestingly, she actually denies any aspiration despite the trouble swallowing. She has no exacerbating or alleviating factors. She feels the drooling has improved and she feels her swallow has returned to normal. However, she reports ongoing dizziness when she stands up. She has fallen 5 times this morning. She has a walker at home that helps, but she also just uses the brown sometimes as well. She otherwise denies any ROS, including no fevers/chills, chest pain, shortness of breath, abdominal pain, nausea, or vomiting, no diarrhea, constipation, or dysuria. Admission Exam Per Admitting Provider Constitutional: WD/WN, vitals as above Eyes: EOM intact bilaterally; no conjunctival abnormality ENMT: external ear and nose normal, oropharynx normal Neck: trachea midline, no thyromegaly normal visual inspection Respiratory: normal respiratory effort, lungs clear to auscultation no respiratory distress Cardiovascular: RRR, no murmur, no edema Gastrointestinal (Abdomen): Inspection/Auscultation: abdomen normal to inspection; abdomen not distended Percussion/Palpation: abdomen soft; abdomen nontender, no guarding and abdomen not rigid Musculoskeletal: no cyanosis or clubbing, extremities motor strength 5/5 Skin: no rashes, warm and dry Neurologic: moves all extremities and awake Speech / Cognition: + abnormal speech (Slurred speech, but no halting with speech); no receptive aphasia and normal cognition Motor/Sensory: no tremor, normal movement and no sensory deficit Left-sided facial droop Psychiatric: Orientation: alert, oriented to person and cooperative Principal Diagnosis Complex Discharge Exam Constitutional: WD/WN, vitals as above Eyes: EOM intact bilaterally ENMT: external ear and nose normal, oropharynx normal Neck: trachea midline, no thyromegaly normal visual inspection Respiratory: normal respiratory effort, lungs clear to auscultation no respiratory distress Cardiovascular: RRR, no murmur, no edema Gastrointestinal (Abdomen): Inspection/Auscultation: abdomen normal to inspection; abdomen not distended Percussion/Palpation: abdomen soft; abdomen nontender, no guarding and abdomen not rigid Musculoskeletal: no cyanosis or clubbing, extremities motor strength 5/5 Skin: no rashes, warm and dry Neurologic: Oriented to:: Person, Place and Time Memory: Short Term Intact and Remote Intact Attention: Span Intact and Concentration Intact Speech Fluency: negative Dysarthria or Dysfluency Fund of Knowledge: Current Events, Past History and Vocabulary Cranial Nerves: Normal II, III, IV, , V, VII, VIII, IX, X, XI and XII Motor Strength: Normal Lower Extremities and Normal Upper Extremities Coordination: negative Finger-Nose Abnormal Psychiatric: Orientation: alert, oriented to person and cooperative Discharge Data Allergies Allergy/AdvReac Type Severity Reaction Status Date / Time lisinopril Allergy Severe Swelling Verified 06/03/22 15:16 of Lip/Tongue/Throat yellow dye Allergy Intermediate Tremor Verified 06/03/22 15:16 latex Allergy Mild Rash Verified 06/03/22 15:16 Sulfa (Sulfonamide Allergy Mild Rash Verified 06/03/22 15:16 Antibiotics) levothyroxine Allergy Unknown Unknown Verified 06/03/22 15:16 citalopram AdvReac Mild WORSENING Verified 06/03/22 15:16 TREMORS/RASH gluten AdvReac Mild GI Symptoms Verified 06/03/22 15:16 UNKNOWN INHALER AdvReac TREMORS Uncoded 06/03/22 15:16 Consultations 06/03/22 12:52 ED Decision to Admit Stat 06/04/22 14:10 Consult Neurology Routine Ordered Studies 06/03/22 11:20 CT angio head w con Stat CT angio neck with con Stat CT head/brain wo con Stat 06/03/22 16:20 MR brain wo con Routine 06/05/22 12:50 MRI Lumbar Spine [MR lumbar spine wo/w con] Routine MRI Spine [MR thoracic spine wo/w con] Routine Hospital Course (1) Complicated migraine: (2) Falls frequently: (3) Ataxia: Nikos Jc is a 56 yo F w/ hx of complex migraines who presents with stroke-like symptoms, consistent with her prior episodes. Patient has had multiple prior episodes with multiple stroke work-ups in the hospital. None of them have shown any evidence of CVA, and she has been diagnosed with complex migraines. Her latest attack started last night around 7pm with similar symptoms to prior episodes. This includes slurred speech, left facial droop with drooling, left- sided weakness and loss of coordination, and some trouble swallowing. CT head, CTA head and neck, and MRI brain all showed no signs of ischemic stroke. Symptoms resolved spontaneously. Patient then had another episode with the exact same finding as her one on admission and her headache and other symptoms improved best with IV Toradol. At discharge she was given a very small amount of oral Ketoralac to be used very sparingly for migraine in addition to her other migraine medications. During her hospital stay, her topiramate was increased to 50mg BID. We attempted to obtain an LP to evaluate for the possibility of MS given her gait difficulty. Unfortunately, we were not able to obtain this while she was in house, but neurology will help set this up as an outpatient. An MRI of the thoracic and lumbar spines were also obtained to evaluate for the possibility of spinal stenosis as an explanation for her gait difficulty. The MRI of the thoracic spine showed multiple hyperdense T1 and T2 lesions within the thoracic spine consistent with hemangiomas. The largest hemangioma was measured at 1.9cm at the level of T6. The MRI of the lumbar spine showed segmental mild canal stenosis at the levels of L2-3, L3-4, and L4-5. At the time of discharge, the MAGDALENE-12 panel is pending. PT/OT suggested that she may be a candidate for acute rehab; however, it is unlikely that her insurance would cover this service. She felt comfortable doing home PT/OT and continuing with the exercises that OT had given her. Other chronic issues were stable and home medications continued. Total Time Total Time Spent Total Time Spent (In Minutes): see attending attestation. Discharge Plan Discharge Items Patient Disposition: Home - Home Health Services Reason For Visit: STROKE LIKE SYMPTOMS, LIKELY COMPLEX MIGRAINE Discharge Diagnosis: Complex Migraine Activity: As commented below Non-emergency contact: Primary Care Provider Call non-emergency contact if: your symptoms worsen, your pain is worsening and you have a fever Follow-up/Referrals: Mari Williamson CRNP [Primary Care Provider] - Diet: Regular Addtl Attending Provider Instructions: You were admitted to the hospital for complex migraine. A discharge summary will be sent to your primary care physician to ensure cont inuity of care. Please bring this discharge summary with you to your next office appointment so that your provider can review it at that time. Follow-up appointments: * Make a follow-up appointment with your PCP within the next week. It is very important that you follow up with them shortly after discharge from the hospital. * Make a follow-up appointment with your neurologist in the next 2-3 weeks. * Home healthcare for PT/OT Medications: Your medication list has been reviewed and reconciled upon discharge to ensure accuracy and continuity of care. An updated list of all your medications is included with your hospital discharge paperwork. Please review this list closely, and make note of any changes: * You will be working with PT/OT * increased topamax dose to 50mg twice daily If you have any issues filling these prescriptions, please call [phone] and ask to leave a message for Dr. Kothari Take your medications as instructed; do not skip a dose of your medicines. Make sure all of your doctors know every medicine you are taking (including kbrk-czv-dyreilh medicines, vitamins, and supplements). Call your primary care provider before taking any new medicines (including over- the- counter medicines, vitamins, and supplements), because some of these may interact with your current medications, or may make your symptoms worse. Tell your primary care provider if you cannot afford your medications. CONTACT YOUR PRIMARY CARE PROVIDER if you experience any of the following: * return of symptoms * trouble with setting up PT/OT home healthcare * Difficulty following your treatment plan, or difficulty taking medications CALL 911 OR GO TO THE EMERGENCY DEPARTMENT if you experience any of the following: Sudden, severe abdominal pain or nausea/vomiting Severe chest pain, or chest pain that radiates (moves) to your jaw or arm Sudden, severe shortness of breath or difficulty breathing Thank you for allowing us to participate in your care. Pending Studies at Discharge: Yes Studies:: MAGDALENE 12-set Stand-Alone Forms: My [facility] [employer] Medications and DC Order Prescriptions: New topiramate [Topamax] 50 mg tablet 50 mg PO BID 30 Days Qty: 60 0RF ketorolac 10 mg tablet 10 mg PO DAILY PRN (Reason: migraine headache) Qty: 5 0RF Continued Nurtec ODT 75 mg tablet,disintegrating 75 mg PO Q OTHER DAY PRN (Reason: migraine headache) 30 Days Qty: 8 0RF verapamil 180 mg capsule,ext rel. pellets 24 hr 180 mg PO DAILY Qty: 30 5RF levothyroxine 75 mcg tablet 75 mcg PO .COMPLEX Qty: 120 3RF Rx Instructions: 75 mcg PO 8 tabs weekly; lamotrigine 100 mg tablet 100 mg PO BID Qty: 60 3RF Rx Instructions: generic with no yellow dye riboflavin (vitamin B2) 100 mg tablet 100 mg PO BID folic acid 400 mcg tablet 0.4 mg PO BID coenzyme Q10 [Co Q-10] 1 dose PO BID magnesium 250 mg tablet 250 mg PO BID fluoxetine 20 mg capsule 60 mg PO QAM aspirin 81 mg Tablet,Chewable 81 mg PO DAILY guanfacine 2 mg tablet extended release 24 hr 2 mg PO HS cyanocobalamin (vitamin B-12) [Vitamin B-12] 1,000 mcg Tablet 1,000 mcg PO DAILY zinc 50 mg Tablet 50 mg PO DAILY cholecalciferol (vitamin D3) [Vitamin D3] 25 mcg (1,000 unit) Tablet 25 mcg PO DAILY atorvastatin 40 mg Tablet 40 mg PO QAM Qty: 30 0RF Discontinued topiramate [Topamax] 25 mg tablet 25 mg PO BID 30 Days Qty: 60 1RF Discharge Orders: Discharge Order (Routine); Ordered 06/06/22 Ordered By: Scar Kothari Admission Data Admit Date/Time: 06/03/22 13:36 Attending Provider: Selam Daly Admit Provider: Ramiro Porras Primary Care Provider: Mari Williamson Other Providers: Ramiro Porras ; Marbin Poe Other Interventions: Discharge Summary Assessment (RN) Last Done: 06/06/22 14:45 Supervising Physician Co-Signing Physician Notes Patient seen and examined independently of PGY-1 Dr. Kothari. Agree with history, exam findings, assessment and plan of care as outlined. In brief, Babita is a 56 year old female, known to me from the outpatient setting, with history of complex migraine admitted with gait disturbance and complex migraine with stroke-like symptoms. Feeling well. Would like to go home. Stroke-like symptoms have resolved and not recurred. VS and nursing notes reviewed. Well appearing. CN II-XII in tact. Heart with regular rate and rhythm. No edema. Lungs are clear to auscultation throughout. Labs and imaging reviewed. 1. Complex migraine with stroke-like symptoms. Imaging including CT Head, CTA Head and Neck, MRI brain without signs of ischemic stroke. Unlikely that this is recurrent TIA. Continue home ASA and statin. Concern for MS given gait issues. MRI ordered to evaluate--multiple hemangiomas in the thoracic spine, mild canal stenosis at the levels of L2-3, L3-4, L4-5. We are unable to do the LP to evaluate for MS here due to staffing, but this can be done as an outpatient. Appreciate neurology recommendations. Continue home lamictal, magnesium, ribo flavin, Topamax, and verapamil. 2. Fall. PT/OT. Recommending acute rehab. Appreciate CM assistance with insurance authorization etc. 3. Thoracic spine hemangiomas. Seen on MRI of the thoracic spine. Largest is 1.9cm at the level of T6. Dispo: Discharge home today with home PT/OT. - spoke with care management re: home rehab--have not heard back whether [facility] can take her insurance. Asked that CM TigerText me on Wednesday if we need to come up with alternative plans for home PT/OT. We can also arrange for home health via the outpatient office. As an aside, the discharge med rec did not have the updated Topamax dose. I sent a message to Babita via the [facility] patient portal to inform her of the dose change and that a new prescription for the higher dose of Topamax was sent to her pharmacy ([facility]. I personally spent 45 minutes discharge planning for this patient.
[2022-06-07] MEDS ORDERED: LEVOTHYROXINE SODIUM 75 MCG TABLET PO SCH (06:30)
== END 2022-06-06 15:23 | disposition home health service (06) | DRG 103 ==
LOC: ED 11:03 → EDINP 13:36 → SUATTDRO 13:36 → 2W 23:17
DX: Z88.2 Allergy status to sulfonamides; Z83.3 Family history of diabetes mellitus; Z88.8 Allergy status to other drugs, medicaments and biological substances; R27.0 Ataxia, unspecified; Z86.16 Personal history of COVID-19; G43.109 Migraine with aura, not intractable, without status migrainosus; R53.1 Weakness; E03.9 Hypothyroidism, unspecified; Z79.82 Long term (current) use of aspirin; F44.9 Dissociative and conversion disorder, unspecified; Z91.040 Latex allergy status; R29.90 Unspecified symptoms and signs involving the nervous system; R29.6 Repeated falls; R47.81 Slurred speech

== ENCOUNTER 2025-01-03 17:23 | Inpatient (IN) ==
[2025-01-03] MEDS: OPTIRAY 320 125ml IV ONE (17:47)
[2025-01-03 17:49] LABS: Hematocrit (blood only) 41.7 % (37.0-47.0); Hemoglobin 13.7 g/dl (12.0-16.0); Mean Corpuscular Hemoglobin 30.8 pg (25.0-34.0); Mean Corpuscular Hgb Conc 32.9 g/dL (32.0-36.0); Mean Corpuscular Volume 93.7 fL (80.0-100.0); Mean Platelet Volume 9.1 fL (9.4-12.4); Platelet Count 236 K/uL (130-400); RDW Coefficient of Variation 13.2 % (11.5-14.5); RDW Standard Deviation 44.9 fL (36.4-46.3); Red Blood Count 4.45 M/uL (4.20-5.40); White Blood Count 6.94 K/ul (4.8-10.8)
[2025-01-03 17:54] LABS: iSTAT Creatinine 1.2 mg/dl (0.6-1.3); iSTAT Hemoglobin 13.9 g/dl (12.0-16.0); iSTAT Ionized Calcium 1.19 mmol/l (1.12-1.32); iSTAT Potassium 3.5 mmol/L (3.3-5.0)
[2025-01-03 18:06] LABS: Albumin Globulin Ratio 1.6 (0.9-2); Albumin Level 4.1 gm/dl (3.4-5.0); BUN Creatinine Ratio 13.4 (10-20); Bilirubin,Total 0.6 mg/dl (0.2-1.0); Calcium 9.3 mg/dl (8.6-10.3); Globulin 2.6 gm/dl (2.5-4.0); Magnesium 2.1 mg/dl (1.7-2.4); Potassium 3.5 mmol/L (3.5-5.1); Total Protein 6.7 gm/dl (6.0-8.3)
--- NOTE | 2025-01-03 18:06 | Emergency Department Note ---
Impression & Plan Facial droop, Slurred speech ED Provider Note Diagnosis: Slurred speech, facial droop Disposition: Admission CHIEF COMPLAINT: Strokelike symptoms HPI: Patient 59-year-old female presenting with history of complex migraines presenting today with slurred speech and facial droop. Patient's family member present at bedside states that the symptoms started approximately 4:30 PM today. Patient states that she has a history of complex migraines that mimic strokes. Patient states she did have a headache earlier today. Patient states however today she feels much different than her normal complex migraines. Patient states her head feels different. Patient states that recently her neurologist out of her she has been weaning her off of Lamictal. Patient denies any muscle strength or sensory deficits of the upper or lower extremities. PAST MEDICAL HISTORY: See Below PAST SURGICAL HISTORY: See Below SOCIAL HISTORY: See Below HOME MEDICATIONS: See Below ALLERGIES: See Below VITALS: See Below PHYSICAL EXAMINATION: GENERAL: Well appearing, well nourished, NAD, non-toxic. EYE EXAM: Normal conjunctiva. OROPHARYNX: Moist mucus membranes. Grossly normal dentition. NECK: Supple, LUNGS: Clear to auscultation. Normal chest wall mechanics. HEART: NSR ABDOMEN: Abdomen soft, non-tender, normo-active bowel sounds, no masses, no rebound or guarding BACK: No CVA TTP. SKIN: No rashes and no bruising. UPPER EXTREMITIES: Upper extremities are grossly normal LOWER EXTREMITIES: Grossly normal, no edema. NEURO EXAM: A&O x3,, slurred speech, left-sided facial droop, 5 out of 5 muscle strength upper and lower extremities bilaterally, Intact sensation upper and lower extremities bilaterally PSYCH: Cooperative MEDICAL DECISION MAKING: History obtained from: Patient, and daughter ER Course: Patient is a 59-year-old female with history of chronic complex migraines. Patient states she has been recently being weaned off of Lamictal. She states that the neurology team is trying to make sure she is not having underlying seizures. Once off Lamictal completely plan is for reported EEG. Patient reportedly having left-sided facial droop and slurred speech that started at approximately 430pm today. Patient's confirms the last known well. Patient states that she has had symptoms of speech and facial droop previously with complex migraines but she feels different than her normal events currently. Patient was activated as a stroke alert upon arrival emergency room. Patient went over to CT scan had CT scan of head without contrast and angio studies of head and neck. I reevaluated the patient when she came back from CT scan and she had an NIH of 0 and her symptoms have resolved. Telestroke provider was contacted and performed video evaluation at bedside. From the timeframe of my reevaluation to the patient being seen by telestroke she had 2 episodes that lasted for 2 minutes time where the symptoms from prior occurred again. By time telestroke provider saw her patient again had no active symptoms at that time. Radiology team called me and stated that they see a small distal M1 occlusion present. I called the telestroke provider and provided through [employer] secure communications the official reads of the CT scans. Telestroke provider came back on to evaluate the patient on the camera at bedside. Due to this occlusion being present she recommended to the patient and family that the patient received TNK. She went over all risk benefits of potential intracranial hemorrhage and percentage chance of it first percentage chance of having improvement in symptoms with the patient. Patient and patient's family consider this for a extended period of time and decided to go ahead with receiving TNK. The medication was ordered and requested from pharmacy. Upon the medication getting to the room the patient had changed her mind and was not sure about getting the medication any longer. The telestroke provider came back on the computer checking to see if the patient had the medicine yet and I discussed with her that the patient was not sure about getting the medication at this time. Telestroke provider again went through risk benefits and discussion with the patient and patient agreed to receive the medication. Patient case discussed with hospitalist service who agreed to accept the patient for further treatment and evaluation. Labs (independently interpreted) are significant for: No electrolyte abnormalities Imaging results (independently interpreted): Chest x-ray clear EKG interpretation (independently interpreted): Normal sinus rhythm no ST segment elevation or depression Medications given: TNK Consultants: Telestroke Chronic conditions affecting care: Chronic migraines Triage Nursing notes reviewed and agree them. Vital Signs: reviewed and remarkable for: no significant abnormalities Critical care time; 60 minutes. This time does not include time for procedures performed Past Med/Surg History Problem List (Updated 01/04/25 @ 10:08 by Jakob Diaz DO) Slurred speech (Acute) Facial droop (Acute) Chronic cerebral ischemia Hives CVA (cerebral vascular accident) Mass of left upper extremity Insomnia Hypersomnia 04/25/24 COVID-19 (Acute) 10/30/23 Depression with anxiety Gait disorder Falls frequently 03/05/22 Right atrial mass 01/20/22 Abnormal EEG 12/25/21 Hypokalemia 11/05/20 ADD (attention deficit disorder) GERD (gastroesophageal reflux disease) (Acute) Hypothyroidism (Chronic) Medical History (Updated 01/04/25 @ 10:08 by Jakob Diaz DO) Stroke-like symptoms Complicated migraine (hemiplegic migraine)Left-sided weakness, facial droop Migraine Migraine (08/21/14) Nocturnal hypoxemia pt unaware, states no sleep apnea, does not use O2 or cpap device Depression with anxiety Hypothyroidism ADD (attention deficit disorder) Gait disorder cane/walker prn Right atrial mass pt not aware Hemiplegic migraine diagnosed w/ hemiplegic migraines, presents w/ slurred speech and facial drooping-follows with [place] [facility]y History of COVID-19 2019, has stroke-like symptoms at the same time, hospitalized after discovering blood clot in lung at [facility]; hx 2020, not hosp; still has some weakness and problems with gait and balance-still uses a walker or a cane, since having covid in 2019 Goiter History of pulmonary embolism 2019, following covid>caused by covid; no current issues 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 Hearing loss in ultra-high frequencies Tinnitus, bilateral Acquired deviated nasal septum Stroke-like episode 2019, prior to hospitalization for covid and blood clot in lungs; dr's aren't sure if it was a complicated migraine or from covid-continues to have balance issues Dizziness "has been associated with her blood sugars, when she eats something it seems to go away" History of congenital diaphragmatic hernia surgical repair 01/04/2019 History of colon polyps Liver cyst monitoring Diaphragmatic hernia hx-repaired History of endometriosis GERD (gastroesophageal reflux disease) TMJ locking left side Seasonal affective disorder Transient ischemic attack (TIA) + 10 years ago Surgical History H/O excision of mass (05/30/24) Excision of Left Upper Extremity Mass 7.5cm x 6cm (Left) - Blade Zee DO H/O endoscopy 2018 H/O total hysterectomy 01/1998 H/O laparoscopy History of Ana M fundoplication 01/04/2019 [facility] Nausea and vomiting after administration of anesthetic agent History of tooth extraction Status post biopsy of thyroid gland History of breast biopsy History of herniorrhaphy UMBILICAL History of endometrial ablation History of dilatation and curettage History of section 12/19/1993 Status post JOSE-BSO History of colonoscopy History of esophagogastroduodenoscopy (EGD) Family History Son Family history of reaction to anesthesia Environmental allergies Father Family history of reaction to anesthesia PONV Diabetes Heart disease Father Family history of diabetes mellitus Mother Family history of diabetes mellitus Family hx of colon cancer Coronary heart disease Heart disease Cancer Diabetes Hypertension Mother Family history of esophageal cancer UTERINE CANCER W/ METS TO ESOPHAGUS AND LUNG Grandmother (Maternal) Ovarian cancer Cancer Grandfather (Paternal) Lung cancer smoker Liver cancer Heart disease Cancer Aunt Hypertension maternal Cancer Diabetes Heart disease Uncle Stroke Other No family history of adverse response to anesthesia No family history of bleeding disorder Social History Smoking Status: Never smoker Second Hand Exposure: Yes; Do You Dip or Chew Tobacco: No; Hx Alcohol Use: No Hx Substance Use: No Preferred Language: Nigerien Communication Ability: Effective Network Contract Manager Required: No Beliefs That Will Affect Care: None marital status: Single Current Living Situation: Alone Current Living Situation Comment: lives alone current occupational status: retired 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 How many Children do You have: 2 Other Information That Helps Us Care for You: No Feels Safe at Home: Yes Safety Concerns: Feels Safe At This Time Diet: gluten free during the past year weight has: increased > 10 lbs Assistive Devices: Cane and Walker Allergies Allergies Allergy/AdvReac Type Severity Reaction Status Date / Time lisinopril Allergy Severe Swelling Verified 01/03/25 20:09 of Lip/Tongue/Throat latex Allergy Intermediate Rash Verified 01/03/25 20:09 Sulfa (Sulfonamide Allergy Intermediate Rash Verified 01/03/25 20:09 Antibiotics) yellow dye Allergy Intermediate Tremor Verified 01/03/25 20:09 levothyroxine Allergy Unknown SEE COMMENT Verified 01/03/25 20:09 citalopram AdvReac Intermediate WORSENING Verified 01/03/25 20:09 TREMORS/RASH gluten AdvReac Intermediate GI Symptoms Verified 01/03/25 20:09 levothyroxine sodium AdvReac Intermediate Fatigued Verified 01/03/25 20:09 [From Synthroid] UNKNOWN INHALER AdvReac Intermediate TREMORS Uncoded 01/03/25 20:09 Home Meds Home Medications Medication Instructions Recorded Confirmed fluoxetine 20 mg capsule 60 mg PO QAM 05/07/20 01/03/25 atorvastatin 40 mg tablet 40 mg PO HS 04/23/23 01/03/25 guanfacine 2 mg tablet,extended 2 mg PO HS 04/23/23 01/03/25 release 24 hr famotidine 40 mg tablet 40 mg PO HS 11/28/23 01/03/25 Naltrexone Compound 25 mg PO HS 01/03/25 01/03/25 atogepant 60 mg tablet (Qulipta) 60 mg PO HS 01/03/25 01/03/25 rimegepant 75 mg disintegrating 75 mg PO Q OTHER DAY PRN Migraine 01/03/25 01/03/25 tablet (Nurtec ODT) Headache thyroid (pork) 90 mg tablet 90 mg PO QAM 01/03/25 01/03/25 Previous Rx's Medication Instructions Recorded CPAP Machine #1 [id number] 07/04/24 Results & Data (ED) Vital Signs Vital Signs - 24 hr 01/03/25 17:24 01/03/25 17:58 01/03/25 18:00 Temperature 36.6 C Temperature Source Temporal Artery Scan Pulse Rate 55 L 47 L 45 L Pulse Rate [Left Finger] Pulse Rate from SpO2 Sensor Pulse Rhythm Pulse Rhythm [Left Finger] Pulse Strength [Left Finger] Respiratory Rate 18 Respiratory Effort / Characteristics Non-Labored Spontaneous Respiratory Depth Normal Respiratory Pattern Regular Blood Pressure 143/80 H 142/80 H Blood Pressure [Right Arm] Blood Pressure Mean 101 95 Blood Pressure Mean [Right Arm] Blood Pressure Position [Right Arm] Pulse Oximetry 100 96 Oxygen Delivery Method Room Air Sepsis Recent Fever Within 48 Hours No Sepsis New/Unexplained Change in Mental Status N/A Sepsis Action Taken by Nursing No Action Required 01/03/25 18:02 01/03/25 18:16 01/03/25 18:31 Temperature Temperature Source Pulse Rate 46 L 46 L Pulse Rate [Left Finger] 49 L Pulse Rate from SpO2 Sensor Pulse Rhythm Regular Pulse Rhythm [Left Finger] Regular Pulse Strength [Left Finger] Normal Respiratory Rate 20 20 Respiratory Effort / Characteristics Non-Labored Spontaneous Respiratory Depth Normal Respiratory Pattern Regular Blood Pressure 159/78 H Blood Pressure [Right Arm] 145/75 H Blood Pressure Mean 96 Blood Pressure Mean [Right Arm] 98 Blood Pressure Position [Right Arm] Sitting Pulse Oximetry 97 98 98 Oxygen Delivery Method Room Air Room Air Sepsis Recent Fever Within 48 Hours Sepsis New/Unexplained Change in Mental Status Sepsis Action Taken by Nursing 01/03/25 18:45 01/03/25 19:00 01/03/25 19:16 Temperature 36.5 C Temperature Source Oral Pulse Rate 51 L Pulse Rate [Left Finger] 48 L Pulse Rate from SpO2 Sensor 50 L Pulse Rhythm Pulse Rhythm [Left Finger] Regular Pulse Strength [Left Finger] Normal Respiratory Rate 20 16 18 Respiratory Effort / Characteristics Non-Labored Spontaneous Non-Labored Spontaneous Respiratory Depth Normal Normal Respiratory Pattern Regular Regular Blood Pressure 161/89 H Blood Pressure [Right Arm] 145/75 H 159/94 H Blood Pressure Mean 115 Blood Pressure Mean [Right Arm] 98 115 Blood Pressure Position [Right Arm] Sitting Pulse Oximetry 100 98 99 Oxygen Delivery Method Room Air Room Air Room Air Sepsis Recent Fever Within 48 Hours Sepsis New/Unexplained Change in Mental Status Sepsis Action Taken by Nursing 01/03/25 19:31 01/03/25 19:44 01/03/25 19:59 Temperature 36.5 C 36.4 C L Temperature Source Oral Oral Pulse Rate 49 L Pulse Rate [Left Finger] 47 L 43 L Pulse Rate from SpO2 Sensor 48 L Pulse Rhythm Pulse Rhythm [Left Finger] Pulse Strength [Left Finger] Respiratory Rate 18 14 Respiratory Effort / Characteristics Non-Labored Spontaneous Non-Labored Spontaneous Respiratory Depth Normal Normal Respiratory Pattern Regular Blood Pressure 164/92 H Blood Pressure [Right Arm] 132/76 122/70 Blood Pressure Mean 115 Blood Pressure Mean [Right Arm] 94 87 Blood Pressure Position [Right Arm] Semi-fowlers Lying Pulse Oximetry 100 100 95 Oxygen Delivery Method Room Air Room Air Sepsis Recent Fever Within 48 Hours Sepsis New/Unexplained Change in Mental Status Sepsis Action Taken by Nursing 01/03/25 20:15 01/03/25 20:30 01/03/25 20:45 Temperature 36.5 C 36.4 C L 36.4 C L Temperature Source Oral Oral Oral Pulse Rate Pulse Rate [Left Finger] 47 L 44 L 48 L Pulse Rate from SpO2 Sensor Pulse Rhythm Pulse Rhythm [Left Finger] Pulse Strength [Left Finger] Respiratory Rate 16 14 15 Respiratory Effort / Characteristics Non-Labored Spontaneous Non-Labored Spontaneous Non-Labored Spontaneous Respiratory Depth Normal Normal Normal Respiratory Pattern Regular Regular Regular Blood Pressure Blood Pressure [Right Arm] 122/71 145/87 H 104/73 Blood Pressure Mean Blood Pressure Mean [Right Arm] 88 106 83 Blood Pressure Position [Right Arm] Lying Lying Lying Pulse Oximetry 96 97 97 Oxygen Delivery Method Room Air Room Air Room Air Sepsis Recent Fever Within 48 Hours Sepsis New/Unexplained Change in Mental Status Sepsis Action Taken by Nursing Laboratory Data 01/04/25 05:33 01/04/25 05:33 Lab Results 01/03/25 01/03/25 01/03/25 Range/Units 17:35 17:38 17:42 WBC 6.94 (4.8-10.8) K/ul RBC 4.45 (4.20-5.40) M/uL Hgb 13.7 (12.0-16.0) g/dl POC Hgb 13.9 (12.0-16.0) g/dl Hct 41.7 (37.0-47.0) % POC Hct 41 (37-47) % MCV 93.7 (80.0-100.0) fL MCH 30.8 (25.0-34.0) pg MCHC 32.9 (32.0-36.0) g/dL RDW Std Deviation 44.9 (36.4-46.3) fL RDW Coeff of Mandi 13.2 (11.5-14.5) % Plt Count 236 (130-400) K/uL MPV 9.1 L (9.4-12.4) fL PT 10.3 (9.0-12.0) Seconds INR 0.9 (0.9-1.1) APTT 27 (21-31) Seconds PTT Ratio 1.0 POC Sodium 139 (135-144) mmol/L Sodium 139 (136-145) mmol/L POC Potassium 3.5 (3.3-5.0) mmol/L Potassium 3.5 (3.5-5.1) mmol/L POC Chloride 102 (101-112) mmol/L Chloride 104 (98-107) mmol/L Carbon Dioxide 28 (21-32) mmol/L POC Total CO2 24 (24-31) mmol/L Anion Gap 7 (3-11) POC Anion Gap 17.0 (16-25) mmol/L POC BUN 14 (7-18) mg/dl BUN 15 (6-23) mg/dl Creatinine 1.12 (0.6-1.2) mg/dl POC Creatinine 1.2 (0.6-1.3) mg/dl Est Cr Clr Drug Dosing 70.0 ml/min eGFR 57.35 BUN/Creatinine Ratio 13.4 (10-20) Glucose 94 (70-99(Fasting)) mg/dl POC Glucose 98 (70-99) mg/dl POC Glucose (other) 93 (70-99) mg/dl Calcium 9.3 (8.6-10.3) mg/dl POC Ioniz Calcium Lexi 1.19 (1.12-1.32) mmol/l Magnesium 2.1 (1.7-2.4) mg/dl Total Bilirubin 0.6 (0.2-1.0) mg/dl AST 11 L (13-39) U/L ALT 9 (7-52) U/L Alkaline Phosphatase 95 (34-104) U/L Troponin I High Sens 3.8 (0-14) pg/ml Total Protein 6.7 (6.0-8.3) gm/dl Albumin 4.1 (3.4-5.0) gm/dl Globulin 2.6 (2.5-4.0) gm/dl Albumin/Globulin Ratio 1.6 (0.9-2) Blood Type Antibody Screen 01/03/25 Range/Units 17:52 WBC (4.8-10.8) K/ul RBC (4.20-5.40) M/uL Hgb (12.0-16.0) g/dl POC Hgb (12.0-16.0) g/dl Hct (37.0-47.0) % POC Hct (37-47) % MCV (80.0-100.0) fL MCH (25.0-34.0) pg MCHC (32.0-36.0) g/dL RDW Std Deviation (36.4-46.3) fL RDW Coeff of Mandi (11.5-14.5) % Plt Count (130-400) K/uL MPV (9.4-12.4) fL PT (9.0-12.0) Seconds INR (0.9-1.1) APTT (21-31) Seconds PTT Ratio POC Sodium (135-144) mmol/L Sodium (136-145) mmol/L POC Potassium (3.3-5.0) mmol/L Potassium (3.5-5.1) mmol/L POC Chloride (101-112) mmol/L Chloride (98-107) mmol/L Carbon Dioxide (21-32) mmol/L POC Total CO2 (24-31) mmol/L Anion Gap (3-11) POC Anion Gap (16-25) mmol/L POC BUN (7-18) mg/dl BUN (6-23) mg/dl Creatinine (0.6-1.2) mg/dl POC Creatinine (0.6-1.3) mg/dl Est Cr Clr Drug Dosing ml/min eGFR BUN/Creatinine Ratio (10-20) Glucose (70-99(Fasting)) mg/dl POC Glucose 104 H (70-99) mg/dl POC Glucose (other) (70-99) mg/dl Calcium (8.6-10.3) mg/dl POC Ioniz Calcium Lexi (1.12-1.32) mmol/l Magnesium (1.7-2.4) mg/dl Total Bilirubin (0.2-1.0) mg/dl AST (13-39) U/L ALT (7-52) U/L Alkaline Phosphatase (34-104) U/L Troponin I High Sens (0-14) pg/ml Total Protein (6.0-8.3) gm/dl Albumin (3.4-5.0) gm/dl Globulin (2.5-4.0) gm/dl Albumin/Globulin Ratio (0.9-2) Blood Type O Positive Antibody Screen NEGATIVE Administered Medications Magnesium Oxide (Magnesium Oxide 400 Mg Tab) 400 mg PO Q4H RUSS Stop: 01/04/25 11:16 Last Admin: 01/04/25 08:38 Dose: 400 mg Documented By: PAU Chavez (I[facility] Protocol For Hyperglycemia) 1 each N/A Q6 RUSS Stop: 01/06/25 00:00 Last Admin: 01/04/25 06:28 Dose: Not Given Documented By: Admin: 01/04/25 00:10 Dose: Not Given Documented By: PANCHO Chavez ([facility] Electrolyte Replacement Protocol) 1 each N/A BID@06,18 RUSS; Protocol Stop: 01/11/25 05:59 Last Admin: 01/04/25 07:01 Dose: 1 each Documented By: PANCHO Potassium Chloride (Potassium Chloride Crtab 20 Meq Tabcr) 20 meq PO Q4H RUSS Stop: 01/04/25 11:16 Last Admin: 01/04/25 08:38 Dose: 20 meq Documented By: PAU Discontinued Medications Diphenhydramine HCl (Diphenhydramine 50 Mg/Ml Vial) 12.5 mg IV NOW STA Stop: 01/03/25 20:52 Last Admin: 01/03/25 20:56 Dose: 12.5 mg Documented By: SHEREE Tenecteplase 25 mg/ Syringe 5 mls @ 60 mls/min IV NOW ONE; Protocol Stop: 01/03/25 19:11 Last Admin: 01/03/25 19:28 Dose: 60 mls/min Documented By: SHEREE Co-signed By: ROSA Sodium Chloride (Nss) 1,000 mls @ 100 mls/hr IV .Q10H [facility] Stop: 01/04/25 19:44 Last Infusion: 01/04/25 08:40 Dose: Infused Documented By: Admin: 01/04/25 05:59 Dose: 100 mls/hr Documented By: Infusion: 01/04/25 05:49 Dose: Infused Documented By: Admin: 01/03/25 19:49 Dose: 100 mls/hr Documented By: SHEREE Famotidine (Pepcid 20mg Iv Push) 20 mg in 5 mls @ 2.5 mls/min IV NOW STA Stop: 01/03/25 20:56 Last Admin: 01/03/25 21:12 Dose: 2.5 mls/min Documented By: SHEREE Ioversol (Optiray 320 125ml) 118 ml IV ONCE ONE Stop: 01/03/25 17:48 Last Admin: 01/03/25 17:47 Dose: 118 ml Documented By: HAYDE Chavez (Stat Iv/Im) 1 each N/A NOW STA Stop: 01/03/25 19:01 Last Admin: 01/03/25 19:53 Dose: Not Given Documented By: SHEREE Sodium Chloride (Sodium Chloride 0.9% 10ml Flush) 20 ml IV NOW STA Stop: 01/03/25 19:01 Last Admin: 01/03/25 19:29 Dose: 20 ml Documented By: SHEREE Discharge Plan Visit Data Chief Complaint: Stroke/CVA Symptoms Stated Complaint: STOKE ALERT ED Provider: Jakob Diaz Discharge Problem: Facial droop, Slurred speech Patient Disposition: Admitted As Inpatient Discharge Instructions Interventions: ED Discharge Assessment Last Done: 01/03/25 22:46
[2025-01-03 18:12] LABS: Troponin I High Sensitivity 3.8 pg/ml (0-14)
--- NOTE | 2025-01-03 18:16 | CT Scan Report ---
EXAM: CT Angiography Head and Neck With Intravenous Contrast INDICATION: Slurred speech. Left facial droop. TECHNIQUE: [place] [facility]/head and neck CT angiography protocol performed with intravenous contrast. Sagittal and coronal reformatted images were created and reviewed. This CT exam was performed using one or more of the following dose reduction techniques: automated exposure control, adjustment of the mA and/or kV according to patient size, and/or use of iterative reconstruction technique. MIP reconstructed images were created and reviewed. CONTRAST: 118ml of Optiray 320 was administered intravenously. COMPARISON: None. FINDINGS: HEAD: Right anterior cerebral artery: No abnormality noted. No occlusion or significant stenosis. Anterior communicating artery is present. No aneurysm. Right middle cerebral artery: No abnormality noted. No occlusion or significant stenosis. No aneurysm. Right posterior cerebral artery: No abnormality noted. No occlusion or significant stenosis. No aneurysm. Right intracranial internal carotid artery: No abnormality noted. No significant stenosis. No dissection or occlusion. Right intracranial vertebral artery: No abnormality noted. No significant stenosis. No dissection or occlusion. Left anterior cerebral artery: No abnormality noted. No occlusion or significant stenosis. No aneurysm. Left middle cerebral artery: There appears to be occlusion of the anterior branch of the left M1 terminus. No aneurysm. No dissection. Left posterior cerebral artery: No abnormality noted. No occlusion or significant stenosis. No aneurysm. Left intracranial internal carotid artery: No abnormality noted. No significant stenosis. No dissection or occlusion. Left intracranial vertebral artery: No abnormality noted. No significant stenosis. No dissection or occlusion. Basilar artery: No abnormality noted. No occlusion or significant stenosis. No aneurysm. Other vasculature: No vascular malformation. NECK: Right common carotid artery: No abnormality noted. No significant stenosis. No dissection or occlusion. Right extracranial internal carotid artery: No abnormality noted. No significant stenosis. No dissection or occlusion. Right external carotid artery: No abnormality noted. No occlusion. Right extracranial vertebral artery: No abnormality noted. No significant stenosis. No dissection or occlusion. Left common carotid artery: No abnormality noted. No significant stenosis. No dissection or occlusion. Left extracranial internal carotid artery: No abnormality noted. No significant stenosis. No dissection or occlusion. Left external carotid artery: No abnormality noted. No occlusion. Left extracranial vertebral artery: No abnormality noted. No significant stenosis. No dissection or occlusion. Thyroid: There is a 1.3 x 1.3 cm left thyroid nodule. No further assessment required. The right lobe may have been removed with some minimal residual tissue in the bed. Lung apices: No significant abnormality noted. HEAD and NECK: Bones/joints: No significant abnormality. Soft tissues: No abnormality noted. CAROTID STENOSIS REFERENCE USING NASCET CRITERIA: % ICA stenosis = (1 - narrowest ICA diameter/diameter of distal cervical ICA) x 100. Mild - <50% stenosis. Moderate - 50-69% stenosis. Severe - 70-94% stenosis. Near occlusion - 95-99% stenosis. Occluded - 100% stenosis. IMPRESSION: 1. There is occlusion of the anterior terminal branch of the left M1 segment of the middle cerebral artery. 2. No other angiographic abnormality in the head or neck. ACT 112: Negative or not required by law. Electronically signed by Jailene Borja 01-03-2025 6:15 PM
--- NOTE | 2025-01-03 18:17 | CT Scan Report ---
EXAM: CT Head Without Intravenous Contrast INDICATION: Slurred speech TECHNIQUE: Axial computed tomography images of the head/brain without intravenous contrast. Sagittal and/or coronal reformats are provided. Sagittal and coronal reformatted images were created and reviewed. This CT exam was performed using one or more of the following dose reduction techniques: automated exposure control, adjustment of the mA and/or kV according to patient size, and/or use of iterative reconstruction technique. COMPARISON: 04/20/2023 FINDINGS: Limitations: None. Brain and extra-axial spaces: There is artifact significantly limiting assessment of the frontal lobes. There is mild prominent hypodensity in the periventricular white matter. No evidence of acute territorial infarct. No hemorrhage. No extra-axial fluid collection or hydrocephalus. Bones/joints: No acute changes. Soft tissues: No significant abnormality noted. Vasculature: No acute abnormality noted. Sinuses: No layering fluid in the visualized portions of the paranasal sinuses. Mastoid air cells: No mastoid effusion. Orbits: No significant abnormality noted. IMPRESSION: No acute findings in the head/brain. See separately dictated CT angiogram reports. ACT 112: Negative or not required by law. Electronically signed by Jailene Borja 01-03-2025 6:15 PM
[2025-01-03 18:20] LABS: INR 0.9 (0.9-1.1); Partial Thromboplastin Time 27 Seconds (21-31); Prothrombin Time 10.3 Seconds (9.0-12.0)
[2025-01-03] MEDS ORDERED: No Aspirin within 24hrs of THROMBOLYTIC-Stroke PO SCH (19:00)
[2025-01-03] MEDS: TENECTEPLASE 25 MG in SYRINGE 0 ML IV ONE (19:28)
[2025-01-03] MEDS: SODIUM CHLORIDE 0.9% 10ML FLUSH IV STA (19:29)
[2025-01-03] MEDS: SODIUM CHLORIDE 0.9% 1,000 ML IV SCH (19:49)
[2025-01-03] MEDS: STAT IV/IM STA (19:53)
--- NOTE | 2025-01-03 19:55 | XRay Report ---
Technique: A frontal view of the chest was obtained Comparison is made to the prior examination dated 04/11/2023 Findings: There are no confluent pulmonary infiltrates. The heart size is within normal limits. No pleural effusion or pneumothorax is seen. There is no definite pulmonary nodule. No fracture is noted. No foreign body is seen Impression: No active disease Electronically signed by Jerome Hung 01-03-2025 7:54 PM
--- NOTE | 2025-01-03 20:11 | History & Physical Report ---
Date of Service January 03, 2025 Assessment & Plan (1) CVA (cerebral vascular accident): Plan: -Patient with slurred speech, facial droop, and weakness that started approximately 4:30 PM on 01/03/2025. -Waxing and waning of symptoms in the ED. Telestroke initially stated no TNK however decided to do TNK after MRI results and symptoms returning. -CBC, PT/INR, CMP, magnesium, and troponin benign/negative. -Chest x-ray negative. -CT head negative. -Head and neck CTA initially read as occlusion of the anterior terminal branch of the left M1 segment of the middle cerebral artery. However with discussing with telestroke states that the left M1 is patent. There is truncation of the proximal left anterior M2 branch. There is an asymmetric vessel at the proximal M1 bifurcation which may be a vein and courses anterior posterior direction. -TNK given in the ED. Telestroke recommends to do MRI and MRI in 24 hours after TNK. -NIH of 0 at time of admission. -Will be admitted to ICU at this time. Discussed case with overnight ICU PA. -At time of admission patient did have some itchiness and redness of the bilateral upper extremity. Given small dose of Benadryl and famotidine with resolution of itchiness. -Echo in the a.m., speech consulted, falls precaution, PT OT ordered. -CBC, hemoglobin A1c, lipid profile, PT/INR in the AM. -Neurology consulted due to history of complex migraines complicating history of CVA. (2) Migraine: Plan: -History of hemiplegic migraines in the past described as left facial droop, left hemiparesis, and slurring of speech. This is similar to her presenting symptoms tonight though are a lot worse than normal. -Does state that she has an aura which is floaters in her eyes which did not occur prior to this episode. Does state though that she has been having increasing blurry vision recently. -Patient states that she was on Lamictal though was weaned off but the last dose being 1 week ago. -Follows with [facility] neurology and last visit on 12/26/2024. Review of records states that patient had migraines without aura and hemiplegic migraines. - Recently discontinue Ajovy and instead she will try Qulipta 60 mg p.o. daily. - Nurtec 75 mg as needed. -Neurology consulted appreciate recommendation. (3) Depression with anxiety: Plan: -Holding home meds (4) GERD (gastroesophageal reflux disease): Plan: -Holding home meds (5) Hypothyroidism: Plan: -Holding home meds Plan FNutrition: NPO Code status: full code DVT ppx: SCDs Consults: neurology PT/OT: consulted Dispo: ICU History of Present Illness Chief Complaint: CVA status post TNK Primary Care Provider: Enid Colmenares MD Patient is a 59-year-old female with past medical history of anxiety, depression, hypothyroidism, thyroid nodule, hyperhomocystinemia, bradycardia, PE secondary to COVID-19 infection in Oct 2021, and migraine headaches. She has had a history of hemiplegic migraines which have been described as left facial droop, left hemiparesis, and slurring of speech. She presents to the hospital with slurred speech and facial droop. Patient states that this afternoon she started to have a migraine with vertigo, slurred speech, and weakness. States that this was worse than her normal migraines that she gets. States that she normally gets an aura with floaters but that did not occur. Though does state that she has been having blurry vision over some time. Patient states that she tried to stand up and fell onto the couch. The symptoms started approximately 4:30 PM. Patient states that she recently has been weaning off Lamictal and started on a new migraine medication. She has not taken Lamictal in a week. Patient symptoms have been waxing and waning since coming into the ED. Telestroke initially stated not to do TNK though patient had symptoms return after telestroke ended and telestroke was redone and started on TNK. At time of admission majority of symptoms have resolved. Allergies Allergy/AdvReac Type Severity Reaction Status Date / Time lisinopril Allergy Severe Swelling Verified 01/03/25 20:09 of Lip/Tongue/Throat latex Allergy Intermediate Rash Verified 01/03/25 20:09 Sulfa (Sulfonamide Allergy Intermediate Rash Verified 01/03/25 20:09 Antibiotics) yellow dye Allergy Intermediate Tremor Verified 01/03/25 20:09 levothyroxine Allergy Unknown SEE COMMENT Verified 01/03/25 20:09 citalopram AdvReac Intermediate WORSENING Verified 01/03/25 20:09 TREMORS/RASH gluten AdvReac Intermediate GI Symptoms Verified 01/03/25 20:09 levothyroxine sodium AdvReac Intermediate Fatigued Verified 01/03/25 20:09 [From Synthroid] UNKNOWN INHALER AdvReac Intermediate TREMORS Uncoded 01/03/25 20:09 Home Medications Medication Instructions Recorded Confirmed Type fluoxetine 20 mg capsule 60 mg PO QAM 05/07/20 01/03/25 History atorvastatin 40 mg tablet 40 mg PO HS 04/23/23 01/03/25 History guanfacine 2 mg tablet,extended 2 mg PO HS 04/23/23 01/03/25 History release 24 hr famotidine 40 mg tablet 40 mg PO HS 11/28/23 01/03/25 History CPAP Machine #1 ea 07/04/24 01/03/25 Rx Naltrexone Compound 25 mg PO HS 01/03/25 01/03/25 History atogepant 60 mg tablet (Qulipta) 60 mg PO HS 01/03/25 01/03/25 History rimegepant 75 mg disintegrating 75 mg PO Q OTHER DAY PRN Migraine 01/03/25 01/03/25 History tablet (Nurtec ODT) Headache thyroid (pork) 90 mg tablet 90 mg PO QAM 01/03/25 01/03/25 History Past Med/Surg History Problem List (Updated 01/04/25 @ 10:08 by Jakob Diaz DO) Slurred speech (Acute) Facial droop (Acute) Chronic cerebral ischemia Hives CVA (cerebral vascular accident) Mass of left upper extremity Insomnia Hypersomnia 04/25/24 COVID-19 (Acute) 10/30/23 Depression with anxiety Gait disorder Falls frequently 03/05/22 Right atrial mass 01/20/22 Abnormal EEG 12/25/21 Hypokalemia 11/05/20 ADD (attention deficit disorder) GERD (gastroesophageal reflux disease) (Acute) Hypothyroidism (Chronic) Medical History (Updated 01/04/25 @ 10:08 by Jakob Diaz DO) Stroke-like symptoms Complicated migraine (hemiplegic migraine)Left-sided weakness, facial droop Migraine Migraine (08/21/14) Nocturnal hypoxemia pt unaware, states no sleep apnea, does not use O2 or cpap device Depression with anxiety Hypothyroidism ADD (attention deficit disorder) Gait disorder cane/walker prn Right atrial mass pt not aware Hemiplegic migraine diagnosed w/ hemiplegic migraines, presents w/ slurred speech and facial drooping-follows with [facility] neurology History of COVID-2019, has stroke-like symptoms at the same time, hospitalized after discovering blood clot in lung at [facility]; hx 2020, not hosp; still has some weakness and problems with gait and balance-still uses a walker or a cane, since having covid in 2019 Goiter History of pulmonary embolism 2019, following covid>caused by covid; no current issues 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 Hearing loss in ultra-high frequencies Tinnitus, bilateral Acquired deviated nasal septum Stroke-like episode 2019, prior to hospitalization for covid and blood clot in lungs; dr's aren't sure if it was a complicated migraine or from covid-continues to have balance issues Dizziness "has been associated with her blood sugars, when she eats something it seems to go away" History of congenital diaphragmatic hernia surgical repair 01/04/2019 History of colon polyps Liver cyst monitoring Diaphragmatic hernia hx-repaired History of endometriosis GERD (gastroesophageal reflux disease) TMJ locking left side Seasonal affective disorder Transient ischemic attack (TIA) + 10 years ago Surgical History H/O excision of mass (05/30/24) Excision of Left Upper Extremity Mass 7.5cm x 6cm (Left) - Blade Zee DO H/O endoscopy 2018 H/O total hysterectomy 01/1998 H/O laparoscopy History of Ana M fundoplication 01/04/2019 [facility] Nausea and vomiting after administration of anesthetic agent History of tooth extraction Status post biopsy of thyroid gland History of breast biopsy History of herniorrhaphy UMBILICAL History of endometrial ablation History of dilatation and curettage History of section 12/19/1993 Status post JOSE-BSO History of colonoscopy History of esophagogastroduodenoscopy (EGD) Family History Son Family history of reaction to anesthesia Environmental allergies Father Family history of reaction to anesthesia PONV Diabetes Heart disease Father Family history of diabetes mellitus Mother Family history of diabetes mellitus Family hx of colon cancer Coronary heart disease Heart disease Cancer Diabetes Hypertension Mother Family history of esophageal cancer UTERINE CANCER W/ METS TO ESOPHAGUS AND LUNG Grandmother (Maternal) Ovarian cancer Cancer Grandfather (Paternal) Lung cancer smoker Liver cancer Heart disease Cancer Aunt Hypertension maternal Cancer Diabetes Heart disease Uncle Stroke Other No family history of adverse response to anesthesia No family history of bleeding disorder Social History Smoking Status: Never smoker Second Hand Exposure: Yes; Do You Dip or Chew Tobacco: No; Hx Alcohol Use: No Hx Substance Use: No Preferred Language: Kazakh Communication Ability: Effective Roll Coating Machine Operator Required: No Beliefs That Will Affect Care: None marital status: Single Current Living Situation: Alone Current Living Situation Comment: lives alone current occupational status: 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 How many Children do You have: 2 Other Information That Helps Us Care for You: No Feels Safe at Home: Yes Safety Concerns: Feels Safe At This Time Diet: gluten free during the past year weight has: increased > 10 lbs Assistive Devices: Cane and Walker Review of Systems Review of Systems: All systems reviewed & are unremarkable except as noted in Subjective Physical Exam Physical Exam: Constitutional: well-appearing, no acute distress HEENT: NCAT, no conjunctival injection CV: regular rhythm, no murmur appreciated, extremities well-perfused, no LE edema Resp: CTABL, no wheezes/rales/rhonchi appreciated, no increased work of breathing GI: soft, nondistended, nontender, BS normoactive MSK: no gross deformities appreciated Skin: warm, dry, no rash appreciated Neuro: alert, oriented, no focal neurologic deficit appreciated Results & Data Results & Data Vital Signs (Past 12 Hours) Vital Signs Temp Pulse Pulse Resp BP BP Pulse Ox 01/03/25 19:59 36.4 C L 43 L 14 122/70 95 01/03/25 19:44 36.5 C 47 L 18 132/76 100 01/03/25 19:31 49 L 164/92 H 100 01/03/25 19:16 51 L 18 161/89 H 99 01/03/25 19:00 36.5 C 16 159/94 H 98 01/03/25 18:45 48 L 20 145/75 H 100 01/03/25 18:31 49 L 20 145/75 H 98 01/03/25 18:16 46 L 159/78 H 98 01/03/25 18:02 46 L 20 97 02/26/25 18:00 45 L 142/80 H 96 01/03/25 17:58 47 L 01/03/25 17:24 36.6 C 55 L 18 143/80 H 100 O2 Del Method 01/03/25 19:59 Room Air 01/03/25 19:44 Room Air 01/03/25 19:31 01/03/25 19:16 Room Air 01/03/25 19:00 Room Air 01/03/25 18:45 Room Air 01/03/25 18:31 Room Air 01/03/25 18:16 01/03/25 18:02 Room Air 01/03/25 18:00 01/03/25 17:58 01/03/25 17:24 Room Air Critical Care Time 40 minutes Supervising Physician Co-Signing Physician Notes Attending addendum: I have physically seen this patient, have supervised the medical residents activities, and agree with the H&P unless as otherwise noted. Assessment and Plan: The patient is a 59-year-old female with past medical history including anxiety, depression, hypothyroidism, thyroid nodule, hyper homocystinemia, bradycardia, PE secondary to COVID-19 infection in October 2021, and migraine headaches. She has history of hemiplegic migraine. The patient presented to the emergency department with left facial droop, left hemiparesis and slurring of speech. Telestroke [facility] placed patient on TNK, and patient will be admitted to the ICU for post TNK protocol order set #CVA- Presentation of slurred speech, facial droop and generalized weakness on left side [facility] initiated TNK CT scan head negative CTA head neck initially read as occlusion of anterior terminal branch of the left M1 segment of the middle cerebral artery, but later revised to left anterior M2 branch Patient is being mated to the ICU for post TNK order set day 1 Consult PT/OT/speech/neurology Follow serial CBC with differential, chemistry profile and PT/INR/PTT Order hemoglobin A1c and fasting lipid panel History of hemiplegic migraine Depression with anxiety-holding home medications GERD-Home medications on hold Hypothyroidism medications on hold, towards reduced resume in the a.m.
[2025-01-03] MEDS: diphenhydrAMINE 50 MG/ML VIAL IV STA (20:56)
[2025-01-03] MEDS: FAMOTIDINE 20MG IV PUSH 20 MG/5 ML SYR IV STA (21:12)
--- NOTE | 2025-01-03 22:23 | Critical Care Consultation ---
Date of Consultation January 03, 2025 Assessment & Plan (1) CVA (cerebral vascular accident): (2) Depression with anxiety: (3) Hives: Plan Reason Critically Ill: CVA post TNK vs. exacerbation of complex migraine Pruritic rash, hives Neuro - RASS GOAL 0 Repeat CTH in 24 hours from TNK administration, sooner if neurologic change Frequently neurologic checks per protocol MRI brain ordered Avoid lab draws, catheters. No anticoagulation or NSAIDs x24 hours. SBP goal < 180mmHg Home Fluoxetine Restart home migraine Rx tomorrow if no findings noted to indicate CVA PT/OT Cardiac - Hold home antihypertensives for now Hydralazine PRN SBP > 180mmHg Continue statin. Lipid panel TTE with bubble study ordered Respiratory - No acute concerns SpO2 goal > 92% CPAP for moderate JOSH GI - No acute concerns Diet: NPO pending dysphagia screen SUP: N/A Bowel regimen: Miralax RENAL/LYTES - No acute concerns Replete electrolytes as indicated No indication for carreon catheter Maintain net even to net negative ENDO - No acute concerns Home thyroid Rx. A1c BG 140-180 per [facility] guidelines ISS if needed while inpatient HEME/ONC/OTHER - S/p TNK Hold DVT PPX for 24hrs Benadryl PRN itching, monitor rash ID - No acute concerns LINES/TUBES/DRAINS - PIV x2 DVT PROPHYLAXIS - Contraindicated I have personally spent 32 minutes of critical care time in the direct management of this patient. This is a life/limb threatening event. This includes time spent evaluating patient, direct bedside care, chart review, placing orders, interpretation of diagnostic studies, discussion with consultants, patient, and family members, as well as other required patient management activities. This time is exclusive of all separately billable procedures, and teaching time and separate from and in addition to any other critical care service time. Thank you for allowing us to participate in the care of this patient. Please refer to my attending physician's documentation for any further recommendations. History of Present Illness Reason for Consultation: Post TNK Requesting Physician: Renato Attending Physician: Renato History of Present Illness Ms. Babita Tyler is a pleasant 59YOF with a history of complex migraines, JOSH on CPAP, GERD, hypothyroidism, depression/anxiety who presented to [facility] from home due to slurred speech, L hemiparesis and L facial droop starting around 1630. Blurry vision has been occurring transiently over some time. Her symptoms were waxing and waning in the emergency department. Head and neck CTA initially read as M1 occlusion, however after discussion with telestroke it is felt that the left M1 is patent. There is truncation of the proximal left anterior M2 branch. There is an asymmetric vessel at the proximal M1 bifurcation which may be a vein and courses anterior posterior direction. It was recommended patient receive TNK. She received TNK at 1928. Subsequently developed hives of BUE. Received H2B and Benadryl with improvement. She was seen in consultation. Babita endorses waxing and waning symptoms as above. She feels back to baseline at this time. Her exam is grossly normal without deficits. No visual disturbances or headache. Additional ROS negative. Her hives developed following CT. Patient has had numerous tests with contrast in the past, thus allergy to contrast is not high on the differential. On that note, Babita has undergone extensive neurologic testing, sees a neurologist as OP. It is thought that her symptoms have been attributable to her complex migraines. She told staff that this episode was different from prior. Allergies Allergy/AdvReac Type Severity Reaction Status Date / Time lisinopril Allergy Severe Swelling Verified 01/03/25 20:09 of Lip/Tongue/Throat latex Allergy Intermediate Rash Verified 01/03/25 20:09 Sulfa (Sulfonamide Allergy Intermediate Rash Verified 01/03/25 20:09 Antibiotics) yellow dye Allergy Intermediate Tremor Verified 01/03/25 20:09 levothyroxine Allergy Unknown SEE COMMENT Verified 01/03/25 20:09 citalopram AdvReac Intermediate WORSENING Verified 01/03/25 20:09 TREMORS/RASH gluten AdvReac Intermediate GI Symptoms Verified 01/03/25 20:09 levothyroxine sodium AdvReac Intermediate Fatigued Verified 01/03/25 20:09 [From Synthroid] UNKNOWN INHALER AdvReac Intermediate TREMORS Uncoded 01/03/25 20:09 Home Medications Medication Instructions Recorded Confirmed Type fluoxetine 20 mg capsule 60 mg PO QAM 05/07/20 01/03/25 History atorvastatin 40 mg tablet 40 mg PO HS 04/23/23 01/03/25 History guanfacine 2 mg tablet,extended 2 mg PO HS 04/23/23 01/03/25 History release 24 hr famotidine 40 mg tablet 40 mg PO HS 11/28/23 01/03/25 History CPAP Machine #1 ea 07/04/24 01/03/25 Rx Naltrexone Compound 25 mg PO HS 01/03/25 01/03/25 History atogepant 60 mg tablet (Qulipta) 60 mg PO HS 01/03/25 01/03/25 History rimegepant 75 mg disintegrating 75 mg PO Q OTHER DAY PRN Migraine 01/03/25 01/03/25 History tablet (Nurtec ODT) Headache thyroid (pork) 90 mg tablet 90 mg PO QAM 01/03/25 01/03/25 History Patient History Medical History (Updated 01/03/25 @ 22:55 by Ioana Gifford PA-C) Migraine Migraine (08/21/14) Nocturnal hypoxemia pt unaware, states no sleep apnea, does not use O2 or cpap device Depression with anxiety Hypothyroidism ADD (attention deficit disorder) Gait disorder cane/walker prn Right atrial mass pt not aware Hemiplegic migraine diagnosed w/ hemiplegic migraines, presents w/ slurred speech and facial drooping-follows with [facility] History of COVID-2019, has stroke-like symptoms at the same time, hospitalized after disco vering blood clot in lung at [facility]; hx 2020, not hosp; still has some weakness and problems with gait and balance-still uses a walker or a cane, since having covid in 2019 Goiter History of pulmonary embolism 2019, following covid>caused by covid; no current issues 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 Hearing loss in ultra-high frequencies Tinnitus, bilateral Acquired deviated nasal septum Stroke-like episode 2019, prior to hospitalization for covid and blood clot in lungs; dr's aren't sure if it was a complicated migraine or from covid-continues to have balance issues Dizziness "has been associated with her blood sugars, when she eats something it seems to go away" History of congenital diaphragmatic hernia surgical repair 01/04/2019 History of colon polyps Liver cyst monitoring Diaphragmatic hernia hx-repaired History of endometriosis GERD (gastroesophageal reflux disease) TMJ locking left side Seasonal affective disorder Transient ischemic attack (TIA) + 10 years ago Surgical History H/O excision of mass (05/30/24) Excision of Left Upper Extremity Mass 7.5cm x 6cm (Left) - Blade Zee, DO H/O endoscopy 2018 H/O total hysterectomy 01/1998 H/O laparoscopy History of Ana M fundoplication 01/04/2019 [facility] Nausea and vomiting after administration of anesthetic agent History of tooth extraction Status post biopsy of thyroid gland History of breast biopsy History of herniorrhaphy UMBILICAL History of endometrial ablation History of dilatation and curettage History of section 12/19/1993 Status post JOSE-BSO History of colonoscopy History of esophagogastroduodenoscopy (EGD) Family History Son Family history of reaction to anesthesia Environmental allergies Father Family history of reaction to anesthesia Diabetes Heart disease Father Family history of diabetes mellitus Mother Family history of diabetes mellitus Family hx of colon cancer Coronary heart disease Heart disease Cancer Diabetes Hypertension Mother Family history of esophageal cancer Grandmother (Maternal) Ovarian cancer Cancer Grandfather (Paternal) Lung cancer Liver cancer Heart disease Cancer Aunt Hypertension Cancer Diabetes Heart disease Uncle Stroke Other No family history of adverse response to anesthesia No family history of bleeding disorder Social History Smoking Status: Never smoker Second Hand Exposure: Yes; Do You Dip or Chew Tobacco: No; Hx Alcohol Use: No Hx Substance Use: No Preferred Language: Grenadian Communication Ability: Effective 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 Beliefs That Will Affect Care: None marital status: Single Current Living Situation: Alone Current Living Situation Comment: lives alone current occupational status: retired 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 How many Children do You have: 2 Other Information That Helps Us Care for You: No Feels Safe at Home: Yes Safety Concerns: Feels Safe At This Time Diet: gluten free during the past year weight has: increased > 10 lbs Assistive Devices: Cane and Walker Review of Systems Review of Systems: All systems reviewed & are unremarkable except as noted in Subjective Physical Exam Constitutional: WD/WN, vitals as above Eyes: PERRL, conjunctivae normal, anicteric sclerae No nystagmus ENMT: external ear and nose normal, oropharynx normal Neck: normal visual inspection and trachea midline Thyroid: + thyroid asymmetrical and + thyroid firm; thyroid nontender Respiratory: normal respiratory effort, lungs clear to auscultation Cardiovascular: RRR, no murmur, no edema Gastrointestinal (Abdomen): normal bowel sounds, soft, nontender, no hepatosplenomegaly Musculoskeletal: no cyanosis or clubbing, extremities motor strength 5/5 Skin: Hives BUE, forearms, concentrated around L arm IV site. Neurologic: PERRL, EOMI, accommodation nl, no face palsy, no dysarthria CN's II-XI intact bilaterally, moves all extremities and awake; no focal motor deficits Speech / Cognition: normal speech Motor/Sensory: no tremor, no pronator drift and no sensory deficit Cranial Nerves: PERRL, tongue midline and no nystagmus Coordination: + abnormal [id number] test and + abnormal [id number] test Psychiatric: A+Ox3, euthymic affect Genitourinary: Deferred Results & Data Results & Data Vital Signs (Past 12 Hours) Vital Signs Temp Pulse Pulse Resp BP BP Pulse Ox 01/03/25 22:00 36.5 C 43 L 13 117/72 98 01/03/25 21:44 50 L 01/03/25 21:30 36.4 C L 51 L 14 125/82 98 01/03/25 21:15 36.4 C L 43 L 16 130/72 97 01/03/25 21:00 36.4 C L 51 L 14 133/74 01/03/25 20:45 36.4 C L 48 L 15 104/73 97 01/03/25 20:30 36.4 C L 44 L 14 145/87 H 97 01/03/25 20:15 36.5 C 47 L 16 122/71 96 01/03/25 19:59 36.4 C L 43 L 14 122/70 95 01/03/25 19:44 36.5 C 47 L 18 132/76 100 01/03/25 19:31 49 L 164/92 H 100 01/03/25 19:16 51 L 18 161/89 H 99 01/03/25 19:00 36.5 C 16 159/94 H 98 01/03/25 18:45 48 L 20 145/75 H 100 01/03/25 18:31 49 L 20 145/75 H 98 01/03/25 18:16 46 L 159/78 H 98 01/03/25 18:02 46 L 20 97 01/03/25 18:00 45 L 142/80 H 96 01/03/25 17:58 47 L 01/03/25 17:24 36.6 C 55 L 18 143/80 H 100 O2 Del Method 01/03/25 22:00 Room Air 01/03/25 21:44 01/03/25 21:30 Room Air 01/03/25 21:15 Room Air 01/03/25 21:00 Room Air 01/03/25 20:45 Room Air 01/03/25 20:30 Room Air 01/03/25 20:15 Room Air 01/03/25 19:59 Room Air 01/03/25 19:44 Room Air 01/03/25 19:31 01/03/25 19:16 Room Air 01/03/25 19:00 Room Air 01/03/25 18:45 Room Air 01/03/25 18:31 Room Air 01/03/25 18:16 01/03/25 18:02 Room Air 01/03/25 18:00 01/03/25 17:58 01/03/25 17:24 Room Air Laboratory Results Reviewed Diagnostic Findings Reviewed Medications Administered See MAR Coding Level of Care Code 26056 CRITICAL CARE 1ST 30-74M Diagnoses CVA (cerebral vascular accident) I63.9 Depression with anxiety F41.8 Hives L50.9 Time Spent (min) 32
[2025-01-03] MEDS ORDERED: PHARMACIST DISCHARGE MED REC CONSULT PRN (23:11)
[2025-01-03] MEDS ORDERED: LABETALOL HCL IV 5 MG/ML 20ML IV PRN (23:11)
[2025-01-04] MEDS: ICU Protocol for HYPERglycemia SCH (00:10)
[2025-01-04] MEDS ORDERED: hydrALAZINE HCL 20 MG/ML VIAL IV PRN (03:56)
--- OUTSIDE RECORDS SUMMARY | 2025-01-04 05:19 | External Medical Summary | Continuity of Care Document ---
Author Name Unknown Organization [facility] [address] Address [address] [place], [place] [id number] Care Team Providers Care Bending Roll Hand Name Role Phone Enid Colmenares Primary Care Physician [phone] [id number] Date(s): 12/26/24 - 12/26/24 [facility] [address] [facility] [address] [place] [address] [phone] Encounter Diagnosis Migraine(Discharge Diagnosis) - 12/26/24 Discharge Disposition: Home or Self Care Attending Physician: IRIS Govea Rashmi Referring Physician: MD Dar[place], [place] Encounter Type: Clinic Off [place] Allergies, Adverse Reactions, Alerts Substance Criticality Severity Reaction Reaction Severity Status lisinopril anaphylactic Active eggs abdominal discomfort Active SPARERIBS TRIMMER Thyroid tremors Active citalopram 1 Unable to assess criticality Mild worsening tremors Active sulfa drugs Mood changes Itching Rash Active yellow dye Coarse tremors Acti ve Synthroid slurred speech Activ e meloxicam 2 akes me walk li ke a robot Active Glutens abdominal discomfort Active milk products abdominal pain A ctive Latex rash Active 1taken from [facility] records 2affects gait and speech per pt. Assessment and Plan Extracted from: Title:Office Visit Note Author:IRIS Govea Ra shmi Date:12/26/24 1.Migraine Babita is a 59-year-old female who presents with migraine without auraandhemiplegic migraines. At this time she will continue with symptomatic treatment. For migraine prevention she will continue she will discontinue Ajovy and instead she will try Opalcwc60 mg p.o. daily. Potential side effects were reviewed. She will continue with Nurtec 75 mg as needed. Other options may include Emgality,Depakote, gabapentin. Abortive options may include Ubrelvy. She will continue with the migraine elimination diet, adequate hydration and stress reduction techniques. I will follow-up with her 2 months For reexaminationand evaluate how she is doing with above treatment. She was instructed to call in the interim if she has any further questions or concerns. Time including documentation was25 minutes. This included gathering history, review of records,exam,educating counseling, care coordination and documentation. [2] Immunizations Given and Recorded Vaccine Date Status Refusal Reason influenza virus vaccine, inactivated 08/10/24 Korey rded influenza virus vaccine, inactivated 08/11/23 Give n influenza virus vaccine, inactivated 08/30/19 Korey rded influenza virus vaccine, inactivated 08/17/17 Give n influenza virus vaccine, inactivated 08/28/16 Give n influenza virus vaccine, inactivated 10/21/15 Give n influenza virus vaccine, inactivated 07/23/14 Give n influenza virus vaccine, inactivated 08/04/13 Give n influenza virus vaccine, inactivated 08/08/12 Korey rded SARS-CoV-2 (COVID-19) mRNA-1273 vaccine 1 01/03/21 Recorded SARS-CoV-2 (COVID-19) mRNA-1273 vaccine 2 11/29/20 Recorded zoster vaccine, inactivated 07/14/18 Given zoster vaccine, inactivated 3 07/13/18 Recorded zoster vaccine, inactivated 03/09/18 Given tetanus/diphtheria/pertuss, acel (Tdap) 01/10/18 G iven tetanus/diphtheria/pertuss, acel (Tdap) 06/06/13 G iven tetanus/diphtheria/pertuss, acel (Tdap) 4 08/22/05 Recorded tetanus/diphtheria/pertuss, acel (Tdap) 08/22/05 R ecorded 1Result Comment: 2022-08-21: Historical information-source unspecified 2Result Comment: 2022-08-21: Historical information-source unspecified 3Result Comment: 2022-08-21: Historical information-source unspecified 4Result Comment: Route: Unknown Problem List Condition Confirmation Course Effective Dates Status H ealth Status Informant ADD (attention deficit disorder with hyperactivity) Confirmed Active Anxiety and depression Confirmed Active BMI 40.0-44.9, adult Confirmed Active Chronic constipation Confirmed Active Right knee gives way Confirmed Active Low vitamin B12 level Confirmed Active Deviated septum Confirmed Active Diaphragmatic hernia 1 Confirmed Active Diverticulosis of colon Confirmed Active Family history of coronary artery disease in mother Confirmed Active Family history of kidney stones 2 Confirmed Active Abnormal bowel habits Confirmed Active Trochanteric bursitis, left hip Confirmed Active History of Ana M fundoplication Confirmed Active Homocystinemia Confirmed Active Hyperlipidemia Confirmed Active Hypothyroid Confirmed Active Lumbar pain Confirmed Active Migraine Confirmed Active Patellofemoral syndrome, left Confirmed Active Lumbar stenosis Confirmed Active Weight disorder Confirmed Active 1Left 2father: multiple Diagnosis Diagnosis Type Effective Dates Health Status [facility] Service Informant Migraine Discharge Diagnosis 12/26/24 Procedures Procedure Date Related Diagnosis Body Site Status Colonoscopy 1, 2 06/29/23 Complete d Pathology 3 06/29/23 Completed Mammogram - screening 4 05/24/23 C ompleted Chest X-ray 5 04/20/[address] of head 6 04/20/23 Completed Chest X-ray 7 04/11/[address] of head 8 04/11/[address] angiography of head with contrast 9 02/10/[address] of head w/o contrast 10 02/10/[address] of neck 11 02/10/[address] of abdomen and pelvis wit h contrast 12 11/27/22 Completed Chest X-ray 13 11/16/[address] of head 14 11/16/22 Completed MRI of head 15 11/16/22 Completed Chest X-ray 16 09/22/22 Completed Chest X-ray 17 09/09/22 Completed Chest x-ray 18 06/03/[address] angiography of head and n love with contrast 19 06/03/[address] of head 20 06/03/22 Completed MRI of lumbar spine 21 06/03/22 Co mpleted MRI of thoracic spine 22 06/03/22 Completed Mammogram - screening 23 05/21/22 Completed Chest X-ray 24 09/25/[address] of chest 25 09/15/21 Completed Colonoscopy 26 04/23/[address] of abdomen and pelvis wit h iv con 27 03/05/21 Completed Angiogram 28 11/02/[address] of chest 29 11/02/20 Completed Venous 30 11/02/20 Completed Chest X-ray 31 09/24/[address] angiography chest 32 09/24/[address] of abdomen and pelvis wit h contrast 33 05/24/20 Completed Mammogram - screening 34 05/17/[address] of facial bones 35 12/29/19 Com pleted Colonoscopy 36 08/28/[address] angiogram of head, neck a nd thorax 37, 38 08/25/[address] of head 39 08/25/19 Completed ECG 40 08/25/19 Completed MRI of brain and brain stem 41 08/25/[address] of brain 42 06/05/19 Completed Mammogram - screening 43 05/16/[address] angiogram of chest 44 02/03/19 Completed Ana M fundoplication 45 01/04/19 Completed Upper GI endoscopy 46 12/29/18 Com pleted Chest X-ray 2V routine 47 12/09/18 Completed SLEEP STUDY ATTENDED 48 09/17/18 C ompleted Mammogram - screening 49 05/12/18 Completed MRI of brain with contrast 50 05/05/18 Completed X-ray of cervical spine 51 01/26/18 Completed Chest x-ray 52 12/28/17 Completed Exercise stress echocardiography 53 12/26/17 Completed Chest x-ray 54 11/28/[address] of abdomen and pelvis 55 10/21/17 Completed US EXAM ABDOM COMPLETE 56 10/21/17 Completed Ultrasound scan-Left lower e xtremity Venous 57 07/02/17 Completed Mammogram - screening 58 05/10/17 Completed CXR - Chest X-ray 59 03/31/17 Comp leted Diagnostic mammogram 60 03/31/17 C ompleted Mammogram 61 05/08/16 Completed CXR - Chest X-ray 62 03/20/16 Comp leted HIDA scan 63 01/14/16 Completed Ultrasound abdominal, rught upper quadrant 64 12/24/[address] of abdomen and pelvis 65 11/11/15 Completed Chest x-ray 66 10/18/[address] of head 67 10/18/15 Completed MRI 68 10/18/15 Completed KUB X-ray 69 08/29/15 Completed Ultrasound 70 08/29/15 Completed Upper GI Series 71 08/15/15 Comple cherry EGD 72 08/14/15 Completed Upper GI Endoscopy 73 08/14/15 Com pleted Chest x-ray 74 07/24/15 Completed Mammogram 75 04/23/15 Completed Chest x-ray 76 03/31/[address] of abdomen and pelvis 77 12/24/[address] of abdomen and pelvis 78 12/24/14 Completed PAP test date 79 12/05/14 Complete d Procedure 80 11/28/14 Completed Coccyx X-ray 81 11/07/14 Completed X-ray of lumbar spine and pelvis 82 11/07/14 Completed Ultrasound scan of thyroid 83 11/06/14 Completed Carotid artery doppler normal 84 10/17/14 Completed MRI of brain 85 10/17/14 Completed MRI of brain 86 10/17/14 Completed Left Ankle XRAY 87 10/10/[address] of head 88 08/20/14 Completed CXR - Chest X-ray 89 08/20/14 Comp leted MRI of brain 90 08/20/14 Completed Echocardiogram 07/02/14 Completed MRA head 91 07/02/[address] scan of head 92 07/01/14 Comple cherry MRI of brain 93 07/01/14 Completed x-ray of right foot 94 04/14/14 Co mpleted Mammogram - screening 95 04/10/14 Completed Colonoscopy 04/09/14 Completed section Complete d Echocardiogram 96 Complet ed hernia repair Completed Lipoma biopsy sample Comp leted MRA head 97 Completed JOSE BSO - Total abdominal hy sterectomy and bilateral salpingo-oophorectomy Completed 1Repeat in 5 years. 2The rectum, sigmoid colon, descending colon, splenic flexure, transverse colon, hepatic flexure, ascending colon, cecum and recto-sigmoid colon are normal. Biopsied. 3FINAL DIAGNOSIS Colon, "random colon biopsy" (biopsy): -Multiple benign strips of colonic mucosa with no pathologic diagnosis are seen. -The clinical history of constipation and change in bowel habits is noted. 4IMPRESSION: ACR BI-RADS CATEGORY 2: BENIGN There is no mammographic edvidence of malignancy. A 1 year screening mammogram is recommended. (05/24/2024) The patient will receive written notification of the results. 5impression: No acute cardiopulmonary findings 6Impression: No acute intracranial findings 7Impression: No acute process 8IMPRESSION: 1. No acute intracranial abnormality. 2. Stable CTA compared to the study from 02/10/2023. No aneurysm, dissection, high-grade stenosis or arterial occlusion. 3. Unchanged 1.8 cm left-sided thyroid nodule. 9Impression; Unremarkable CTA of the head. 10Impression: No acute intracranial findings. 11Impression: 1. No significant stenosis, occlusion, or dissection identified within the carotid or vertebral arteries. 2. A 1.8 cm left thyroid nodule. Follow up non emergenct thyroid ultrasound recommended for furtherevaluation. 12Impression: No acute infectious or inflammatory findings are identified in the abdomen or pelvis. 13Impression: No acute process 14Impression: No acute intracranial abnormality. 15Normal MRI of the brain 16Impression: no active disease in the chest. 17No acute process. 18no acute cardiopulmonary findings 19no significant stenosis, occlusion, or aneurysm within the rincon of [place] no stenosis or dissection within the bilateral common carotid, cervical internal carotid or vertebral arteries 20no acute intracranial findings 21Impression: Degenerative disc and degenerative facet joit diseae with segmental central canal stenosis present as delineated at each disc space level above. No focal disc protrusion/herniateion No abnormal enhancement. 22Impression: Normal thoracic cord signal and caliber Patent central canal and neural foramen within the thoracic spine. Minimal degenerative changes. 23Impression: There is no mammographic evidence of malignancy. A 1 year screening mammogram is recommended. (05/22/2023). The patient will receive written notification of the results. 24Impression: No active disease in the chest. 25IMPRESSION: 1.No pulmonary emboli identified. 2.No acute process within the chest. 3.Mild increase in size of an indeterminate 2.3 cm low- attenuation left cardiophrenic angle nodule. 4. small hiatal hernia. 26the entire examined colon is normal. the examined portion of the ileum was normal no specimens collects repeat colonoscopy in 10 yrs 27the colon is redundant and difficult to run. portion of the redundant sigmoid colon is located in the right upper abdomen with minimal distention of the sigmoid segment. cannot exclude a partial volvulus/ twiist or internal hernia or adhesion. subtle edema in the right lower abdomen and distoritionin the distrubtion of the bowel. appendix is not identified . there is a small hiatal hernia. no evidence for pancreatitis. kidneys are unremarkable 28ct angiogram of chest impression acute right lower lobe pulmonary embolism multifocal groundglass opacities consistent with a multifocal pneumonia. The findings are consistent with although not specific for covid 19 pneumonia small hiatal hernia interval enlargement in an ovoid 21mm density at the level left cardiophrnic angle suggestive of a pathologically enlargedl lymph node 291. acute right lower lober pulmonary embolism. 2. multifocal groundglass opacities consistent with a multifocal pneumonia. the findings are consistent with althouhg no speicific for covid 19 pneumonia. 3. small hiatal hernia 4. interval enlargement in an ovoid 21 mm density at the level left cardiophrenic angle suggestive of a pathologically enlarged lymph node. 30us venous bilateral lower extemities done in [place] no evidence of acute DVT. 31no acute cardiopulmonary findings. 321. no acute intrathoracic abdnormality, specificially there is no evidence of pulmonary thromboembolic disease. 2. no pleural effusion or airspace consolidation typical for pneumonia. 3. nonspecific enlarged epicardial lymph node adjacent to the lateral left ventricle, stable from 05/24/20 331. Increased colonic fecal load primarily involving the ascending and transverse colons. 2. This is consistent with fecal stasis. 3. Normal appendix. 4. Prior repai of the diaphragmatic hernia previously noted on the prior CT exam. 34There is no mammographic evidence of malignancy. A 1 year screening mammogram is recommended. The patient will receive written notification of the results. 35Impression: No acute intracranial abnormality or calvarial fracture. 36Impression: Diverticulosis in the sigmoid colon. No specimens collected. Recommendations: Repeat colonoscopy in 5 years for surveillance. 37Impression: No significant stenosis, occlusion, or aneurysm within the rincon of Mrai. Small caliber left bvbertebral artery presumably on an aanatomic basis. 38Impression: CTA of the neck. No stenosis or dissection. No change since MRA of July 02, 2014. Diminutive left vertebral artery which is unchanged. This is likely on a congentital basis. 39Impression: No acute intracranial findings. 40Rate 74 Findings: no PAC, no ST depression, no ST elevation, no acute ischemic change and no ectopy 41Impression: no significant change from the preceding study. No acute intracranial findings. No evidence of acute or subacute infarction No evidence of intracranial mass. 42there is no hemorrhage, mass effect or evidence of acute territorial ischemia by Ct criteria 43There is no mammographic evidence of malignancy. A 1 year screening mammogram is recommended. The patient will receive written notification of the results. 44No pulmonary emboli identified No consolidation to suggest pneumonia 4.6X3.2X2.2cm apparent fluid collection within the lower left hemithorax along the superior aspect of the mesh/left hemidiaphragm. This favors a postoperative fluid collection. A small portion of herniated stomach could appear similar. trace plueral effusion. No pneumothorax 45A. Lymph node and soft tissue excision: 1. Benign-appearing lymphnode. 2. Mesothelial-lined soft tissue consistent with hernia sac. B. Lymph node and soft tissue, gastroesophageal fat pad, excision: 1. Benign- appearing lymph node. 2. Benign soft tissue. 46The procedure was aborted d/t the extreme dificulty of theprocedure. Z-line regular, 35 cm from the incisors. Normal esophagus. Acquired deformity of the gastric antrum. No specimens collected. 47Impression: No active disease in the chest. 481. No evidence of clinically significant sleep apnea/hypopnea. 2. Severe PLMD. 3. Nocturnal hypoxemia. 49Impression: There is no mammographic evidence of malignancy. A 1 year screening mammogram is recommended. The patient will receive written notification of the results. 50No acute intracranial abnormality and no significant change from 10/18/2015 51Impression: Multilevel degenerative disc disease and spondylosis. Grade 1 spondylolisthesis C5-6. Prominent transverse process of C7 on each side. 52Impression: No significant change compared to the prior study. No acute process. Stable mild elevation of the left hemidiaphragm. 531. Normal left ventricular size and systolic function. EF 55-60%. No regional wall motion abnormalities. No left ventricular hypertrophy. Type 1 diastolic dysfunction. 2. Mild mitral regurgitation. 3. Normal estiamted right ventricular systolic pressure. 1. Negative stress echo for ischemia at 85% at [facility]. 2. Negative exercise ECG for ischemia at 85% at [facility]. 3. Appropriate blood pressure response to exercise. 4. No arrhythmia. 5. Study terminated d/t fatigue. No chest pain reported. Left-sided neck pain reported with initialexercise, but resolved following peak exercise. 6. Fair exercise tolerance. 7. technically difficult study, enhanced with IV Definity. 54No acute process 551. No significant change compared the prior study. 2. Large left posterior diaphragmatic hernia is again noted. This contains the mildly distended proximal stomach. Focal narrowing through the hernia opening of the diaphragm. The majority of the oralcontrast remains within the mildly distended proximal stomach within the hernia. Therefore, this could represent a paraesophageal or Bochdalek hernia. Therefore, this raises the possbility of a partial gastric obstruction. 3. Normal appendix. 4. Incidental note is made of the cecum within the left midabdomen. 5. Trace perispenic fluid, unchanged. 561. Normal gallbladder. No gallstones. 2. Stable 2.8cm cyst within the right hepatic lobe. 57There is no sonographic evidence of deep venous thrombosis identified in the left lower extremity 58Impression: There is no mammographic evidence of malignancy. A 1 year screening mammogram is recommended. The patient will receive written notification of the results. 59No acute cardiopulmonary findings. No change in appearance of the chest. 60Stable mammographic appearance of the right breast. There is no mammographic or targeted sonographic evidence of malignancy in the area of pain or thickening pointed out by the patient. Therefore, clinial follow-up is recommended. Otherwise return to annual screening mammography schedule. 61Bilate dital screening with 3D/2D Cat 2- Benign- 1 year f/u is recommended 62no acute cardiopulmonary abnormality 631) No evidence for cystic duct obstruction 2) Gallbladder ejection fraction calsculated to be 12%. This is abnormally low. 641. Mild hepatomegaly and steatosis. 2. Right hepatic lobe cyst. 65Left sided Bochdalek hernia again seen. Slight haziness at the extreme left base posteriorly is likely secondary to hernia right hepatic lobe cyst No urinary calculi or obstruction ventral hernia again seen containing fat. Surgical mesh again noted s/p hysterectomy 66No acute cardiopulmonary findings. 67No acute intracranial findings. 68of brain without and with IV contrast No acute intracranial findgins. No significant chagne since prior exam. 69CT examination not performed due to trhe barium seen throughout the colon and rectum from the recent upper GI series which would result in extensive artifact. These findings were called to the referring physician. 70renal ultrasound 71Large paraesophageal type hiatal hernia as described above The esophagus is normal in morphology and the gastroesophageal junction is located below the diaphram. 72No significan abnormalities duodenum. F/U as needed. 73Impression: Large hiatus hernia No gross lesions in duodenum. Biopsied. Normal stomach. 74No acute cardiopulmonary findings. 75Cat 2- Benign Stable bitlat mammo. There is no mammographic evidence of malignancy bilat. No suspiciois mammograhpic or sonographic abnormality to explain the nonfocal right mastalgia and left dense tissue and thickening. Therefore, clinic follow- up recommended, as bx of a clinically suspicious mass should not be precluded by negative imagening. Otherwise,a 1 year mammo is recommended. Pt aware of results. 76No acute cardiopulmonary findings. No significant change in the large hiatal hernia. 771. No renal, ureteral or bladder calculi identified. 2. No renal masses identified. 3. Stable right lobe hepatic cyst. 4. Stable Brochdalek hernia. 5. Stable ventral hernia, status post mesh repair. 6. Surgically absent uterus. 781) no renal, ureteral or bladder calculi identified 2) no renal masses identified 3) stable right lobe hepatic cyst 4) stable Bochdalek hernia 5) stable vertral hernia, status post mesh repair 6) surgically absent uterus 79Negative for malignancy 80Thyroid Gland, Left Ultrasound-guided aspiration: benigh thyroid aspirate. 81no fractures identified within the sracrum or coccyx 82minimal degenerative change of the lumbar spine with no acute process noted. Increased colonic fecal load. 83A2.6 cm heterogeneous slightly complex nodule lower aspect left thyroid. Fine needle aspiration biopsy is suggested. The ramainder of the study shows diffuse heterogeneity with increased vascularity suggesting an underlying component of potential thyroiditis 84No stenosis but did show left thyroid nodule 85no change from prior study, no acute infarct. 86No change from prior study, no acute infarct 87Mild soft tissue edema and joint effusion. 88No acute intracranial findings. 89No acute cardiopulmonary findings. Chronic findings as noted. 90No significant chnage from the preceding study. No acute intracranial findings. No evidence of intracranial mass. No evidence of acute or subacute infarction. 91Also had MRA of neck 92equivocal tiny focu on low attenuation, possibly prior lacunar infarction 93possible chronic lacunar infarcts or perivascular spaces more likely on the right 94Mild to moderate degenerative dhange. Heel spur. No acute bony abnormality. Negative for fracture. 951 yr screening recommended 96study date 07/02/14 patient was definitively evaluated for pfo and asa by tri on previous echo and no evidence of either was identified in the absence of anew lad territory infarct with apical aneurysm or new prolonged atrial fibrillation episode, repeat evaluatin for cardioembolic source is unlikely to identify new findings. The study was technically difficult but visualization was adequate with the administration of definity ultrasound contrast. no cardiac source of emboli noted. A complete two dimensional transthoracicechocardiogram was performed (2d M-mod doppler and clolr flow doppler the study was technically difficult but visualization was adequate with the administration of definity ultra sound contrast. 97mra of the neck impression minumal atherosclerotic change of the carotid systems to the neck with no evidence for asignificant stenotic process. very small caliber left vertebral vessel most likely on a genetic basis and or congenital basis with the right vertebral artery appearing dominant. Social History Social History Type Response Smoking Status Never smoked cigaret karthikeyan Sex Female Sex Representation Female (finding) Neurology Outpatient Note * IRIS Govea Rashmi: PERFORM Event Display: Neurology Outpt Note Authored Date: [id number] Chief Complaint follow up migraines History of Present Illness This note is documenting a telehealth visit via [employer]. Patient was informed that telehealth visits are billable to insurance and subject to copayments. They verbalized understanding and wishedto proceed with a telehealth visit. Patient's name and date of was verified. Patient was at home while I wasworking in the neurology clinic office. I initiated the [id number] visit. Babita is a pleasant 59-year-old female who I previously evaluated 3 months ago. She does have apast medical history significant for anxiety, depression, hypothyroidism, thyroid nodule, hyperhomocystinemia, bradycardia, PE secondary to COVID-19 infection in Oct 2021, and migraine headaches. She has had a history of hemiplegic migraines which have been described as left facial droop, left hemiparesis, and slurring of speech.She has had migraines since she was a teenager. They seem to wax and wane. Currently she is averaging about 2-3 headaches per week. They are no longer on a daily basis. When she does get them they are usually in the right frontal temporal region. Throbbing in natureof moderate to severe intensity. Currently for migraine prevention she is on [id number] mg subcu monthly and Nurtec as needed. Shedoes feel this regimen has been helpful at decreasing the frequency and severity of her migraines. We have tried her on memantine at her last visit although she mentioned adverse effects. She does mention interest in trying a daily pill instead of an injection. She does also take ibuprofen orTylenol for the milder headaches. She has not had any further ER visitssince her last visit with me. Previously failed treatments have included memantine, Ajovy,Aimovig, Topamax, amitriptyline, verapamil, fluoxetine, Lamictal,magnesium, riboflavinand Excedrin. [1] Physical Exam Mental status history was consistent and coherent. Patient was oriented to person, place, and date.Speech was fluent with normal comprehension and repetition. Attention span intact. Fund of knowledge intact to current events. There was no facial asymmetry. Hearing acuity was intact. There was no dysarthria. They were able to move all 4 extremities. Assessment/Plan 1.Migraine Babita is a 59-year-old female who presents with migraine without auraandhemiplegic migraines. At this time she will continue with symptomatic treatment. For migraine prevention she will continue she will discontinue Ajovy and instead she will try Ciaiejk72 mg p.o. daily. Potential side effects were reviewed. She will continue with Nurtec 75 mg as needed. Other options may include Emgality,Depakote, gabapentin. Abortive options may include Ubrelvy. She will continue with the migraine elimination diet, adequate hydration and stress reduction techniques. I will follow-up with her 2 months For reexaminationand evaluate how she is doing with above treatment. She was instructed to call in the interim if she has any further questions or concerns. Time including documentation was25 minutes. This included gathering history, review of records,exam,educating counseling, care coordination and documentation. [2] Attestation Disclaimer: This documentation was prepared utilizing speech recognition software. Grammatical errors, random word insertions, pronoun errors such as substituting "she" instead of "he," and incomplete sentences are occasional consequences of the system due to software limitations, ambient noise, and hardware issues. Attempts are made to catch and to correct these errors during the documentation process however this is not always possible. If you have any questions or concerns please do not hesitate to contact me through PowerChart. Problem List/Past Medical History Ongoing Abnormal bowel habits ADD (attention deficit disorder with hyperactivity) Anxiety and depression BMI 40.0-44.9, adult Chronic constipation Deviated septum Diaphragmatic hernia Diverticulosis of colon Family history of coronary artery disease in mother Family history of kidney stones History of Ana M fundoplication Homocystinemia Hyperlipidemia Hypothyroid Low vitamin B12 level Lumbar pain Lumbar stenosis Migraine Patellofemoral syndrome, left Right knee gives way Trochanteric bursitis, left hip Weight disorder Resolved Acute recurrent sinusitis Adhesive capsulitis of right shoulder Ambulatory dysfunction Chest pain Colon polyps Cough Depression Difficulty walking Facial droop Falls frequently Family history of diabetes mellitus in father Frequent falls Headache Homocysteinemia Loss of balance Nasal congestion Neurological symptoms Paresthesia Pulmonary embolism Right shoulder pain RLQ abdominal pain ROUTINE GENERAL MEDICAL EXAMINATION AT A HEALTH CARE FACILITY Shoulder pain Sinusitis Slurred speech Speech dysfunction Stroke-like episode Symptomatic hypotension Tailbone injury Tendonitis of left rotator cuff Tremor Unbalanced translocation and insertion Unsteady gait when walking Procedure/Surgical History Pathology| Service Date: 06/29/2023olonoscopy| Service Date: 06/29/2023Mammogram - screening| Service Date: 05/24/2023T of head| Service Date: 04/20/2023hest X-ray| Service Date: 04/20/2023t X-ray| Service Date: 04/11/2023T of head| Service Date: 04/11/2023T of neck| Service Date: 02/10/2023 of head w/o contrast| Service Date: 02/10/2023T angiography of head with contrast| Service Date: 02/10/2023T of abdomen and pelvis with contrast| Service Date: 11/27/2022 X-ray| Service Date: 11/16/2022T of head| Service Date: 11/16/2022MRI of head| Service Date: 11/16/2022hest X-ray| Service Date: 09/22/2022 X-ray| Service Date: 09/09/2022MRI of lumbar spine| Service Date: 06/03/2022MRI of thoracic spine| Service Date: 06/03/2022t x-ray| Service Date: 06/03/2022T angiography of head and neck with contrast| Service Date: 06/03/2022T of head| Service Date: 06/03/2022Mammogram - screening| Service Date: 07/14/2022Chest X-ray| Service Date: 09/25/2021T of chest| Service Date: 09/15/2021olonoscopy| Service Date: 04/23/2021T of abdomen and pelvis with iv con| Service Date: 1Angiogram| Service Date: 11/02/2020Venous| Service Date: 11/02/2020CT of chest| Service Date: CT angiography chest| Service Date: 09/24/2020Chest X-ray| Service Date: 09/24/2020CT of abdomen and pelvis with contrast| Service Date: 05/24/2020Mammogram - screening| Service Date: 05/17/2020CT of facial bones| Service Date: 12/29/2019Colonoscopy| Service Date: 08/28/2019ECG| Service Date: 08/25/2019MRI of brain and brain stem| Service Date: 08/25/2019CT angiogram of head, neck and thorax| Service Date: 08/25/2019CT of head| Service Date: 08/25/2019CT of brain| Service Date: 06/05/2019Mammogram - screening| Service Date: 05/16/2019CT angiogram of chest| Service Date: 02/03/2019Nissen fundoplication| Service Date: 01/04/2019Upper GI endoscopy| Service Date: 12/29/2018Chest X-ray 2V routine| Service Date: 12/09/2018SLEEP STUDY ATTENDED| Service Date: 09/17/2018Mammogram - screening| Service Date: 05/12/2018MRI of brain with contrast| Service Date: 05/05/2018X-ray of cervical spine| Service Date: 01/26/2018Chest x-ray| Service Date: 12/28/2017Exercise stress echocardiography| Service Date: 12/26/2017Chest x-ray| Service Date: 11/28/2017CT of abdomen and pelvis| Service Date: 10/21/2017US EXAM ABDOM COMPLETE| Service Date: 10/21/2017Ultrasound scan-Left lower extremity Venous| Service Date: 07/02/2017Mammogram - screening| Service Date: 05/10/2017Diagnostic mammogram| Service Date: 03/31/2017CXR - Chest X-ray| Service Date: 03/31/2017Mammogram| Service Date: 05/08/2016CXR - Chest X- ray| Service Date: 03/20/2016HIDA scan| Service Date: 01/14/2016Ultrasound abdominal, rught upper quadrant| Service Date: 12/24/2015CT of abdomen and pelvis| Service Date: 11/11/2015CT of head| Service Date: 10/18/2015Chest x-ray| Service Date: 10/18/2015MRI| Service Date: 10/18/2015KUB X-ray| Service Date: 08/29/2015Ultrasound| Service Date: 08/29/2015Upper GI Serie s| Service Date: 08/15/2015EGD| Service Date: 08/14/2015Upper GI Endoscopy| Service Date: 08/14/2015Chest x-ray| Service Date: 07/24/2015Mammogram| Service Date: 04/23/2015Chest x-ray|Service Date: 03/31/2015CT of abdomen and pelvis| Service Date: 12/24/2014CT of abdomen and pelvis| Service Date: 12/24/2014PAP test date| Service Date: 12/05/2014Procedure| Service Date:11/28/2014Coccyx X-ray| Service Date: 11/07/2014X-ray of lumbar spine and pelvis| Service Date: 11/07/2014Ultrasound scan of thyroid| Service Date: 11/06/2014Carotid artery doppler normal| Service Date: 10/17/2014MRI of brain| Service Date: 10/17/2014MRI of brain| Service Date: 10/17/2014Left Ankle XRAY| Service Date: 10/10/2014CXR - Chest X-ray| Service Date: 08/20/2014CT of head| Service Date: 08/20/2014MRI of brain| Service Date: 08/20/2014Echocardiogram| Service Date: 07/02/2014MRA head| Service Date: 07/02/2014CT scan of head| Service Date: 07/01/2014MRI of brain| Service Date: 07/01/2014x-ray of right foot| Service Date: 04/14/2014Mammogram - screening| Service Date: 04/10/2014Colonoscopy| Service Date: 04/09/2014hernia repairLipoma biopsy sampleCesarean sectionTAH BSO - Total abdominal hysterectomy and bilateral salpingo-oophorectomyMRA headEchocardiogram Medications atogepant(Qulipta 60 mg oral tablet), 60 mg= 1 tab, PO, Daily, 11 refills atorvastatin(atorvastatin 40 mg oral tablet), 40 mg= 1 tab, PO, Daily, 3 refills cholecalciferol(Vitamin D3 25 mcg (1000 intl units) oral capsule), 25 mcg= 1 cap, PO, Daily famotidine(famotidine 20 mg oral tablet), 10 mg= 0.5 tab, PO, bid FLUoxetine(FLUoxetine (Eqv-Sarafem) 10 mg oral tablet), 20 mg= 2 tab, PO, Daily guanFACINE(guanFACINE 2 mg oral tablet, extended release), 2 mg= 1 tab, PO, Daily ketorolac(Toradol 10 mg oral tablet), 10 mg= 1 tab, PO, ONCE, PRN lamoTRIgine(lamoTRIgine 100 mg oral tablet), 1 tab, PO, Daily magnesium gluconate(magnesium gluconate 250 mg oral tablet), 250 mg= 1 tab, PO, Daily meclizine nystatin topical(nystatin 100,000 units/g topical powder), See Instructions rimegepant(Nurtec ODT 75 mg oral tablet, disintegrating), 1 tab, PO, Every other day, 11 refills thyroid desiccated(thyroid desiccated 90 mg oral tablet), 90 mg= 1 tab, PO, Daily unlisted medication(nerivio refills), See Instructions, 11 refills Allergies citalopram (Mild)worsening tremors Glutensabdominal discomfort Latexrash SPARERIBS TRIMMER Thyroidtremors Synthroidslurred speech eggsabdominal discomfort lisinoprilanaphylactic meloxicamakes me walk like a robot milk productsabdominal pain sulfa drugsMood changes, Itching, Rash yellow dyeCoarse tremors Social History Smoking Status Never smoked cigarettes Alcohol - Denies Alcohol Use Employment/School Status:Employed Description:works at [employer] Exercise - Regular exercise Home/Environment Lives with:Children Sexual - No Sexual Activity Tobacco - Denies Tobacco Use Family History Aortic valve disorder: Mother. CABG - Coronary artery bypass graft: Mother. CHF (congestive heart failure): Mother. Cancer of colon: Mother. Colon polyps.: Mother. Diabetes: Father. Diabetes type 1, controlled: Mother. Epilepsy: Daughter and Son. Heart attack: Father. Heart disease: Mother. Kidney stone: Father. Migraine: Daughter. Ovarian cancer..: MGM. Seizure: Daughter and Son. Uterine cancer: Mother. Health Status Family Member(s) Family Member(s) Relationship: Mother, Age: Unknown Immunizations Vaccine Date Status influenza virus vaccine, inactivated 08/10/2024 Recorded influenza virus vaccine, inactivated 08/11/2023 Given SARS-CoV-2 (COVID-19) mRNA-1273 vaccine 01/03/2021 Recorded Comments : 2022-08-21: Historical information-source unspecified SARS-CoV-2 (COVID-19) mRNA-1273 vaccine 11/29/2020 Recorded Comments : 2022-08-21: Historical information-source unspecified influenza virus vaccine, inactivated 08/30/2019 Recorded zoster vaccine, inactivated 07/14/2018 Given zoster vaccine, inactivated 07/13/2018 Recorded Comments : 2022-08-21: Historical information-source unspecified zoster vaccine, inactivated 03/09/2018 Given tetanus/diphtheria/pertuss, acel (Tdap) 01/10/2018 Given influenza virus vaccine, inactivated 08/17/2017 Given influenza virus vaccine, inactivated 08/28/2016 Given influenza virus vaccine, inactivated 10/21/2015 Given influenza virus vaccine, inactivated 07/23/2014 Given influenza virus vaccine, inactivated 08/04/2013 Given tetanus/diphtheria/pertuss, acel (Tdap) 06/06/2013 Given influenza virus vaccine, inactivated 08/2012 Recorded tetanus/diphtheria/pertuss, acel (Tdap) 08/22/2005 Recorded Comments : Route: Unknown tetanus/diphtheria/pertuss, acel (Tdap) 08/22/2005 Recorded Recommendations Health Maintenance Pending(in the next year) Due Adult COVID-19 Vaccination due12/26/24Unknown Frequency Adult Social Determinants of Health Screening due12/26/24Unknown Frequency Due In Future Adult Influenza Vaccine not due until05/08/25and every 1year Body Mass Index not due until07/13/25and every Satisfied(in the past 1 year) Satisfied Adult Influenza Vaccine on08/10/24.Satisfied by Lalito Judd Erin Body Mass Index on07/12/24.Satisfied by VERONICA Oquendo Amber Breast Cancer Screening on05/25/24.Satisfied by ANTONIO Mas Lynnae [1]Office Visit Note; IRIS Govea, Kennedi 10/16/2024 09:40 EST [2]Office Visit Note; IRIS Govea, Kennedi 10/16/2024 09:40 EST Electronic Signature on File Electronically Reviewed/Signed by: IRIS Pandey Author Signature Dt/Tm:12/27/2024 08:21 AM Department of Neurology Electronically Reviewed/Signed by: Omega Aaron MD Cosigner Signature Dt/Tm: 12/27/2024 08:15 AM Book Reviewer Clinical Affairs Department of Neurology [facility] [id number], [address], [place] [address] RA Patient Care team information Care Team Personnel Name: IRIS Holland Tara Position: Nurse Pract - Family Med Member Role: Lifetime Relationship Address: [address] [place] [address] Telecom: [phone] Name: MD Darrian [place] Position: Physician - Family Med Member Role: Primary Care Provider Address: [address] [place], [place] [address]com: [phone] Care Team Related Persons Name: MONIE SARGENT V Insurance Providers Guarantor name: BABITA SARGENT Health Plan Information #: 2 Payer: [facility] Member Number: [id number] Policy Number: NA Group Number: [id number] Health Plan Information #: 1 Payer: MEDICARE Member Number: [id number] Policy Number: NA Group Number: NA Health Plan Information #: 3 Payer: [employer] [facility] PCP ONLY Member Number: NA Policy Number: NA Group Number: NA
[2025-01-04 06:18] LABS: Basophils # (auto) 0.04 K/uL (0.00-0.20); Basophils % (auto) 0.7 %; Eosinophils # (auto) 0.32 K/uL (0.00-0.50); Eosinophils % (auto) 5.6 %; Hematocrit (blood only) 38.8 % (37.0-47.0); Hemoglobin 12.8 g/dl (12.0-16.0); Immature Granulocytes # (auto) 0.03 K/uL (0.01-0.20); Immature Granulocytes % (auto) 0.5 %; Lymphocytes # (auto) 2.18 K/uL (1.20-3.40); Lymphocytes % (auto) 37.8 %; Mean Corpuscular Volume 93.9 fL (80.0-100.0); Mean Platelet Volume 9.3 fL (9.4-12.4); Monocytes # (auto) 0.72 K/uL (0.11-0.59); Monocytes % (auto) 12.5 %; Neutrophils # (auto) 2.47 K/uL (1.40-6.50); Neutrophils % (auto) 42.9 %; Platelet Count 200 K/uL (130-400); RDW Coefficient of Variation 13.2 % (11.5-14.5); RDW Standard Deviation 45.1 fL (36.4-46.3); Red Blood Count 4.13 M/uL (4.20-5.40); White Blood Count 5.76 K/ul (4.8-10.8)
[2025-01-04 06:23] LABS: BUN Creatinine Ratio 12.2 (10-20); Calcium 8.3 mg/dl (8.6-10.3); Chol HDL Ratio 2.3 (0-5); Creatinine Clr Calc Pharmacy 77.2 ml/min; Potassium 3.7 mmol/L (3.5-5.1)
[2025-01-04 06:30] LABS: Troponin I High Sensitivity 5.5 pg/ml (0-14)
[2025-01-04 07:00] LABS: Magnesium 1.9 mg/dl (1.7-2.4); Phosphorus 3.8 mg/dl (2.5-4.9)
[2025-01-04] MEDS: ICU ELECTROLYTE REPLACEMENT PROTOCOL SCH (07:01)
--- NOTE | 2025-01-04 08:13 | Critical Care Progress Note ---
Date of Service January 04, 2025 Assessment & Plan (1) CVA (cerebral vascular accident): (2) Depression with anxiety: (3) Hives: (4) Complicated migraine: (5) Stroke-like symptoms: Plan Reason Critically Ill: CVA post TNK vs. 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 No anticoagulation or NSAIDs x24 hours. SBP goal < 180mmHg Home Fluoxetine Restart home migraine Rx tomorrow if no findings noted to indicate CVA PT/OT Cardiac - Hold home antihypertensives for now Hydralazine PRN SBP > 180mmHg Continue statin. Lipid panel TTE with bubble study ordered Respiratory - No acute concerns SpO2 goal > 92% --JOSH CPAP for moderate JOSH GI - No acute concerns RENAL/LYTES - No acute concerns Replete electrolytes as indicated ENDO - --Hypothyroidism Continue with levothyroxine BG 140-180 per SCCM guidelines ISS if needed while inpatient HEME/ONC/OTHER - S/p TNK Hold DVT PPX for 24hrs Benadryl PRN itching, monitor rash ID - No acute concerns --Prophylaxis VTE: IPC GI: None Lines: Peripheral Diet: N.p.o. right now Plan: In/out: +820, urine output 300 mL Will do bedside swallow and if she is able to swallow then start cardiac diet Potassium and magnesium being replaced Given the MRI brain was negative, the probability of patient having complex migraine is high She was on Lamictal to prevent migraine when it was taken off approximately a week ago by her neurologist. CT of the head to be done 24 hours since TNK administration, if the CT head is negative okay to transfer her out of the ICU Please note the above document was generated using voice recognition software. It may contain grammatical, syntax or spelling errors.Any formal questions or concerns about the content, text or information contained within the body of this dictation should be directly addressed to the provider for clarification. Admission and Anticipated Discharge Date Admission Date: January 03, 2025 Subjective Patient seen and examined at bedside. No acute distress, no adverse events overnight Denies any blurry vision Does have mild headache but she does have a history of migraine No focal weakness, no slurred speech Was able to tolerate diet Patient heart rate was in the mid 50s, saturation was 97% on room air and systolic blood pressure 115 at the time of examination Review of Systems 2 Review of Systems: All systems reviewed & are unremarkable except as noted in Subjective Physical Exam 2 Physical Exam: Constitutional: No acute distress HEENT: EOMI, PERRLA Respiratory system: Good air entry bilaterally, no wheeze, no rhonchi, no crackles CVS: S1-S2 positive, no murmurs or gallops, bradycardia Abdomen: Soft, nontender, nondistended, positive bowel sounds x4 Extremities: +2 pulses bilaterally radialis/ dorsalis pedis, no cyanosis, no edema Neuro: Awake alert oriented x3 Psych: Normal mood and affect G/U: Positive Malin Skin: no rashes, warm and dry Lymphatic: no cervical or axillary lymphadenopathy Results & Data Results & Data Vital Signs (Past 12 Hours) Vital Signs Temp Pulse Pulse Pulse Resp BP Pulse Ox 01/04/25 07:29 36.7 C 50 L 17 115/66 97 01/04/25 06:21 36.4 C L 42 L 15 113/64 01/04/25 05:29 36.4 C L 40 L 12 114/65 98 01/04/25 04:29 36.3 C L 44 L 14 111/62 95 01/04/25 03:29 36.4 C L 40 L 14 122/71 97 01/04/25 03:23 42 L 10 L 96 01/04/25 02:48 36.4 C L 41 L 17 105/69 95 01/04/25 02:29 36.4 C L 42 L 15 115/69 97 01/04/25 01:55 36.4 C L 41 L 15 104/75 97 01/04/25 01:29 36.4 C L 42 L 15 104/75 01/04/25 00:59 36.4 C L 43 L 15 127/71 97 01/04/25 00:29 36.4 C L 41 L 15 127/71 97 01/04/25 00:00 36.4 C L 41 L 15 128/74 97 01/04/25 00:00 41 L 01/03/25 23:59 36.4 C L 41 L 15 128/74 97 01/03/25 23:29 36.4 C L 42 L 15 117/77 97 01/03/25 23:11 01/03/25 23:11 36.4 C L 40 L 15 117/77 97 01/03/25 23:11 45 L 01/03/25 23:00 36.4 C L 45 L 17 128/74 97 01/03/25 22:59 36.4 C L 42 L 18 128/74 97 01/03/25 22:30 36.5 C 44 L 17 111/73 96 01/03/25 22:00 36.5 C 43 L 13 117/72 98 01/03/25 21:44 50 L 01/03/25 21:30 36.4 C L 51 L 14 125/82 98 01/03/25 21:15 36.4 C L 43 L 16 130/72 97 01/03/25 21:00 36.4 C L 51 L 14 133/74 01/03/25 20:45 36.4 C L 48 L 15 104/73 97 01/03/25 20:30 36.4 C L 44 L 14 145/87 H 97 01/03/25 20:15 36.5 C 47 L 16 122/71 96 Pulse Ox O2 Del Method O2 Del Method 01/04/25 07:29 Room Air 01/04/25 06:21 CPAP 01/04/25 05:29 CPAP 01/04/25 04:29 CPAP 01/04/25 03:29 Room Air 01/04/25 03:23 01/04/25 02:48 Room Air 01/04/25 02:29 Room Air 01/04/25 01:55 Room Air 01/04/25 01:29 Room Air 01/04/25 00:59 Room Air 01/04/25 00:29 Room Air 01/04/25 00:00 Room Air 01/04/25 00:00 01/03/25 23:59 Room Air 01/03/25 23:29 Room Air 01/03/25 23:11 97 Room Air 01/03/25 23:11 Room Air 01/03/25 23:11 01/03/25 23:00 Room Air 01/03/25 22:59 Room Air 01/03/25 22:30 Room Air 01/03/25 22:00 Room Air 01/03/25 21:44 01/03/25 21:30 Room Air 01/03/25 21:15 Room Air 01/03/25 21:00 Room Air 01/03/25 20:45 Room Air 01/03/25 20:30 Room Air 01/03/25 20:15 Room Air Laboratory Results 01/04/25 05:33 01/04/25 05:33 Coding Level of Care Code 58960 SUB INP/OBS CARE 3/50MIN Diagnoses CVA (cerebral vascular accident) I63.9 Depression with anxiety F41.8 Hives L50.9 Complicated migraine G43.109 Stroke-like symptoms R29.90
[2025-01-04] MEDS: MAGNESIUM OXIDE 400 MG TAB PO SCH (08:38)
[2025-01-04] MEDS: POTASSIUM CHLORIDE CRTAB 20 MEQ TABCR PO SCH (08:38)
--- NOTE | 2025-01-04 08:41 | Neurology Consultation ---
Date of Consultation January 04, 2025 Assessment & Plan (1) Stroke-like symptoms: (2) Complicated migraine: (3) Depression with anxiety: (4) Chronic cerebral ischemia: Plan Patient presented 01/03 with dysarthria and left facial droop. All of her symptoms have resolved by this morning. The etiology of these symptoms are likely, as they were multiple times before, due to complicated migraine. Interestingly, the decision to give TNK was made because of the CTA finding of left M1 occlusion. As an aside, any stroke in the left middle cerebral artery distribution would not be associated with a left facial droop. Currently she is asymptomatic with a normal neurologic e xamination without focal findings, meningeal signs, or encephalopathy. Interestingly she has a longstanding history of complicated migraines that were better controlled on a combination of CGRP inhibitor +200 mg lamotrigine twice daily. This lamotrigine has been weaned off recently and she has had more headaches (as well as tremor). Although the patient has a history of tremor, I saw no tremor today and there is no evidence of cogwheel rigidity, resting tremor, or bradykinesia (therefore no evidence of Parkinson's disease). She has very minor nonspecific small vessel ischemia which is consistent with age and migraine condition. She has a history of anxiety and depression followed by psychiatry and this is stable Recommendations: 1. Obtain MRI of the brain as ordered 2. CT scan of the head 24 hours after TNK per order set. 3. After 24 hours post TNK we can initiate 81 mg aspirin tablet daily. 4. Keep atorvastatin 40 mg daily. Her total cholesterol is less than 100 and, in my opinion, she is not a high-dose statin candidate. 5. Patient has some bradycardia of uncertain etiology. Her blood pressure is relatively low as well. 6. Increase activity as able per protocol. I see no reason for additional neurologic testing but will reconsider after the above test results that are pending. 7. The patient will be followed by neurology at [facility] ([facility]) 8. Since a lot of her symptoms became worse following the lamotrigine taper (and had another ER visit/complicated migraine most likely) this may have to be restarted. However, I will leave this to the neurology team at [facility]. Overall, I spent a total of 100 minutes with this case including review of records, review of CT films, direct evaluation the patient at bedside, report generation, and discussion of the case with the patient and RN at bedside, and Dr. Boone, including differential diagnosis and treatment options. History of Present Illness Reason for Consultation: Patient is a 59-year-old, who I was asked to see at the request of Dr. Kothari, for neurologic consultation regarding strokelike symptoms post TNK Requesting Physician: Dr. Kothari Attending Physician: Orquidea Boone MD History of Present Illness I have seen this woman for many years, starting in the intermittently through January 2023. After this, I lost her to follow-up and she has been followed by [facility] neurology at [facility] ([facility]). This patient has been very complicated neurologically over time but has had issues with complicated migraines, mood issues, mild tremor, and possible seizures. She has had multiple admissions to the hospital over the years (including 5 or 6 times from 2021 through November 2023) all presenting with some form of headache, slurred speech, and left facial droop. Extensive evaluations have been done during these hospitalizations and CT of the head, CT angiography of the head and neck, and MRI of the brain have been unremarkable/normal. 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 She has never had any vascular stenoses or occlusions. Most recent MRI of the brain in November 2022, revealed a few small scattered white matter hyperintense foci consistent with old small vessel ischemic disease/migraine, unchanged from the previous MRI of May 2022. Her most recent event was in November 2023 when she was admitted to the hospital for slurred speech and left facial droop. She had a headache as well. She was discharged on 81 mg aspirin and 40 mg atorvastatin. In December 2021 an EEG showed some "rare left temporal sharp waves". Lamictal was initiated, but by November 2023 she was on 200 mg lamotrigine twice daily. She has been on this dose for some time although recently, [facility] neurology has tapered her off lamotrigine (to repeat an EEG off medication) and she has been off completely for 1 week. The patient had been on 81 mg aspirin in the past but this was discontinued as well. She is followed by Marie Yin PA-C, at [place] for mood issues. She is on fluoxetine 60 mg a day, compounded naltrexone daily, and guanfacine 2 mg ER (which she states is for ADHD). Her mood is stable. The patient was doing well but has noticed as the lamotrigine has been tapering that her headache frequency has increased and her tremor has gotten worse. Over the last week, being off lamotrigine, her headaches have been daily. On January 03, she noted a typical right temporal headache of a moderate nature . By 1129, it was getting worse. She had some vertiginous feelings with head movement, intermittently, lasting only a few seconds at a time. He has been having more vertiginous symptoms since weaned off lamotrigine as well. She had this worse headache throughout the afternoon and by 1629 she had the onset of muffled hearing in both ears, balance issues of a nonspecific nature and significantly slurred speech. She was able to understand others but not able to be understood. It was noted that her left face was drooping. Her headache was not as noticeable by late afternoon. She arrived at the emergency room January 03 at 1724, with a temperature 36.6, pulse 55 and regular, respiratory rate 18, O2 saturation 100%, blood pressure 143/80. In the emergency room she was noted to have slurred speech and a left facial droop. CBC and CHEM profile were unremarkable. CT scan of the head showed no acute changes or changes from previous scans. CT angiography of the head and neck was remarkable for the new finding of some occlusion of the left M1 branch of the middle cerebral artery. It was otherwise unremarkable. For this reason, and her symptoms, she was given TNK. She tells me that after the TNK her symptoms did not dramatically change. However this morning her symptoms are gone and she has no pain, headache, weakness, numbness, facial droop, speech problem, or vision issue. She is not vertiginous or having balance issues. There is no spine pain. MRI is pending and an echocardiogram was performed but the results are pending. CBC and CHEM profile this morning were unremarkable. Triglycerides were 87, total cholesterol 93, and LDL 36. Allergies Allergy/AdvReac Type Severity Reaction Status Date / Time lisinopril Allergy Severe Swelling Verified 01/03/25 20:09 of Lip/Tongue/Throat latex Allergy Intermediate Rash Verified 01/03/25 20:09 Sulfa (Sulfonamide Allergy Intermediate Rash Verified 01/03/25 20:09 Antibiotics) yellow dye Allergy Intermediate Tremor Verified 01/03/25 20:09 levothyroxine Allergy Unknown SEE COMMENT Verified 01/03/25 20:09 citalopram AdvReac Intermediate WORSENING Verified 01/03/25 20:09 TREMORS/RASH gluten AdvReac Intermediate GI Symptoms Verified 01/03/25 20:09 levothyroxine sodium AdvReac Intermediate Fatigued Verified 01/03/25 20:09 [From Synthroid] UNKNOWN INHALER AdvReac Intermediate TREMORS Uncoded 01/03/25 20:09 Home Medications Medication Instructions Recorded Confirmed Type fluoxetine 20 mg capsule 60 mg PO QAM 05/07/20 01/03/25 History atorvastatin 40 mg tablet 40 mg PO HS 04/23/23 01/03/25 History guanfacine 2 mg tablet,extended 2 mg PO HS 04/23/23 01/03/25 History release 24 hr famotidine 40 mg tablet 40 mg PO HS 11/28/23 01/03/25 History CPAP Machine #1 ea 07/04/24 01/03/25 Rx Naltrexone Compound 25 mg PO HS 01/03/25 01/03/25 History atogepant 60 mg tablet (Qulipta) 60 mg PO HS 01/03/25 01/03/25 History rimegepant 75 mg disintegrating 75 mg PO Q OTHER DAY PRN Migraine 01/03/25 01/03/25 History tablet (Nurtec ODT) Headache thyroid (pork) 90 mg tablet 90 mg PO QAM 01/03/25 01/03/25 History Patient History Medical History (Updated 01/04/25 @ 09:00 by Jh Garcia MD) Stroke-like symptoms Complicated migraine (hemiplegic migraine)Left-sided weakness, facial droop Migraine Migraine (08/21/14) Nocturnal hypoxemia pt unaware, states no sleep apnea, does not use O2 or cpap device Depression with anxiety Hypothyroidism ADD (attention deficit disorder) Gait disorder cane/walker prn Right atrial mass pt not aware Hemiplegic migraine diagnosed w/ hemiplegic migraines, presents w/ slurred speech and facial drooping-follows with [facility] neurology History of COVID-19 2019, has stroke-like symptoms at the same time, hospitalized after discovering blood clot in lung at [facility]; hx 2020, not hosp; still has some weakness and problems with gait and balance-still uses a walker or a cane, since having covid in 2019 Goiter History of pulmonary embolism 2019, following covid>caused by covid; no current issues 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 Hearing loss in ultra-high frequencies Tinnitus, bilateral Acquired deviated nasal septum Stroke-like episode 2019, prior to hospitalization for covid and blood clot in lungs; 'ryann aren't sure if it was a complicated migraine or from covid-continues to have balance issues Dizziness "has been associated with her blood sugars, when she eats something it seems to go away" History of congenital diaphragmatic hernia surgical repair 01/04/2019 History of colon polyps Liver cyst monitoring Diaphragmatic hernia hx-repaired History of endometriosis GERD (gastroesophageal reflux disease) TMJ locking left side Seasonal affective disorder Transient ischemic attack (TIA) + 10 years ago Surgical History H/O excision of mass (05/30/24) Excision of Left Upper Extremity Mass 7.5cm x 6cm (Left) - [facility], H/O endoscopy 2018 H/O total hysterectomy 01/1998 H/O laparoscopy History of Ana M fundoplication 01/04/2019 [facility] Nausea and vomiting after administration of anesthetic agent History of tooth extraction Status post biopsy of thyroid gland History of breast biopsy History of herniorrhaphy UMBILICAL History of endometrial ablation History of dilatation and curettage History of section 12/19/1993 Status post JOSE-BSO History of colonoscopy History of esophagogastroduodenoscopy (EGD) Family History Son Family history of reaction to anesthesia Environmental allergies Father Family history of reaction to anesthesia PONV Diabetes Heart disease Father Family history of diabetes mellitus Mother Family history of diabetes mellitus Family hx of colon cancer Coronary heart disease Heart disease Cancer Diabetes Hypertension Mother Family history of esophageal cancer UTERINE CANCER W/ METS TO ESOPHAGUS AND LUNG Grandmother (Maternal) Ovarian cancer Cancer Grandfather (Paternal) Lung cancer smoker Liver cancer Heart disease Cancer Aunt Hypertension maternal Cancer Diabetes Heart disease Uncle Stroke Other No family history of adverse response to anesthesia No family history of bleeding disorder Social History Smoking Status: Never smoker Second Hand Exposure: Yes; Do You Dip or Chew Tobacco: No; Hx Alcohol Use: No Hx Substance Use: No Preferred Language: Iranian Communication Ability: Effective Combo Welder Required: No Beliefs That Will Affect Care: None marital status: Single Current Living Situation: Alone Current Living Situation Comment: lives alone current occupational status: retired 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 How many Children do You have: 2 Other Information That Helps Us Care for You: No Feels Safe at Home: Yes Safety Concerns: Feels Safe At This Time Diet: gluten free during the past year weight has: increased > 10 lbs Assistive Devices: Cane and Walker Review of Systems Constitutional: no fever, no fatigue and no weakness Eyes: no diplopia, no eye pain and no worsening vision Ear, Nose, Mouth, Throat: no ear pain, no tinnitus, no hearing loss, no dizziness, no snoring, no hoarseness and no dysphagia Respiratory: no cough and no dyspnea Cardiovascular: no chest pain, no palpitations and no lightheadedness Gastrointestinal: no abdominal pain, no nausea and no vomiting Genitourinary: no dysuria, no urinary frequency and no urinary incontinence Musculoskeletal: no back pain, no neck pain, no radicular pain, no joint pain and no myalgia Integumentary: no rash and no lesions Neurologic: no gait abnormality, no localized weakness, no generalized weaknes s, no tingling, no numbness, no tremor(s), no abnormal movements, no headache(s), no abnormal speech, no confusion and no memory loss Psychiatric: no depression, no irritability, no anxiety, no difficulty concentrating, no confusion and no hallucinations Endocrine: no fatigue and no flushing Hematologic / Lymphatic: no easy bleeding and no easy bruising Allergy / Immunological: no urticaria and no problem reported Exam (Neuro) Physical Exam: The patient is right-handed. The patient is awake, alert, and attentive. Speech is normal without any aphasia or dysarthria. Mentation and thought processes are intact, with full orientation and normal fund of knowledge. Mood and affect are normal and appropriate. Appearance and grooming are normal. Short and long-term memory are intact. The discs are sharp with positive venous pulsations bilaterally. There are no exudates, hemorrhages, or blood vessel changes seen. Pupils are 4 mm bilaterally and reactive to light. Extraocular eye muscles are intact without nystagmus. Visual acuity and visual costello seem normal grossly to confrontation. There are no deficits to sensation in the face in all 3 distributions of the fifth cranial nerve bilaterally. Corneal reflexes are positive bilaterally. Facial strength and symmetry was normal bilaterally. Hearing seems intact grossly to voice and finger rub bilaterally. Palate moves well without as ymmetry. There is normal sternocleidomastoid and trapezius strength bilaterally. Tongue is midline with good strength bilaterally. Neck has a full range of motion without discomfort. There are no cervical bruits bilaterally. There are no cranial or ocular bruits. Heart is without murmur. There is a regular rhythm and rate. Cervical, thoracic, and lumbar spine are nontender to palpation. Gait was not tested but stance sitting up is quite normal. With outstretched arms there is no drift. There are no resting, postural, or action tremors. There is no ataxia with finger to nose testing. There is good facility in the hands. No other abnormal involuntary movements are noted. She has no bradykinesia. 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 Motor strength is 5/5 diffusely in the legs bilaterally including hip flexors, quadriceps, hamstrings, gastrocnemius, tibialis anterior, tibialis posterior, and Peroneii muscles bilaterally. Toe extensors are normal and there is good bulk in the extensor digitorum brevis muscles bilaterally. The limbs have good tone without rigidity or spasticity. There is no atrophy noted in the muscles. Muscle bulk is normal, there is no tenderness to palpation, no myotonia to percussion, and no fasciculations seen. Sensory examination is intact to touch and pin throughout all 4 limbs diffusely. Reflexes are 2/4 in the biceps, triceps, brachioradialis, quadriceps, and Achilles tendons bilaterally. Toes are downgoing with plantar stimulation bilaterally. Peripheral pulses are present and of normal quality distally in all 4 limbs. There is no peripheral edema noted in the limbs. Results & Data Vital Signs (Past 12 Hours) Vital Signs Temp Pulse Pulse Pulse Resp BP Pulse Ox 01/04/25 08:00 47 L 01/04/25 07:29 36.7 C 50 L 17 115/66 97 01/04/25 06:21 36.4 C L 42 L 15 113/64 01/04/25 05:29 36.4 C L 40 L 12 114/65 98 01/04/25 04:29 36.3 C L 44 L 14 111/62 95 01/04/25 03:29 36.4 C L 40 L 14 122/71 97 01/04/25 03:23 42 L 10 L 96 01/04/25 02:48 36.4 C L 41 L 17 105/69 95 01/04/25 02:29 36.4 C L 42 L 15 115/69 97 01/04/25 01:55 36.4 C L 41 L 15 104/75 97 01/04/25 01:29 36.4 C L 42 L 15 104/75 01/04/25 00:59 36.4 C L 43 L 15 127/71 97 01/04/25 00:29 36.4 C L 41 L 15 127/71 97 01/04/25 00:00 36.4 C L 41 L 15 128/74 97 01/04/25 00:00 41 L 01/03/25 23:59 36.4 C L 41 L 15 128/74 97 01/03/25 23:29 36.4 C L 42 L 15 117/77 97 01/03/25 23:11 01/03/25 23:11 36.4 C L 40 L 15 117/77 97 01/03/25 23:11 45 L 01/03/25 23:00 36.4 C L 45 L 17 128/74 97 01/03/25 22:59 36.4 C L 42 L 18 128/74 97 01/03/25 22:30 36.5 C 44 L 17 111/73 96 01/03/25 22:00 36.5 C 43 L 13 117/72 98 01/03/25 21:44 50 L 01/03/25 21:30 36.4 C L 51 L 14 125/82 98 01/03/25 21:15 36.4 C L 43 L 16 130/72 97 01/03/25 21:00 36.4 C L 51 L 14 133/74 01/03/25 20:45 36.4 C L 48 L 15 104/73 97 Pulse Ox O2 Del Method O2 Del Method 01/04/25 08:00 01/04/25 07:29 Room Air 01/04/25 06:21 CPAP 01/04/25 05:29 CPAP 01/04/25 04:29 CPAP 01/04/25 03:29 Room Air 01/04/25 03:23 01/04/25 02:48 Room Air 01/04/25 02:29 Room Air 01/04/25 01:55 Room Air 01/04/25 01:29 Room Air 01/04/25 00:59 Room Air 01/04/25 00:29 Room Air 01/04/25 00:00 Room Air 01/04/25 00:00 01/03/25 23:59 Room Air 01/03/25 23:29 Room Air 01/03/25 23:11 97 Room Air 01/03/25 23:11 Room Air 01/03/25 23:11 01/03/25 23:00 Room Air 01/03/25 22:59 Room Air 01/03/25 22:30 Room Air 01/03/25 22:00 Room Air 01/03/25 21:44 01/03/25 21:30 Room Air 01/03/25 21:15 Room Air 01/03/25 21:00 Room Air 01/03/25 20:45 Room Air PG Care Time/CCT Total # of Minutes Spent Total Time Spent with Patient: Total time spent is greater than 50% in coordination of care (as documented) at patient's floor/unit and/or counseling patient: Coding Level of Care Code 16554 INT INP/OBS CARE 3/75MIN Diagnoses Stroke-like symptoms R29.90 Complicated migraine G43.109 Depression with anxiety F41.8 Chronic cerebral ischemia I67.82 Time Spent (min) 100
[2025-01-04 08:57] LABS: Estimated Average Glucose 117 mg/dl; Hemoglobin A1C 5.7 % (4.5-5.6)
[2025-01-04] MEDS: GADOBUTROL 30ML VIAL IV ONE (10:04)
--- NOTE | 2025-01-04 10:35 | Magnetic Resonance Report ---
MR brain wo/w con HISTORY: 59 years-old Female Post TPA/TNK 24 hour acute stroke like symptoms COMPARISON: Brain MRI 11/30/2021, CTA head 01/03/2025 TECHNIQUE: Multiplanar multisequence MRI of the brain was obtained with and without IV contrast. FINDINGS: No restricted diffusion identified to suggest acute or subacute infarct. The midline structures appea r unremarkable. Partially empty sella. No acute intracranial hemorrhage, midline shift, abnormal extr a-axial collection, hydrocephalus or intra-axial mass. No pathologic blooming artifact. Mild scattere d subcentimeter T2/FLAIR hyperintense foci noted within the subcortical white matter of the frontal l obes, likely no clinical significance. No abnormal enhancement. Cerebral venous sinuses and major arterial flow voids appear patent. Skull, orbits and soft tissues a re unremarkable. Minimal mucosal thickening of the paranasal sinuses. The mastoid air cells are clear . IMPRESSION: 1. No acute intracranial abnormality. No acute or subacute infarct. 2. No abnormal enhancement. ACT 112: Negative or not required by law. The above report was generated using voice recognition software. It may contain grammatical, syntax o r spelling errors. Electronically signed by: Vikash Haynes M.D. 01/04/2025 10:34 AM
--- NOTE | 2025-01-04 10:46 | Magnetic Resonance Report ---
MR angio head wo con CLINICAL HISTORY: Post TPA/TNK 24 hour COMPARISON STUDY: CT angiography yesterday. FINDINGS: Intracranial internal carotid arteries show no narrowing or occlusion. Distal left vertebra l artery is extremely diminutive, stable. Visualized distal right vertebral artery is widely patent. Basilar artery is widely patent. The anterior terminal branch of the left M1 segment left MCA is not visualized, stable. Otherwise the anterior, middle, and posterior cerebral arteries are patent bilate rally. IMPRESSION: Stable exam. No adverse change seen ACT 112: Negative or not required by law. Electronically signed by: Steven Hart M.D. 01/04/2025 10:43 AM
--- NOTE | 2025-01-04 13:08 | XCELERA ---
[id number] \\[email or web address]\[id number]
--- NOTE | 2025-01-04 14:21 | Hospitalist Progress Note ---
Date of Service January 04, 2025 Assessment & Plan (1) Hemiplegic migraine: Plan: Most likely the reason for her presentation of slurred speech, facila droop Now resolved patient has a hx of heiplegic migraines in the past was on lamotrigine, which seemed to have controlled her symproms, however, lamotrigine has been weaned off by her neurologist Seen by Dr Jose Villagomez, who suggests reinstitution og her lamotrigine, but will defer to her neurologist MRI brain did noty shows any acute stroke Received TPK yesterday Will repeat CT head 24 hrs after per protocol Plan Likely d/c home in the next 24 hrs Admission and Anticipated Discharge Date Admission Date: January 03, 2025 Subjective patient seen and examined, no facial droop or numbness Review of Systems Review of Systems: All systems reviewed are negative, apart from the ones contained in the history. Physical Exam Physical Exam: The patient is awake, alert and oriented 3, well developed and well nourished, normocephalic and atraumatic, lying in bed and in no acute distress. HEENT--PERRL, EOMI, mucous membranes and oropharynx mildly dry Neck--supple. No JVD. No bruits. Thyroid normal, trachea midline, no adenopathy. Heart--normal S1 and S2. No murmurs, rubs or gallops. Lungs--clear bilaterally, no respiratory distress, no accessory muscle use. Abdomen--normal bowel sounds and soft. Extremities--no cyanosis or clubbing. No edema. Dermatologic--normal skin turgor, normal color, no abnormal lymph nodes, no rash. Neurologic--cranial nerves II through XII grossly intact. Rheumatologic--normal range of motion. Psychiatric--normal affect. Results & Data Results & Data Vital Signs (Past 12 Hours) Vital Signs Temp Pulse Pulse Pulse Resp BP BP 01/04/25 12:29 97.9 F 78 24 104/71 01/04/25 12:02 57 L 18 107/76 01/04/25 11:29 97.9 F 58 L 18 118/79 01/04/25 11:03 53 L 14 01/04/25 11:01 107/69 01/04/25 10:51 51 L 15 01/04/25 09:00 121/68 01/04/25 09:00 46 L 17 01/04/25 08:29 97.9 F 47 L 22 121/68 01/04/25 08:00 120/72 01/04/25 08:00 45 L 13 01/04/25 08:00 47 L 01/04/25 07:29 98.1 F 50 L 17 115/66 01/04/25 06:21 97.5 F L 42 L 15 113/64 01/04/25 05:29 97.5 F L 40 L 12 114/65 01/04/25 04:29 97.3 F L 44 L 14 111/62 01/04/25 03:29 97.5 F L 40 L 14 122/71 01/04/25 03:23 42 L 10 L 01/04/25 02:48 97.5 F L 41 L 17 105/69 01/04/25 02:29 97.5 F L 42 L 15 115/69 Pulse Ox O2 Del Method 01/04/25 12:29 95 Room Air 01/04/25 12:02 97 01/04/25 11:29 99 Room Air 01/04/25 11:03 95 01/04/25 11:01 01/04/25 10:51 98 01/04/25 09:00 01/04/25 09:00 99 01/04/25 08:29 97 Room Air 01/04/25 08:00 01/04/25 08:00 100 01/04/25 08:00 01/04/25 07:29 97 Room Air 01/04/25 06:21 CPAP 01/04/25 05:29 98 CPAP 01/04/25 04:29 95 CPAP 01/04/25 03:29 97 Room Air 01/04/25 03:23 96 01/04/25 02:48 95 Room Air 01/04/25 02:29 97 Room Air PG Care Time/CCT Total # of Minutes Spent Total Time Spent with Patient: Total time spent is greater than 50% in coordination of care (as documented) at patient's floor/unit and/or counseling patient: Coding Level of Care Code 87030 SUB INP/OBS CARE 2/35MIN Diagnoses Hemiplegic migraine G43.409 Time Spent (min) 35
--- NOTE | 2025-01-04 19:45 | Billing Data ---
Date of Service January 04, 2025 Coding Level of Care Code 76925 INT INP/OBS CARE
--- NOTE | 2025-01-04 19:45 | Billing Data ---
Date of Service January 04, 2025 Coding Level of Care Code 54701 CRITICAL CARE
--- NOTE | 2025-01-04 22:32 | CT Scan Report ---
Exam(s): CT HEAD Without Contrast EXAM: CT Head Without Intravenous Contrast CLINICAL HISTORY: Reason for exam: 24 hour post TNK- eval for hemorrhage. TECHNIQUE: Axial computed tomography images of the head/brain without intravenous contrast. CTDI is 38.69 mGy and DLP is 547.75 mGy-cm. Automated exposure control was utilized for the study. A dose lowering technique was utilized adhering to the principles of ALARA. COMPARISON: Head CT 01/03/2025 FINDINGS: Brain: No hemorrhage, extra-axial fluid collection, mass effect, or edema. Ventricles: Unremarkable. Bones/joints: Unremarkable. No fracture. Soft tissues: Unremarkable. Sinuses: No acute sinusitis. Mastoid air cells: Unremarkable as visualized. IMPRESSION: 1. No acute intracranial abnormality. Electronically signed by: Glen López MD 01/04/25 22:31 PM
[2025-01-04] MEDS: ACETAMINOPHEN 500 MG TAB PO PRN (23:47)
[2025-01-05 04:48] LABS: Basophils # (auto) 0.04 K/uL (0.00-0.20); Basophils % (auto) 0.7 %; Hematocrit (blood only) 38.1 % (37.0-47.0); Immature Granulocytes # (auto) 0.02 K/uL (0.01-0.20); Immature Granulocytes % (auto) 0.3 %; Lymphocytes # (auto) 2.29 K/uL (1.20-3.40); Lymphocytes % (auto) 37.8 %; Mean Corpuscular Hgb Conc 34.1 g/dL (32.0-36.0); Mean Corpuscular Volume 93.8 fL (80.0-100.0); Mean Platelet Volume 9.5 fL (9.4-12.4); Monocytes # (auto) 0.67 K/uL (0.11-0.59); Monocytes % (auto) 11.1 %; Neutrophils # (auto) 2.74 K/uL (1.40-6.50); Neutrophils % (auto) 45.1 %; Platelet Count 210 K/uL (130-400); RDW Coefficient of Variation 13.2 % (11.5-14.5); RDW Standard Deviation 45.6 fL (36.4-46.3); Red Blood Count 4.06 M/uL (4.20-5.40); White Blood Count 6.06 K/ul (4.8-10.8)
[2025-01-05 04:57] LABS: BUN Creatinine Ratio 14.9 (10-20); Calcium 8.9 mg/dl (8.6-10.3); Creatinine Clr Calc Pharmacy 80.5 ml/min; Magnesium 1.9 mg/dl (1.7-2.4); Phosphorus 3.4 mg/dl (2.5-4.9)
[2025-01-05 05:42] VITALS: RESP 18
[2025-01-05 07:43] VITALS: BP 132/75; TEMP 97.7; O2SAT 94
[2025-01-05] MEDS: ASPIRIN 81 MG ECTAB PO SCH (09:14)
[2025-01-05] MEDS: FLUoxetine HCL 20 MG CAP PO SCH (09:14)
[2025-01-05 09:45] VITALS: PULSE 79
--- NOTE | 2025-01-05 12:05 | Discharge Summary ---
Date of Service January 05, 2025 Admission HPI Per Admitting Provider Patient is a 59-year-old female with past medical history of anxiety, depression, hypothyroidism, thyroid nodule, hyperhomocystinemia, bradycardia, PE secondary to COVID-19 infection in Oct 2021, and migraine headaches. She has had a history of hemiplegic migraines which have been described as left facial droop, left hemiparesis, and slurring of speech. She presents to the hospital with slurred speech and facial droop. Patient states that this afternoon she started to have a migraine with vertigo, slurred speech, and weakness. States that this was worse than her normal migraines that she gets. States that she normally gets an aura with floaters but that did not occur. Though does state that she has been having blurry vision over some time. Patient states that she tried to stand up and fell onto the couch. The symptoms started approximately 4:30 PM. Patient states that she recently has been weaning off Lamictal and started on a new migraine medication. She has not taken Lamictal in a week. P atient symptoms have been waxing and waning since coming into the ED. Telestroke initially stated not to do TNK though patient had symptoms return after telestroke ended and telestroke was redone and started on TNK. At time of admission majority of symptoms have resolved. Admission Exam (Per Admitting) Constitutional The patient is awake, alert and oriented 3, well developed and well nourished, normocephalic and atraumatic, lying in bed and in no acute distress. HEENT--PERRL, EOMI, mucous membranes and oropharynx mildly dry Neck--supple. No JVD. No bruits. Thyroid normal, trachea midline, no adenopathy. Heart--normal S1 and S2. No murmurs, rubs or gallops. Lungs--clear bilaterally, no respiratory distress, no accessory muscle use. Abdomen--normal bowel sounds and soft. Extremities--no cyanosis or clubbing. No edema. Dermatologic--normal skin turgor, normal color, no abnormal lymph nodes, no rash. Neurologic--cranial nerves II through XII grossly intact. Rheumatologic--normal range of motion. Psychiatric--normal affect. Discharge Data Consultations 01/03/25 20:23 ED Decision to Admit Stat 01/03/25 23:11 Consult [employer] Routine Consult Neurology Routine Hospital Course (1) Hemiplegic migraine: Most likely the reason for her presentation of slurred speech, facila droop Now resolved patient has a hx of heiplegic migraines in the past was on lamotrigine, which seemed to have controlled her symproms, however, lamotrigine has been weaned off by her neurologist Seen by Dr Jose Villagomez, who suggests reinstitution og her lamotrigine, but will defer to her neurologist MRI brain did noty shows any acute stroke Received TPK yesterday Will repeat CT head 24 hrs after per protocol (2) Morbid (severe) obesity due to excess calories: Morbid obesity with BMI 44.7 Plan Likely d/c home in the next 24 hrs Coding Level of Care Code 54719 INP/OBS DISCH >30 MIN Diagnoses Hemiplegic migraine G43.409 Morbid (severe) obesity due to excess calories E66.01 Time Spent (min) 35
[2025-01-05] MEDS ORDERED: FAMOTIDINE 40 MG TABLET PO SCH (21:00)
[2025-01-05] MEDS ORDERED: ATORVASTATIN 40 MG TAB PO SCH (21:00)
--- NOTE | 2025-01-05 21:42 | Electrocardiogram Report ---
Test Reason : Blood Pressure : */* mmHG Vent. Rate : 46 BPM Atrial Rate : 46 BPM P-R Int : 166 ms QRS Dur : 80 ms QT Int : 492 ms P-R-T Axes : * -2 -1 degrees QTcB Int : 430 ms Sinus bradycardia Minimal voltage criteria for LVH, may be normal variant ( R in aVL ) Borderline ECG When compared with ECG of 04-Jan-2024 06:02, No significant change was found Confirmed by Ramón Hernandez ([id number] on 01/05/2025 9:42:34 PM Referred By: REFERRED SELF Confirmed By: Ramón Hernandez
== END 2025-01-05 10:15 | disposition home or self-care (01) | DRG 103 ==
LOC: ED 17:23 → SUATTDRO 20:48 → 1E 20:48 → 2S 01-05 06:06